=== PATIENT | female | born 1945 | race Caucasian/White ===

== ENCOUNTER 2016-09-04 13:39 | Inpatient (IN) | payer BC, OTHER ==
[~2016-09-04] VITALS: Ht 172.7 cm; Wt 139.0 kg
[~2016-09-04 13:39] MED LIST: ABL/5 PO; ANF50 PO; ASPI1TAB48 PO; ATOR-22 PO; CRG125 PO; FURO80TA63 PO; IBUP-103 PO; LAMO200T38 PO; LXP/20 PO; MULT-506 PO; MYS50 PO; NITR-5 PO; POTA20TA16 PO; PROP80TA2 PO; TOPI200T20 PO
[2016-09-04] MEDS ORDERED: SODIUM CHLORIDE 0.9% 250ML 250 ML IV STA (14:45)
[2016-09-04 15:49] LABS: HEMATOCRIT 33.7 % (37-47); MEAN CELL VOLUME 95.7 fL (80-100); MEAN CORPUSCULAR HEMOGLOBIN 32.1 pg (25-34); MEAN CORPUSCULAR HGB CONC 33.5 g/dl (32-36); MEAN PLATELET VOLUME 9.4 fL (7.4-10.4); PLATELET COUNT 159 K/uL (130-400); RED BLOOD COUNT 3.52 M/uL (4.2-5.4); WHITE BLOOD COUNT 5.57 K/uL (4.8-10.8)
--- NOTE | 2016-09-04 15:53 | DIAGNOSTIC IMAGING REPORT ---
CHEST 2 VIEWS ROUTINE HISTORY: EVALUATE RESPIRATORY DISTRESS.DYSPNEA COMPARISON: Chest 02/13/2016. FINDINGS: The heart remains enlarged. Poststernotomy changes. A few linear densities within the left lung base remain unchanged and likely represents scarring or atelectasis. No pneumothorax. No pleural effusions. Tortuous thoracic aorta, unchanged. Greater than expected lucency at the mediastinum. This raises the possibility of pneumomediastinum. Mild pulmonary vascular congestion without overt edema, unchanged. IMPRESSION: 1. Greater than expected lucency within the mediastinum concerning for pneumomediastinum. Chest CT is recommended for further evaluation. 2. Stable cardiomegaly and mild pulmonary vascular congestion. Electronically signed by: Jeromy Yu M.D. 09/04/2016 3:51 PM Dictated Date/Time: 09/04/2016 3:48 PM
[2016-09-04 16:10] LABS: BUN/CREATININE RATIO 16.9 (10-20); CALCIUM 7.8 mg/dl (8.5-10.1); CREATININE 0.84 mg/dl (0.60-1.20); POTASSIUM 4.2 mmol/L (3.5-5.1)
[2016-09-04 16:11] LABS: BASO % 0.2 %; BASO ABS # 0.01 K/uL (0-0.2); COMPLETE YES; IG% 0.5 %; LYMPH % 20.3 %; LYMPH ABS # 1.13 K/uL (1.2-3.4); MONO % 7.5 %; NEUT % 69.5 %
[2016-09-04 16:17] LABS: ALB/GLOB RATIO 0.8 (0.9-2)
[2016-09-04] MEDS ORDERED: PIPERACILLIN/TAZOBACTAM 4.5 GM/100ML D5W IV STA (16:38)
[2016-09-04 16:47] LABS: URINE APPEARANCE CLOUDY (CLEAR); URINE BILIRUBIN NEG (NEG); URINE COLOR YELLOW; URINE EPITHELIAL CELL AUTO 20-30 /lpf (0-5); URINE NITRITE NEG (NEG); URINE PH 7.5 (4.5-7.5); URINE SPECIFIC GRAVITY 1.012 (1.000-1.030); UROBILINOGEN NEG (NEG)
--- NOTE | 2016-09-04 16:47 | DIAGNOSTIC IMAGING REPORT ---
CT SCAN OF THE CHEST WITHOUT IV CONTRAST CLINICAL HISTORY: Abnormal chest x-ray. Questioned pneumomediastinum. COMPARISON STUDY: Chest x-ray dated 09/04/2016. Chest CT dated 12/25/2014. TECHNIQUE: CT scan of the thorax was performed from the thoracic inlet to the upper abdomen. Images are reviewed in the axial, sagittal, and coronal planes. IV contrast was not administered for this examination as per the referring clinician. The examination is severely degraded by large body habitus, and by streak artifact from the body wall abutting the CT gantry. Examination is also by streak artifact from the patient's arms which could not be elevated above the chest as well as motion artifact. CT DOSE: 1358.95 mGy.cm FINDINGS: Thyroid: Imaged portions of the thyroid gland are normal in size and attenuation. Esophagus: The esophagus is distended and filled with debris to the level of the thoracic inlet. Thoracic aorta: There is mild atherosclerotic calcification of the thoracic aorta, which is normal in caliber and demonstrates standard 3-vessel arch anatomy. Heart: The heart is enlarged and without pericardial effusion. There is diminished attenuation of the cardiac blood pool as compared to the myocardium suggesting anemia. The main pulmonary arteries are dilated suggesting pulmonary artery hypertension. Lungs and pleural spaces: Scarring versus atelectasis is present at both lung bases. There is no airspace consolidation to suggest pneumonia and no pleural effusion is identified. The trachea and central airways Are clear. Mediastinum: There is no mediastinal lymphadenopathy. There is no pneumomediastinum is clinically queried. Eleni: Not well assessed without IV contrast. Axillae: There is no axillary lymphadenopathy. Upper abdomen: There is a moderate hiatal hernia. The liver is enlarged and steatotic. The spleen is enlarged, measuring 13.5 cm in length. Numerous calcified gallstones are identified. Skeletal structures: The skeletal structures are osteopenic. Spondylotic change is noted throughout the thoracic spine. Arthritic change is also seen in the shoulders. No lytic or blastic bony lesions are seen. Soft tissues: There is a 2.0 cm dermal lesion located in the inferior right breast is seen image #231. IMPRESSION: 1. Significantly motion and streak artifact degraded examination as above. 2. The esophagus is distended and filled with debris to the level of the thoracic inlet. This corresponds to the abnormality seen by x-ray. Note that this may place the patient risk for aspiration. 3. No pneumomediastinum is identified. 4. Cardiomegaly with evidence of pulmonary artery hypertension. 5. There is no airspace consolidation typical for pneumonia or pleural effusion. Bibasilar scarring and atelectasis are noted. 6. A 2.0 cm dermal lesion is located in the inferior right breast. This likely represents a sebaceous cyst. Correlation with physical examination findings is recommended. Nonemergent follow-up with mammography is recommended if not recently performed. 7. Hepatic steatosis, cholelithiasis, and splenomegaly are identified in the upper abdomen. 8. Additional findings as above. Electronically signed by: Eduardo Liao M.D. 09/04/2016 4:45 PM Dictated Date/Time: 09/04/2016 4:37 PM
[2016-09-04 16:54] LABS: REVIEW REQ? YES
[2016-09-04 16:55] LABS: MANUAL MICROSCOPIC REQUIRED? NO
[2016-09-04] MEDS ORDERED: VANCOMYCIN INJ 2,000 MG in SODIUM CHLORIDE 0.9% 500ML 500 ML IV STA (17:19)
[2016-09-04] MEDS ORDERED: ONDANSETRON INJ 2 MG/ML 2 ML VIAL IV PRN (17:30)
--- NOTE | 2016-09-04 18:20 | EMERGENCY ROOM VISIT NOTE ---
History Report prepared by Lili: Megan Garcia Under the Supervision of: Dr. Juan Carlos Do D.O. First contact with patient: 14:27 Chief Complaint: CHOKING Stated Complaint: CHOKING Nursing Triage Summary: Had choking episode at home. Five mintues after lunch patient had choking with lips turning blue. called EMS. Upon EMS arrival patient was awake and alert. Patient transported BLS. History of Present Illness The patient is a 71 year old female who presents to the Emergency Room with complaints of persistent SOB starting at 1300 today. When the patient eats pasta , she sometimes experiences some SOB. Usually she can resolve this SOB by vomiting, but today she was unable to vomit. After she ate the pasta she started to get abdominal pain. She tried to vomit, but was unable to. She began wheezing and her lips began to turn blue. The pasta did not get stuck in her throat. She did not pass out. Her called EMS and she was put on oxygen. Patient denies any chest pain. Source of History: patient Onset: 1300 Position: other (global) Quality: other (SOB) Timing: other (persistent) Associated Symptoms: No vomiting Review of Systems 10 review of systems was reviewed. Past Medical & Surgical Medical Problems: (1) Depression (2) Diabetes (3) Hypertension (4) Hypoxia (5) LUMBAR DISC DISPLACEMENT (6) Obstruction of esophagus due to food impaction (7) OCD (obsessive compulsive disorder) (8) Pulmonary emboli (9) Respiratory failure (10) Tremor Surgical Problems: (1) History of embolectomy Family History No pertinent family history Social History Smoking Status: Never Smoker Alcohol Use: none Drug Use: none Marital Status: Housing Status: lives with significant other Current/Historical Medications Scheduled Aripiprazole (Abilify), 5 MG PO QAM Aspirin (Aspirin Low Dose), 81 MG PO DAILY Atorvastatin (Lipitor), 1 TAB PO HS Carvedilol (Carvedilol), 12.5 MG PO BID Clomipramine Hcl (Anafranil), 200 MG PO QPM Escitalopram Oxalate (Escitalopram Oxalate), 20 MG PO DAILY Furosemide (Lasix), 1 TAB PO BID Lamotrigine (Lamictal), 200 MG PO BID Multivitamin (Multivitamin), 1 TAB PO DAILY Potassium Ext Rel (Klor-Con), 20 MEQ PO BID Primidone (Primidone), 50 MG PO BID Propranolol (Inderal), 160 MG PO DAILY Topiramate (Topamax), 200 MG PO BID Scheduled PRN Ibuprofen Tab (Advil), 200-600 MG PO Q4H PRN for Pain Allergies Coded Allergies: No Known Allergies (Unverified , 09/04/16) Physical Exam Vital Signs Date Time Temp Pulse Resp B/P Pulse Ox O2 Delivery O2 Flow Rate FiO2 09/04/16 17:29 70 16 123/76 95 Nasal Cannula 3.0 09/04/16 15:05 66 14 127/70 97 Nasal Cannula 2.0 09/04/16 15:04 94 Nasal Cannula 2.0 09/04/16 15:04 94 Nasal Cannula 2.0 09/04/16 13:57 88 Nasal Cannula 2.0 94 09/04/16 13:57 37.6 71 26 162/85 95 Nasal Cannula 2.0 Physical Exam GENERAL: Chronically ill appearing, morbidly obese, on nasal cannula. EYE EXAM: normal conjunctiva, PERRL and EOM's grossly intact OROPHARYNX: no exudate, no erythema, lips, buccal mucosa, and tongue normal and mucous membranes are moist NECK: supple, no nuchal rigidity, no adenopathy, non-tender LUNGS: Diminished at bases. Normal chest wall mechanics HEART: no murmurs, S1 normal and S2 normal ABDOMEN: abdomen soft, non-tender, normo-active bowel sounds, no masses, no rebound or guarding. BACK: Back is symmetrical on inspection and there is no deformity, no midline tenderness, no CVA tenderness. SKIN: no rashes and no bruising UPPER EXTREMITIES: upper extremities are grossly normal. LOWER EXTREMITIES: No pitting edema. NEURO EXAM: Normal sensorium, cranial nerves II-XII grossly intact, normal speech, no gross weakness of arms, no gross weakness of legs. Medical Decision & Procedures ER Provider Diagnostic Interpretation: Xray results as stated below per radiologists and my interpretation. Radiology results as stated below per my review and the radiologist's interpretation: CHEST 2 VIEWS ROUTINE HISTORY: EVALUATE RESPIRATORY DISTRESS.DYSPNEA COMPARISON: Chest 02/13/2016. FINDINGS: The heart remains enlarged. Poststernotomy changes. A few linear densities within the left lung base remain unchanged and likely represents scarring or atelectasis. No pneumothorax. No pleural effusions. Tortuous thoracic aorta, unchanged. Greater than expected lucency at the mediastinum. This raises the possibility of pneumomediastinum. Mild pulmonary vascular congestion without overt edema, unchanged. IMPRESSION: 1. Greater than expected lucency within the mediastinum concerning for pneumomediastinum. Chest CT is recommended for further evaluation. 2. Stable cardiomegaly and mild pulmonary vascular congestion. Electronically signed by: Jeromy Yu M.D. 09/04/2016 3:51 PM Dictated Date/Time: 09/04/2016 3:[address] SCAN OF THE CHEST WITHOUT IV CONTRAST CLINICAL HISTORY: Abnormal chest x-ray. Questioned pneumomediastinum. COMPARISON STUDY: Chest x-ray dated 09/04/2016. Chest CT dated 12/25/2014. TECHNIQUE: CT scan of the thorax was performed from the thoracic inlet to the upper abdomen. Images are reviewed in the axial, sagittal, and coronal planes. IV contrast was not administered for this examination as per the referring clinician. The examination is severely degraded by large body habitus, and by streak artifact from the body wall abutting the CT gantry. Examination is also by streak artifact from the patient's arms which could not be elevated above the chest as well as motion artifact. CT DOSE: 1358.95 mGy.cm FINDINGS: Thyroid: Imaged portions of the thyroid gland are normal in size and attenuation. Esophagus: The esophagus is distended and filled with debris to the level of the thoracic inlet. Thoracic aorta: There is mild atherosclerotic calcification of the thoracic aorta, which is normal in caliber and demonstrates standard 3-vessel arch anatomy. Heart: The heart is enlarged and without pericardial effusion. There is diminished attenuation of the cardiac blood pool as compared to the myocardium suggesting anemia. The main pulmonary arteries are dilated suggesting pulmonary artery hypertension. Lungs and pleural spaces: Scarring versus atelectasis is present at both lung bases. There is no airspace consolidation to suggest pneumonia and no pleural effusion is identified. The trachea and central airways Are clear. Mediastinum: There is no mediastinal lymphadenopathy. There is no pneumomediastinum is clinically queried. Eleni: Not well assessed without IV contrast. Axillae: There is no axillary lymphadenopathy. Upper abdomen: There is a moderate hiatal hernia. The liver is enlarged and steatotic. The spleen is enlarged, measuring 13.5 cm in length. Numerous calcified gallstones are identified. Skeletal structures: The skeletal structures are osteopenic. Spondylotic change is noted throughout the thoracic spine. Arthritic change is also seen in the shoulders. No lytic or blastic bony lesions are seen. Soft tissues: There is a 2.0 cm dermal lesion located in the inferior right breast is seen image #231. IMPRESSION: 1. Significantly motion and streak artifact degraded examination as above. 2. The esophagus is distended and filled with debris to the level of the thoracic inlet. This corresponds to the abnormality seen by x-ray. Note that this may place the patient risk for aspiration. 3. No pneumomediastinum is identified. 4. Cardiomegaly with evidence of pulmonary artery hypertension. 5. There is no airspace consolidation typical for pneumonia or pleural effusion. Bibasilar scarring and atelectasis are noted. 6. A 2.0 cm dermal lesion is located in the inferior right breast. This likely represents a sebaceous cyst. Correlation with physical examination findings is recommended. Nonemergent follow-up with mammography is recommended if not recently performed. 7. Hepatic steatosis, cholelithiasis, and splenomegaly are identified in the upper abdomen. 8. Additional findings as above. Electronically signed by: Eduardo Liao M.D. 09/04/2016 4:45 PM Dictated Date/Time: 09/04/2016 4:37 PM Laboratory Results 09/04/16 15:15 Red Blood Count 3.52, Mean Corpuscular Volume 95.7, Mean Corpuscular Hemoglobin 32.1, Mean Corpuscular Hemoglobin Concent 33.5, Mean Platelet Volume 9.4, Neutrophils (%) (Auto) 69.5, Lymphocytes (%) (Auto) 20.3, Monocytes (%) (Auto) 7.5, Eosinophils (%) (Auto) 2.0, Basophils (%) (Auto) 0.2, Neutrophils # (Auto) 3.87, Lymphocytes # (Auto) 1.13, Monocytes # (Auto) 0.42, Eosinophils # (Auto) 0.11, Basophils # (Auto) 0.01 09/04/16 15:15 Test 09/04/16 15:15 09/04/16 16:20 White Blood Count 5.57 K/uL (4.8-10.8) Red Blood Count 3.52 M/uL (4.2-5.4) Hemoglobin 11.3 g/dL (12.0-16.0) Hematocrit 33.7 % (37-47) Mean Corpuscular Volume 95.7 fL (80-100) Mean Corpuscular Hemoglobin 32.1 pg (25-34) Mean Corpuscular Hemoglobin Concent 33.5 g/dl (32-36) Platelet Count 159 K/uL (130-400) Mean Platelet Volume 9.4 fL (7.4-10.4) Neutrophils (%) (Auto) 69.5 % Lymphocytes (%) (Auto) 20.3 % Monocytes (%) (Auto) 7.5 % Eosinophils (%) (Auto) 2.0 % Basophils (%) (Auto) 0.2 % Neutrophils # (Auto) 3.87 K/uL (1.4-6.5) Lymphocytes # (Auto) 1.13 K/uL (1.2-3.4) Monocytes # (Auto) 0.42 K/uL (0.11-0.59) Eosinophils # (Auto) 0.11 K/uL (0-0.5) Basophils # (Auto) 0.01 K/uL (0-0.2) RDW Standard Deviation 51.7 fL (36.4-46.3) RDW Coefficient of Variation 14.8 % (11.5-14.5) Immature Granulocyte % (Auto) 0.5 % Immature Granulocyte # (Auto) 0.03 K/uL (0.00-0.02) Activated Partial Thromboplast Time 26.8 SECONDS (21.0-31.0) Partial Thromboplastin Ratio 1.0 Anion Gap 6.0 mmol/L (3-11) Est Creatinine Clear Calc Drug Dose 93.7 ml/min Estimated GFR () 80.5 Estimated GFR (Non- 69.4 BUN/Creatinine Ratio 16.9 (10-20) Calcium Level 7.8 mg/dl (8.5-10.1) Total Bilirubin 0.2 mg/dl (0.2-1) Aspartate Amino Transf (AST/SGOT) 16 U/L (15-37) Alanine Aminotransferase (ALT/SGPT) 26 U/L (12-78) Alkaline Phosphatase 100 U/L (45-117) Troponin I 0.058 ng/ml (0-0.045) Total Protein 6.7 gm/dl (6.4-8.2) Albumin 3.0 gm/dl (3.4-5.0) Globulin 3.7 gm/dl (2.5-4.0) Albumin/Globulin Ratio 0.8 (0.9-2) Urine Color YELLOW Urine Appearance CLOUDY (CLEAR) Urine pH 7.5 (4.5-7.5) Urine Specific [place] 1.012 (1.000-1.030) Urine Protein NEG (NEG) Urine Glucose (UA) NEG (NEG) Urine Ketones NEG (NEG) Urine Occult Blood NEG (NEG) Urine Nitrite NEG (NEG) Urine Bilirubin NEG (NEG) Urine Urobilinogen NEG (NEG) Urine Leukocyte Esterase NEG (NEG) Urine WBC (Auto) 1-5 /hpf (0-5) Urine RBC (Auto) 0-4 /hpf (0-4) Urine Hyaline Casts (Auto) 0 /lpf (0-5) Urine Epithelial Cells (Auto) 20-30 /lpf (0-5) Urine Bacteria (Auto) NEG (NEG) Urine Crystals TALC (NONE PRSENT) Laboratory results per my review. Medications Administered Medications (Trade) Dose Ordered Sig/Josee Route Start Time Stop Time Status Last Admin Dose Admin Sodium Chloride (Nss 250ml) 250 ml @ 999 mls/hr Q16M STAT IV 09/04/16 14:45 09/04/16 15:00 DC 09/04/16 15:18 999 MLS/HR Piperacillin Sod/ Tazobactam Sod (Zosyn Iv) 4.5 gm NOW STAT IV 09/04/16 16:38 09/04/16 16:40 DC 09/04/16 17:32 4.5 GM ECG Indication: SOB/dyspnea Rate (beats per minute): 66 Rhythm: atrial fibrillation Findings: nonspecific-ST abn (Septal), other (normal axis) Comparison ECG Date: 13-Feb-2016 Change: A fib is new. ED Course ED COURSE: Vital signs were reviewed and showed hypertension and hypoxia. The patients medical record was reviewed The above diagnostic studies were performed and reviewed. ED treatments and interventions as stated above. 1434: The patient was evaluated in room A6. A complete history and physical examination was performed. 1445: NSS 250 ml @ 999 mls/hr IV. 1638: Zosyn Iv 4.5 gm IV. 1650: I discussed the patient's case with Dr. Fernandes [facility] [place] - hospitalist. He will evaluate the patient for further management. 1655: Upon reevaluation, the patient is resting comfortably.I discussed my findings with the patient and she understands and agrees with the treatment plan. Based on the patients age, coexisting illnesses, exam and lab findings the decision to treat as an inpatient was made. The patient remained stable while under my care. The patient will be evaluated for further management. 1718: I discussed the patient's case with Gt Gan. He says that the patient should keep her head elevated and let her pass it on her own. Medical Decision Differential diagnoses includes but is not limited to pneumonia, bronchitis, COPD/Asthma exacerbation, pneumothorax, pulmonary embolism, congestive heart failure, acute coronary syndrome Patient is a 71-year-old female who presents the ER following eating when she had nausea and felt short of breath. At this time she tried to vomit and her lips turned blue per . She notes this has happened before. CBC was unremarkable. BMP was unremarkable the troponin was elevated at 0.05. EKG was nondiagnostic. Bilirubin and LFTs were normal. UA was negative. Chest x-ray showed questionable pneumomediastinum and consequently a CT of the chest was performed which showed dilated and fluid-filled esophagus. It also suggests that she is likely aspirating. Vitals are remarkable for hypoxia. Patient was given Zosyn and vancomycin. I favor the elevated troponin is likely demand related. I discussed case with GI and they recommended allowing her to pass the food on her own with head of bed elevated. Discussed case with internal medicine patient was admitted for further workup for her esophageal dysmotility causing her aspiration and hypoxia. Consults Time Called: 164 Consulting Physician: Dr. Fernandes [facility] [place] - hospitalist Returned Call: 1650 I reviewed the patient's case with him. He will evaluate the patient for further management. Additional Consults: Time Called: 1710 Consulted Physician: Gt Gan Returned Call: [phone] Additional Comments: I reviewed the patient's case with him. He says that the patient should keep her head elevated and let her pass it on her own. Impression Primary Impression: Aspiration of food Additional Impressions: Esophageal foreign body Elevated troponin Scribe Attestation The scribe's documentation has been prepared under my direction and personally reviewed by me in its entirety. I confirm that the note above accurately reflects all work, treatment, procedures, and medical decision making performed by me. Departure Information Dispostion Being Evaluated By Hospitalist Referrals Matilde Falcon DO (PCP) Patient Instructions My [facility] Problem Qualifiers Primary Impression: Aspiration of food Encounter type: initial encounter Qualified Codes: T17.890A - Other foreign object in other parts of respiratory tract causing asphyxiation, initial encounter Additional Impressions: Esophageal foreign body Encounter type: initial encounter Qualified Codes: T18.108A - Unspecified foreign body in esophagus causing other injury, initial encounter
[2016-09-04 19:15] VITALS: BP 149/80; PULSE 85; TEMP 36.5; O2SAT 93; Ht 172.7 cm; Wt 139.0 kg
[2016-09-04] MEDS ORDERED: PIPERACILL/TAZOBAC CONSULT ACTIVE PRN (19:45)
[2016-09-04] MEDS ORDERED: VANCOMYCIN CONSULT ACTIVE PRN (19:45)
[2016-09-04 19:59] VITALS: BP 129/76; PULSE 109; TEMP 39.2; O2SAT 96
--- NOTE | 2016-09-04 20:49 | History and Physical ---
History & Physical Date & Time of Service: Sep 04, 2016 at 20:49 Chief Complaint: Hypoxia, Obstruction Of Esophagus Due To Food Primary Care Physician: Matilde Falcon DO History of Present Illness Source: patient, spouse The patient is a 71-year-old female who presents to the emergency department with shortness of breath that began at 1:00 in the afternoon to today prior to arrival. She reports that eating pasta in particular can cause these symptoms, she is usually able to improve the symptoms by vomiting, but which she was unable to vomit today. She then began to wheeze and her lips turned blue, but she did not pass out. Her called EMS, who placed her on oxygen, and brought her to the emergency department Past Medical/Surgical History Medical Problems: (1) Depression Status: Chronic (2) Diabetes Status: Chronic (3) Hypertension Status: Chronic (4) LUMBAR DISC DISPLACEMENT Status: Chronic (5) OCD (obsessive compulsive disorder) Status: Chronic (6) Pulmonary emboli Status: Resolved (7) Tremor Status: Chronic Surgical Problems: (1) History of embolectomy Status: Resolved Family History No pertinent family history Social History Smoking Status: Never Smoker Smokeless Tobacco Use: No Alcohol Use: none Drug Use: none Marital Status: Housing status: lives with family Immunizations History of Influenza Vaccine: No History of Tetanus Vaccine?: Yes History of Pneumococcal: No History of Hepatitis B Vaccine: No Multi-Drug Resistant Organisms History of MDRO: Yes Type of MDRO: MRSA Allergies Coded Allergies: No Known Allergies (Unverified , 09/04/16) Home Medications Scheduled Aripiprazole (Abilify), 5 MG PO QAM Aspirin (Aspirin Low Dose), 81 MG PO DAILY Atorvastatin (Lipitor), 1 TAB PO HS Carvedilol (Carvedilol), 12.5 MG PO BID Clomipramine Hcl (Anafranil), 200 MG PO QPM Escitalopram Oxalate (Escitalopram Oxalate), 20 MG PO DAILY Furosemide (Lasix), 1 TAB PO BID Lamotrigine (Lamictal), 200 MG PO BID Multivitamin (Multivitamin), 1 TAB PO DAILY Potassium Ext Rel (Klor-Con), 20 MEQ PO BID Primidone (Primidone), 50 MG PO BID Propranolol (Inderal), 160 MG PO DAILY Topiramate (Topamax), 200 MG PO BID Scheduled PRN Ibuprofen Tab (Advil), 200-600 MG PO Q4H PRN for Pain Review of Systems The patient denies chest pain, palpitations, lower extremity swelling, vision change, hearing change, fevers, chills, sweats, weight change, fatigue, vomiting, pelvic pain, blood in urine or stool, dysuria, urinary frequency or urgency, headache, memory loss, rash, abnormal bruising or bleeding, imbalance , focal or generalized weakness, numbness or tingling in arms or legs, arthralgias or myalgias, back or neck pain, night sweats, or allergy symptoms. The review of systems is otherwise negative other than for that already noted above, and at least 10 systems have been reviewed. Physical Exam Vital Signs Date Time Temp Pulse Resp B/P Pulse Ox O2 Delivery O2 Flow Rate FiO2 09/04/16 19:59 39.2 109 129/76 96 Room Air 09/04/16 18:29 103 27 141/68 94 Nasal Cannula 3.0 09/04/16 17:29 70 16 123/76 95 Nasal Cannula 3.0 09/04/16 15:05 66 14 127/70 97 Nasal Cannula 2.0 09/04/16 15:04 94 Nasal Cannula 2.0 09/04/16 15:04 94 Nasal Cannula 2.0 09/04/16 13:57 88 Nasal Cannula 2.0 94 09/04/16 13:57 37.6 71 26 162/85 95 Nasal Cannula 2.0 The patient is awake, alert and oriented 3, normocephalic and atraumatic, lying in bed and in no acute distress. HEENT--PERRL, EOMI, mucous membranes and oropharynx dry. Neck--supple, no JVD or bruits, thyroid normal, trachea midline, no adenopathy. Heart--normal S1 and S2, no extra beats, no murmurs, rubs or gallops. Lungs--diminished throughout. No respiratory distress, no accessory muscle use. Abdomen--normal bowel sounds and soft, nontender and nondistended, no hernias or masses, no organomegaly. Extremities--no cyanosis, clubbing or edema. There are good distal pulses b/l. Dermatologic--normal skin turgor, normal color, warm and dry, no abnormal lymph nodes, no rash. Neurologic--cranial nerves II through XII grossly intact, motor and sensory examination normal. Rheumatologic--normal range of motion, nontender, muscles and joints. Psychiatric--normal affect. Diagnostics Laboratory Results Results Past 24 Hours Test 09/04/16 15:15 09/04/16 16:20 Range/Units White Blood Count 5.57 4.8-10.8 K/uL Red Blood Count 3.52 4.2-5.4 M/uL Hemoglobin 11.3 12.0-16.0 g/dL Hematocrit 33.7 37-47 % Mean Corpuscular Volume 95.7 80-100 fL Mean Corpuscular Hemoglobin 32.1 25-34 pg Mean Corpuscular Hemoglobin Concent 33.5 32-36 g/dl Platelet Count 159 130-400 K/uL Mean Platelet Volume 9.4 7.4-10.4 fL Neutrophils (%) (Auto) 69.5 % Lymphocytes (%) (Auto) 20.3 % Monocytes (%) (Auto) 7.5 % Eosinophils (%) (Auto) 2.0 % Basophils (%) (Auto) 0.2 % Neutrophils # (Auto) 3.87 1.4-6.5 K/uL Lymphocytes # (Auto) 1.13 1.2-3.4 K/uL Monocytes # (Auto) 0.42 0.11-0.59 K/uL Eosinophils # (Auto) 0.11 0-0.5 K/uL Basophils # (Auto) 0.01 0-0.2 K/uL RDW Standard Deviation 51.7 36.4-46.3 fL RDW Coefficient of Variation 14.8 11.5-14.5 % Immature Granulocyte % (Auto) 0.5 % Immature Granulocyte # (Auto) 0.03 0.00-0.02 K/uL Activated Partial Thromboplast Time 26.8 21.0-31.0 SECONDS Partial Thromboplastin Ratio 1.0 Sodium Level 144 136-145 mmol/L Potassium Level 4.2 3.5-5.1 mmol/L Chloride Level 110 98-107 mmol/L Carbon Dioxide Level 28 21-32 mmol/L Anion Gap 6.0 3-11 mmol/L Blood Urea Nitrogen 14 7-18 mg/dl Creatinine 0.84 0.60-1.20 mg/dl Est Creatinine Clear Calc Drug Dose 93.7 ml/min Estimated GFR () 80.5 Estimated GFR (Non- 69.4 BUN/Creatinine Ratio 16.9 10-20 Random Glucose 126 70-99 mg/dl Calcium Level 7.8 8.5-10.1 mg/dl Total Bilirubin 0.2 0.2-1 mg/dl Aspartate Amino Transf (AST/SGOT) 16 15-37 U/L Alanine Aminotransferase (ALT/SGPT) 26 12-78 U/L Alkaline Phosphatase 100 45-117 U/L Troponin I 0.058 0-0.045 ng/ml Total Protein 6.7 6.4-8.2 gm/dl Albumin 3.0 3.4-5.0 gm/dl Globulin 3.7 2.5-4.0 gm/dl Albumin/Globulin Ratio 0.8 0.9-2 Urine Color YELLOW Urine Appearance CLOUDY CLEAR Urine pH 7.5 4.5-7.5 Urine Specific Blair 1.012 1.000-1.030 Urine Protein NEG NEG Urine Glucose (UA) NEG NEG Urine Ketones NEG NEG Urine Occult Blood NEG NEG Urine Nitrite NEG NEG Urine Bilirubin NEG NEG Urine Urobilinogen NEG NEG Urine Leukocyte Esterase NEG NEG Urine WBC (Auto) 1-5 0-5 /hpf Urine RBC (Auto) 0-4 0-4 /hpf Urine Hyaline Casts (Auto) 0 0-5 /lpf Urine Epithelial Cells (Auto) 20-30 0-5 /lpf Urine Bacteria (Auto) NEG NEG Urine Crystals TALC NONE PRSENT Diagnostic Radiology Patient Name: HEMA ABRAMS Unit Number: [id number] Dictated: 09/04/161547 Transcribed: 09/04/161547 [employer] Printed Date/Time: [~ rep prt dt]/[~ rep prt tm] [~ rep ct labl] - [~ rep ct ivnm] [facility] [place] [address] Dictated: 09/04/161547 Transcribed: 09/04/161547 [employer] Printed Date/Time: [~ rep prt dt]/[~ rep prt tm] [~ rep ct labl] - [~ rep ct ivnm] HISTORY: EVALUATE RESPIRATORY DISTRESS.DYSPNEA COMPARISON: Chest 02/13/2016. FINDINGS: The heart remains enlarged. Poststernotomy changes. A few linear densities within the left lung base remain unchanged and likely represents scarring or atelectasis. No pneumothorax. No pleural effusions. Tortuous thoracic aorta, unchanged. Greater than expected lucency at the mediastinum. This raises the possibility of pneumomediastinum. Mild pulmonary vascular congestion without overt edema, unchanged. IMPRESSION: 1. Greater than expected lucency within the mediastinum concerning for pneumomediastinum. Chest CT is recommended for further evaluation. 2. Stable cardiomegaly and mild pulmonary vascular congestion. Electronically signed by: Jeromy Yu M.D. 09/04/2016 3:51 PM Dictated Date/Time: 09/04/2016 3:48 PM The status of this report is Signed. Draft = Not yet reviewed or approved by Radiologist. Signed = Reviewed and approved by Radiologist. <AttendingPhy></AttendingPhy> <FamilyPhy>Matilde Falcon, DO</FamilyPhy> < PrimaryPhy>Matilde Falcon, DO</PrimaryPhy> <UnitNumber>[id number]</UnitNumber > <VisitNumber>[id number]</VisitNumber> <PatientName>JOSE ALBERTOHEMA</ PatientName> <DateOfBirth>1945</DateOfBirth> <Location>[facility]</Location> < ServiceDate>09/04/16</ServiceDate> <MNE>ESINDI</MNE> <OrderingPhy>Juan Carlos Do DO</OrderingPhy> <OrderingPhyMNE>f rep ord dr mcclain</OrderingPhyMNE> < DictatingPhyMNE>f rep dict dr mcclain</DictatingPhyMNE> <CCListMNE>f rep ct faheeme</ CCListMNE> <AdmittingPhyMNE>f pt admit dr mcclain</AdmittingPhyMNE> <AttendingPhyMNE >f pt attend dr mcclain</AttendingPhyMNE> <ConsultingPhyMNE>f pt consult dr mcclain</ConsultingPhyMNE> <FamilyPhyMNE>f pt fam dr mcclain</FamilyPhyMNE> <OtherPhyMNE>f pt other dr mcclain</OtherPhyMNE> < PrimaryPhyMNE>f pt prim care dr mcclain</PrimaryPhyMNE> <ReferringPhyMNE>f pt referring dr mcclain</ReferringPhyMNE> Patient Name: HEMA ABRAMS Unit Number: [id number] Dictated: 09/04/161636 Transcribed: 09/04/161636 EV Printed Date/Time: [~ rep prt dt]/[~ rep prt tm] [~ rep ct labl] - [~ rep ct ivnm] [facility] [place] [address] Dictated: 09/04/161636 Transcribed: 09/04/161636 EV Printed Date/Time: [~ rep prt dt]/[~ rep prt tm] [~ rep ct labl] - [~ rep ct ivnm] CT SCAN OF THE CHEST WITHOUT IV CONTRAST CLINICAL HISTORY: Abnormal chest x-ray. Questioned pneumomediastinum. COMPARISON STUDY: Chest x-ray dated 09/04/2016. Chest CT dated 12/25/2014. TECHNIQUE: CT scan of the thorax was performed from the thoracic inlet to the upper abdomen. Images are reviewed in the axial, sagittal, and coronal planes. IV contrast was not administered for this examination as per the referring clinician. The examination is severely degraded by large body habitus, and by streak artifact from the body wall abutting the CT gantry. Examination is also by streak artifact from the patient's arms which could not be elevated above the chest as well as motion artifact. CT DOSE: 1358.95 mGy.cm FINDINGS: Thyroid: Imaged portions of the thyroid gland are normal in size and attenuation. Esophagus: The esophagus is distended and filled with debris to the level of the thoracic inlet. Thoracic aorta: There is mild atherosclerotic calcification of the thoracic aorta, which is normal in caliber and demonstrates standard 3-vessel arch anatomy. Heart: The heart is enlarged and without pericardial effusion. There is diminished attenuation of the cardiac blood pool as compared to the myocardium suggesting anemia. The main pulmonary arteries are dilated suggesting pulmonary artery hypertension. Lungs and pleural spaces: Scarring versus atelectasis is present at both lung bases. There is no airspace consolidation to suggest pneumonia and no pleural effusion is identified. The trachea and central airways Are clear. Mediastinum: There is no mediastinal lymphadenopathy. There is no pneumomediastinum is clinically queried. Eleni: Not well assessed without IV contrast. Axillae: There is no axillary lymphadenopathy. Upper abdomen: There is a moderate hiatal hernia. The liver is enlarged and steatotic. The spleen is enlarged, measuring 13.5 cm in length. Numerous calcified gallstones are identified. Skeletal structures: The skeletal structures are osteopenic. Spondylotic change is noted throughout the thoracic spine. Arthritic change is also seen in the shoulders. No lytic or blastic bony lesions are seen. Soft tissues: There is a 2.0 cm dermal lesion located in the inferior right breast is seen image #231. IMPRESSION: 1. Significantly motion and streak artifact degraded examination as above. 2. The esophagus is distended and filled with debris to the level of the thoracic inlet. This corresponds to the abnormality seen by x-ray. Note that this may place the patient risk for aspiration. 3. No pneumomediastinum is identified. 4. Cardiomegaly with evidence of pulmonary artery hypertension. 5. There is no airspace consolidation typical for pneumonia or pleural effusion. Bibasilar scarring and atelectasis are noted. 6. A 2.0 cm dermal lesion is located in the inferior right breast. This likely represents a sebaceous cyst. Correlation with physical examination findings is recommended. Nonemergent follow-up with mammography is recommended if not recently performed. 7. Hepatic steatosis, cholelithiasis, and splenomegaly are identified in the upper abdomen. 8. Additional findings as above. Electronically signed by: Eduardo Liao M.D. 09/04/2016 4:45 PM Dictated Date/Time: 09/04/2016 4:37 PM The status of this report is Signed. Draft = Not yet reviewed or approved by Radiologist. Signed = Reviewed and approved by Radiologist. <AttendingPhy></AttendingPhy> <FamilyPhy>Matilde Falcon, DO</FamilyPhy> < PrimaryPhy>Matilde Falcon, DO</PrimaryPhy> <UnitNumber>[id number]</UnitNumber > <VisitNumber>[id number]</VisitNumber> <PatientName>HEMA ABRAMS</ PatientName> <DateOfBirth>1945</DateOfBirth> <Location>[facility]</Location> < ServiceDate>09/04/16</ServiceDate> <MNE>ESINDI</MNE> <OrderingPhy>Juan Carlos Do DO</OrderingPhy> <OrderingPhyMNE>f rep ord dr mcclain</OrderingPhyMNE> < DictatingPhyMNE>f rep dict dr mcclain</DictatingPhyMNE> <CCListMNE>f rep ct mne</ CCListMNE> <AdmittingPhyMNE>f pt admit dr mcclain</AdmittingPhyMNE> <AttendingPhyMNE >f pt attend dr mcclain</AttendingPhyMNE> <ConsultingPhyMNE>f pt consult dr mccalin</ConsultingPhyMNE> <FamilyPhyMNE>f pt fam dr mcclain</FamilyPhyMNE> <OtherPhyMNE>f pt other dr mcclain</OtherPhyMNE> < PrimaryPhyMNE>f pt prim care dr mcclain</PrimaryPhyMNE> <ReferringPhyMNE>f pt referring dr mcclain</ReferringPhyMNE> EKG EKG shows atrial fibrillation at 66 bpm, nonspecific ST-T changes. These findings replaced atrial flutter in the past. Impression Assessment and Plan Esophageal obstruction secondary to food impaction with risk of aspiration pneumonia--the patient will be admitted to telemetry unit for close oxygen monitoring. Dr. Peres from gastroenterology has been consulted by the emergency department, and has reported that he was see the patient in the a.m. for possible EGD. Patient will be kept nothing by mouth and placed on IV fluids. She'll be started on vancomycin IV and Zosyn IV for the high potential of aspiration pneumonia, as she does have temperature 37.[address] on Protonix 40 mg IV daily and Zofran 4 mg IV every 6 hours when necessary. Atrial fibrillation/Elevated troponin--she'll be admitted to the telemetry unit for serial cardiac enzymes, cardiac rhythm monitoring and a 2-D echocardiogram with Dopplers. Hold aspirin, carvedilol, furosemide, potassium and propranolol. The patient's blood pressure and heart rate are both low at this time, and will not be placed on any when necessary medications. We'll follow serial troponins, the elevation is likely a function of supply demand mismatch. Hypercholesterolemia--hold atorvastatin. Depression--hold Abilify, clomipramine, Lexapro, lamotrigine, primidone and Topamax. If necessary, would add lorazepam 0.5 mg IV every 6 hours when necessary. Level of Care Telemetry Advanced Directives Existing Advance Directive: No Existing Living Will: No Existing Power of Tripe Washer: No Resuscitation Status FULL RESUSCITATION VTE Prophylaxis VTE Risk Assessment Done? Y/N: Yes Risk Level: Moderate Given or contraindicated: SCD's
[2016-09-04] MEDS: NSS + 20MEQ KCL 1000ML 1,000 ML IV SCH (21:01)
--- NOTE | 2016-09-04 21:32 | Pharmacy Progress Note ---
Pharmacy Antibiotic Consult Date of Service: Sep 04, 2016. Pharmacy Dosing Scope Pharmacy is consulted to initiate vancomycin and Zosyn IV dosing therapy, order appropriate labs and adjust drug dose/frequency. Subjective The patient is a 71 year old female admitted on Sep 04, 2016 at 17:15 with hypoxia, obstruction of esophagus due to food. Objective Height (Feet): 5 Height (Inches): 8.00 Weight (Kilograms): 147.800 Lab Results (24hrs): Laboratory Tests Test 09/04/16 15:15 BUN/Creatinine Ratio 16.9 Blood Urea Nitrogen 14 mg/dl Creatinine 0.84 mg/dl White Blood Count 5.57 K/uL Red Blood Count 3.52 M/uL Hemoglobin 11.3 g/dL Hematocrit 33.7 % Mean Corpuscular Volume 95.7 fL Mean Corpuscular Hemoglobin 32.1 pg Mean Corpuscular Hemoglobin Concent 33.5 g/dl Platelet Count 159 K/uL Mean Platelet Volume 9.4 fL Neutrophils (%) (Auto) 69.5 % Lymphocytes (%) (Auto) 20.3 % Monocytes (%) (Auto) 7.5 % Eosinophils (%) (Auto) 2.0 % Basophils (%) (Auto) 0.2 % Neutrophils # (Auto) 3.87 K/uL Lymphocytes # (Auto) 1.13 K/uL Monocytes # (Auto) 0.42 K/uL Eosinophils # (Auto) 0.11 K/uL Basophils # (Auto) 0.01 K/uL Assessment & Plan Patient presents to ER with hypoxia, obstruction of esophagus due to food and is ordered vancomycin and Zosyn for possible aspiration. Vancomycin Loading dose: 2000 mg IV X 1 dose in ER (13.4mg/kg) then: 2000mg IV every 12 hours. Maintenance is started early due to lower loading dose than desired: 13mg/kg vs 25mg/kg. Will monitor pt closely as BMI =~50kg/ m2. and concern for accumulation. Goal trough level estimate: between 15 - 20 mcg/mL. Peak and trough or random level has been ordered for: 09/06 prior to 0200 dose. Zosyn is dosed for obesity: 4.5gm x 1 over 30 min, then 4.5gm extended infusion q 8 hours. Pharmacy will continue to follow and will adjust dose/frequency as necessary. Thank you
[2016-09-04] MEDS: PIPERACILL/TAZOBAC IV 4.5 GM in DEXTROSE 5% 100ML 100 ML IV SCH (22:47)
[2016-09-05] VITALS (8 sets, daily range): BP systolic 116–136; BP diastolic 64–79; PULSE 64–81; TEMP 36.5–37.3; O2SAT 93–100
[2016-09-05 01:42] LABS: CKMB/CK RATIO 2.3 (0-3.0)
[2016-09-05] MEDS ORDERED: VANCOMYCIN INJ 2,000 MG in SODIUM CHLORIDE 0.9% 500ML 500 ML IV SCH (02:00)
[2016-09-05] MEDS: NSS + 20MEQ KCL 1000ML 1,000 ML IV SCH ×2 (05:20→15:05)
[2016-09-05] MEDS: PIPERACILL/TAZOBAC IV 4.5 GM in DEXTROSE 5% 100ML 100 ML IV SCH ×3 (05:53→20:53)
[2016-09-05 06:00] LABS: BASO % 0.2 %; BASO ABS # 0.01 K/uL (0-0.2); COMPLETE YES; EOS % 1.9 %; HEMATOCRIT 35.7 % (37-47); IG% 0.2 %; LYMPH % 21.5 %; LYMPH ABS # 1.12 K/uL (1.2-3.4); MEAN CELL VOLUME 98.3 fL (80-100); MEAN CORPUSCULAR HGB CONC 32.5 g/dl (32-36); MEAN PLATELET VOLUME 9.5 fL (7.4-10.4); MONO % 6.7 %; NEUT % 69.5 %; PLATELET COUNT 163 K/uL (130-400); RED BLOOD COUNT 3.63 M/uL (4.2-5.4); WHITE BLOOD COUNT 5.22 K/uL (4.8-10.8)
[2016-09-05 06:22] LABS: CREATININE 0.8 mg/dl (0.60-1.20); MAGNESIUM 2.1 mg/dl (1.8-2.4)
[2016-09-05] MEDS: PANTOprazole INJ 40 MG in SYRINGE 0 ML IV SCH (09:48)
[2016-09-05 10:09] LABS: CKMB/CK RATIO 2.5 (0-3.0)
--- NOTE | 2016-09-05 13:55 | GASTROINTESTINAL CONSULTATION ---
DATE OF CONSULTATION: 09/05/2016 REFERRED BY: Dr. Fernandes. I was asked by Dr. Fernandes to consult on this woman for evaluation of esophageal dysmotility and abnormal findings of her esophagus. HISTORY OF PRESENT ILLNESS: The patient is a 71-year-old with known severe esophageal dysmotility. She has had a most recent upper endoscopy in 2014. She had an upper GI series as well around that time and both showing hiatal hernia and severe esophageal dysmotility. She presents now because of shortness of breath and what appears to be an episode of apnea. She has a long history of lung disease and pulmonary emboli. She has been seen by Dr. Mitchell in the past as well and because of her severe esophageal dysmotility, she is supposed to be following a very strict diet. One of the things she is not supposed to be eating is pasta and spaghetti but she continues to eat these things and has been very noncompliant with her diet. Upon initial workup in the Emergency Room, she underwent imaging which revealed fluid and debris filled esophagus that was massively dilated. Since being admitted, she has been kept n.p.o. and she actually feels that her symptoms are improving and that she feels that her esophagus is slowly clearing. She had a hospitalization for this last year when I saw her and her symptoms resolved on their own with a restricted diet. PAST MEDICAL HISTORY: I reviewed her medical records and past medical history and her past medical history is significant for what is already mentioned as well as depression, diabetes, hypertension. She has OCD, history of pulmonary emboli. SOCIAL HISTORY: Significant for no active smoking or drinking. FAMILY HISTORY: She denies any family history of gastrointestinal disease. ALLERGIES: She denies any drug allergies. OUTPATIENT MEDICATIONS: Include Abilify, aspirin, Lipitor, carvedilol, Anafranil, escitalopram, Lasix, Lamictal, primidone, propranolol, Topamax and vitamins. REVIEW OF SYSTEMS: As above, otherwise she denies any exertional chest pain or palpitations. She has had no vision or hearing changes. She denies any fevers. She denies any skin rashes or icterus. She has had no blood in her stools or urine. She denies any seizure activity, change in mood. She has had no imbalance. She denies any new muscle aches or pains. She denies any dysuria. She denies any heat or cold intolerance. No joint swelling. PHYSICAL EXAMINATION: GENERAL: She is an overweight woman, lying in bed on oxygen. VITAL SIGNS: Her most recent temperature is 36.8, blood pressure is 132/70, pulse is 65. SKIN: Anicteric. EYES: Show anicteric sclerae. MOUTH: Clear of lesions. CHEST: Diffuse scattered rhonchi. HEART: Regular rate and rhythm. ABDOMEN: Obese but nontender with good bowel sounds. There are no obvious masses or rebound tenderness. EXTREMITIES: Warm with fair distal pulses. NEUROLOGIC: She is alert and oriented and grossly intact. LABORATORY DATA: Reveal a white blood cell count of 5.2, hemoglobin of 11.6 and a platelet count of 163,000. Imaging again revealed on chest CT, distended and debris filled esophagus, cardiomegaly with pulmonary artery hypertension. IMPRESSION: A 71-year-old woman at high risk for endoscopy who has a long history of esophageal dysmotility and hiatal hernia. I think at this point the safest thing to do since this fluid and debris filled esophagus seems not to be acute but more chronic, is to try to allow it to pass on its own by keeping her n.p.o., keeping her upright and this already seems to be happening since she already feels better. I think it is reasonable tomorrow to give her a trial of small amount of clear liquids to see how she tolerates this and perhaps repeating another chest x-ray to see how the esophagus looks. It is unclear if there is any component here to achalasia, but at this point with her severely dilated and dysfunctional esophagus and her comorbid disease, I do not think knowing that would change our current therapy. Certainly, she needs to learn how to be compliant with her modified diet. I would like to thank you for this consult. ESTHER
[2016-09-05] MEDS ORDERED: ARTIFICIAL TEARS OP SOLN OP PRN ×2 (15:00)
[2016-09-05] MEDS: METHYLPREDNISOLONE IV 40 MG in SYRINGE 0 ML IV SCH (16:29)
[2016-09-05] MEDS: ALBUT/IPRATROP 3MG/0.5MG NEB 3 ML VIAL INH SCH (19:27)
--- NOTE | 2016-09-05 20:09 | Progress Note ---
Subjective Date of Service: Sep 05, 2016. Subjective Pt evaluation today including: conversation w/ patient, conversation w/ family (), physical exam, chart review, lab review, review of studies (CT chest) , conversation w/ professional housing consultant (GI), review of inpatient medication list Pain: has a mild fullness/tight sensation in upper chest PO Intake: npo Voiding: no voiding problems tele stable overnight denies nausea or emesis denies dyspnea no significant cough no abdominal pain denies any prior h/o asthma, COPD/emphysema Problem List Medical Problems: (1) Aspiration of food Status: Acute (2) Bilateral lower extremity edema Status: Acute (3) Bronchitis Status: Acute (4) CHF (congestive heart failure) Status: Acute (5) Elevated troponin Status: Acute (6) Esophageal foreign body Status: Acute (7) Generalized weakness Status: Acute (8) Hypotension Status: Acute (9) Hypoxia Status: Acute (10) Left flank pain Status: Acute (11) Left sided abdominal pain Status: Acute (12) URI (upper respiratory infection) Status: Acute Review of Systems Constitutional: No chills, No fever Respiratory: No dyspnea at rest Cardiac: + chest pain, + see HPI, No PND Abdomen: No pain Objective Vital Signs Date Time Temp Pulse Resp B/P Pulse Ox O2 Delivery O2 Flow Rate FiO2 09/05/16 19:44 36.8 81 18 122/79 95 Nasal Cannula 2.0 09/05/16 19:27 72 14 97 Nasal Cannula 3.0 09/05/16 15:54 36.5 65 18 119/71 98 Nasal Cannula 3.0 09/05/16 15:03 Nasal Cannula 3.0 09/05/16 12:41 36.8 65 20 132/70 100 Nasal Cannula 3.0 09/05/16 11:24 Nasal Cannula 3.0 09/05/16 08:00 Nasal Cannula 3.0 09/05/16 07:56 36.8 64 20 121/68 100 Nasal Cannula 2.0 09/05/16 04:02 Nasal Cannula 3.0 09/05/16 03:21 36.7 66 20 117/66 95 Nasal Cannula 4.0 09/05/16 00:04 36.6 67 20 116/64 93 Nasal Cannula 4.0 09/05/16 00:02 Nasal Cannula 3.0 Physical Exam General Appearance: no apparent distress, + obese ENT: pharynx normal Neck: + JVD Respiratory/Chest: + decreased breath sounds (bases), + wheezing, + pertinent finding (chest nontender to palpation ) Cardiovascular: regular rate, rhythm, no gallop, no murmur Abdomen: normal bowel sounds, non tender, soft, no organomegaly Extremities: + pedal edema (1+ b/l ) Neurologic/Psychiatric: alert, oriented x 3 Skin: + pertinent finding (venous stasis changes shins) Laboratory Results Last 24 Hours Test 09/05/16 01:12 09/05/16 05:45 09/05/16 08:53 Total Creatine Kinase 69 U/L 68 U/L Creatine Kinase MB 1.6 ng/ml 1.7 ng/ml Creatine Kinase MB Ratio 2.3 2.5 Troponin I 0.052 ng/ml 0.027 ng/ml White Blood Count 5.22 K/uL Red Blood Count 3.63 M/uL Hemoglobin 11.6 g/dL Hematocrit 35.7 % Mean Corpuscular Volume 98.3 fL Mean Corpuscular Hemoglobin 32.0 pg Mean Corpuscular Hemoglobin Concent 32.5 g/dl Platelet Count 163 K/uL Mean Platelet Volume 9.5 fL Neutrophils (%) (Auto) 69.5 % Lymphocytes (%) (Auto) 21.5 % Monocytes (%) (Auto) 6.7 % Eosinophils (%) (Auto) 1.9 % Basophils (%) (Auto) 0.2 % Neutrophils # (Auto) 3.63 K/uL Lymphocytes # (Auto) 1.12 K/uL Monocytes # (Auto) 0.35 K/uL Eosinophils # (Auto) 0.10 K/uL Basophils # (Auto) 0.01 K/uL RDW Standard Deviation 53.6 fL RDW Coefficient of Variation 14.8 % Immature Granulocyte % (Auto) 0.2 % Immature Granulocyte # (Auto) 0.01 K/uL Sodium Level 145 mmol/L Potassium Level 4.0 mmol/L Chloride Level 111 mmol/L Carbon Dioxide Level 29 mmol/L Anion Gap 5.0 mmol/L Blood Urea Nitrogen 11 mg/dl Creatinine 0.80 mg/dl Est Creatinine Clear Calc Drug Dose 98.8 ml/min Estimated GFR () 85.4 Estimated GFR (Non- 73.7 BUN/Creatinine Ratio 14.0 Random Glucose 105 mg/dl Calcium Level 8.0 mg/dl Magnesium Level 2.1 mg/dl Assessment and Plan 71yo female with: 1. acute hypoxic respiratory failure - likely 2nd to aspiration pneumonitis. Will narrow antibiotics to zosyn only. Can likely narrow further to unasyn if stable tomorrow. Continue NC O2. Add duonebs. Add steroids IV. 2. esophageal food impaction - appreciate GI consultation. Plan is for observation and hopefully spontaneous resolution of such. No EGD at this time. Cont IV PPI. Aspiration precautions (head of bed up, etc). Impaction thought to be from achalasia and/or esophageal dysmotility. 3. h/o T2DM - since she will be on steroids will check FSBS q6h and add novolog sliding scale q6h. 4. HTN - BP satisfactory without her home meds. If BPs rise then start IV beta daniel (takes coreg at home). 5. enlarged pulmonary arteries on CT - this suggests pulmonary HTN. Certainly with morbid obesity she is at risk of OHS/GREGG and developing of pulmonary HTN. May explain JVD on exam. 6. morbid obesity with BMI 50 - noted. 7. DVT proph - heparin 5000 TID. 8. FEN - continue NS at 100cc/hr. NPO; maybe clears tomorrow - will defer to GI. BMP in am. 9. OCD / mental health issues - resume home meds when possible. 10. edema - resume lasix when able. Likely chronic lymphedema/venous insufficiency. She does not appear to be in CHF. updated leave on telemetry overnight Continued [facility] stay due to: inadequate po fluid intake, multiple IV medications needed Discharge planning: home
[2016-09-05] MEDS ORDERED: GLUCAGON FOR INJ 1 MG VIAL SQ PRN (20:15)
[2016-09-05] MEDS ORDERED: GLUCOSE 10 TABS/TUBE PO PRN (20:15)
[2016-09-05] MEDS ORDERED: GLUCOSE 40% GEL 15 GM TUBE PO PRN (20:15)
[2016-09-05] MEDS ORDERED: DEXTROSE 50% 50 ML SYR IV PRN (20:15)
[2016-09-05] MEDS: HEPARIN SOD 5000 UNIT/0.5 ML CARP SQ SCH (20:53)
[2016-09-06] VITALS (12 sets, daily range): BP systolic 114–170; BP diastolic 65–81; PULSE 63–75; TEMP 36.7–37.1; O2SAT 93–100
[2016-09-06] MEDS: ALBUT/IPRATROP 3MG/0.5MG NEB 3 ML VIAL INH SCH ×5 (00:03→19:37)
[2016-09-06] MEDS ORDERED: VANCOMYCIN TROUGH SCH (02:00)
[2016-09-06] MEDS: NSS + 20MEQ KCL 1000ML 1,000 ML IV SCH ×2 (02:05→11:55)
[2016-09-06] MEDS: METHYLPREDNISOLONE IV 40 MG in SYRINGE 0 ML IV SCH (02:05)
[2016-09-06] MEDS: INSULIN ASPART 100 UNITS/ML 3 ML PEN SC SCH ×5 (06:00→21:00)
[2016-09-06] MEDS: PIPERACILL/TAZOBAC IV 4.5 GM in DEXTROSE 5% 100ML 100 ML IV SCH ×3 (06:03→21:38)
[2016-09-06] MEDS: HEPARIN SOD 5000 UNIT/0.5 ML CARP SQ SCH ×3 (06:04→21:42)
[2016-09-06 07:33] LABS: BUN/CREATININE RATIO 12.4 (10-20); CALCIUM 7.8 mg/dl (8.5-10.1); CREATININE 0.67 mg/dl (0.60-1.20); POTASSIUM 3.8 mmol/L (3.5-5.1)
[2016-09-06] MEDS ORDERED: KETOROLAC TROMETHAMINE 15 MG/ML VIAL IV. STA (08:16)
[2016-09-06] MEDS: PANTOprazole INJ 40 MG in SYRINGE 0 ML IV SCH (09:03)
[2016-09-06] MEDS ORDERED: FUROSEMIDE INJ 60 MG in SYRINGE 0 ML IV SCH (14:00)
[2016-09-06] MEDS: METOPROLOL TARTRATE 1 MG/ML VIAL IV. SCH ×3 (14:30→23:57)
[2016-09-06] MEDS: METHYLPREDNISOLONE IV 20 MG in SYRINGE 0 ML IV SCH (18:34)
[2016-09-06] MEDS ORDERED: NURSING VERBAL MED ORDER ONE (19:30)
--- NOTE | 2016-09-06 19:40 | Progress Note ---
Subjective Date of Service: Sep 06, 2016. Subjective Pt evaluation today including: conversation w/ patient, physical exam, chart review, lab review, review of inpatient medication list Pain: mild stomach upset - "I think I have to have a BM" PO Intake: npo Voiding: no voiding problems tele normal overnight patient reports that last evening she woke up with dyspnea; had to sit up in bed "I think I have a wheeze" she stated denies any further chest fullness (see my note from yesterday) denies cough no vomiting, no nausea, no bowel movement since admission denies prior h/o CHF Problem List Medical Problems: (1) Aspiration of food Status: Acute (2) Bilateral lower extremity edema Status: Acute (3) Bronchitis Status: Acute (4) CHF (congestive heart failure) Status: Acute (5) Elevated troponin Status: Acute (6) Esophageal foreign body Status: Acute (7) Generalized weakness Status: Acute (8) Hypotension Status: Acute (9) Hypoxia Status: Acute (10) Left flank pain Status: Acute (11) Left sided abdominal pain Status: Acute (12) URI (upper respiratory infection) Status: Acute Review of Systems Constitutional: No chills, No fever Respiratory: No cough, No sputum Cardiac: + PND, + edema, + orthopnea, No chest pain Abdomen: + constipation, + pain, + see HPI, No nausea, No vomiting Objective Vital Signs Date Time Temp Pulse Resp B/P Pulse Ox O2 Delivery O2 Flow Rate FiO2 09/06/16 18:34 66 121/79 09/06/16 18:30 66 121/79 09/06/16 15:59 36.8 67 18 122/65 95 Room Air 09/06/16 15:40 Room Air 09/06/16 15:08 67 16 96 Nasal Cannula 2.0 09/06/16 14:30 64 170/74 09/06/16 12:00 Nasal Cannula 2.0 09/06/16 11:56 64 16 98 Nasal Cannula 2.0 09/06/16 11:50 37.1 74 18 170/74 100 Nasal Cannula 3.0 09/06/16 08:00 Nasal Cannula 2.0 09/06/16 07:38 36.9 71 18 155/81 96 Nasal Cannula 2.0 09/06/16 07:00 75 16 96 Nasal Cannula 2.0 09/06/16 04:00 Nasal Cannula 3.0 09/06/16 03:49 37.0 74 22 156/80 96 Nasal Cannula 3.0 09/06/16 00:03 74 14 97 Nasal Cannula 3.0 09/05/16 23:59 Nasal Cannula 3.0 09/05/16 23:45 37.3 66 20 136/68 95 Nasal Cannula 3.0 09/05/16 20:00 Nasal Cannula 3.0 09/05/16 19:44 36.8 81 18 122/79 95 Nasal Cannula 2.0 09/05/16 19:27 72 14 97 Nasal Cannula 3.0 Physical Exam General Appearance: no apparent distress, + obese ENT: pharynx normal Neck: + JVD (to the jaw) Respiratory/Chest: no respiratory distress, no accessory muscle use, + crackles (1/[address] up back; no wheezing today) Cardiovascular: regular rate, rhythm, no gallop, no murmur Abdomen: normal bowel sounds, non tender, soft, no organomegaly Extremities: + pedal edema, + swelling (2-3+ b/l) Neurologic/Psychiatric: alert, oriented x 3 Skin: + pertinent finding (stasis changes b/l legs) Laboratory Results Last 24 Hours Test 09/05/16 20:30 09/06/16 06:07 09/06/16 07:05 09/06/16 11:02 Bedside Glucose 130 mg/dl 126 mg/dl 123 mg/dl Sodium Level 144 mmol/L Potassium Level 3.8 mmol/L Chloride Level 112 mmol/L Carbon Dioxide Level 25 mmol/L Anion Gap 7.0 mmol/L Blood Urea Nitrogen 8 mg/dl Creatinine 0.67 mg/dl Est Creatinine Clear Calc Drug Dose 118.0 ml/min Estimated GFR () 101.8 Estimated GFR (Non- 87.8 BUN/Creatinine Ratio 12.4 Random Glucose 140 mg/dl Calcium Level 7.8 mg/dl Test 09/06/16 16:35 Bedside Glucose 107 mg/dl Assessment and Plan 71yo female with: 1. acute hypoxic respiratory failure - 2nd to aspiration pneumonitis. Now with clinical volume overload (acute diastolic CHF). Cont zosyn, day #3. Can likely change to PO augmentin tomorrow if taking PO reliably. Continue NC O2. Cont duonebs. Wean steroids IV. 2. esophageal food impaction - appreciate GI consultation. Plan is for observation and hopefully spontaneous resolution of such. No EGD at this time. Cont IV PPI. Aspiration precautions (head of bed up, etc). Impaction thought to be from achalasia and/or esophageal dysmotility. start clears today (tolerated ice chips easily). 3. h/o T2DM - since she will be on steroids will check FSBS q6h and add novolog sliding scale q6h. 4. HTN - BPs high today; start lopressor 5mg IV q6h. when taking PO reliably revert back to oral coreg. 5. enlarged pulmonary arteries on CT - this suggests pulmonary HTN. Certainly with morbid obesity she is at risk of OHS/GREGG and developing of pulmonary HTN. Needs outpatient sleep study. 6. morbid obesity with BMI 50 - noted. 7. DVT proph - heparin 5000 TID. 8. FEN - stop fluids; BMP in am; start clears. 9. OCD / mental health issues - resume home meds when possible. 10. suspected acute diastolic CHF - lasix 60mg IV x 1. stop fluids. Beta daniel. BMP am. 11. +troponin at presentation - myocardial demand ischemia. No signs/symptoms of ACS. PT, OT consults Continued [facility] stay due to: inadequate po fluid intake, multiple IV medications needed Discharge planning: home
[2016-09-07] VITALS (9 sets, daily range): BP systolic 141–173; BP diastolic 74–94; PULSE 63–88; TEMP 36.7–37.1; O2SAT 91–96
[2016-09-07] MEDS: PIPERACILL/TAZOBAC IV 4.5 GM in DEXTROSE 5% 100ML 100 ML IV SCH ×3 (05:37→20:50)
[2016-09-07] MEDS: METHYLPREDNISOLONE IV 20 MG in SYRINGE 0 ML IV SCH ×2 (05:38→17:40)
[2016-09-07] MEDS: METOPROLOL TARTRATE 1 MG/ML VIAL IV. SCH ×2 (05:38→11:37)
[2016-09-07] MEDS: HEPARIN SOD 5000 UNIT/0.5 ML CARP SQ SCH ×3 (05:39→20:44)
[2016-09-07] MEDS: INSULIN ASPART 100 UNITS/ML 3 ML PEN SC SCH ×4 (07:00→20:38)
[2016-09-07] MEDS: ALBUT/IPRATROP 3MG/0.5MG NEB 3 ML VIAL INH SCH ×4 (07:06→19:36)
[2016-09-07 07:50] LABS: BUN/CREATININE RATIO 12.8 (10-20); CALCIUM 8.1 mg/dl (8.5-10.1); CREATININE 0.72 mg/dl (0.60-1.20); POTASSIUM 3.2 mmol/L (3.5-5.1)
[2016-09-07] MEDS ORDERED: POTASSIUM CHLR 10 MEQ / WTR 10 MEQ in PREMIXED WATER 100 ML IV ONE (09:15)
[2016-09-07] MEDS ORDERED: DOCUSATE SODIUM 100 MG/10 ML UDC PO PRN (09:30)
--- NOTE | 2016-09-07 09:37 | Hospitalist Progress Note ---
Hospitalist Progress Note Date of Service Sep 07, 2016. (Mehnaz Lanier ., PA-C) Subjective Pt evaluation today including: conversation w/ patient, physical exam, chart review, lab review, review of studies, review of inpatient medication list Voiding: incontinence (chronic issue ) Patient states she is feeling well today. +constipation- last BM on 09/04- pt states she feels like she is going to have a BM soon- Colace PRN added Tolerating clear liquid diet OK +nausea +SOB w/ exertion; chronic ongoing issue, non-worsening Patient denies any fever, chills, sweats, lightheadedness, dizziness, vision changes, CP, palpitations, edema, wheezing, cough, abdominal pain, nausea, vomiting, diarrhea, urinary symptoms, melena, numbness/tingling, weakness, muscle/joint pain, anxiety/depression, active bleeding, or new skin discoloration/changes. (Mehnaz Lanier ., PA-C) Medications Current Inpatient Medications Medications (Trade) Dose Ordered Sig/Josee Route Start Time Stop Time Status Last Admin Dose Admin Piperacillin Sod/ Tazobactam Sod/ Dextrose (Zosyn Iv/D5 100ml) 120 ml @ 28.75 mls/ hr Q8 IV 09/04/16 22:00 09/11/16 21:59 09/07/16 05:37 28.75 MLS/HR Ondansetron HCl (Zofran Inj) 4 mg Q6H PRN IV 09/04/16 17:30 10/04/16 17:29 Piperacillin Sod/ Tazobactam Sod 1 ea 1 ea UD PRN N/A 09/04/16 19:45 10/04/16 19:44 Pantoprazole Sodium/Syringe (Protonix Inj/ Syringe) 10 ml @ 5 mls/min DAILY@11 IV 09/05/16 11:00 10/05/16 10:59 09/06/16 09:03 5 MLS/MIN Albuterol/ Ipratropium (Duoneb) 3 ml QIDR INH 09/05/16 14:30 10/05/16 14:29 09/07/16 07:06 3 ML Artificial Tears (Artificial Tears) 2 drops Q1H PRN OP 09/05/16 15:00 10/05/16 14:59 09/05/16 19:22 2 DROPS Glucose (Glucose 40% Gel) 15-30 GRAMS 15 GRAMS... UD PRN PO 09/05/16 20:15 10/05/16 20:14 Glucose (Glucose Chew Tab) 4-8 Tablets 4 Tabl... UD PRN PO 09/05/16 20:15 10/05/16 20:14 Dextrose (Dextrose 50% 50ML Syringe) 25-50ML OF 50% DW IV FOR... UD PRN IV 09/05/16 20:15 10/05/16 20:14 Glucagon (Glucagon Inj) 1 mg UD PRN SQ 09/05/16 20:15 10/05/16 20:14 Heparin Sodium (Porcine) 5000 unit 5,000 unit Q8 SQ 09/05/16 22:00 10/05/16 21:59 09/07/16 05:39 5,000 UNIT Methylprednisolone Sodium Succinate/ Syringe (Solu-Medrol IV/ Syringe) 0.32 ml @ 1.5 mls/min Q12H IV 09/06/16 18:00 10/06/16 14:29 09/07/16 05:38 1.5 MLS/MIN Metoprolol Tartrate (Lopressor Iv) 5 mg Q6 IV. 09/06/16 14:00 10/06/16 13:59 09/07/16 05:38 5 MG Insulin Aspart SLIDING SCALE G... ACHS SC 09/06/16 21:00 10/06/16 20:59 Potassium Chloride/Prmx (Kcl 10 Meq / Wtr/Premixed Water) 100 ml @ 100 mls/hr TODAY@0915 ONCE IV 09/07/16 09:15 09/07/16 10:14 (Mehnaz Lanier, MILY) Objective Vital Signs Date Time Temp Pulse Resp B/P Pulse Ox O2 Delivery O2 Flow Rate FiO2 09/07/16 07:50 37.0 70 18 173/94 94 Room Air 09/07/16 07:06 63 16 95 Room Air 09/07/16 05:38 73 09/07/16 04:09 Room Air 09/07/16 03:38 37.0 66 20 161/79 93 Room Air 09/07/16 00:06 Room Air 09/06/16 23:57 68 149/81 09/06/16 23:50 36.9 68 20 149/81 93 Room Air 09/06/16 20:16 36.7 63 18 114/66 95 Room Air 09/06/16 20:00 Room Air 09/06/16 19:37 63 16 95 Room Air 09/06/16 18:34 66 121/79 09/06/16 18:30 66 121/79 09/06/16 15:59 36.8 67 18 122/65 95 Room Air 09/06/16 15:40 Room Air 09/06/16 15:08 67 16 96 Nasal Cannula 2.0 09/06/16 14:30 64 170/74 09/06/16 12:00 Nasal Cannula 2.0 09/06/16 11:56 64 16 98 Nasal Cannula 2.0 09/06/16 11:50 37.1 74 18 170/74 100 Nasal Cannula 3.0 (Mehnaz Lanier ., PA-C) Physical Exam General Appearance: no apparent distress Eyes: normal inspection, PERRL ENT: hearing grossly normal Neck: supple Respiratory/Chest: + crackles (bilateral lung bases ) Cardiovascular: regular rate, rhythm Abdomen: normal bowel sounds, non tender, soft Extremities: no calf tenderness, + swelling (trace pitting edema of bilateral lower extremities ) Neurologic/Psychiatric: alert, normal mood/affect, oriented x 3 Skin: normal color, warm/dry, no rash (Mehnaz Lanier, PA-C) Laboratory Results Last 24 Hours Test 09/06/16 11:02 09/06/16 16:35 09/06/16 20:11 09/07/16 06:01 Bedside Glucose 123 mg/dl 107 mg/dl 112 mg/dl 105 mg/dl Test 09/07/16 06:30 Sodium Level 145 mmol/L Potassium Level 3.2 mmol/L Chloride Level 110 mmol/L Carbon Dioxide Level 28 mmol/L Anion Gap 7.0 mmol/L Blood Urea Nitrogen 9 mg/dl Creatinine 0.72 mg/dl Est Creatinine Clear Calc Drug Dose 109.7 ml/min Estimated GFR () 97.0 Estimated GFR (Non- 83.7 BUN/Creatinine Ratio 12.8 Random Glucose 102 mg/dl Calcium Level 8.1 mg/dl Magnesium Level 2.0 mg/dl (Mehnaz Lanier ., PA-C) Assessment and Plan The patient is a 71-year-old female who presents to the emergency department with shortness of breath that began at 1:00 in the afternoon to today prior to arrival. She reports that eating pasta in particular can cause these symptoms, she is usually able to improve the symptoms by vomiting, but which she was unable to vomit today. She then began to wheeze and her lips turned blue, but she did not pass out. Her called EMS, who placed her on oxygen, and brought her to the emergency department Acute hypoxic respiratory failure - 2nd to aspiration pneumonitis- RESOLVED: - Admit to tele for cardiac monitoring- reviewed- NSR w/ PVCs - IV Zosyn (day #4)- will switch to PO Augmentin once fully tolerating PO intake - Continue O2 protocol, wean as tolerated - DuoNebs - IV steroids, continue to wean Esophageal food impaction: - Consulted GI, appreciate recommendations -- Observation at this time -- Clear liquid diet started on 09/06- tolerated well--> advance diet as per GI recommendations- begin pureed/mechanical soft on 09/07 - Continue IV PPI--> transition to PO Protonix once fully tolerating PO intake - Aspiration precautions (head of bed up, etc). Mild hypokalemia of 3.2 on 09/07: - Replete w/ IV 10 mEq KCL - Follow PRP, replete PRN h/o T2DM: BSG ACHS w/ sliding insulin scale HTN: - d/c Lopressor 5mg IV q6h--> resume Coreg 12.5 mg BID Dyslipidemia: Resume Lipitor 20 mg daily Enlarged pulmonary arteries on CT - this suggests pulmonary HTN: ?OHS/GREGG- recommend outpt sleep study Morbid obesity with BMI 50 - noted OCD/mental health issues: - Resume home medications - Follows outpt w/ psych ?Acute diastolic CHF: - Lasix 60mg IV x 1 on 09/06-- resume home Lasix once fully tolerating PO intake - d/c IVF +troponin peak trop at 0.058 at presentation, likely secondary to myocardial demand ischemia. GI Prophylaxis: Protonix, IV Zofran PRN, Colace PRN DVT Prophylaxis: Heparin 5000 TID Dispo: - PT/OT evaluations recommendations- return home w/ continued HHS - Discharge to home once medically stable (Mehnza Lanier ., PALeloC) PA Physician Supervision Note: I interviewed and examined the patient. Discussed with Mehnaz Lanier PAC and agree with findings and plan as documented in the note. Any exceptions or clarifications are listed here: None Pt here with esophageal food impaction with long standing esophageal motility issues and dietary non compliance, did have aspiration pneumonia, but all is improving Transition to oral meds 09/07 vitals show some hypertension car is regular lungs are some basilar rhonchi that clear with deep breaths and cough aspiration pneumonia, on zosyn can consider change to augmenting soon adding oral antihypertensive meds to help regain control of blood pressure pt speaks of her mental health, will be good to resume oral meds lives at home with , PT/OT eval consider nutrition eval for reinforcement of diet compliance Documented By: Wilner Cabrera (Wilner Cabrera M.D.)
--- NOTE | 2016-09-07 09:48 | Gastroenterology Progress Note ---
Progress Note Date of Service: Sep 07, 2016 Subjective Pt evaluation today including: conversation w/ patient, physical exam, chart review, lab review, review of inpatient medication list Patient reports improved dysphagia and is tolerating clear liquids. Has not had any emesis, hematemesis, nausea or pyrosis. States she is having lower abdominal cramping and the need to have a bowel movement. No other GI complaints. States she is not interested in consideration of esophageal manometry or other invasive work up. Review of Systems Constitutional: No chills, No fever Respiratory: + cough, + wheezing Cardiac: No chest pain, No palpitations Abdomen: + see HPI Medications Current Inpatient Medications Medications (Trade) Dose Ordered Sig/Josee Route Start Time Stop Time Status Last Admin Dose Admin Piperacillin Sod/ Tazobactam Sod/ Dextrose (Zosyn Iv/D5 100ml) 120 ml @ 28.75 mls/ hr Q8 IV 09/04/16 22:00 09/11/16 21:59 09/07/16 05:37 28.75 MLS/HR Ondansetron HCl (Zofran Inj) 4 mg Q6H PRN IV 09/04/16 17:30 10/04/16 17:29 Piperacillin Sod/ Tazobactam Sod 1 ea 1 ea UD PRN N/A 09/04/16 19:45 10/04/16 19:44 Pantoprazole Sodium/Syringe (Protonix Inj/ Syringe) 10 ml @ 5 mls/min DAILY@11 IV 09/05/16 11:00 10/05/16 10:59 09/06/16 09:03 5 MLS/MIN Albuterol/ Ipratropium (Duoneb) 3 ml QIDR INH 09/05/16 14:30 10/05/16 14:29 09/07/16 07:06 3 ML Artificial Tears (Artificial Tears) 2 drops Q1H PRN OP 09/05/16 15:00 10/05/16 14:59 09/05/16 19:22 2 DROPS Glucose (Glucose 40% Gel) 15-30 GRAMS 15 GRAMS... UD PRN PO 09/05/16 20:15 10/05/16 20:14 Glucose (Glucose Chew Tab) 4-8 Tablets 4 Tabl... UD PRN PO 09/05/16 20:15 10/05/16 20:14 Dextrose (Dextrose 50% 50ML Syringe) 25-50ML OF 50% DW IV FOR... UD PRN IV 09/05/16 20:15 10/05/16 20:14 Glucagon (Glucagon Inj) 1 mg UD PRN SQ 09/05/16 20:15 10/05/16 20:14 Heparin Sodium (Porcine) 5000 unit 5,000 unit Q8 SQ 09/05/16 22:00 10/05/16 21:59 09/07/16 05:39 5,000 UNIT Methylprednisolone Sodium Succinate/ Syringe (Solu-Medrol IV/ Syringe) 0.32 ml @ 1.5 mls/min Q12H IV 09/06/16 18:00 10/06/16 14:29 09/07/16 05:38 1.5 MLS/MIN Metoprolol Tartrate (Lopressor Iv) 5 mg Q6 IV. 09/06/16 14:00 10/06/16 13:59 09/07/16 05:38 5 MG Insulin Aspart SLIDING SCALE G... ACHS SC 09/06/16 21:00 10/06/16 20:59 Potassium Chloride/Prmx (Kcl 10 Meq / Wtr/Premixed Water) 100 ml @ 100 mls/hr TODAY@0915 ONCE IV 09/07/16 09:15 09/07/16 10:14 Docusate Sodium (coLACE SYRUP) 100 mg BID PRN PO 09/07/16 09:30 10/07/16 09:29 UNV Objective Vital Signs Date Time Temp Pulse Resp B/P Pulse Ox O2 Delivery O2 Flow Rate FiO2 09/07/16 08:00 Room Air 09/07/16 07:50 37.0 70 18 173/94 94 Room Air 09/07/16 07:06 63 16 95 Room Air 09/07/16 05:38 73 09/07/16 04:09 Room Air 09/07/16 03:38 37.0 66 20 161/79 93 Room Air 09/07/16 00:06 Room Air 09/06/16 23:57 68 149/81 09/06/16 23:50 36.9 68 20 149/81 93 Room Air 09/06/16 20:16 36.7 63 18 114/66 95 Room Air 09/06/16 20:00 Room Air 09/06/16 19:37 63 16 95 Room Air 09/06/16 18:34 66 121/79 09/06/16 18:30 66 121/79 09/06/16 15:59 36.8 67 18 122/65 95 Room Air 09/06/16 15:40 Room Air 09/06/16 15:08 67 16 96 Nasal Cannula 2.0 09/06/16 14:30 64 170/74 09/06/16 12:00 Nasal Cannula 2.0 09/06/16 11:56 64 16 98 Nasal Cannula 2.0 09/06/16 11:50 37.1 74 18 170/74 100 Nasal Cannula 3.0 Physical Exam General Appearance: no apparent distress Eyes: EOMI Respiratory/Chest: no respiratory distress, + rhonchi, + wheezing Cardiovascular: regular rate, rhythm, no gallop, no murmur Abdomen: normal bowel sounds, non tender, soft Neurologic/Psych: alert, normal mood/affect, oriented x 3 Skin: warm/dry Laboratory Results Last 24 Hours Test 09/06/16 11:02 09/06/16 16:35 09/06/16 20:11 09/07/16 06:01 Bedside Glucose 123 mg/dl 107 mg/dl 112 mg/dl 105 mg/dl Test 09/07/16 06:30 Sodium Level 145 mmol/L Potassium Level 3.2 mmol/L Chloride Level 110 mmol/L Carbon Dioxide Level 28 mmol/L Anion Gap 7.0 mmol/L Blood Urea Nitrogen 9 mg/dl Creatinine 0.72 mg/dl Est Creatinine Clear Calc Drug Dose 109.7 ml/min Estimated GFR () 97.0 Estimated GFR (Non- 83.7 BUN/Creatinine Ratio 12.8 Random Glucose 102 mg/dl Calcium Level 8.1 mg/dl Magnesium Level 2.0 mg/dl Assessment and Plan Patient is a 71 year-old female with a history of severe esophageal dysmotility presenting with hypoxia and imaging consistent with a fluid filled and dilated esophagus. 1. Declines any GI work up. 2. Can advance diet to mechanical soft/pureed diet. Reinforced the importance of strict adherence. 3. Supportive care per primary team. Agree with CHENG Franz Abd: Soft, Obese, NT Continue supportive care No GI workup, will sign off at this time
[2016-09-07] MEDS: PANTOprazole INJ 40 MG in SYRINGE 0 ML IV SCH (11:26)
[2016-09-07] MEDS ORDERED: CONSULT PHARMACY STA (11:32)
[2016-09-07] MEDS: PRIMIDONE 50 MG TAB PO SCH ×2 (14:25→20:40)
[2016-09-07] MEDS: TOPIRAMATE 100 MG TAB PO SCH ×2 (14:25→20:39)
[2016-09-07] MEDS: ASPIRIN 81 MG ECTAB PO SCH (14:26)
[2016-09-07] MEDS: ESCITALOPRAM OXALATE 20 MG TAB PO SCH (14:26)
[2016-09-07] MEDS: ARIPIprazole TAB 5 MG TAB PO SCH (14:26)
[2016-09-07] MEDS: CARVEDILOL 12.5 MG TAB PO SCH (20:39)
[2016-09-07] MEDS: ATORVASTATIN 20 MG TAB PO SCH (20:40)
[2016-09-08] VITALS (11 sets, daily range): BP systolic 142–160; BP diastolic 68–91; PULSE 64–90; TEMP 36.5–36.9; O2SAT 93–100
[2016-09-08] MEDS: PIPERACILL/TAZOBAC IV 4.5 GM in DEXTROSE 5% 100ML 100 ML IV SCH (05:48)
[2016-09-08] MEDS: HEPARIN SOD 5000 UNIT/0.5 ML CARP SQ SCH ×3 (05:50→20:46)
[2016-09-08] MEDS: METHYLPREDNISOLONE IV 20 MG in SYRINGE 0 ML IV SCH (05:51)
[2016-09-08 06:50] LABS: HEMATOCRIT 34.4 % (37-47); MEAN CELL VOLUME 93.5 fL (80-100); MEAN CORPUSCULAR HEMOGLOBIN 31.8 pg (25-34); MEAN PLATELET VOLUME 9.4 fL (7.4-10.4); PLATELET COUNT 164 K/uL (130-400); RED BLOOD COUNT 3.68 M/uL (4.2-5.4); WHITE BLOOD COUNT 6.06 K/uL (4.8-10.8)
[2016-09-08] MEDS: INSULIN ASPART 100 UNITS/ML 3 ML PEN SC SCH ×4 (07:00→20:40)
[2016-09-08 07:17] LABS: BUN/CREATININE RATIO 9.2 (10-20); CALCIUM 8.1 mg/dl (8.5-10.1); CREATININE 0.62 mg/dl (0.60-1.20); POTASSIUM 2.8 mmol/L (3.5-5.1)
[2016-09-08] MEDS: ALBUT/IPRATROP 3MG/0.5MG NEB 3 ML VIAL INH SCH ×4 (07:48→20:24)
[2016-09-08] MEDS: CARVEDILOL 12.5 MG TAB PO SCH ×2 (07:55→20:44)
[2016-09-08] MEDS: ESCITALOPRAM OXALATE 20 MG TAB PO SCH (07:55)
[2016-09-08] MEDS: ARIPIprazole TAB 5 MG TAB PO SCH (07:55)
[2016-09-08] MEDS: ASPIRIN 81 MG ECTAB PO SCH (07:55)
[2016-09-08] MEDS: PRIMIDONE 50 MG TAB PO SCH ×2 (07:55→20:44)
[2016-09-08] MEDS: TOPIRAMATE 100 MG TAB PO SCH ×2 (07:56→20:44)
[2016-09-08] MEDS: POTASSIUM CHLR 10 MEQ / WTR 10 MEQ in PREMIXED WATER 100 ML IV SCH ×3 (08:00→12:26)
--- NOTE | 2016-09-08 10:39 | Hospitalist Progress Note ---
Hospitalist Progress Note Date of Service Sep 08, 2016. (Mehnaz Lanier ., MILY) Subjective Pt evaluation today including: conversation w/ patient, physical exam, chart review, lab review, review of studies, review of inpatient medication list Voiding: incontinence Patient states she is feeling well. Tolerating diet OK. Patient denies any fever , chills, sweats, lightheadedness, dizziness, vision changes, CP, palpitations, edema, SOB, wheezing, cough, abdominal pain, nausea, vomiting, diarrhea, urinary symptoms, melena, numbness/tingling, weakness, muscle/joint pain, anxiety/depression, active bleeding, or new skin discoloration/changes. (Mehnaz Lanier ., KATIEC) Medications Current Inpatient Medications Medications (Trade) Dose Ordered Sig/Josee Route Start Time Stop Time Status Last Admin Dose Admin Ondansetron HCl (Zofran Inj) 4 mg Q6H PRN IV 09/04/16 17:30 10/04/16 17:29 Albuterol/ Ipratropium (Duoneb) 3 ml QIDR INH 09/05/16 14:30 10/05/16 14:29 09/08/16 07:48 3 ML Artificial Tears (Artificial Tears) 2 drops Q1H PRN OP 09/05/16 15:00 10/05/16 14:59 09/05/16 19:22 2 DROPS Glucose (Glucose 40% Gel) 15-30 GRAMS 15 GRAMS... UD PRN PO 09/05/16 20:15 10/05/16 20:14 Glucose (Glucose Chew Tab) 4-8 Tablets 4 Tabl... UD PRN PO 09/05/16 20:15 10/05/16 20:14 Dextrose (Dextrose 50% 50ML Syringe) 25-50ML OF 50% DW IV FOR... UD PRN IV 09/05/16 20:15 10/05/16 20:14 Glucagon (Glucagon Inj) 1 mg UD PRN SQ 09/05/16 20:15 10/05/16 20:14 Heparin Sodium (Porcine) (Heparin Sq 5000 Unit/0.5ml) 5,000 unit Q8 SQ 09/05/16 22:00 10/05/16 21:59 09/08/16 05:50 5,000 UNIT Insulin Aspart (novoLOG ASPART) SLIDING SCALE G... ACHS SC 09/06/16 21:00 10/06/16 20:59 Docusate Sodium (coLACE SYRUP) 100 mg BID PRN PO 09/07/16 09:30 10/07/16 09:29 09/07/16 15:54 100 MG Aripiprazole (Abilify Tab) 5 mg QAM PO 09/07/16 14:00 10/07/16 13:59 09/08/16 07:55 5 MG Aspirin (Ecotrin Tab) 81 mg DAILY PO 09/07/16 14:00 10/07/16 13:59 09/08/16 07:55 81 MG Atorvastatin Calcium (Lipitor Tab) 20 mg HS PO 09/07/16 21:00 10/07/16 20:59 09/07/16 20:40 20 MG Carvedilol (Coreg Tab) 12.5 mg BID PO 09/07/16 21:00 10/07/16 20:59 09/08/16 07:55 12.5 MG Escitalopram Oxalate (Lexapro Tab) 20 mg DAILY PO 09/07/16 14:00 10/07/16 13:59 09/08/16 07:55 20 MG Lamotrigine (Lamictal Tab) 200 mg BID PO 09/07/16 14:00 10/07/16 13:59 09/08/16 07:56 200 MG Primidone (Mysoline Tab) 50 mg BID PO 09/07/16 14:00 10/07/16 13:59 09/08/16 07:55 50 MG Topiramate 200 mg 200 mg BID PO 09/07/16 14:00 10/07/16 13:59 09/08/16 07:56 200 MG Potassium Chloride/Prmx (Kcl 10 Meq / Wtr/Premixed Water) 100 ml @ 100 mls/hr Q1H IV 09/08/16 08:00 09/08/16 10:59 09/08/16 10:29 100 MLS/HR Pantoprazole Sodium (Protonix Tab) 40 mg QAM PO 09/09/16 09:00 10/09/16 08:59 UNV Amoxicillin/ Clavulanate Potassium (Augmentin Tab) 875 mg BIDM PO 09/08/16 10:30 09/15/16 10:29 UNV (Mehnaz Lanier PA-C) Objective Vital Signs Date Time Temp Pulse Resp B/P Pulse Ox O2 Delivery O2 Flow Rate FiO2 09/08/16 08:00 Room Air 09/08/16 07:48 78 16 97 Room Air 09/08/16 07:38 36.6 75 20 150/89 100 Room Air 09/08/16 04:00 Room Air 09/08/16 03:53 36.5 64 20 142/68 95 Room Air 09/08/16 00:01 Room Air 09/08/16 00:00 36.6 68 20 160/79 95 Room Air 09/07/16 20:01 36.7 73 18 141/74 94 Room Air 09/07/16 20:00 Room Air 09/07/16 19:36 78 16 96 Room Air 09/07/16 16:30 88 16 96 Room Air 09/07/16 16:00 Room Air 09/07/16 15:13 37.0 75 18 143/82 93 Room Air 09/07/16 12:00 Room Air 09/07/16 11:58 37.1 73 20 165/91 91 Room Air 09/07/16 11:37 73 173/94 09/07/16 11:32 73 16 94 Room Air (Mehnaz Lanier, DAI-C) Physical Exam General Appearance: no apparent distress, + obese Eyes: normal inspection, PERRL ENT: hearing grossly normal Neck: supple Respiratory/Chest: lungs clear, no respiratory distress, no accessory muscle use Cardiovascular: regular rate, rhythm Abdomen: normal bowel sounds, non tender, soft Extremities: no calf tenderness, + swelling (+1 pitting edema of bilateral lower extremities ) Neurologic/Psychiatric: alert, normal mood/affect, oriented x 3 Skin: normal color, warm/dry, no rash (Mehnaz Lanier ., DAI-C) Laboratory Results Last 24 Hours Test 09/07/16 11:07 09/07/16 16:51 09/07/16 20:35 09/08/16 06:25 Bedside Glucose 105 mg/dl 114 mg/dl 124 mg/dl White Blood Count 6.06 K/uL Red Blood Count 3.68 M/uL Hemoglobin 11.7 g/dL Hematocrit 34.4 % Mean Corpuscular Volume 93.5 fL Mean Corpuscular Hemoglobin 31.8 pg Mean Corpuscular Hemoglobin Concent 34.0 g/dl RDW Standard Deviation 49.2 fL RDW Coefficient of Variation 14.5 % Platelet Count 164 K/uL Mean Platelet Volume 9.4 fL Sodium Level 145 mmol/L Potassium Level 2.8 mmol/L Chloride Level 109 mmol/L Carbon Dioxide Level 27 mmol/L Anion Gap 9.0 mmol/L Blood Urea Nitrogen 6 mg/dl Creatinine 0.62 mg/dl Est Creatinine Clear Calc Drug Dose 127.4 ml/min Estimated GFR () 104.4 Estimated GFR (Non- 90.1 BUN/Creatinine Ratio 9.2 Random Glucose 103 mg/dl Calcium Level 8.1 mg/dl Test 09/08/16 06:37 Bedside Glucose 96 mg/dl (Mehnaz Lanier, MILY) Assessment and Plan The patient is a 71-year-old female who presents to the emergency department with shortness of breath that began at 1:00 in the afternoon to today prior to arrival. She reports that eating pasta in particular can cause these symptoms, she is usually able to improve the symptoms by vomiting, but which she was unable to vomit today. She then began to wheeze and her lips turned blue, but she did not pass out. Her called EMS, who placed her on oxygen, and brought her to the emergency department Acute hypoxic respiratory failure - 2nd to aspiration pneumonitis- RESOLVED: - Admit to tele for cardiac monitoring- reviewed- NSR w/ PVCs - IV Zosyn- switch to PO Augmentin on 09/08 to complete 10 day course (last day of treatment 09/13) - Continue O2 protocol, wean as tolerated - DuoNebs - IV steroids--> Prednisone 20 mg on 09/09 w/ quick david Esophageal food impaction: - Consulted GI, appreciate recommendations -- Observation at this time -- Clear liquid diet started on 09/06- tolerated well--> advance diet as per GI recommendations- begin pureed/mechanical soft on 09/07 - Continue IV PPI--> transition to PO Protonix - Speech therapy consulted, appreciate recommendations - Aspiration precautions Hypokalemia of 2.8 on 09/08: - Replete w/ IV 10 mEq KCL x3 bags - Follow PRP, replete PRN h/o T2DM: BSG ACHS w/ sliding insulin scale HTN: Coreg 12.5 mg BID Dyslipidemia: Lipitor 20 mg daily Enlarged pulmonary arteries on CT - this suggests pulmonary HTN: ?OHS/GREGG- recommend outpt sleep study Morbid obesity with BMI 50 - noted OCD/mental health issues: - Resume home medications - Follows outpt w/ psych ?Acute diastolic CHF: - Lasix 60mg IV x 1 on 09/06-- resume home Lasix at discharge; does not appear fluid overloaded at this point/slowly advancing diet/hypokalemia - d/c IVF +troponin peak trop at 0.058 at presentation, likely secondary to myocardial demand ischemia. Tremors: Resume Propranolol 160 mg daily GI Prophylaxis: Protonix, IV Zofran PRN, Colace PRN DVT Prophylaxis: Heparin 5000 TID Dispo: - PT/OT evaluations recommendations- return home w/ continued HHS - Discharge to home once medically stable, hopefully in the next 1-2 days - Possible transfer to med/surg this afternoon after replacing KCL supplement (Mehnaz Lanier ., PA-C) PA Physician Supervision Note: I interviewed and examined the patient. Discussed with Mehnaz Lanier PAC and agree with findings and plan as documented in the note. Any exceptions or clarifications are listed here: None Pt here with esophageal food impaction with long standing esophageal motility issues and dietary non compliance, did have aspiration pneumonia, but all is improving, did discuss appropriate diet with speech therapy today , is tolerating oral pills Transition to oral meds 09/07 and the remainder 09/08, all doing well vitals show some hypertension car is regular lungs are some basilar rhonchi that clear with deep breaths and cough aspiration pneumonia, improved, change to augmenting on discharge lives at home with , will agree to home nursing for med/diet reinforcement and lab drawns Documented By: Wilner Cabrera (Wilner Cabrera M.D.)
[2016-09-08] MEDS: AMOXICILLIN/CLAVULANATE TAB 875 MG TAB PO SCH ×2 (12:26→17:30)
[2016-09-08] MEDS ORDERED: PROP60CA5 PO (13:39)
[2016-09-08] MEDS ORDERED: INDSR160 PO (13:42)
[2016-09-08] MEDS: ATORVASTATIN 20 MG TAB PO SCH (20:44)
[2016-09-08] MEDS: POTASSIUM CHLORIDE 20 MEQ TABCR PO SCH (20:45)
[2016-09-08] MEDS ORDERED: CLOMIPRAMINE HCL 200 MG PO SCH (21:00)
[2016-09-09] VITALS (7 sets, daily range): BP systolic 145–168; BP diastolic 78–91; PULSE 74–84; TEMP 36.8–37; O2SAT 92–98
[2016-09-09] MEDS: HEPARIN SOD 5000 UNIT/0.5 ML CARP SQ SCH (05:43)
[2016-09-09] MEDS: INSULIN ASPART 100 UNITS/ML 3 ML PEN SC SCH ×2 (06:56→11:37)
[2016-09-09 07:00] LABS: BUN/CREATININE RATIO 8.7 (10-20); CALCIUM 8.6 mg/dl (8.5-10.1); CREATININE 0.79 mg/dl (0.60-1.20); POTASSIUM 3.6 mmol/L (3.5-5.1)
[2016-09-09] MEDS: ALBUT/IPRATROP 3MG/0.5MG NEB 3 ML VIAL INH SCH ×2 (07:41→11:34)
[2016-09-09] MEDS: POTASSIUM CHLORIDE 20 MEQ TABCR PO SCH (08:06)
[2016-09-09] MEDS: ARIPIprazole TAB 5 MG TAB PO SCH (08:06)
[2016-09-09] MEDS: ASPIRIN 81 MG ECTAB PO SCH (08:06)
[2016-09-09] MEDS: TOPIRAMATE 100 MG TAB PO SCH (08:06)
[2016-09-09] MEDS: ESCITALOPRAM OXALATE 20 MG TAB PO SCH (08:06)
[2016-09-09] MEDS: AMOXICILLIN/CLAVULANATE TAB 875 MG TAB PO SCH (08:07)
[2016-09-09] MEDS: PRIMIDONE 50 MG TAB PO SCH (08:07)
[2016-09-09] MEDS: CARVEDILOL 12.5 MG TAB PO SCH (08:07)
[2016-09-09] MEDS ORDERED: AMOX1TAB43 PO (08:53)
[2016-09-09] MEDS ORDERED: MCRK20 PO (08:53)
[2016-09-09] MEDS ORDERED: PRED10TA PO (08:56)
[2016-09-09] MEDS ORDERED: PANTOprazole SOD 40 MG TAB PO SCH (09:00)
[2016-09-09] MEDS ORDERED: PROPRANOLOL HCL 80 MG LA CAP PO SCH (09:00)
--- NOTE | 2016-09-09 09:03 | Discharge Instructions ---
Discharge Instructions Date of Service Sep 09, 2016. Admission Reason for Admission: Hypoxia, Obstruction Of Esophagus Due To Food Discharge Discharge Diagnosis / Problem: Hypoxia secondary to esophageal obstruction due to food Discharge Goals Goal(s): Decrease discomfort, Improve nutritional status, Learn about illness, Diagnostic testing, Therapeutic intervention, Prevent Disease Progression Activity Recommendations Activity Limitations: resume your previous activity . Instructions / Follow-Up Instructions / Follow-Up New/changed medications: 1. Amoxicillin 1 tablet my mouth twice per day until prescription is complete - start this medication tonight (09/09) This medication is an antibiotic used to treat lung infection secondary to aspiration 2. Prednisone daivd- 10 mg by mouth x2 days, then 5 mg by mouth x2 days- begin this medication tomorrow (09/10) This medication is to help treat inflammation of the lung caused by aspiration 3. Potassium supplement INCREASED to 40 mEq by mouth twice per day Resume all other regular home medications as prescribed You have been given a script for blood work on 09/11- your home health services will help coordinate this- results will be followed-up by your PCP It is very important you continue to follow speech therapy's recommendations to prevent any further aspiration events: 1. Mechanical soft diet, slippery (avoid dry, thick, pasty, doughy foods) 2. Aspiration and GERD precautions. Fully upright for meals, and for 30 minutes after meals. HOB at 30 degrees at all times, to include sleeping. 3. Small frequent meals. Small bites, slow rate, rest breaks. Alternate solids and liquids. Avoid pasta. 4. Consider speech therapy follow-up as an outpatient to help further education in home environment- please discuss this with your PCP Please follow-up with your PCP within 5-7 days- a referral has been sent; if you do not hear of an appointment in the next 1-2 days, please call the office at # [phone] Please follow-up/keep all of your subspecialty appointments Current Hospital Diet Patient's current hospital diet: Regular Diet Discharge Diet Recommended Diet: Regular Diet Diet Texture: Mechanical Soft (ground) Pending Studies Studies pending at discharge: no Laboratory Results Last 24 Hours Test 09/08/16 11:19 09/08/16 16:17 09/08/16 20:21 09/09/16 05:44 Bedside Glucose 113 mg/dl 95 mg/dl 100 mg/dl Sodium Level 144 mmol/L Potassium Level 3.6 mmol/L Chloride Level 109 mmol/L Carbon Dioxide Level 29 mmol/L Anion Gap 6.0 mmol/L Blood Urea Nitrogen 7 mg/dl Creatinine 0.79 mg/dl Est Creatinine Clear Calc Drug Dose 95.5 ml/min Estimated GFR () 86.7 Estimated GFR (Non- 74.8 BUN/Creatinine Ratio 8.7 Random Glucose 99 mg/dl Calcium Level 8.6 mg/dl Test 09/09/16 06:38 Bedside Glucose 101 mg/dl Medical Emergencies . Who to Call and When: Medical Emergencies: If at any time you feel your situation is an emergency, please call 911 immediately. . Non-Emergent Contact Non-Emergency issues call your: Primary Care Provider . . "Provider Documentation" section prepared by Mehnaz Lanier. . VTE Core Measure Inpt VTE Proph given/why not?: Unfractionated heparin SQ, SCD's
--- NOTE | 2016-09-09 09:17 | Discharge Summary ---
Discharge Summary Date of Service Sep 09, 2016. (Mehnaz Lanier, MILY) Discharge Summary Admission Date: Sep 04, 2016 at 17:15 Discharge Date: Sep 09, 2016 Discharge Disposition: Home with services Principal Diagnosis: Hypoxia secondary to esophageal obstruction from food Problems/Secondary Diagnoses: Acute hypoxic respiratory failure - 2nd to aspiration pneumonitis Esophageal food impaction from 20 mEq BID to 40 mEq BID- follow-up K level on w/ results forwarded to PCP h/o T2DM HTN Dyslipidemia Enlarged pulmonary arteries on CT - this suggests pulmonary HTN OCD/mental health issues ?Acute diastolic CHF +troponin Tremors Immunizations: Have You Had Influenza Vaccine: No History of Tetanus Vaccine?: Yes History of Pneumococcal: No History of Hepatitis B Vaccine: No Procedures: CHEST 2 VIEWS ROUTINE HISTORY: EVALUATE RESPIRATORY DISTRESS.DYSPNEA COMPARISON: Chest 02/13/2016. FINDINGS: The heart remains enlarged. Poststernotomy changes. A few linear densities within the left lung base remain unchanged and likely represents scarring or atelectasis. No pneumothorax. No pleural effusions. Tortuous thoracic aorta, unchanged. Greater than expected lucency at the mediastinum. This raises the possibility of pneumomediastinum. Mild pulmonary vascular congestion without overt edema, unchanged. IMPRESSION: 1. Greater than expected lucency within the mediastinum concerning for pneumomediastinum. Chest CT is recommended for further evaluation. 2. Stable cardiomegaly and mild pulmonary vascular congestion. Electronically signed by: Jeromy Yu M.D. 09/04/2016 3:51 PM Dictated Date/Time: 09/04/2016 3:48 PM The status of this report is Signed. Draft = Not yet reviewed or approved by Radiologist. Signed = Reviewed and approved by Radiologist. CT SCAN OF THE CHEST WITHOUT IV CONTRAST CLINICAL HISTORY: Abnormal chest x-ray. Questioned pneumomediastinum. COMPARISON STUDY: Chest x-ray dated 09/04/2016. Chest CT dated 12/25/2014. TECHNIQUE: CT scan of the thorax was performed from the thoracic inlet to the upper abdomen. Images are reviewed in the axial, sagittal, and coronal planes. IV contrast was not administered for this examination as per the referring clinician. The examination is severely degraded by large body habitus, and by streak artifact from the body wall abutting the CT gantry. Examination is also by streak artifact from the patient's arms which could not be elevated above the chest as well as motion artifact. CT DOSE: 1358.95 mGy.cm FINDINGS: Thyroid: Imaged portions of the thyroid gland are normal in size and attenuation. Esophagus: The esophagus is distended and filled with debris to the level of the thoracic inlet. Thoracic aorta: There is mild atherosclerotic calcification of the thoracic aorta, which is normal in caliber and demonstrates standard 3-vessel arch anatomy. Heart: The heart is enlarged and without pericardial effusion. There is diminished attenuation of the cardiac blood pool as compared to the myocardium suggesting anemia. The main pulmonary arteries are dilated suggesting pulmonary artery hypertension. Lungs and pleural spaces: Scarring versus atelectasis is present at both lung bases. There is no airspace consolidation to suggest pneumonia and no pleural effusion is identified. The trachea and central airways Are clear. Mediastinum: There is no mediastinal lymphadenopathy. There is no pneumomediastinum is clinically queried. Eleni: Not well assessed without IV contrast. Axillae: There is no axillary lymphadenopathy. Upper abdomen: There is a moderate hiatal hernia. The liver is enlarged and steatotic. The spleen is enlarged, measuring 13.5 cm in length. Numerous calcified gallstones are identified. Skeletal structures: The skeletal structures are osteopenic. Spondylotic change is noted throughout the thoracic spine. Arthritic change is also seen in the shoulders. No lytic or blastic bony lesions are seen. Soft tissues: There is a 2.0 cm dermal lesion located in the inferior right breast is seen image #[id number]. IMPRESSION: 1. Significantly motion and streak artifact degraded examination as above. 2. The esophagus is distended and filled with debris to the level of the thoracic inlet. This corresponds to the abnormality seen by x-ray. Note that this may place the patient risk for aspiration. 3. No pneumomediastinum is identified. 4. Cardiomegaly with evidence of pulmonary artery hypertension. 5. There is no airspace consolidation typical for pneumonia or pleural effusion. Bibasilar scarring and atelectasis are noted. 6. A 2.0 cm dermal lesion is located in the inferior right breast. This likely represents a sebaceous cyst. Correlation with physical examination findings is recommended. Nonemergent follow-up with mammography is recommended if not recently performed. 7. Hepatic steatosis, cholelithiasis, and splenomegaly are identified in the upper abdomen. 8. Additional findings as above. Electronically signed by: Eduardo Liao M.D. 09/04/2016 4:45 PM Dictated Date/Time: 09/04/2016 4:37 PM The status of this report is Signed. Draft = Not yet reviewed or approved by Radiologist. Signed = Reviewed and approved by Radiologist. Consultations: GI (Mehnaz Lanier, MILY) Medication Reconciliation New Medications: Prednisone Tab (Prednisone) 10 Mg Tab 10 MG PO UD for 4 Days, #3 TAB 10 mg by mouth x2 days, 5 mg by mouth x2 days Amoxicillin & Pot Clavulanate (Amoxicillin/Clavulanate P) 1 Tab Tab 875 MG PO BIDM for 5 Days, #9 TAB Potassium Chloride (Klor-Con M20) 20 Meq Tabcr 40 MEQ PO BID for 30 Days, #120 TABS Continued Medications: Aripiprazole (Abilify) 5 Mg Tab 5 MG PO QAM for 30 Days, TAB 1 Refill Aspirin (Aspirin Low Dose) 81 Mg Tab 81 MG PO DAILY Atorvastatin (Lipitor) 20 Mg Tab 1 TAB PO HS for 30 Days, TAB 5 Refills Carvedilol (Carvedilol) 12.5 Mg Tab 12.5 MG PO BID Clomipramine Hcl (Anafranil) 50 Mg Cap 200 MG PO QPM Escitalopram Oxalate (Escitalopram Oxalate) 20 Mg Tab 20 MG PO DAILY Furosemide (Lasix) 80 Mg Tab 1 TAB PO BID for 90 Days, #180 TAB 3 Refills Ibuprofen Tab (Advil) 200 Mg Tab 200-600 MG PO Q4H PRN for Pain, TAB Lamotrigine (Lamictal) 200 Mg Tab 200 MG PO BID Multivitamin (Multivitamin) Tab 1 TAB PO DAILY, TAB Primidone (Primidone) 50 Mg Tab 50 MG PO BID Propranolol Hcl (Inderal LA Cap) 160 Mg Capcr 160 MG PO DAILY Topiramate (Topamax) 200 Mg Tab 200 MG PO BID Discontinued Medications: Potassium Ext Rel (Klor-Con) 20 Meq Tabcr 20 MEQ PO BID, TAB Referrals At Discharge Follow up Referrals: Family Practice Referral - Within 1 Week with Matilde Falcon, DO Discharge Exam Review of Systems: Constitutional: No chills, No fatigue, No fever, No sweats, No weakness Respiratory: No cough, No hemoptysis, No shortness of breath Cardiovascular: No chest pain, No edema, No palpitations Abdomen: No constipation, No diarrhea, No nausea, No pain, No vomiting Musculoskeletal: No calf pain, No joint pain, No muscle pain, No swelling Genitourinary - Female: No dysuria, No hematuria Neurologic: No numbness/tingling, No weakness Psychiatric: No anxiety, No depression symptoms Hematologic / Lymphatic: No abnormal bleeding/bruising Integumentary: No itch, No new/changing skin lesions, No rash Physical Exam: General Appearance: no apparent distress, + obese Eyes: normal inspection, PERRL ENT: hearing grossly normal Neck: supple Respiratory/Chest: no respiratory distress, no accessory muscle use, + crackles (bilateral lung bases ) Cardiovascular: regular rate, rhythm Abdomen / GI: normal bowel sounds, non tender, soft Extremities: no calf tenderness, + swelling (+2 pitting edema of bilateral lower extremities ) Neurologic/Psychiatric: alert, normal mood/affect, oriented x 3 Skin: normal color, warm/dry, no rash (Mehnaz Lanier, PA-C) Hospital Course The patient is a 71-year-old female who presents to the emergency department with shortness of breath that began at 1:00 in the afternoon to today prior to arrival. She reports that eating pasta in particular can cause these symptoms, she is usually able to improve the symptoms by vomiting, but which she was unable to vomit today. She then began to wheeze and her lips turned blue, but she did not pass out. Her called EMS, who placed her on oxygen, and brought her to the emergency department Acute hypoxic respiratory failure - 2nd to aspiration pneumonitis- RESOLVED: - Admit to tele for cardiac monitoring- reviewed- NSR w/ PVCs - IV Zosyn- switch to PO Augmentin on 09/08 to complete 10 day course (last day of treatment 09/13) - Continue O2 protocol, wean as tolerated - DuoNebs PRN - IV steroids--> Prednisone 20 mg on 09/09 w/ quick david Esophageal food impaction: - Consulted GI, appreciate recommendations -- No intervention - Continue IV PPI--> transition to PO Protonix - Speech therapy consulted, appreciate recommendations Speech Therapy Discharge Instructions: 1. Mechanical soft diet, slippery (avoid dry, thick, pasty, doughy foods) 2. Aspiration and GERD precautions. Fully upright for meals, and for 30 minutes after meals. HOB at 30 degrees at all times, to include sleeping. 3. Small frequent meals. Small bites, slow rate, rest breaks. Alternate solids and liquids. Avoid pasta. 4. Consider a Nutrition consult for education and food preferences that improved protein intake as indicated. 5. Would benefit from speech at discharge for carryover of diet and further education in the home environment. Hypokalemia of 2.8 on 09/08: - Replete w/ IV 10 mEq KCL x3 bags - Follow PRP, replete PRN - Increased KCL supplement from 20 mEq BID to 40 mEq BID- follow-up K level on w/ results forwarded to PCP h/o T2DM: BSG ACHS w/ sliding insulin scale HTN: Coreg 12.5 mg BID Dyslipidemia: Lipitor 20 mg daily Enlarged pulmonary arteries on CT - this suggests pulmonary HTN: ?OHS/GREGG- recommend outpatient sleep study A 2.0 cm dermal lesion is located in the inferior right breast- this likely represents a sebaceous cyst on CT: Nonemergent follow-up with mammography is recommended if not recently performed Morbid obesity with BMI 50 - noted OCD/mental health issues: - Resume home medications - Follows outpt w/ psych ?Acute diastolic CHF: - Lasix 60mg IV x 1 on 09/06-- resume home Lasix at discharge - d/c IVF +troponin peak trop at 0.058 at presentation, likely secondary to myocardial demand ischemia. Tremors: Resume Propranolol 160 mg daily GI Prophylaxis: Protonix, IV Zofran PRN, Colace PRN DVT Prophylaxis: Heparin 5000 TID Dispo: Discharge to home w/ HHS Total Time Spent: Greater than 30 minutes This includes examination of the patient, discharge planning, medication reconciliation, and communication with other providers. (Mehnaz Lanier ., PA-C) PA Physician Supervision Note: I interviewed and examined the patient. Discussed with Mehnaz Lanier PAC and agree with findings and plan as documented in the note. Any exceptions or clarifications are listed here: None Pt here with esophageal food impaction with long standing esophageal motility issues and dietary non compliance, did have aspiration pneumonia, but all is improvied, did discuss appropriate diet with speech therapy promises compliance , is tolerating oral pills vitals stable car is regular lungs are some basilar rhonchi that clear with deep breaths and cough aspiration pneumonia, improved, changed to augmenting on discharge lives at home with , will agree to home nursing for med/diet reinforcement and lab checking hypokalemia on monday 09/11 Documented By: Wilner Cabrera Total Time Spent: Greater than 30 minutes (Wilner Cabrera M.D.) Discharge Instructions Please refer to the electronic Patient Visit Report (Discharge Instructions) for additional information. (Mehnaz Lanier, PA-C) Follow-Up Please follow-up with your PCP within 5-7 days Please follow-up/keep all of your subspecialty appointments (Mehnaz Lanier, PA-C) Additional Copies To Matilde Falcon,
[2017-04-13] MEDS ORDERED: TRAM-10 PO (11:09)
[2017-04-13] MEDS ORDERED: SILV1CRE73 TOP (11:09)
[2017-04-13] MEDS ORDERED: TOPI100T20 PO (11:09)
[2017-04-13] MEDS ORDERED: COMPOUND CREAM TOP (11:09)
== END 2016-09-09 12:43 | disposition home health service (06) | DRG 177 ==
LOC: ENRESERVTM → ENRESERVDT → EDBD 13:39 → C.EDC 13:41 → C.2T 17:15
PROVIDERS: ADMIT Hospitalist; ATTEND Internal Medicine
DX: J69.0 Pneumonitis due to inhalation of food and vomit (principal); J96.01 Acute respiratory failure with hypoxia; T18.128A Food in esophagus causing other injury, initial encounter; J98.11 Atelectasis; Z68.43 Body mass index [BMI] 50.0-59.9, adult; I24.8 Other forms of acute ischemic heart disease; I50.31 Acute diastolic (congestive) heart failure; F42.9 Obsessive-compulsive disorder, unspecified; E11.9 Type 2 diabetes mellitus without complications; I10 Essential (primary) hypertension; R25.1 Tremor, unspecified; K44.9 Diaphragmatic hernia without obstruction or gangrene; I27.2 Other secondary pulmonary hypertension; K76.0 Fatty (change of) liver, not elsewhere classified; E78.5 Hyperlipidemia, unspecified; F32.9 Major depressive disorder, single episode, unspecified; E66.01 Morbid (severe) obesity due to excess calories; E87.6 Hypokalemia; K22.4 Dyskinesia of esophagus; Z91.11 Patient's noncompliance with dietary regimen; Z79.82 Long term (current) use of aspirin; Y92.009 Unspecified place in unspecified non-institutional (private) residence as the place of occurrence of the external cause; Z86.711 Personal history of pulmonary embolism

== ENCOUNTER → 2016-09-11 | Outpatient (CLI) | payer BC ==
[~2016-09-11] MED LIST changes: +AMOX1TAB43 PO; +COMPOUND CREAM TOP; +INDSR160 PO; +MCRK20 PO; -NITR-5 PO; -POTA20TA16 PO; +PRED10TA PO; -PROP80TA2 PO; +SILV1CRE73 TOP; +TOPI100T20 PO; +TRAM-10 PO
== END | disposition home or self-care (01) ==
LOC: C.LABSPEC 11:20
PROVIDERS: ATTEND Family Medicine
DX: E87.6 Hypokalemia (principal)

== ENCOUNTER → 2016-11-13 | Outpatient (CLI) | payer BC ==
[~2016-11-13] MED LIST changes: -COMPOUND CREAM TOP; -PRED10TA PO; -SILV1CRE73 TOP; -TOPI100T20 PO; -TRAM-10 PO
--- NOTE | 2016-11-13 13:48 | MAMMOGRAPHY REPORT ---
UNILATERAL RIGHT DIGITAL DIAGNOSTIC MAMMOGRAM TOMOSYNTHESIS WITH CAD AND TARGETED RIGHT ULTRASOUND: CLINICAL HISTORY: Short interval follow-up of right breast mass. TECHNIQUE: Breast tomosynthesis in addition to standard 2D mammography was performed. Current study was also evaluated with a Computer Aided Detection (CAD) system. Right CC and MLO 2-D and tomosynthe sis images were obtained. Note that the images are somewhat limited due to difficulties with patient positioning she had to be held for all views. COMPARISON: Comparison is made to exams dated: 01/28/2016 ultrasound, 01/28/2016 mammogram, 07/16/2015 ul trasound, 07/16/2015 mammogram, 03/08/2015 mammogram, and 03/08/2015 ultrasound - [facility]. BREAST COMPOSITION: The tissue of the right breast is heterogeneously dense, which may obscure small masses. FINDINGS: Again noted is a circumscribed lobulated 9 x 8 mm mass within the right lower inner quadra nt. On the tomosynthesis images the mass is of mixed density including equal density as well as lowe r density similar to fat. The mass appears slightly larger compared to the June 2015 exam and ma y be slightly larger compared to the January 2016 exam although positioning differences make it dif ficult to evaluate for change in size as the patient is difficult to position given that she is wheel chair-bound. The remainder of the right breast is stable compared to prior exams, without suspicious masses, calcifications, or areas of architectural distortion noted. A circular marker ellis an oval circumscribed 2 cm mass within the right lower inner quadrant at the site of a known epidermal inclu lisa cyst. Targeted ultrasound was performed of the right lower inner quadrant of the region of the mammographic mass. No discrete solid or cystic mass is again seen within the right lower inner quadrant, with no sonographic correlate for the mammographic mass seen. More circular skin markers were placed at the site of multiple moles and keratoses, and repeat right CC images were obtained. None of the skin le sions marked correlates with the mammographic mass. Given the circumscribed margins and mixed density including fat density mammographically and given th e lack of a suspicious mass on ultrasound, the mass is probably benign and may represent a sonographi jackie occult epidermal inclusion cyst. IMPRESSION: ACR-BI-RADS CATEGORY 3: PROBABLY BENIGN, TARGETED ULTRASOUND ACR-BI-RADS CATEGORY 3: PRO BABLY BENIGN Circumscribed, fat containing 9 mm mass is again noted within the right lower inner quadrant, with no sonographic correlate evident. The mass is probably benign and could represent a sonographically oc cult epidermal inclusion cyst or other benign mass. Recommend bilateral diagnostic mammograms in 6 m [facility], to reevaluate the right breast mass and for routine mammography of the left breast. The patient has been verbally notified of the results. Approximately 10% of breast cancers are not detected with mammography. A negative mammographic report should not delay biopsy if a clinically suggestive mass is present. Cathy Brown M.D. ah/:11/13/2016 12:33:45 [employer] Machine Operator: Richard JIMENEZ(R)(M), [facility] letter sent: Follow Up Recommended 3 BI-RADS Code: ACR-BI-RADS Category 3: Probably Benign Ultrasound BI-RADS: ACR-BI-RADS Category 3: Pr obably Benign
== END | disposition home or self-care (01) ==
LOC: C.MAMM 10:58
PROVIDERS: ATTEND Family Medicine
DX: N63 Unspecified lump in breast (principal)

== ENCOUNTER → 2017-01-20 | Outpatient (CLI) | payer BC | END | disposition home or self-care (01) | LOC: C.LAB1850 11:16 | PROVIDERS: ATTEND Family Medicine | DX: E87.6 Hypokalemia (principal) ==

== ENCOUNTER → 2017-03-29 | Outpatient (CLI) | payer BC ==
[~2017-03-29] MED LIST changes: +COMPOUND CREAM TOP; +SILV1CRE73 TOP; +TOPI100T20 PO; +TRAM-10 PO
--- NOTE | 2017-03-29 16:20 | DIAGNOSTIC IMAGING REPORT ---
L-SPINE MIN 4 VIEWS ROUTINE HISTORY: Pain LUMBAR BACK PAIN COMPARISON: 08/18/2012 FINDINGS: Considerable degenerative disc changes throughout. This is slightly progressive from the prior study. No acute compression deformity. No evidence for subluxation. Paravertebral soft tissues are unremarkable. IMPRESSION: Considerable degenerative change slightly progressive from the prior study. No acute process. The above report was generated using voice recognition software. It may contain grammatical, syntax or spelling errors. Electronically signed by: Og Devine M.D. 03/29/2017 4:19 PM Dictated Date/Time: 03/29/2017 4:18 PM
[2017-03-29 17:48] LABS: URINE APPEARANCE CLEAR (CLEAR); URINE BILIRUBIN NEG (NEG); URINE COLOR YELLOW; URINE NITRITE NEG (NEG); URINE SPECIFIC GRAVITY 1.018 (1.000-1.030); UROBILINOGEN NEG (NEG)
[2017-03-29 17:50] LABS: MANUAL MICROSCOPIC REQUIRED? NO; REVIEW REQ? NO
== END | disposition home or self-care (01) ==
LOC: C.RAD1850 15:46
PROVIDERS: ATTEND Nurse Practitioner Family
DX: M54.5 Low back pain (principal)

== ENCOUNTER → 2017-04-23 | Outpatient (CLI) | payer BC ==
[~2017-04-23] MED LIST changes: -AMOX1TAB43 PO; -ANF50 PO; -FURO80TA63 PO; -TOPI200T20 PO
[2017-04-23 13:58] LABS: THYROID STIMULATING HORMONE 1.97 uIu/ml (0.300-4.500)
== END | disposition home or self-care (01) ==
LOC: C.LAB1850 12:07
PROVIDERS: ATTEND Nurse Practitioner Family
DX: R25.1 Tremor, unspecified (principal)

== ENCOUNTER → 2017-07-20 | Outpatient (CLI) | payer BC ==
[~2017-07-20] MED LIST changes: -ABL/5 PO; +LAMO200T35 PO; -LAMO200T38 PO; +MELO7.5T5 PO; -TRAM-10 PO
[2017-07-20 12:55] LABS: BLOOD UREA NITROGEN 10 mg/dl (7-18); CALCIUM 8.7 mg/dl (8.5-10.1); CARBON DIOXIDE 29 mmol/L (21-32); CREATININE 0.72 mg/dl (0.60-1.20); GLUCOSE 92 mg/dl (70-99); SODIUM 143 mmol/L (136-145)
== END | disposition home or self-care (01) ==
LOC: C.LAB1850 11:15
PROVIDERS: ATTEND Nurse Practitioner Family
DX: R60.9 Edema, unspecified (principal)

== ENCOUNTER → 2017-08-09 | Outpatient (CLI) | payer BC ==
--- NOTE | 2017-08-10 14:57 | MAMMOGRAPHY REPORT ---
BILATERAL DIGITAL DIAGNOSTIC MAMMOGRAM TOMOSYNTHESIS WITH CAD AND TARGETED RIGHT ULTRASOUND: 8 CLINICAL HISTORY: Short interval follow-up of right breast mass. The patient reports no new lumps or other complaints. TECHNIQUE: Breast tomosynthesis in addition to standard 2D mammography was performed. Current study was also evaluated with a Computer Aided Detection (CAD) system. Bilateral CC and MLO 2D and tomosyn thesis images were obtained. Note that the MLO views are somewhat suboptimal and the pectoralis musc les are not included as the patient could not cooperate for proper positioning. COMPARISON: Comparison is made to exams dated: 11/13/2016 ultrasound, 11/13/2016 mammogram, 01/28/2016 u ltrasound, 01/28/2016 mammogram, 07/16/2015 ultrasound, and 07/16/2015 mammogram - [facility]. BREAST COMPOSITION: The tissue of both breasts is heterogeneously dense, which may obscure small mas ses. FINDINGS: There is an oval circumscribed 2.3 cm mass within the right lower inner quadrant which is s lightly increased compared to prior exams although was shown to represent an epidermal inclusion cyst on prior ultrasound exams. The previously seen subdermal circumscribed mixed density 9 mm mass is a gain noted within the right lower inner quadrant, medial to the epidermal inclusion cyst. The mass i s not significantly changed compared to the October 2016 exam and likely also the January 2016 exam. The mass contains fat density. The remainder of both breasts are stable compared to prior exams, wit hout suspicious masses, calcifications, or areas of architectural distortion noted. Targeted ultrasound was performed of the right lower inner quadrant in the region of the mixed densit y mammographic mass. In the right breast at 4:00, 8 cm from the nipple, there is a partially intrade rmal and partially subdermal oval circumscribed hypoechoic mass which measures 2.2 x 1.1 cm. This co rresponds with increasing mammographic mass and is consistent with an epidermal inclusion cyst. In t he right breast at approximately 3:00, 11 cm from the nipple, there is a subtle subdermal region whic h is predominantly hyperechoic with a few internal hypoechoic foci seen, measuring 9 x 6 x 9 mm. Thi s may correspond with the stable mixed density mammographic mass. Given the sonographic appearance, this could represent an area of fat necrosis; alternatively, this could represent an epidermal inclus ion/sebaceous cyst. No suspicious solid masses are evident. IMPRESSION: ACR-BI-RADS CATEGORY 3: PROBABLY BENIGN, TARGETED ULTRASOUND ACR-BI-RADS CATEGORY 3: PRO BABLY BENIGN 1. Circumscribed fat-containing 9 mm mass within the right lower inner quadrant is not significantly changed mammographically dating back to the January 2016 exam. A subtle subdermal 9 mm hyperechoi c region is seen within the right 3:00 breast on ultrasound, which could potentially correspond with the mammographic mass. The mass is probably benign and could represent fat necrosis versus an epider mal inclusion/sebaceous cyst. Recommend follow-up diagnostic tomosynthesis mammograms and possible t argeted ultrasound of the right breast in 6 months to confirm longer stability. 2. Interval increase in size of known epidermal inclusion cyst in the right 4:00 breast, now measurin g 2.2 cm. 3. No mammographic evidence of malignancy in the left breast. The patient has been verbally notified of the results. Approximately 10% of breast cancers are not detected with mammography. A negative mammographic report should not delay biopsy if a clinically suggestive mass is present. Cathy Brown M.D. ah/:08/09/2017 15:16:14 Attending Technologist: Richard JIMENEZ(Josey)(Bobbi), [facility] Finishing Room Operator: Tammie Naidu, [facility] letter sent: Follow Up Recommended 3 BI-RADS Code: ACR-BI-RADS Category 3: Probably Benign Ultrasound BI-RADS: ACR-BI-RADS Category 3: Pr obably Benign
== END | disposition home or self-care (01) ==
LOC: C.MAMM 13:33
PROVIDERS: ATTEND Family Medicine
DX: N63.14 Unspecified lump in the right breast, lower inner quadrant (principal)

== ENCOUNTER 2018-11-24 04:24 | Inpatient (IN) ==
--- OUTSIDE RECORDS SUMMARY | 2018-11-24 04:27 | External Medical Summary | Continuity of Care Document ---
:1945 Author Name Flora Buck, Provider Address Unavailable Unavailable , Care Team Providers Name Role Phone Zoey Allison Unavailable [email or web address] Chris Wells Unavailable [email or web address] Natan De La Torre DO Unavailable [email or web address] Ezekiel DO, Matilde Unavailable [email or web address] Ritter ANAND, Kimber Unavailable [email or web address] LUIS VILLASENOR Unavailable Unavailable Problems Venous insufficiency (459.81) (I87.2) Hypertension (401.9) (I10) Hypercholesterolemia (272.0) (E78.00) Allergic rhinitis (477.9) (J30.9) Anemia (285.9) (D64.9) Prediabetes (790.29) (R73.03) Morbid obesity with body mass index of 50 or higher (278.01) (E66.01) Arthritis (716.90) (M19.90) Cardiovascular function study, abnormal (794.30) (R94.30) Urinary incontinence (788.30) (R32) Pelvic floor dysfunction (618.83) (M62.89) Solitary pulmonary nodule (793.11) (R91.1) Mass of breast, right (611.72) (N63.10) Edema (782.3) (R60.9) Gastroesophageal reflux disease without esophagitis (530.81) (K21.9) Obsessive compulsive disorder (300.3) (F42.9) Depression with anxiety (300.4) (F41.8) Tremor (781.0) (R25.1) Disc degeneration, lumbar (722.52) (M51.36) Numbness and tingling of both feet (782.0) (R20.0) Generalized anxiety disorder (300.02) (F41.1) Sacroiliitis (720.2) (M46.1) Hypokalemia (276.8) (E87.6) Pulmonary hypertension (416.8) (I27.20) Esophageal dysmotility (530.5) (K22.4) Memory loss (780.93) (R41.3) Breast mass, right (611.72) (N63.10) Screening for osteoporosis (V82.81) (Z13.820) Balance problem (781.99) (R26.89) Lumbar canal stenosis (724.02) (M48.061) Need for Tdap vaccination (V06.1) (Z23) Need for pneumococcal vaccination (V03.82) (Z23) Skin lesions (709.9) (L98.9) Facial skin lesion (709.9) (L98.9) Heat intolerance (780.99) (R68.89) Screening for colon cancer (V76.51) (Z12.11) Migraine headache (346.90) (G43.909) Daytime hypersomnolence (780.54) (G47.19) Allergies and Adverse Reactions Amoxicillin TABS (Allergy) Reaction: Diego sea Haloperidol TABS (Allergy) PARoxetine HCl TABS (Allergy) Medications Potassium Chloride Kaity ER 20 MEQ Oral T ablet Extended Release; take 2 tablets by mouth twice daily CHENG Moore Start: 15-Jun-2018 Quantity: 120 Refills: 5 Escitalopram Oxalate 20 MG Oral Tablet; TAKE 1 TABLET DAILY. Refills: 0 Carvedilol 12.5 MG Oral Tablet; TAKE 1 T ABLET (BY MOUTH) TWICE A DAY, IN THE MORNING AND AT EVENING CHENG Moore Start: 14-Sep-2018 Quantity: 60 Refills: 3 Suprep Bowel Prep Kit 17.5-3.13-1.6 GM/1 77ML Oral Solution; USE ACCORDING TO THE SPLIT DOSE INSTRUCTIONS CHENG Tellez Start: 01-Mar-2018 Quantity: 1 2 x 177 ML Bottle Refills: 0 Potassium Chloride ER 20 MEQ Oral Tablet Extended Release; TAKE 2 TABLET Twice daily CHENG Moore Start: 27-Oct-2016 Quantity: 120 Refills: 1 Abilify 15 MG Oral Tablet; TAKE 1 TABLET DAILY. Start: 11-Sep-2016 Refills: 0 Primidone 50 MG Oral Tablet; TAKE 1 TABLET 4 TIMES DAILY. Start: 19-Jul-2017 Refills: 0 Carbidopa-Levodopa 25-100 MG Oral Tablet; TAKE 1 TABLET 3 TI MES DAILY. Start: 17-Feb-2018 Refills: 0 Topamax 100 MG Oral Tablet; TAKE 1 TABLET TWICE DAILY. Refills: 0 Propranolol HCl ER 160 MG Oral Capsule E xtended Release 24 Hour; TAKE 1 CAPSULE (BY MOUTH) ONCE DAILY. CHENG Moore Start: 15-Jun-2018 Quantity: 30 Refills: 5 lamoTRIgine 200 MG Oral Tablet; TAKE 1 TABLET TWICE DAILY. Start: 06-Feb-2011 Refills: 0 Atorvastatin Calcium 20 MG Oral Tablet; Take one table t by mouth at bedtime. CHENG Moore Start: 12-Oct-2018 Quantity: 90 Refills: 1 Compound Medication; Pharmacist to mix h ydrocortisone 1% cream with clotrimazole 1% cream. Apply BID to affected area. DO Natan De La Torre Start: 5 Quantity: 40 Refills: 3 Multi Vitamin Daily Oral Tablet; TAKE 1 TABLET (BY MOUTH) DA MARISOL Refills: 0 Aspirin 81 81 MG Oral Tablet Delayed Release; TAKE 1 TABLET DAILY. Refills: 0 Procedures History of Dental Surgery Status: Comple mary ann History of Pulmonary Artery Embolectomy Status: Completed History of Eye Surgery Status: Completed History of cholecystectomy laparoscopic Status: Completed Immunizations Pneumococcal polysaccharide vaccine, 23 valent On: 16-Apr-20 15 Fluzone High-Dose Intramuscular Suspension On: 25-Feb-2016 12 :05 Lot #: [id number], [employer]STEUR Fluzone High-Dose 0.5 ML Intramuscular Suspension Pref illed Syringe On: 25-Feb-2018 12:06 Lot #: [id number], [employer] PA[employer]UR Family History Mother Family history of cardiac disorder (V17.49) (Z82.49) Status: Active Family history of hypertension (V17.49) (Z82.49) Status: Act andrea Family history of myocardial infarction (V17.3) (Z82.49) Sta tus: Active aunt Family history of malignant neoplasm of breast (V16.3) (Z80. 3) Status: Active Social History - Smoking Status Never smoker Plan of Treatment Planned Observations Planned Goals not documented Results No Known Results Results not documented Encounters Appointment; Yareli Beasley PA-C 18-Apr-2018 13:30 Encounter Diagnosis: Problem not documented Appointment; Chris Moore CRNP 21-Mar-2018 13:20 Encounter Diagnosis: Problem not documented Appointment; Chris Moore CRNP 25-Feb-2018 11:20 Encounter Diagnosis: Problem not documented Appointment; Chris Moore CRNP 29-Oct-2017 11:20 Encounter Diagnosis: Problem not documented Appointment; Chris Moore CRNP 19-Jul-2017 15:40 Encounter Diagnosis: Problem not documented Appointment; Chris Moore CRNP 29-Mar-2017 15:00 Encounter Diagnosis: Problem not documented Appointment; Francie Wheatley M.D. 22-Jan-2017 10:40 Encounter Diagnosis: Problem not documented
[2018-11-24] MEDS ORDERED: HYDROCODONE/ACETAMOPHEN 5/325MG TAB PO STA (04:41)
[2018-11-24] MEDS ORDERED: KETOROLAC TROMETHAMINE 60 MG/2 ML VIAL IM STA (04:41)
[2018-11-24] MEDS ORDERED: MoRPHine SULFATE 4 MG/ML 1 ML CARP\\VIAL IM STA (06:14)
--- NOTE | 2018-11-24 06:29 | XRay Report ---
XR hip RT 2-3V w pelvis HISTORY: 73 years-old Female right hip/leg pain acute right hip pain without reported trauma COMPARISON: CT abdomen and pelvis 05/23/2018 TECHNIQUE: AP view of the pelvis with 2 views of the right hip FINDINGS: Demineralized appearance of the bones. Moderate bilateral hip osteoarthritis. There is no acute fract ure, dislocation or opaque foreign body. Multilevel degenerative changes of the spine. IMPRESSION: No acute fracture or dislocation. The above report was generated using voice recognition software. It may contain grammatical, syntax o r spelling errors. Electronically signed by: Sven Saravia M.D. 11/24/2018 6:27 AM
--- NOTE | 2018-11-24 07:03 | Emergency Department Note ---
ED Visit Note I saw this patient in conjunction with Minesh Balderas PA-C. I agree with his decision making and treatment plan. .
--- NOTE | 2018-11-24 07:53 | Emergency Department Note ---
History of Present Illness General Chief complaint: Leg Injury/Pain Stated complaint: LEG NUMBNESS Time Seen by Provider: 11/24/18 04:31 History of Present Illness Maximum Pain Intensity: 5 This is a 73-year-old female presenting to the emergency department for right leg numbness that she noticed when awaking around 2:30 AM, roughly 1 hour prior to arrival. The patient does not report any injury or trauma yesterday. She went to bed as normal. She is not having significant pain, but states that walking is difficult because of the numbness. Patient does not report head, neck, chest, or abdominal discomfort. No back pain. She has been using the bathroom as normal the past few days. The patient does not have any similar symptoms in her or her left leg. She states that numbness is roughly starting in her mid thigh and extending down towards the foot. She rates her overall discomfort a 5/10 and has not taken anything [id number] for her symptoms. She does report a history of neuropathy, and this seems similar, but overall worsened since yesterday. Home Medications Home Medications Medication Instructions Recorded Confirmed Type aspirin [Aspirin Low Dose] 81 mg PO DAILY 02/12/18 11/24/18 History atorvastatin 20 mg PO HS 02/12/18 11/24/18 History carbidopa-levodopa 1 tab PO TID 02/12/18 11/24/18 History carvedilol 12.5 mg PO BID 02/12/18 11/24/18 History escitalopram oxalate 20 mg PO HS 02/12/18 11/24/18 History lamotrigine 200 mg PO BID 02/12/18 11/24/18 History multivitamin [Once Daily] 1 tab PO DAILY 02/12/18 11/24/18 History primidone 50 mg PO QAM 02/12/18 11/24/18 History primidone 100 mg PO HS 02/12/18 11/24/18 History propranolol 160 mg PO QAM 02/12/18 11/24/18 History topiramate 100 mg PO BID 02/12/18 11/24/18 History aripiprazole 10 mg PO QAM 09/27/18 11/24/18 History primidone 50 mg PO 1200 09/27/18 11/24/18 History potassium chloride ER 20 mEq 40 meq PO BID #120 tab 06/21/19 07/04/19 Rx tablet,extended release(part/cryst) Allergies Allergy/AdvReac Type Severity Reaction Status Date / Time No Known Allergies Allergy Verified 11/24/18 05:13 Past Med/Surg History Medical History Encounter for pre-operative examination Acute cholecystitis (Acute) Diabetes (Chronic) PT DENIES Hypertension (Chronic) Tremor (Chronic 10/13/11) Vertigo (Acute) Neck pain (Acute) Right middle lobe pneumonia (Acute) Right middle lobe pneumonia (Acute) Depression (Chronic) Chest pain (Acute) OCD (obsessive compulsive disorder) (Chronic) Noncompliance with medication regimen (Acute) Pulmonary emboli (Resolved) Fluid retention (Acute) Choking (Acute) Dyspnea (Acute) Esophageal dilatation (Acute) Hypoxia Low back pain (Acute) Obstruction of esophagus due to food impaction Respiratory failure Tracheomalacia (Acute) Ulcer of left thigh (Acute) Anxiety History of esophageal dilatation History of tooth extraction Hyperlipidemia Osteoarthritis Post traumatic stress disorder Social History Preferred Language: Swedish Communication Ability: Effective Visual Impairment: No Limitations Beliefs That Will Affect Care: None marital status: Current Living Situation: Spouse Feels Safe at Home: Yes Smoking Status: Never smoker Second Hand Exposure: No Hx Alcohol Use: No Hx Substance Use: No Review of Systems A total of 10 systems reviewed and were otherwise negative Physical Exam Vital Signs Vital Signs - 24 hr 11/24/18 04:25 11/24/18 06:10 11/24/18 07:29 Temperature 36.4 C L Temperature Source Oral Sepsis Recent Fever Within 48 Hours No Sepsis New/Unexplained Change in Mental Status No Sepsis Action Taken by Nursing No Action Required Pulse Rate 73 Pulse Rate [Left Finger] 71 60 Respiratory Rate 24 16 20 Blood Pressure 158/95 H Blood Pressure [Right Arm] 153/66 H 145/75 H Blood Pressure Mean 116 Blood Pressure Mean [Right Arm] 95 98 Pulse Oximetry 94 93 93 Oxygen Delivery Method Room Air Room Air Room Air VITALS: Vitals are noted on the nurse's note and reviewed by myself. Vital signs stable. GENERAL: Chronically ill-appearing female who is overall cooperative with the exam. She does have it appears to be an essential tremor of her mouth and occasionally her hands. HEAD: Normocephalic atraumatic. EYES: Pupils equal round and reactive to light and accommodation. Conjunctivae without injection, sclerae without icterus. Extraocular movements intact. NOSE: Patent, turbinates without inflammation or discharge. MOUTH: Mucous membranes moist. Tonsils are not enlarged. Pharynx without erythema, blood, or exudate. Uvula midline. Airway patent. NECK: Supple without nuchal rigidity. No lymphadenopathy. No thyromegaly. Cervical spine is nontender. HEART: Regular rate and rhythm without murmurs gallops or rubs. LUNGS: Clear to auscultation bilaterally without wheezes, rales or rhonchi. No retractions or accessory muscle use. ABDOMEN: Positive normal bowel sounds x 4. Soft, nontender, without masses or organomegaly. No guarding or rebound tenderness. MUSCULOSKELETAL: No significant tenderness throughout the arms or flank. Mild tenderness appreciated in the right lateral thigh, however no significant tenderness of the right knee or right ankle. No tenderness of the spine or SI joints. Neurovascular status appears intact distally. No calf tenderness. Generalized lower extremity edema is noted but equal bilaterally. NEURO: Patient was alert and oriented to person place and time. CN II through XII grossly intact. Course Administered Medications Discontinued Medications Hydrocodone Bitart/Acetaminophen ([place] 5/325) 2 tab PO NOW STA Stop: 11/24/18 04:42 Last Admin: 11/24/18 04:47 Dose: 2 tab Documented by: [id number] Ketorolac Tromethamine (Toradol) 60 mg IM NOW STA Stop: 11/24/18 04:42 Last Admin: 11/24/18 04:48 Dose: 60 mg Documented by: [id number] Morphine Sulfate (Morphine Sulfate) 4 mg IM NOW STA Stop: 11/24/18 06:15 Last Admin: 11/24/18 06:34 Dose: 4 mg Documented by: [id number] Medical Decision Making Differential Diagnosis Differential diagnosis includes, but is not limited to: Sprain, strain, fract ure, dislocation, subluxation, contusion, and others Imaging Data Radiologist's Impression: XR hip RT 2-3V w pelvis HISTORY: 73 years-old Female right hip/leg pain acute right hip pain without reported trauma COMPARISON: CT abdomen and pelvis 05/23/2018 TECHNIQUE: AP view of the pelvis with 2 views of the right hip FINDINGS: Demineralized appearance of the bones. Moderate bilateral hip osteoarthritis. There is no acute fracture, dislocation or opaque foreign body. Multilevel degenerative changes of the spine. IMPRESSION: No acute fracture or dislocation. MDM Narrative Physical exam and history were performed. Nursing notes, EMR, and Medication List were personally reviewed. Patient appears to have right leg numbness bringing her to the emergency department. Her symptoms do appear subjective, as she does have sensation distally. She does not have saddle paresthesias and vascularly she appears intact distally. The patient is able to move all 4 extremities on command without noted difficulty. The patient was given oral Vicodin here in the depart ment as well as IM Toradol. I was able to elicit some tenderness in the right hip, and x-ray was performed. X-ray was reviewed by myself and radiology as showing no acute fracture or dislocation. The patient does have some arthritic findings, which may be somewhat exacerbated by my pressing in the area. On reevaluation the patient continues to state that her leg feels numb she is unable to walk because of this. I did provide her IM morphine, and allow her time for the medicine to work. The case was discussed with my attending physician, Dr. Townsend, who also independently evaluated the patient. After multiple rounds of medication the patient may be minimally improved as far as pain control goes, however she does refused to stand out of her wheelchair. The patient continues to state that she will fall if she tries to stand. After discussing the patient's case with Dr. Townsend utilizing shared decision- making with the patient, we did elect to establish an IV and draw basic labs. CT scan of the head was performed to make sure she has not had some sort of TIA or tonight. Again, neurologically she is fully intact on exam and GCS is 15, however the patient continues to report subjective numbness and inability to ambulate because of this. Overall the patient remained in stable condition until the time of shift change. The case was discussed with my colleague, Rao Jarrett PA-C, who will assume care at this time. At shift change we are awaiting results of blood work and a CT scan. Please see Mr. Jarrett's dictation for further patient course, plan, and disposition. The chart was completed utilizing [employer] Speech Voice Recognition Software. Grammatical errors, random word insertions, pronoun errors, and incomplete sentences are an occasional consequence of this system due to software limitations, ambient noise, and hardware issues. Any formal questions or concerns about the content, text, or information contained within the body of this dictation should be directly addressed to the provider for clarification. . Impression & Plan Numbness in right leg, Ambulatory dysfunction Discharge Plan Visit Data Chief Complaint: Leg Injury/Pain Stated Complaint: LEG NUMBNESS ED Provider: Tameka Townsend ED Midlevel Provider: Mandeep Jarrett Discharge Problem: Numbness in right leg, Ambulatory dysfunction Forms Stand Alone Forms: [facility] Prescriptions Prescriptions: No Action potassium chloride 20 mEq tablet,ER particles/crystals 40 meq PO BID Qty: 120 RF: 5 primidone 50 mg Tablet 50 mg PO 1200 RF: 0 aripiprazole 10 mg Tablet 10 mg PO QAM RF: 0 primidone 50 mg tablet 100 mg PO HS RF: 0 primidone 50 mg tablet 50 mg PO QAM RF: 0 propranolol 160 mg capsule,extended release 24 hr 160 mg PO QAM RF: 0 carvedilol 12.5 mg tablet 12.5 mg PO BID RF: 0 lamotrigine 200 mg tablet 200 mg PO BID RF: 0 carbidopa-levodopa 25-100 mg tablet 1 tab PO TID RF: 0 escitalopram oxalate 20 mg tablet 20 mg PO HS RF: 0 topiramate 100 mg tablet 100 mg PO BID RF: 0 multivitamin [Once Daily] Tablet 1 tab PO DAILY RF: 0 atorvastatin 20 mg tablet 20 mg PO HS RF: 0 aspirin [Aspirin Low Dose] 81 mg Tablet,Delayed Release (Dr/Ec) 81 mg PO DAILY RF: 0 Referrals Referrals: Chris Moore III, CRNP [Primary Care Provider] -
[2018-11-24 08:02] LABS: Basophils # (auto) 0.02 K/uL (0-0.2); Basophils % (auto) 0.4 %; Eosinophils % (auto) 1.8 %; Hematocrit (blood only) 34.1 % (37-47); Immature Granulocytes # (auto) 0.02 K/uL (0.00-0.02); Immature Granulocytes % (auto) 0.4 %; Lymphocytes # (auto) 1.41 K/uL (1.2-3.4); Lymphocytes % (auto) 25.5 %; Mean Corpuscular Hgb Conc 32.3 g/dL (32-36); Mean Corpuscular Volume 94.7 fL (80-100); Mean Platelet Volume 8.9 fL (7.4-10.4); Monocytes # (auto) 0.36 K/uL (0.11-0.59); Monocytes % (auto) 6.5 %; Neutrophils # (auto) 3.61 K/uL (1.4-6.5); Neutrophils % (auto) 65.4 %; Platelet Count 150 K/uL (130-400); RDW Coefficient of Variation 14.4 % (11.5-14.5); RDW Standard Deviation 49.7 fL (36.4-46.3); White Blood Count 5.52 K/uL (4.8-10.8)
[2018-11-24 08:14] LABS: Partial Thromboplastin Ratio 0.9; Partial Thromboplastin Time 25.6 Seconds (21.0-31.0); Prothrombin Time 10.5 Seconds (9.0-12.0)
--- NOTE | 2018-11-24 08:20 | CT Scan Report ---
CT head/brain wo con CLINICAL HISTORY: 73 years-old Female with Vague right leg numbness. No other sx.. Acute right leg n umbness and tingling TECHNIQUE: Multiple axial CT images of the head were obtained without contrast. A dose lowering tech nique was utilized adhering to the principles of ALARA. CT DOSE: 537.48 mGy.cm COMPARISON: Head CT 09/30/2010 FINDINGS: No acute intracranial hemorrhage, midline shift, intracranial mass, hydrocephalus, territorial ischem ia or abnormal extra-axial collection. Dense calcifications of the falx cerebri redemonstrated measur ing up to 3.1 x 1.2 cm anteriorly, possibly reflective of a calcified meningioma. Age-related involut ional changes. Mild degree of patchy ill-defined white matter hypodensities suggest chronic microvasc ular ischemic disease. Cerebral vascular calcifications also noted. The calvarium is intact. Hyperostosis frontalis interna. The paranasal sinuses, mastoid air cells, an d middle ear cavities are clear. IMPRESSION: No acute intracranial abnormality. The above report was generated using voice recognition software. It may contain grammatical, syntax o r spelling errors. Electronically signed by: Sven Saravia M.D. 11/24/2018 8:19 AM
[2018-11-24 08:26] LABS: Alanine Aminotransferase 8 U/L (12-78); Aspartate Aminotransferase 10 U/L (15-37); BUN Creatinine Ratio 12.3 (10-20); Blood Urea Nitrogen 10 mg/dl (7-18); Calcium 8.2 mg/dl (8.5-10.1); Carbon Dioxide 27 mmol/L (21-32); Chloride 114 mmol/L (98-107); Creatinine Clr Calc Pharmacy 96.8 ml/min; Est GFR (African American) 88.2; Est GFR (Non-African American) 76.1; Glucose 116 mg/dl (70-99); Magnesium 2.2 mg/dl (1.8-2.4); Potassium 4.3 mmol/L (3.5-5.1); Sodium 147 mmol/L (136-145)
--- NOTE | 2018-11-24 08:27 | Emergency Department Note ---
ED Visit Note 73-year-old female whose care was transferred to ri from Minesh Balderas PA-C at change of shift. Patient presented to the emergency department with complaint of ambulatory dysfunction with right upper extremity pain and weakness. At the time of transfer of care, CT scan of the head was pending. Labs were also pending at the time of transfer of care, with review of labs showing no acute abnormalities. Noncontrast CT of the head was ordered, and did not show any acute findings. Radiologist report is as follows: CT head/brain wo con CLINICAL HISTORY: 73 years-old Female with Vague right leg numbness. No other sx.. Acute right leg numbness and tingling TECHNIQUE: Multiple axial CT images of the head were obtained without contrast. A dose lowering technique was utilized adhering to the principles of ALARA. CT DOSE: 537.48 mGy.cm COMPARISON: Head CT 09/30/2010 FINDINGS: No acute intracranial hemorrhage, midline shift, intracranial mass, hydrocephalus, territorial ischemia or abnormal extra-axial collection. Dense calcifications of the falx cerebri redemonstrated measuring up to 3.1 x 1.2 cm anteriorly, possibly reflective of a calcified meningioma. Age-related involutional changes. Mild degree of patchy ill-defined white matter hypodensities suggest chronic microvascular ischemic disease. Cerebral vascular calcifications also noted. The calvarium is intact. Hyperostosis frontalis interna. The paranasal sinuses, mastoid air cells, and middle ear cavities are clear. IMPRESSION: No acute intracranial abnormality. I also elected to perform a noncontrast CT of the lumbar spine, which showed significant degenerative changes. Radiologist report is as follows: CT lumbar spine wo con HISTORY: 73 years-old Female RLE pain/numbness acute right lower extremity pain and numbness COMPARISON: CT lumbar spine 02/16/2016, CT abdomen and pelvis 02/12/2018 TECHNIQUE: Multiple axial CT images of the lumbar spine were obtained without the use of IV contrast. A dose lowering technique was used consistent with the principals of ALARA. FINDINGS: Demineralized appearance of the bones. 6 mm anterolisthesis L4 on L5, likely secondary to long-standing facet arthrosis. There is severe facet arthropathy at L3-L4, L4-L5 and L5-S1. Moderate multilevel spondylitic spurring without significant intervertebral disc space narrowing. Vacuum disc phenomenon noted at T12-L1. Image sacrum and iliac bones appear intact. Evaluation of the central canal and neuroforamina is better assessed by MRI. Multilevel posterior annular disc bulging is noted with associated ligamentum flavum thickening. There is a least mild central canal stenosis with mild left foraminal narrowing at L2-L3. At L3-L4, posterior annular disc bulge with ligamentum flavum thickening and advanced facet arthrosis causes severe central canal stenosis, AP dimension of the thecal sac measuring 5 mm. Additionally, there is moderate right and mild left foraminal stenosis at this level. At L4-L5, posterior annular disc bulge/disc space uncovering with ligamentum flavum thickening and severe facet arthrosis causes severe central canal stenosis, AP dimension of the thecal sac measuring 5 mm. Moderate left with mild right foraminal narrowing. At L5-S1 there is a posterior annular disc bulge with advanced facet arthrosis and ligamentum flavum thickening. Flattening of the ventral thecal sac without significant central canal stenosis. Moderate bilateral foraminal narrowing at this interspace. No aortic aneurysm or adenopathy identified. IMPRESSION: 1. No acute fracture or subluxation. 2. Multilevel degenerative changes as above with severe central canal stenosis at L3-L4 and L4-L5. 3. Multilevel neuroforaminal narrowing. Upon reevaluation, the patient appears to have good peroneal motor function. The patient also reports that she has had problems with her back in the past, and has [facility]. She believes that she did have some trigger point injections in the back, but does not think that she underwent epidural steroid injections. The patient reports that she did not feel safe going home, reporting that she does have a walker at home as needed. She knows that [facility]. The case was further discussed with Dr. Doyle, hospitalist with [facility], who came to the emergency department for further evaluation. Please see her dictation for further treatment and final disposition. MEDICAL DECISION MAKING: Patient presents emergency department with abrupt onset of right lower extremity weakness. Patient does have a prior history of diabetic neuropathy. Differentials considered included lumbar radiculitis. The patient does not have physical exam findings or history to suggest cauda equina syndrome. She does not have any significant electrolyte abnormality. CT scan is not consistent with CVA, nor does the patient have any physical exam findings to suggest the same. I do not suspect sepsis. DIAGNOSIS: Ambulatory dysfunction .
--- NOTE | 2018-11-24 08:28 | CT Scan Report ---
CT lumbar spine wo con HISTORY: 73 years-old Female RLE pain/numbness acute right lower extremity pain and numbness COMPARISON: CT lumbar spine 02/16/2016, CT abdomen and pelvis 02/12/2018 TECHNIQUE: Multiple axial CT images of the lumbar spine were obtained without the use of IV contrast. A dose lowering technique was used consistent with the principals of ALARA. FINDINGS: Demineralized appearance of the bones. 6 mm anterolisthesis L4 on L5, likely secondary to long-standi ng facet arthrosis. There is severe facet arthropathy at L3-L4, L4-L5 and L5-S1. Moderate multilevel spondylitic spurring without significant intervertebral disc space narrowing. Vacuum disc phenomenon noted at T12-L1. Image sacrum and iliac bones appear intact. Evaluation of the central canal and neur oforamina is better assessed by MRI. Multilevel posterior annular disc bulging is noted with associat ed ligamentum flavum thickening. There is a least mild central canal stenosis with mild left foramina l narrowing at L2-L3. At L3-L4, posterior annular disc bulge with ligamentum flavum thickening and ad vanced facet arthrosis causes severe central canal stenosis, AP dimension of the thecal sac measuring 5 mm. Additionally, there is moderate right and mild left foraminal stenosis at this level. At L4-L5 , posterior annular disc bulge/disc space uncovering with ligamentum flavum thickening and severe fac et arthrosis causes severe central canal stenosis, AP dimension of the thecal sac measuring 5 mm. Mod erate left with mild right foraminal narrowing. At L5-S1 there is a posterior annular disc bulge with advanced facet arthrosis and ligamentum flavum thickening. Flattening of the ventral thecal sac with out significant central canal stenosis. Moderate bilateral foraminal narrowing at this interspace. No aortic aneurysm or adenopathy identified. IMPRESSION: 1. No acute fracture or subluxation. 2. Multilevel degenerative changes as above with severe central canal stenosis at L3-L4 and L4-L5. 3. Multilevel neuroforaminal narrowing. The above report was generated using voice recognition software. It may contain grammatical, syntax o r spelling errors. Electronically signed by: Sven Saravia M.D. 11/24/2018 8:26 AM
[2018-11-24 08:37] LABS: Albumin Globulin Ratio 0.8 (0.9-2); Alkaline Phosphatase 97 U/L (45-117); Bilirubin,Total 0.2 mg/dl (0.2-1); Globulin 3.8 gm/dl (2.5-4.0); Total Protein 6.8 gm/dl (6.4-8.2); Troponin I < 0.015 ng/ml (0-0.045)
[2018-11-24 08:49] LABS: Lyme Ab IgM w/WB Rflx Negative (Negative)
[2018-11-24 08:56] LABS: Lyme Ab IgG w/WB Rflx Positive (Negative)
--- NOTE | 2018-11-24 11:03 | History & Physical Report ---
Date of Service November 24, 2018 Assessment & Plan (1) Right leg weakness: With acute onset of right lower extremity pain and numbness from the anterior thigh all the way down subjectively, however not on examination; also with weakness in the proximal muscles of the right lower extremity but has full strength with plantar and dorsiflexion of the right foot. Suspect secondary to severe lumbar radiculopathy. Not likely to be an isolated mononeuropathy of the peroneal nerve given that she has fairly good strength in the foot. -Admit for observation overnight -Neurology consultation and orthopedic spine consultation placed -Check MRI lumbar spine and brain as per recommendations from neurology -Check metabolic labs as per neurology's recommendations -PT/OT consults -Tylenol as needed for pain (2) Anxiety: Continue home meds (3) Post traumatic stress disorder: Continue home meds (4) Hyperlipidemia: Continue atorvastatin (5) Hypertension: Blood pressure well controlled -Continue Coreg and propranolol which she is on for tremor-likely does not need to be on both [id number] will discuss with her in the morning (6) Tremor: Continue propranolol, Sinemet -Follows with Dr. Allen of neurology (7) Depression: Has a long history of severe mental health issues -Continue home meds (8) OCD (obsessive compulsive disorder): As above, continue home meds (9) Idiopathic neuropathy: Noted, reports stocking glove like sensory deficit to just above the ankles bilaterally (10) Obesity: BMI 43.1 -Needs weight loss (11) Numbness in right leg: As above (12) Ambulatory dysfunction: Unable to walk due to right lower extremity weakness and numbness as above -PT OT consults (13) DVT prophylaxis: Has a history of PE in her mid 30s which required sternotomy with me chanical embolectomy, no clots since then -Give Lovenox 40 mg SQ daily Disposition-admit on observation, patient has a severe phobia of cats and therefore reports she cannot go to a long term or rehab facility that allows pet visitation. She was adamant about returning home if at all possible. Case management consult placed History of Present Illness Chief Complaint: Right lower extremity pain and numbness Primary Care Provider: Chris Moore, III, CHENG This patient is a 73-year-old female with a history of idiopathic polyneuropathy, morbid obesity, HTN, remote history of PE at age 34, essential tremor, OCD, PTSD, and depression, who presents to the ER with right lower extremity pain and weakness as well as numbness that started at 2:00 this morning when she woke up. All of her symptoms start in the anterior thigh and then go through the entire leg through to the toes. She has no lower back pain, denies buttocks or posterior hamstring pain. She denies any bowel or bladder issues. She reports that her entire leg is numb and demonstrates this by banging the back of her leg off her wheelchair and saying "I cannot feel that." She has not been able to walk at all with the leg due to weakness. She was given multiple rounds of various pain medication in the ER. She describes the pain as [id number] like her leg is asleep but trying to wake up. She denies any urinary symptoms, denies fever, denies abdominal pain or constipation or diarrhea. She reports a mild headache but this has been ongoing for her and she is been having to take Excedrin every day for the last month. CT of the head was negative for acute changes in the ER, but did show a 3.1 x 1.[address] of the lumbar spine showed severe stenosis and degenerative changes at multiple levels but most severe central canal stenosis at L3-4 and L4-5. She is admitted for observation and further work-up for her acute onset of right lower extremity symptoms, however she reports that she absolutely cannot go to a long term or rehab facility if pet visitation is allowed because she has a severe phobia of cats. Allergies Allergy/AdvReac Type Severity Reaction Status Date / Time No Known Allergies Allergy Verified 11/24/18 05:13 Home Medications Home Medications Medication Instructions Recorded Confirmed Type aspirin [Aspirin Low Dose] 81 mg PO DAILY 02/12/18 11/24/18 History atorvastatin 20 mg PO HS 02/12/18 11/24/18 History carbidopa-levodopa 1 tab PO TID 02/12/18 11/24/18 History carvedilol 12.5 mg PO BID 02/12/18 11/24/18 History escitalopram oxalate 20 mg PO HS 02/12/18 11/24/18 History lamotrigine 200 mg PO BID 02/12/18 11/24/18 History multivitamin [Once Daily] 1 tab PO DAILY 02/12/18 11/24/18 History primidone 50 mg PO QAM 02/12/18 11/24/18 History primidone 100 mg PO HS 02/12/18 11/24/18 History propranolol 160 mg PO QAM 02/12/18 11/24/18 History topiramate 100 mg PO BID 02/12/18 11/24/18 History aripiprazole 10 mg PO QAM 09/27/18 11/24/18 History primidone 50 mg PO 1200 09/27/18 11/24/18 History potassium chloride ER 20 mEq 40 meq PO BID #120 tab 11/11/18 11/24/18 Rx tablet,extended release(part/cryst) Past Med/Surg History Medical History Acute cholecystitis (Resolved) Hypertension (Chronic) Tremor (Chronic 10/13/11) Vertigo (Resolved) Neck pain (Resolved) Right middle lobe pneumonia (Resolved) Depression (Chronic) OCD (obsessive compulsive disorder) (Chronic) Noncompliance with medication regimen (Resolved) Pulmonary emboli (Resolved) Choking (Resolved) Esophageal dilatation (Chronic) Low back pain (Resolved) Obstruction of esophagus due to food impaction (Resolved) Tracheomalacia (Chronic) Ulcer of left thigh (Resolved) Idiopathic neuropathy Obesity Anxiety (Chronic) Hyperlipidemia (Chronic) Osteoarthritis (Chronic) Post traumatic stress disorder (Chronic) Fluid retention (Resolved) History of esophageal dilatation History of tooth extraction Surgical History History of embolectomy (Resolved) History of breast biopsy History of cataract surgery BILATERAL History of cholecystectomy History of colonoscopy History of lung surgery for pulmonary emboli History of tonsillectomy Family History Other Family history non-contributory Social History Preferred Language: Tajik Communication Ability: Effective Visual Impairment: No Limitations Beliefs That Will Affect Care: None marital status: Current Living Situation: Spouse Other Information That Helps Us Care for You: No Feels Safe at Home: Yes Safety Concerns: Feels Safe At This Time Smoking Status: Never smoker Second Hand Exposure: No Hx Alcohol Use: No Hx Substance Use: No Review of Systems Review of Systems: All systems reviewed & are unremarkable except as noted in HPI & below Physical Exam Constitutional: WD/WN, vitals as above + morbidly obese Eyes: PERRL, conjunctivae normal, anicteric sclerae ENMT: external ear and nose normal, oropharynx normal (Edentulous) Neck: trachea midline, no thyromegaly Respiratory: normal respiratory effort, lungs clear to auscultation Cardiovascular: RRR, no murmur, no edema Gastrointestinal (Abdomen): normal bowel sounds, soft, nontender, no hepatosplenomegaly Musculoskeletal: Extremities: extremities normal to inspection; no cyanosis and no clubbing Skin: no rashes, warm and dry Neurologic: + focal motor deficit (4/5 strength in right hip flexion, knee extension and flexion, but 5 out of 5 strength in right foot dorsi and plantarflexion as well as great toe dorsi and plantarflexion, 5 out of 5 strength in entire left lower extremity and upper extremities bilaterally) and awake; + abnormal deep tendon reflexes (Could not elicit DTRs in the patellar or Achilles bilaterally) and not confused Speech / Cognition: normal speech Motor/Sensory: + tremor (Resting tremor in the arms and head) and + sensory deficit (Decreased sensation to light touch only in the right medial leg on exam) Gait not tested, she was sitting in a wheelchair Psychiatric: A+Ox3, euthymic affect Results & Data Vital Signs (Past 12 Hours) Vital Signs Temp Pulse Pulse Resp BP BP Pulse Ox 11/24/18 10:03 53 L 20 142/75 H 92 11/24/18 07:29 60 20 145/75 H 93 11/24/18 06:10 71 16 153/66 H 93 11/24/18 04:25 36.4 C L 73 24 158/95 H 94 Laboratory Results 11/24/18 11/24/18 11/24/18 Range/Units 11:30 07:55 07:55 WBC (4.8-10.8) K/uL RBC (4.2-5.4) M/uL Hgb (12.0-16.0) g/dL Hct (37-47) % MCV (80-100) fL MCH (25-34) pg MCHC (32-36) g/dL RDW Std Deviation (36.4-46.3) fL RDW Coeff of Gary (11.5-14.5) % Plt Count (130-400) K/uL MPV (7.4-10.4) fL Immature Gran % (Auto) % Neut % (Auto) % Lymph % (Auto) % [facility] % (Auto) % Eos % (Auto) % Baso % (Auto) % Immature Gran # (Auto) (0.00-0.02) K/uL Neut # (Auto) (1.4-6.5) K/uL Lymph # (Auto) (1.2-3.4) K/uL [facility] # (Auto) (0.11-0.59) K/uL Eos # (Auto) (0-0.5) K/uL Baso # (Auto) (0-0.2) K/uL PT (9.0-12.0) Seconds INR (0.9-1.1) APTT (21.0-31.0) Seconds PTT Ratio Sodium (136-145) mmol/L Potassium (3.5-5.1) mmol/L Chloride (98-107) mmol/L Carbon Dioxide (21-32) mmol/L Anion Gap (3-11) BUN (7-18) mg/dl Creatinine (0.6-1.2) mg/dl Est Cr Clr Drug Dosing ml/min Est GFR ( Amer) Est GFR (Non-Af Amer) BUN/Creatinine Ratio (10-20) Glucose (70-99) mg/dl Calcium (8.5-10.1) mg/dl Magnesium (1.8-2.4) mg/dl Total Bilirubin (0.2-1) mg/dl AST (15-37) U/L ALT (12-78) U/L Alkaline Phosphatase (45-117) U/L Troponin I (0-0.045) ng/ml Total Protein (6.4-8.2) gm/dl Albumin (3.4-5.0) gm/dl Globulin (2.5-4.0) gm/dl Albumin/Globulin Ratio (0.9-2) TSH (0.300-4.500) uIu/ml Urine Color Yellow Urine Appearance Clear (Clear) Urine pH 7.5 (4.5-7.5) Ur Specific Burns 1.019 (1.000-1.030) Urine Protein Negative (Negative) Urine Glucose (UA) Negative (Negative) Urine Ketones Negative (Negative) Urine Blood Negative (Negative) Urine Nitrite Positive A (Negative) Urine Bilirubin Negative (Negative) Urine Urobilinogen Negative (Negative) Ur Leukocyte Esterase 1+ H (Negative) Urine WBC (Auto) >30 H (0-5) /hpf Urine RBC (Auto) 0-4 (0-4) /hpf U Hyaline Cast (Auto) 1-5 (0-5) /lpf U Epithel Cells (Auto) 5-10 H (0-5) /lpf Urine Bacteria (Auto) 4+ H (Negative) Lyme Disease IgG Ab Positive A (Negative) Lyme IgG (Western Blot) Pending Lyme IgG 18 kDa Band Pending Lyme IgG 23 kDa Band Pending Lyme IgG 28 kDa Band Pending Lyme IgG 30 kDa Band Pending Lyme IgG 39 kDa Band Pending Lyme IgG 41 kDa Band Pending Lyme IgG 45 kDa Band Pending Lyme IgG 58 kDa Band Pending Lyme IgG 66 kDa Band Pending Lyme IgG 93 kDa Band Pending Lyme Disease IgM Ab Negative (Negative) Lyme IgM (Western Blot) Pending Lyme IgM 23 kDa Band Pending Lyme IgM 39 kDa Band Pending Lyme IgM 41 kDa Band Pending 11/24/18 11/24/18 11/24/18 Range/Units 07:55 07:55 07:55 WBC 5.52 (4.8-10.8) K/uL RBC 3.60 L (4.2-5.4) M/uL Hgb 11.0 L (12.0-16.0) g/dL Hct 34.1 L (37-47) % MCV 94.7 (80-100) fL MCH 30.6 (25-34) pg MCHC 32.3 (32-36) g/dL RDW Std Deviation 49.7 H (36.4-46.3) fL RDW Coeff of Gary 14.4 (11.5-14.5) % Plt Count 150 (130-400) K/uL MPV 8.9 (7.4-10.4) fL Immature Gran % (Auto) 0.4 % Neut % (Auto) 65.4 % Lymph % (Auto) 25.5 % [facility] % (Auto) 6.5 % Eos % (Auto) 1.8 % Baso % (Auto) 0.4 % Immature Gran # (Auto) 0.02 (0.00-0.02) K/uL Neut # (Auto) 3.61 (1.4-6.5) K/uL Lymph # (Auto) 1.41 (1.2-3.4) K/uL [facility] # (Auto) 0.36 (0.11-0.59) K/uL Eos # (Auto) 0.10 (0-0.5) K/uL Baso # (Auto) 0.02 (0-0.2) K/uL PT 10.5 (9.0-12.0) Seconds INR 1.0 (0.9-1.1) APTT 25.6 (21.0-31.0) Seconds PTT Ratio 0.9 Sodium 147 H (136-145) mmol/L Potassium 4.3 (3.5-5.1) mmol/L Chloride 114 H (98-107) mmol/L Carbon Dioxide 27 (21-32) mmol/L Anion Gap 6.0 (3-11) BUN 10 (7-18) mg/dl Creatinine 0.77 (0.6-1.2) mg/dl Est Cr Clr Drug Dosing 96.8 ml/min Est GFR ( Amer) 88.2 Est GFR (Non-Af Amer) 76.1 BUN/Creatinine Ratio 12.3 (10-20) Glucose 116 H (70-99) mg/dl Calcium 8.2 L (8.5-10.1) mg/dl Magnesium 2.2 (1.8-2.4) mg/dl Total Bilirubin 0.2 (0.2-1) mg/dl AST 10 L (15-37) U/L ALT 8 L (12-78) U/L Alkaline Phosphatase 97 (45-117) U/L Troponin I < 0.015 (0-0.045) ng/ml Total Protein 6.8 (6.4-8.2) gm/dl Albumin 3.0 L (3.4-5.0) gm/dl Globulin 3.8 (2.5-4.0) gm/dl Albumin/Globulin Ratio 0.8 L (0.9-2) TSH 3.430 (0.300-4.500) uIu/ml Urine Color Urine Appearance (Clear) Urine pH (4.5-7.5) Ur Specific Burns (1.000-1.030) Urine Protein (Negative) Urine Glucose (UA) (Negative) Urine Ketones (Negative) Urine Blood (Negative) Urine Nitrite (Negative) Urine Bilirubin (Negative) Urine Urobilinogen (Negative) Ur Leukocyte Esterase (Negative) Urine WBC (Auto) (0-5) /hpf Urine RBC (Auto) (0-4) /hpf U Hyaline Cast (Auto) (0-5) /lpf U Epithel Cells (Auto) (0-5) /lpf Urine Bacteria (Auto) (Negative) Lyme Disease IgG Ab (Negative) Lyme IgG (Western Blot) Lyme IgG 18 kDa Band Lyme IgG 23 kDa Band Lyme IgG 28 kDa Band Lyme IgG 30 kDa Band Lyme IgG 39 kDa Band Lyme IgG 41 kDa Band Lyme IgG 45 kDa Band Lyme IgG 58 kDa Band Lyme IgG 66 kDa Band Lyme IgG 93 kDa Band Lyme Disease IgM Ab (Negative) Lyme IgM (Western Blot) Lyme IgM 23 kDa Band Lyme IgM 39 kDa Band Lyme IgM 41 kDa Band Diagnostic Findings CT lumbar spine wo con HISTORY: 73 years-old Female RLE pain/numbness acute right lower extremity pain and numbness COMPARISON: CT lumbar spine 02/16/2016, CT abdomen and pelvis 02/12/2018 TECHNIQUE: Multiple axial CT images of the lumbar spine were obtained without the use of IV contrast. A dose lowering technique was used consistent with the principals of ALARA. FINDINGS: Demineralized appearance of the bones. 6 mm anterolisthesis L4 on L5, likely secondary to long-standing facet arthrosis. There is severe facet arthropathy at L3-L4, L4-L5 and L5-S1. Moderate multilevel spondylitic spurring without significant intervertebral disc space narrowing. Vacuum disc phenomenon noted at T12-L1. Image sacrum and iliac bones appear intact. Evaluation of the central canal and neuroforamina is better assessed by MRI. Multilevel posterior annular disc bulging is noted with associated ligamentum flavum thickening. There is a least mild central canal stenosis with mild left foraminal narrowing at L2-L3. At L3-L4, posterior annular disc bulge with ligamentum flavum thickening and advanced facet arthrosis causes severe central canal stenosis, AP dimension of the thecal sac measuring 5 mm. Additionally, there is moderate right and mild left foraminal stenosis at this level. At L4-L5, posterior annular disc bulge/disc space uncovering with ligamentum flavum thickening and severe facet arthrosis causes severe central canal stenosis, AP dimension of the thecal sac measuring 5 mm. Moderate left with mild right foraminal narrowing. At L5-S1 there is a posterior annular disc bulge with advanced facet arthrosis and ligamentum flavum thickening. Flattening of the ventral thecal sac without significant central canal stenosis. Moderate bilateral foraminal narrowing at this interspace. No aortic aneurysm or adenopathy identified. IMPRESSION: 1. No acute fracture or subluxation. 2. Multilevel degenerative changes as above with severe central canal stenosis at L3-L4 and L4-L5. 3. Multilevel neuroforaminal narrowing. CT head/brain wo con CLINICAL HISTORY: 73 years-old Female with Vague right leg numbness. No other sx.. Acute right leg numbness and tingling TECHNIQUE: Multiple axial CT images of the head were obtained without contrast. A dose lowering technique was utilized adhering to the principles of ALARA. CT DOSE: 537.48 mGy.cm COMPARISON: Head CT 09/30/2010 FINDINGS: No acute intracranial hemorrhage, midline shift, intracranial mass, hydrocephalus, territorial ischemia or abnormal extra-axial collection. Dense calcifications of the falx cerebri redemonstrated measuring up to 3.1 x 1.2 cm anteriorly, possibly reflective of a calcified meningioma. Age-related involutional changes. Mild degree of patchy ill-defined white matter hypodensiti es suggest chronic microvascular ischemic disease. Cerebral vascular calcifications also noted. The calvarium is intact. Hyperostosis frontalis interna. The paranasal sinuses, mastoid air cells, and middle ear cavities are clear. IMPRESSION: No acute intracranial abnormality. XR hip RT 2-3V w pelvis HISTORY: 73 years-old Female right hip/leg pain acute right hip pain without reported trauma COMPARISON: CT abdomen and pelvis 05/23/2018 TECHNIQUE: AP view of the pelvis with 2 views of the right hip FINDINGS: Demineralized appearance of the bones. Moderate bilateral hip osteoarthritis. There is no acute fracture, dislocation or opaque foreign body. Multilevel degenerative changes of the spine. IMPRESSION: No acute fracture or dislocation. Code Status & VTE Plan Code Status Full code VTE Prophylaxis Plan VTE Prophylaxis will be ordered: Yes PG Care Time/CCT Total # of Minutes Spent Total Time Spent with Patient: Total time spent is greater than 50% in coordination of care (as documented) at patient's floor/unit and/or counseling patient:
[2018-11-24 11:58] LABS: Appearance Urine Clear (Clear); Bacteria Urine Automated 4+ (Negative); Bilirubin Urine Negative (Negative); Blood Urine Negative (Negative); Color Urine Yellow; Glucose Urine UA Negative (Negative); Ketones Urine Negative (Negative); Leukocyte Esterase Urine 1+ (Negative); Nitrite Urine Positive (Negative); Protein Urine Negative (Negative); RBC Urine Automated 0-4 /hpf (0-4); Specific Gravity Urine 1.019 (1.000-1.030); Urobilinogen Urine Negative (Negative); WBC Urine Automated >30 /hpf (0-5); pH Urine 7.5 (4.5-7.5)
[2018-11-24] MEDS ORDERED: POLYETHYLENE (MIRALAX) 17 GM PACK PO PRN (13:11)
[2018-11-24] MEDS ORDERED: ALUMINUM/MAGNESIUM SUSP 30 ML UDC PO PRN (13:11)
[2018-11-24] MEDS ORDERED: MAGNESIUM HYDROXIDE SUSP 30 ML UDC PO PRN (13:11)
[2018-11-24] MEDS ORDERED: ONDANSETRON INJ 2 MG/ML 2 ML VIAL IV PRN (13:11)
[2018-11-24] MEDS: PRIMIDONE 50 MG TAB PO SCH ×2 (13:49→21:02)
[2018-11-24] MEDS: CARBIDOPA/LEVODOPA 25/100MG TAB PO SCH ×2 (13:49→21:02)
[2018-11-24] MEDS: ENOXAPARIN INJ 40 MG/0.4 ML SYR SQ SCH (13:50)
--- NOTE | 2018-11-24 14:01 | Neurology Consultation ---
Date of Consultation November 24, 2018 Assessment & Plan (1) Numbness in right leg: A 73 year old woman admitted to today for acute onset right leg weakness. LKN unknown. Patient work with symptoms this morning. On examine she has choreiform movements which she is following with Dr. Allen as an outpatient and is on multiple medications. Sensation is intact but reports subjectively different then left leg. She also has idiopathic neuropathy which confounds the clinical picture as she reports chronic numbness in length dependent pattern. She does appear to have a flail foot on the right and has no movement with extensor of great toe or ankle dorsiflexion although it is hard to tell if she is giving any effort (states she can't). Per chart review she is reported to have history of DM although she states this is incorrect. Absence of pain would make a radiculopathy or diabetic amyotrophy less likely. She is obese an lateral femoral cutaneous nerve injury is possible but would not explain right foot weakness. although patient did not appear aware of this weakness. I would recommend checking an MRI of the lumbar spine and and MRI of the brain. If possible an MRI lumbosacral plexus would be helpful if this protocol is available. Recommend check B12, folate, TSH, HA1c, Lyme, Sed rate, CK, Mag. (2) Right leg weakness: History of Present Illness Attending Physician: Maria A Doyle MD History of Present Illness A 73 year old woman admitted for right leg pain and weakness. Patient follows milan Allen as an outpatient and last seen in September 2018. Per his clinic notes she has a peculiar head and hand tremor, which is resting. Sometimes gets worse with intention. Looks a little like parkinsonism within that there is a pill- rolling quality, and at other times looks like an essential tremor. She takes propranolol, primidone, Sinemet and Topamax. The Sinemet is 25-100 one tablet 3 times a day. She takes Inderal 160 a day, primidone which we built up to 50 mg twice a day and 2 at bedtime, and she is also on Topamax. She also has some obsessive-compulsive disease, hypertension, over nourishment, a history of pulmonary emboli, migraine headaches, spinal stenosis, numbness and tingling in the lower extremities requiring the use of a wheelchair and a walker, a gait disturbance due to this, and I believe that most of this has been evaluated by other physicians in the past. No family currently at bedside. Patient awake and pleasant. Reports having an idiopathic neuropathy which has affected her sensation up to her knees. She denies history of diabetes. She walkes with a walker due to poor balance. States she woke this morning at 2AM and right leg felt like it was asleep. Sensation is intact but feels differnet then left leg. Denies symptoms in her arms or face. Hands are fine. She reports right leg is more swollen than normal. She denies pain. Allergies Allergy/AdvReac Type Severity Reaction Status Date / Time No Known Allergies Allergy Verified 11/24/18 05:13 Home Medications Home Medications Medication Instructions Recorded Confirmed Type aspirin [Aspirin Low Dose] 81 mg PO DAILY 02/12/18 11/24/18 History atorvastatin 20 mg PO HS 02/12/18 11/24/18 History carbidopa-levodopa 1 tab PO TID 02/12/18 11/24/18 History carvedilol 12.5 mg PO BID 02/12/18 11/24/18 History escitalopram oxalate 20 mg PO HS 02/12/18 11/24/18 History lamotrigine 200 mg PO BID 02/12/18 11/24/18 History multivitamin [Once Daily] 1 tab PO DAILY 02/12/18 11/24/18 History primidone 50 mg PO QAM 02/12/18 11/24/18 History primidone 100 mg PO HS 02/12/18 11/24/18 History propranolol 160 mg PO QAM 02/12/18 11/24/18 History topiramate 100 mg PO BID 02/12/18 11/24/18 History aripiprazole 10 mg PO QAM 09/27/18 11/24/18 History primidone 50 mg PO 1200 09/27/18 11/24/18 History potassium chloride ER 20 mEq 40 meq PO BID #120 tab 11/11/18 11/24/18 Rx tablet,extended release(part/cryst) Patient History Medical History Encounter for pre-operative examination Acute cholecystitis (Acute) Diabetes (Chronic) PT DENIES Hypertension (Chronic) Tremor (Chronic 10/13/11) Vertigo (Acute) Neck pain (Acute) Right middle lobe pneumonia (Acute) Right middle lobe pneumonia (Acute) Depression (Chronic) Chest pain (Acute) OCD (obsessive compulsive disorder) (Chronic) Noncompliance with medication regimen (Acute) Pulmonary emboli (Resolved) Fluid retention (Acute) Choking (Acute) Dyspnea (Acute) Esophageal dilatation (Acute) Hypoxia Low back pain (Acute) Obstruction of esophagus due to food impaction Respiratory failure Tracheomalacia (Acute) Ulcer of left thigh (Acute) Anxiety History of esophageal dilatation History of tooth extraction Hyperlipidemia Osteoarthritis Post traumatic stress disorder Social History Preferred Language: Austrian Communication Ability: Effective Visual Impairment: No Limitations Beliefs That Will Affect Care: None marital status: Current Living Situation: Spouse Other Information That Helps Us Care for You: No Feels Safe at Home: Yes Safety Concerns: Feels Safe At This Time Smoking Status: Never smoker Second Hand Exposure: No Hx Alcohol Use: No Hx Substance Use: No Physical Exam Physical Exam: EXAM: Constitutional: appears chronically ill, obese woman Head and Face: normocephalic and atraumatic Eyes: normal lids, normal conjunctiva Neck: supple Respiratory: normal effort Cardiovascular: normal pulses Abdomen: non tender Skin: no rashes, lesions, or ulcers noted Extremities: lymphedema in lower extremities Psychiatric: normal judgement and insight, normal mood and normal affect NEUROLOGIC EXAMINATION: Appearance: no acute distress Orientation: awake, alert and oriented x 3 Mental Status: alert Memory: registration 3/3 and recall 3/3 Attention: normal Knowledge: appropriate Language: no aphasia Speech: no dysarthria Cranial Nerves: CN 2 - no visual defect on confrontation and pupils round, equal CN 3, 4, 6 - extra-ocular movements intact CN 5 - facial sensation intact CN 7 - no facial asymmetry CN 8 - intact hearing CN 9, 10 - palate symmetric CN 11 - good shoulder shrug CN 12 - tongue midline Gait: deferred Coordination: right arm choreiform movements Sensory: sensation is intact although reports feels dull in right leg Muscle Tone: reduced tone in right doot Muscle exam: Flail right foot with no eversion or inversion, although appears to give poor effort, able to lift left and right leg against gravity, hand director of cardiology is 5/5 Reflexes: reduced, no clonus, negative lindo Results & Data Vital Signs (Past 12 Hours) Vital Signs Temp Pulse Pulse Resp BP BP Pulse Ox 11/24/18 13:12 36.9 C 63 18 99/71 L 92 11/24/18 12:32 72 18 148/75 H 94 11/24/18 10:03 53 L 20 142/75 H 92 11/24/18 07:29 60 20 145/75 H 93 11/24/18 06:10 71 16 153/66 H 93 11/24/18 04:25 36.4 C L 73 24 158/95 H 94
[2018-11-24 20:13] LABS: C Reactive Protein 1.28 mg/dl (0-0.29)
[2018-11-24 20:37] LABS: Folate (Folic Acid) > 24.00 ng/ml (>5.38); Vitamin B12 338 pg/ml (211-911)
[2018-11-24] MEDS: CARVEDILOL 12.5 MG TAB PO SCH (21:01)
[2018-11-24] MEDS: POTASSIUM CHLORIDE 20 MEQ TABCR PO SCH (21:01)
[2018-11-24] MEDS: ACETAMINOPHEN 325 MG TAB PO PRN (21:02)
[2018-11-24] MEDS: ATORVASTATIN 20 MG TAB PO SCH (21:02)
[2018-11-24] MEDS: TOPIRAMATE 100 MG TAB PO SCH (21:02)
[2018-11-24] MEDS: ESCITALOPRAM OXALATE 20 MG TAB PO SCH (21:02)
[2018-11-24] MEDS: lamoTRIgine 100 MG TAB PO SCH (21:02)
[2018-11-25] MEDS: ACETAMINOPHEN 325 MG TAB PO PRN (00:52)
[2018-11-25] MEDS: HYDROmorphone INJ 0.5 MG/0.5 ML SYR IV PRN ×3 (02:44→12:41)
--- NOTE | 2018-11-25 03:32 | Progress Note ---
Date of Service November 25, 2018 Received a text page from the patient's nurse that the patient was complaining of severe right lower extremity pain, 9/10 on pain scale. Nurse noted that the leg looked red and warm, different than previous exams. In brief review of the record, patient presented yesterday with acute right lower extremity weakness and numbness. There is no mention of erythema in the H&P. There was mention that the patient is obese, often moves about in a wheelchair, and that she has a remote history of PE. The neurology note mentioned that the patient reported her right leg seemed more swollen than normal and that she denied any pain. At that point, due to concern for potential acute DVT, a right lower extremity Doppler ultrasound was ordered. The overnight radiology read was "negative". Provided dilaudid IV prn for acute pain. Got the chance to evaluate the patient around 3:15 in the morning. Found patient resting comfortably and not really sleeping. She is very pleasantly conversational and denied any pain at this time. She describes that she still has right leg weakness. On exam, patient is morbidly obese. There is some slight erythema in the very medial aspect of the inner thigh that is not particularly warm or tender to palpation. The remaining leg is grossly non- tender. Discussed the above result with the patient who expressed understanding and was thankful. Higinio Whitehead, PGY3 Overnight call Results & Data Vital Signs (Past 12 Hours) Vital Signs Temp Pulse Pulse Resp BP Pulse Ox 11/24/18 23:16 37.2 C 77 16 125/59 L 93 11/24/18 20:59 37.2 C 68 18 147/82 H 94 11/24/18 15:43 36.9 C 64 19 125/77 91
--- NOTE | 2018-11-25 06:13 | Ultrasound Report ---
US venous doppler LE RT CLINICAL HISTORY: eval for DVT PAIN. EDEMA. COMPARISON STUDY: No previous studies for comparison. FINDINGS: Real-time and color flow Doppler imaging were performed. Flow was seen within the femoral, popliteal and calf veins with no intraluminal thrombus demonstrated. The saphenous vein is patent. IMPRESSION: No evidence of deep venous thrombosis. The above report was generated using voice recognition software. It may contain grammatical, syntax or spelling errors. Electronically signed by: Og Devine M.D. 11/25/2018 6:12 AM
[2018-11-25 07:43] LABS: Estimated Average Glucose 114 mg/dl; Hemoglobin A1C 5.6 % (4.5-5.6)
[2018-11-25] MEDS: PROPRANOLOL HCL LA 80 MG CAPCR PO SCH (08:30)
[2018-11-25] MEDS: CARVEDILOL 12.5 MG TAB PO SCH ×2 (08:30→21:59)
[2018-11-25] MEDS: lamoTRIgine 100 MG TAB PO SCH ×2 (08:31→21:57)
[2018-11-25] MEDS: CARBIDOPA/LEVODOPA 25/100MG TAB PO SCH ×3 (08:31→21:58)
[2018-11-25] MEDS: PRIMIDONE 50 MG TAB PO SCH ×3 (08:31→22:01)
[2018-11-25] MEDS: POTASSIUM CHLORIDE 20 MEQ TABCR PO SCH ×2 (08:32→21:57)
[2018-11-25] MEDS: MULTIVITAMIN TAB PO SCH (08:32)
[2018-11-25] MEDS: ASPIRIN 81 MG ECTAB PO SCH (08:32)
[2018-11-25] MEDS: TOPIRAMATE 100 MG TAB PO SCH ×2 (08:33→21:58)
[2018-11-25] MEDS: ARIPiprazole 10 MG TAB PO SCH (08:33)
--- NOTE | 2018-11-25 09:31 | Consultation Report ---
DATE OF CONSULTATION: 11/25/2018 CHIEF COMPLAINT: Lower extremity weakness and pain, numbness in anterior thigh area. HISTORY OF PRESENT ILLNESS: She was admitted overnight for observation with neurological and orthopedic consultation. She is delightful. She is pleasant. She does seem depressed. She is morbidly obese. She seems to have extremity difficulty consistent with spinal stenosis which indeed she does have on imaging. PAST MEDICAL HISTORY: Positive for anxiety, posttraumatic stress disorder, morbid obesity, hypertension, and depression, ambulatory dysfunction. MEDICATIONS: Numerous list. They are listed in the computer. I have held off on dictating these. ALLERGIES: Negative. PAST SURGICAL HISTORY: Breast biopsy, cataract, cholecystectomy, lung surgery, and surgery for a pulmonary emboli. REVIEW OF SYSTEMS: She denies any blurred vision, double vision, tinnitus or vertigo. No chest pain. She admits to back pain, buttock, lower extremity difficulty, weakness primarily. OBJECTIVE: GENERAL: She is alert, oriented. She is pleasant. She communicates well, does appear depressed. Does have a resting tremor, does have some anxiety. CARDIAC: Normal rate and rhythm. Because of her size, it could not really examine her pulses to any great degree. EXTREMITIES: She could move her extremities, but did not have 100% power, but she could move her quadriceps, dorsiflexion as best as she could in at bed rest. I did not have her stand for walking purposes. Her images were reviewed for my consultation purposes. She has severe spinal stenosis, lumbar spine at L2-L3, L3-L4, L4-L5, a low-grade spondylolisthesis. The report did say severe spinal canal stenosis and I completely concur, she has almost a pinpoint canal. PLAN: At this point in time, she is not a great surgical candidate with all her comorbidities. In my experience, surgery for her would be fraught with difficulty and complications, although not out of the question. In the short run, we will not schedule her for any urgent surgery. I would recommend a nonsurgical approach in a rehab type situation. A pain management consultation for some injections as an outpatient is also a possibility. This can be very difficult patient to manage. I can see her back in the office as an outpatient. If she is still in the hospital on Wednesday, 26 of November, I will be rounding on her then as well. I do recommend her being sent to a nursing rehab-type facility.
[2018-11-25] MEDS: ENOXAPARIN INJ 40 MG/0.4 ML SYR SQ SCH (14:19)
[2018-11-25] MEDS: BUTALBITAL/ACETAMIN/CAFFEINE TAB PO PRN (15:33)
--- NOTE | 2018-11-25 15:54 | Neurology Progress Note ---
Date of Service November 25, 2018 Assessment & Plan (1) Right leg weakness: 1. MRI brain and L spine pending 2. ortho - not good surgical candidate 3. continue Sinemet, primadone, propranolol - mixed tremor symptoms 4. PT/OT for discharge needs will likely need PT prior to return home 5. pain mgt for outpatient evaluation if pain persists 6. UTI- treat to culture 7. further recommendations once MRIs are resulted 8. CT head - calcified meningioma -not sigificant to current symptoms -once calcified no reason to monitor for increase. (2) Ambulatory dysfunction: Supervising Physician Co-Signing Physician Notes I have seen and discussed above patient with Dr Latrice Rebollar, neurology.Pt seen and examined. Some mild R inguinal pain today. Chronic mild incontinence with standing.Weakness appears to be in R TA and peroneus longus, best 3/5. Neg Tinel's at fibular head. No pain on palpation of R medial thigh. R foot is cooler than left with palpable but decreased pulse. Dec sensation below L knee to LT. Areflexic in the LE Imp. Sudden R foot weakness, initially painless. Appears weak mostly in r peroneal nerve distribution,but exam is difficult. Planned work-up reviewed. I communicated with Dr Doyle with my recommendation to do an arterial doppler of the LE. Ischemic neuropathy is rare, and I would expect more pain. If ordered MRIs unrevealing pt will need outpt ncv-emg in about 2 weeks. Will continue to follow with you. PAVEL Rebollar MD Niles Freeman is a very pleasant 73 year old woman brought in for evaluation of right leg pain and weakness. She sees Dr. Allen as an outpatient and last seen in September 2018. She has a peculiar head and hand tremor, which is resting. Sometimes gets worse with intention. Looks a little like parkinsonism within that there is a pill-rolling quality, and at other times looks like an essential tremor. She takes propranolol, primidone, Sinemet and Topamax. The Sinemet is 25-100 one tablet 3 times a day. She takes Inderal 160 a day, primidone which we built up to 50 mg twice a day and 2 at bedtime, and she is also on Topamax. She also has some obsessive-compulsive disease, hypertension, over nourishment, a history of pulmonary emboli, migraine headaches, spinal stenosis, numbness and tingling in the lower extremities requiring the use of a wheelchair and a walker. she states she woke in the middle of the night with her leg feeling like a "log". she was unable to ambulate. denies CP, SOB, abdominal pain, slurred speech swallowing issues, vision changes, UE weakness, fall or near falls, back pain. 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 5/5 bilaterally LE right foot unable to flex ext bilaterally difficulty with lifting legs from bed reflexes intact UE, 2/5, LE unable to illicit vibration decreased bilaterally LE, touch diminished on right intact on left no pronator drift, facial droop, slurred speech, resting tremor worse with reach Results & Data Vital Signs (Past 12 Hours) Vital Signs Temp Pulse Resp BP BP Pulse Ox 11/25/18 15:42 37.1 C 11/25/18 15:27 37.7 C H 80 19 148/68 H 91 11/25/18 07:15 36.9 C 62 18 158/82 H 91 Laboratory Results Abnormal lab results 11/24/18 Range/Units 19:36 Total Creatine Kinase 292 H (26-192) U/L C-Reactive Protein 1.28 H (0-0.29) mg/dl Diagnostic Findings venous doppler- no evidence of DVT CT head- No acute intracranial abnormality. lumber CT- No acute fracture or subluxation. Multilevel degenerative changes as above with severe central canal stenosis at L3-L4 and L4-L5. Multilevel neuroforaminal narrowing.
[2018-11-25] MEDS ORDERED: GADOBUTROL 65ML VIAL IV PRN (20:11)
--- NOTE | 2018-11-25 20:14 | Magnetic Resonance Report ---
Brain MRI WITH AND WITHOUT CONTRAST HISTORY: Right leg weakness. TECHNIQUE: Multiplanar multisequence MRI of the brain was performed both before and after the intrave nous administration of contrast. COMPARISON STUDY: Head CT 11/24/2018. FINDINGS: There is no mass, hematoma, midline shift, or acute infarct. The paranasal sinuses are lazaro r. The mastoid air cells are clear. The ventricles and sulci demonstrate mild age-related involutiona l changes. Scattered foci of T2 hyperintensity seen within the periventricular and subcortical white matter are nonspecific but suggestive of mild microvascular ischemic changes. The major vascular flow voids at the skull base are well-maintained. No abnormal enhancement. IMPRESSION: No acute intracranial abnormality. A few scattered foci of T2 hyperintensity seen within the perivent ricular and subcortical white matter are nonspecific but favor microvascular ischemic change. Electronically signed by: Jeromy Yu M.D. 11/25/2018 8:19 PM
--- NOTE | 2018-11-25 20:15 | Magnetic Resonance Report ---
LUMBAR SPINE MRI HISTORY: Right leg weakness. TECHNIQUE: Multiplanar multisequence MRI of the lumbar spine was performed without the use of contras t. COMPARISON: None. FINDINGS: For the purpose of the report the L5-S1 disc space will be located on axial image 27 of 30. There is diffuse disc desiccation. Disc spaces are relatively preserved for age. The conus terminates at the L1-L2 disc space level. Normal marrow signal intensity seen throughout the visit size osseous structures. No fracture or subluxation. Lumbar subcutaneous edema is noted. Moderate to severe facet degenerative changes at L3-L4, L4-L5, and L5-S1. Fatty atrophy of the right psoas muscle. This is li boo chronic. A 1 cm T2 hyperintense, T1 hypointense exophytic lesion within the right kidney. This l ikely represents a cyst. L1-L2: Small broad-based posterior disc bulge without significant central canal are right-sided neura l foraminal narrowing. There is mild left-sided neural foraminal narrowing. L2-L3: Small broad-based posterior disc bulge with mild central canal and mild left-sided neural fora osito narrowing. L3-L4: Broad-based posterior disc bulge with ligamentum flavum and facet hypertrophy resulting in mil c-st-hbmwizsh central canal and mild bilateral neural foraminal narrowing. L4-L5: Broad-based posterior disc bulge with ligamentum and facet hypertrophy resulting in moderate t o severe central canal and mild bilateral neural foraminal narrowing. Small T2 hyperintense focus ext ending inferiorly from the left L4-5 facet which measures 3 mm in thickness. This is best seen on axi al image 25. This results in mild mass effect on the left posterior thecal sac. This favors a synovia l cyst. L5-S1: No significant central canal narrowing. There is mild to moderate right neural foraminal narro wing. There is a right lateral osteophyte at L5-S1 which appears to abut and displace the exiting rig ht L5 nerve root. IMPRESSION: 1. Multilevel lumbar spondylosis as described above most pronounced at the L4-L5 level where there is moderate to severe central canal narrowing. 2. Moderate to severe facet degenerative changes within the lower lumbar spine. 3. Small T2 hyperintense focus extending inferiorly from the left L4-5 facet which measures 3 mm in t hickness. This results in mild mass effect on the left posterior thecal sac. This favors a synovial c yst. 4. Fatty atrophy of the right psoas muscle. This is likely chronic. Electronically signed by: Jeromy Yu M.D. 11/25/2018 8:13 PM
--- NOTE | 2018-11-25 21:35 | Ultrasound Report ---
US arterial duplex LE RT CLINICAL HISTORY: peroneal neruopathy,assess for arterial disease. Lower extremity pain. COMPARISON STUDY: None. FINDINGS: The right ankle-brachial index measured within the posterior tibial artery of 0.5. The left ankle-brachial index measure between 1.1 and 1.2. Near complete occlusion within the right common femoral and proximal right superficial femoral arteri es with only a trickle of flow identified. This results in low velocity monophasic waveforms seen thr oughout the remaining right lower extremity arterial system. IMPRESSION: Near complete occlusion within the right common femoral and proximal right superficial f emoral arteries with only a trickle of flow identified. Electronically signed by: Jeromy Yu M.D. 11/25/2018 9:33 PM
[2018-11-25] MEDS: ATORVASTATIN 20 MG TAB PO SCH (22:02)
[2018-11-25] MEDS: ESCITALOPRAM OXALATE 20 MG TAB PO SCH (22:02)
--- NOTE | 2018-11-25 22:22 | Hospitalist Progress Note ---
Date of Service November 25, 2018 Assessment & Plan (1) Right leg weakness: With acute onset of right lower extremity pain and numbness from the anterior thigh all the way down to her toes; also with weakness in the proximal muscles of the right lower extremity and on admission had full strength with plantar and dorsiflexion of the right foot.HOWEVER, now with 0/5 strength with right ankle plantarflexion and dorsiflexion and worsening sensory examination, poorly palpable pedal pulses Could be secondary to severe lumbar radiculopathy or also could be isolated mononeuropathy of the peroneal nerve now that she has lost strength in the ankle/foot MRI lumbar spine and brain ordered and pending at the time I saw her Arterial Doppler ordered of the right lower extremity -Appreciate neurology consultation -Orthopedic spine consultation appreciated-no surgical indication at this time -No abnormalities on metabolic labs as suggested by neurology -PT/OT consults -Tylenol as needed for pain -Add Fioricet which would also help with headache (2) Anxiety: Continue home meds (3) Post traumatic stress disorder: Continue home meds (4) Hyperlipidemia: Continue atorvastatin (5) Hypertension: Blood pressure well controlled -Continue Coreg and propranolol which she is on for tremor-likely does not need to be on both [id number] discuss with her prior to discharge (6) Tremor: Continue propranolol, Sinemet -Follows with Dr. Allen of neurology (7) Depression: Has a long history of severe mental health issues -Continue home meds (8) OCD (obsessive compulsive disorder): As above, continue home meds (9) Idiopathic neuropathy: Noted, reports chronic stocking glove like sensory deficit to just above the ankles bilaterally (10) Obesity: BMI 43.1 -Needs weight loss (11) Numbness in right leg: As above (12) Ambulatory dysfunction: Unable to walk due to right lower extremity weakness and numbness as above -PT OT consults (13) DVT prophylaxis: Has a history of PE in her mid 30s which required sternotomy with mechanical embolectomy, no clots since then -Continue Lovenox 40 mg SQ daily Disposition-continued stay; patient has a severe phobia of cats and therefore reports she cannot go to a [facility] or rehab facility that allows pet visitation. She was adamant about returning home if at all possible. Case management consult placed and referrals out to [facility] Subjective Patient reports having a lot of pain in her right mid anterior thigh on down the leg to the toes. She feels she is having the same numbness as yesterday and perhaps her right foot is weaker than previous. She is also having a headache as she has not taken her usual daily Excedrin Migraine she takes at home. Denies chest pain or shortness of breath. I discussed the case with the neurology PA later in the day who suggested getting an arterial Doppler of the right lower extremity given the new onset of weakness in the peroneal distribution in case of an ischemic neuropathy. Review of Systems Review of Systems: All systems reviewed & are unremarkable except as noted in HPI & below Physical Exam Constitutional: WD/WN, vitals as above + morbidly obese Eyes: PERRL, conjunctivae normal, anicteric sclerae ENMT: external ear and nose normal, oropharynx normal (Edentulous) Neck: trachea midline, no thyromegaly Respiratory: normal respiratory effort, lungs clear to auscultation Cardiovascular: RRR, no murmur, no edema Gastrointestinal (Abdomen): normal bowel sounds, soft, nontender, no hepatosplenomegaly Musculoskeletal: Extremities: extremities normal to inspection; no cyanosis and no clubbing Skin: no rashes, warm and dry Neurologic: + focal motor deficit (4/5 strength in right hip flexion, knee extension and flexion, and now with worsening strength in right foot dorsiflexion plantarflexion-unable to perform these measures at all, can invert the foot with 3 out of 5 strength only) and awake; + abnormal deep tendon reflexes (Could not elicit DTRs in the patellar or Achilles bilaterally) and not confused Speech / Cognition: normal speech Motor/Sensory: + tremor (Resting tremor in the arms and head) and + sensory deficit (Decreased sensation to light touch in the lateral right leg but otherwise intact throughout) Psychiatric: A+Ox3, euthymic affect Results & Data Vital Signs (Past 12 Hours) Vital Signs Temp Pulse Resp BP Pulse Ox 11/25/18 22:02 66 130/72 88 L 11/25/18 15:42 37.1 C 11/25/18 15:27 37.7 C H 80 19 148/68 H 91 Laboratory Results 11/24/18 Range/Units 19:36 Estimat Average Glucose 114 mg/dl Hemoglobin A1c 5.6 (4.5-5.6) % PG Care Time/CCT Total # of Minutes Spent Total Time Spent with Patient: Total time spent is greater than 50% in coordination of care (as documented) at patient's floor/unit and/or counseling patient:
--- NOTE | 2018-11-25 23:13 | Progress Note ---
Date of Service November 25, 2018 Assessment & Plan (1) Peripheral vascular disease: I was notified that the patient's right lower extremity arterial duplex showed "near complete occlusion within the right common femoral and proximal right superficial femoral arteries with only a trickle of flow identified." I went to reassess the patient. She was resting comfortably in bed. She was complaining of pain over the medial aspect of her right thigh with palpation, but not otherwise. She reports numbness and weakness in the rest of her right leg. On examination, her right lower leg is cool to touch, compared with her left leg. She reports decreased sensation below her knee. I had difficulty palpating her posterior tibial or dorsalis pedis pulses. She has decreased strength with right-sided plantarflexion and dorsiflexion, compared with her left foot. I explained her ultrasound findings to her. All questions were answered. Her ultrasound findings were also discussed with her primary hospitalist, Dr. Doyle, who consulted vascular surgery. We will move the patient to telemetry, to monitor for atrial fibrillation, in case this was precipitated by an embolic event. Doppler pulses will be checked routinely. We will also begin a heparin drip. Jeaneth Gonzalez PGY-3 Overnight on-call resident Results & Data Vital Signs (Past 12 Hours) Vital Signs Temp Pulse Resp BP Pulse Ox 11/25/18 22:10 91 11/25/18 22:02 66 130/72 88 L 11/25/18 15:42 37.1 C 11/25/18 15:27 37.7 C H 80 19 148/68 H 91 PG Care Time/CCT Total # of Minutes Spent Total Time Spent with Patient: Total time spent is greater than 50% in coordination of care (as documented) at patient's floor/unit and/or counseling patient:
[2018-11-26] MEDS ORDERED: Heparin IV Standard *NO* Bolus IV SCH (00:30)
[2018-11-26 01:22] LABS: Hematocrit (blood only) 32.5 % (37-47); Hemoglobin 10.6 g/dL (12.0-16.0); Mean Corpuscular Volume 94.2 fL (80-100); Platelet Count 135 K/uL (130-400); RDW Coefficient of Variation 14.5 % (11.5-14.5); RDW Standard Deviation 49.8 fL (36.4-46.3); Red Blood Count 3.45 M/uL (4.2-5.4); White Blood Count 5.96 K/uL (4.8-10.8)
[2018-11-26 01:27] LABS: Mean Corpuscular Hgb Conc 32.6 g/dL (32-36)
[2018-11-26 01:35] LABS: INR 1.1 (0.9-1.1); Partial Thromboplastin Time 26.8 Seconds (21.0-31.0); Prothrombin Time 11.1 Seconds (9.0-12.0)
[2018-11-26] MEDS: Heparin Adult STANDARD Wt-Based Dextrose 5% 25,000 units/500 mL IV SCH ×2 (01:54→13:47)
[2018-11-26 02:05] LABS: Basophils # (auto) 0.01 K/uL (0-0.2); Basophils % (auto) 0.2 %; Eosinophils # (auto) 0.06 K/uL (0-0.5); Immature Granulocytes # (auto) 0.02 K/uL (0.00-0.02); Immature Granulocytes % (auto) 0.3 %; Lymphocytes # (auto) 1.19 K/uL (1.2-3.4); Monocytes # (auto) 0.52 K/uL (0.11-0.59); Monocytes % (auto) 8.7 %; Neutrophils # (auto) 4.16 K/uL (1.4-6.5); Neutrophils % (auto) 69.8 %
[2018-11-26] MEDS: BUTALBITAL/ACETAMIN/CAFFEINE TAB PO PRN (07:21)
[2018-11-26 08:03] LABS: Hematocrit (blood only) 32.1 % (37-47); Hemoglobin 10.6 g/dL (12.0-16.0); Mean Corpuscular Volume 93.3 fL (80-100); Mean Platelet Volume 9.1 fL (7.4-10.4); Platelet Count 136 K/uL (130-400); RDW Coefficient of Variation 14.5 % (11.5-14.5); RDW Standard Deviation 49.6 fL (36.4-46.3); Red Blood Count 3.44 M/uL (4.2-5.4); White Blood Count 5.67 K/uL (4.8-10.8)
[2018-11-26 08:24] LABS: Partial Thromboplastin Ratio 1.4; Partial Thromboplastin Time 38.8 Seconds (21.0-31.0)
[2018-11-26 08:28] LABS: Basophils # (auto) 0.01 K/uL (0-0.2); Basophils % (auto) 0.2 %; Eosinophils # (auto) 0.06 K/uL (0-0.5); Eosinophils % (auto) 1.1 %; Immature Granulocytes # (auto) 0.01 K/uL (0.00-0.02); Immature Granulocytes % (auto) 0.2 %; Lymphocytes # (auto) 1.17 K/uL (1.2-3.4); Lymphocytes % (auto) 20.6 %; Monocytes # (auto) 0.51 K/uL (0.11-0.59); Neutrophils # (auto) 3.91 K/uL (1.4-6.5); Neutrophils % (auto) 68.9 %
[2018-11-26 08:32] LABS: BUN Creatinine Ratio 11.2 (10-20); Calcium 8.1 mg/dl (8.5-10.1); Creatinine Clr Calc Pharmacy 113.3 ml/min; Est GFR (African American) 101.4; Est GFR (Non-African American) 87.5; Potassium 3.8 mmol/L (3.5-5.1)
[2018-11-26] MEDS: CARVEDILOL 12.5 MG TAB PO SCH ×2 (08:37→19:57)
[2018-11-26] MEDS: ASPIRIN 81 MG ECTAB PO SCH (08:37)
[2018-11-26] MEDS: PROPRANOLOL HCL LA 80 MG CAPCR PO SCH (08:37)
[2018-11-26] MEDS: MULTIVITAMIN TAB PO SCH (08:37)
[2018-11-26] MEDS: CARBIDOPA/LEVODOPA 25/100MG TAB PO SCH ×3 (08:38→19:58)
[2018-11-26] MEDS: ARIPiprazole 10 MG TAB PO SCH (08:39)
[2018-11-26] MEDS: PRIMIDONE 50 MG TAB PO SCH ×3 (08:39→19:57)
[2018-11-26] MEDS: POTASSIUM CHLORIDE 20 MEQ TABCR PO SCH ×2 (08:40→19:57)
[2018-11-26] MEDS: TOPIRAMATE 100 MG TAB PO SCH ×2 (08:40→19:57)
[2018-11-26] MEDS: lamoTRIgine 100 MG TAB PO SCH ×2 (08:41→19:56)
[2018-11-26] MEDS ORDERED: ERTAPENEM SODIUM 1,000 MG in SODIUM CHLORIDE 0.9% 50 ML IV SCH (09:00)
[2018-11-26] MEDS ORDERED: HEPARIN IV BOLUS 8,000 UNITS in SYRINGE 0 ML IV ONE (09:15)
--- NOTE | 2018-11-26 11:11 | Progress Note ---
DATE: 11/26/2018 SUBJECTIVE: I am seeing Mrs. Winn in followup of acute distal right lower extremity weakness. Her MRI of the lumbar spine shows disc osteophyte complex at L5-S1, which abuts and displaces the exiting nerve root. Multiple-level lumbar spondylolysis, most pronounced at L4-L5 where there is moderate to severe central canal narrowing, degenerative changes, synovial cyst, fatty atrophy of the right iliopsoas muscle, likely chronic. MRI brain, mild chronic ischemic changes. Ultrasound of the lower extremities shows near complete occlusion within the right common femoral and proximal right superficial peroneal left femoral arteries with only a trickle of flow identified. The patient has no new complaints. She has mild thigh pain. Leading up to this event, she ambulated little in her home with a walker, but did not have ambulation, pain in the limb. She has no ongoing back pain. No new symptoms. OBJECTIVE: On exam, the right foot is cool compared to the left with decreased pulsation. Proximally, I believe strength is full in the left lower extremity, distally is full as well. The right TA and peroneus longus are trace. I believe the tibialis posterior L5 innervated is more full. There may be some mild weakness of toe flexors, gastroc is normal. Toes are downgoing. Knee and ankle jerks are absent. She has decreased sensation below the right knee to light touch and temperature. Proprioception is intact in both feet. IMPRESSION: Clinically, the patient's presentation appears most like a right peroneal palsy. Her numbness exceeds that distribution. 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 My plan is to obtain an MRI of the right fibular head and attention sciatic to rule out a compressive lesion. If not already checked, a sed rate and an SONIDO would be reasonable. In about 2 weeks' time, the patient will need a nerve conduction EMG to separate out a peroneal neuropathy from an L5 radiculopathy. The treatment of the weakness is symptomatic. Physical therapy is reasonable. The main management issue at this point is the arterial occlusion and preventing other ischemic mononeuropathies. Dr. Doyle has consulted vascular surgery and placed the patient on a heparin drip. I did explain to the patient that restoring improved blood flow to the right lower extremity will not abruptly change the strength in her right lower extremity. The patient understands. We will follow with you. ESTHER
--- NOTE | 2018-11-26 12:12 | Discharge Summary ---
Date of Service November 26, 2018 Admission HPI Per Admitting Provider This patient is a 73-year-old female with a history of idiopathic polyneuropathy, morbid obesity, HTN, remote history of PE at age 34, essential tremor, OCD, PTSD, and depression, who presents to the ER with right lower e xtremity pain and weakness as well as numbness that started at 2:00 this morning when she woke up. All of her symptoms start in the anterior thigh and then go through the entire leg through to the toes. She has no lower back pain, denies buttocks or posterior hamstring pain. She denies any bowel or bladder issues. She reports that her entire leg is numb and demonstrates this by banging the parish k of her leg off her wheelchair and saying "I cannot feel that." She has not been able to walk at all with the leg due to weakness. She was given multiple rounds of various pain medication in the ER. She describes the pain as [id number] like her leg is asleep but trying to wake up. She denies any urinary symptoms, denies fever, denies abdominal pain or constipation or diarrhea. She reports a mild headache but this has been ongoing for her and she is been having to take Excedrin every day for the last month. CT of the head was negative for acute changes in the ER, but did show a 3.1 x 1.[address] of the lumbar spine showed severe stenosis and degenerative changes at multiple levels but most severe central canal stenosis at L3-4 and L4-5. She is admitted for observation and further work-up for her acute onset of right lower extremity symptoms, however she reports that she absolutely cannot go to a fci or rehab facility if pet visitation is allowed because she has a severe phobia of cats. Principal Diagnosis Right lower extremity ischemic neuropathy Discharge Exam Constitutional WD/WN, vitals as above + morbidly obese Eyes PERRL, conjunctivae normal, anicteric sclerae ENMT external ear and nose normal, oropharynx normal (Edentulous) Neck trachea midline, no thyromegaly Respiratory normal respiratory effort, lungs clear to auscultation Cardiovascular RRR, no murmur, no edema Gastrointestinal (Abdomen) normal bowel sounds, soft, nontender, no hepatosplenomegaly Musculoskeletal Extremities: extremities normal to inspection; no cyanosis and no clubbing Skin no rashes, warm and dry Neurologic + focal motor deficit (4/5 strength in right hip flexion, knee extension and flexion, and now with worsening strength in right foot dorsiflexion meenakshi ntarflexion-unable to perform these measures at all, can invert the foot with 3 out of 5 strength only) and awake; + abnormal deep tendon reflexes (Could not elicit DTRs in the patellar or Achilles bilaterally) and not confused Speech / Cognition: normal speech Motor/Sensory: + tremor (Resting tremor in the arms and head) and + sensory deficit (Decreased sensation to light touch in the lateral right leg and foot) there is +/- decreased sensation in right medial thigh but pt also complains of pain there, difficult to distinguish pain vs numbness there Psychiatric A+Ox3, euthymic affect Discharge Data Allergies Allergy/AdvReac Type Severity Reaction Status Date / Time No Known Allergies Allergy Verified 11/24/18 05:13 Consultations 11/24/18 13:11 Consult Case Management - Discharge Planning Routine Consult Neurology Routine Consult Orthopedic Surgery Routine 11/25/18 22:22 Consult Vascular Surgery Routine Ordered Studies 11/24/18 07:35 CT head/brain wo con Stat 11/24/18 07:43 CT lumbar spine wo con Stat 11/25/18 01:26 US venous doppler LE RT Urgent 11/25/18 14:34 MR brain wo/w con Routine 11/25/18 14:35 MR lumbar spine wo con Routine 11/25/18 16:22 US arterial duplex LE RT Urgent 11/26/18 10:25 MR knee RT wo con Urgent Hospital Course (1) Right leg weakness: With acute onset of right lower extremity pain and numbness from the anterior thigh all the way down to her toes; also with weakness in the proximal muscles of the right lower extremity and on admission had full strength with plantar and dorsiflexion of the right foot. HOWEVER, then developed worsening weakness of right foot on the day after admission particularly with right ankle plantarflexion and dorsiflexion and worsening sensory examination, poorly palpable pedal pulses, cool foot, slow cap refill Could be secondary to severe lumbar radiculopathy or also could be isolated mononeuropathy of the peroneal nerve from ischemic neuropathy MRI lumbar spine and brain ordered and again showing severe stenosis and right L5 neuroformainal narrowing Arterial Doppler ordered of the right lower extremity showing near complete occlusion within the right common femoral and proximal right superficial femoral arteries with only a trickle of flow identified, CARLOS on right PT 0.5 Therefore, her symptoms are most likely as a result of ischemia, especially to the peroneal nerve. She does have some blood flow through that area. Neurology did also suggest MRI of the knee to look for compressive lesion at the fibular head , but this did not get performed prior to transfer in the interest of urgent transfer for Vascular evaluaiton Our Vascular SUrgeon was contacted again today and advised me to transfer the patient out for surgical intervention -Appreciate neurology consultation -Orthopedic spine consultation appreciated-no surgical indication at this time on the spine -No abnormalities on metabolic labs as suggested by neurology -Tylenol, hydromorphone as needed for pain -started on heparin gtt and is already on ASA has no previous h/o PAD or claudication, no Afib on tele monitoring here -Needs Vascular evaluation and further Neurological evaluation--> transfer to [facility] with accepting hospitalist Dr. Joshi and Vascular Surgeon Dr. Pearce--> consultation with them i greatly appreciated (2) Anxiety: STable -Continue home meds (3) Post traumatic stress disorder: STable Continue home meds (4) Hyperlipidemia: Continue atorvastatin (5) Hypertension: Blood pressure well controlled -Continue Coreg and propranolol which she is on for tremor-likely does not need to be on both mrnz-gytkkahl-xyomy discuss with her prior to discharge (6) Tremor: Continue propranolol, Sinemet -Follows with Dr. Allen of neurology (7) Depression: Has a long history of severe mental health issues, stable at this time and sees Psychiatry routinely -Continue home meds (8) OCD (obsessive compulsive disorder): As above, continue home meds (9) Idiopathic neuropathy: Noted, reports chronic stocking glove like sensory deficit to just above the ankles bilaterally (10) Obesity: BMI 43.1 -Needs weight loss (11) Numbness in right leg: As above (12) Ambulatory dysfunction: Unable to walk due to right lower extremity weakness and numbness as above (13) Superficial femoral artery occlusion: as above (14) Femoral artery occlusion, right: as above (15) DVT prophylaxis: Has a history of PE in her mid 30s which required sternotomy with mechanical embolectomy, no clots since then Now on heparin gtt Disposition-transfer urgently for Vascular Surgery evaluation Total Time Total Time Spent Total Time Spent (In Minutes): >30 min Total Time Includes: Examination of the Patient, Discharge Planning, Medication Reconciliation and Communication With Other Providers (Dr. Grant, Dr. Larsen of Neuro, [facility] Vascular and Hospitalist) Discharge Plan Discharge Items Reason For Visit: R LEG WEAKNESS Discharge Diagnosis: Right lower extremity ischemia Condition: Serious Discharge Goals: Decrease discomfort, Diagnostic testing, Improve disease control, Learn about illness and Therapeutic intervention Activity: As commented below Lifting: None Exercise/Sports: Rest today Non-emergency contact: Primary Care Provider and Surgeon Call non-emergency contact if: you have any medication questions, your symptoms worsen and your pain is not controlled Follow-up/Referrals: Chris Moore III, HEATER OPERATOR [Primary Care Provider] - Diet: Nothing by mouth Addtl Provider Instructions: Transferred urgently to [facility] Prescriptions: Continued potassium chloride 20 mEq tablet,ER particles/crystals 40 meq PO BID Qty: 120 RF: 5 primidone 50 mg Tablet 50 mg PO 1200 RF: 0 aripiprazole 10 mg Tablet 10 mg PO QAM RF: 0 primidone 50 mg tablet 100 mg PO HS RF: 0 primidone 50 mg tablet 50 mg PO QAM RF: 0 propranolol 160 mg capsule,extended release 24 hr 160 mg PO QAM RF: 0 carvedilol 12.5 mg tablet 12.5 mg PO BID RF: 0 lamotrigine 200 mg tablet 200 mg PO BID RF: 0 carbidopa-levodopa 25-100 mg tablet 1 tab PO TID RF: 0 escitalopram oxalate 20 mg tablet 20 mg PO HS RF: 0 topiramate 100 mg tablet 100 mg PO BID RF: 0 multivitamin [Once Daily] Tablet 1 tab PO DAILY RF: 0 atorvastatin 20 mg tablet 20 mg PO HS RF: 0 aspirin [Aspirin Low Dose] 81 mg Tablet,Delayed Release (Dr/Ec) 81 mg PO DAILY RF: 0 Stand-Alone Forms: [facility] Admission Data Admit Date/Time: 11/26/18 12:10 Attending Provider: Maria A Doyle Admit Provider: Maria A Doyle Primary Care Provider: Chris Moore III Other Providers: Maria A Doyle ; Bry Franklin ; Kemal Ballesteros ; Terence Grant Service: Telemetry Other Interventions: Discharge Summary Assessment (RN) Last Done: 11/26/18 11:38 Pending Studies at Discharge: No
[2018-11-26 15:10] LABS: Partial Thromboplastin Ratio 3.3
[2018-11-26 15:29] LABS: Partial Thromboplastin Time 89.1 Seconds (21.0-31.0)
[2018-11-26 19:41] VITALS: TEMP 99.1; O2SAT 95
[2018-11-26] MEDS: ESCITALOPRAM OXALATE 20 MG TAB PO SCH (19:56)
[2018-11-26] MEDS: ATORVASTATIN 20 MG TAB PO SCH (19:56)
[2018-11-26 22:34] VITALS: BP 158/82; PULSE 66
--- NOTE | 2018-11-28 09:19 | Consultation ---
Date of Consultation November 28, 2018 History of Present Illness Attending Physician: Maria A Doyle MD History of Present Illness Patient tranferred to tertiary center before being seen. Allergies Allergy/AdvReac Type Severity Reaction Status Date / Time No Known Allergies Allergy Verified 11/24/18 05:13 Home Medications Home Medications Medication Instructions Recorded Confirmed Type aspirin [Aspirin Low Dose] 81 mg PO DAILY 02/12/18 11/24/18 History atorvastatin 20 mg PO HS 02/12/18 11/24/18 History carbidopa-levodopa 1 tab PO TID 02/12/18 11/24/18 History carvedilol 12.5 mg PO BID 02/12/18 11/24/18 History escitalopram oxalate 20 mg PO HS 02/12/18 11/24/18 History lamotrigine 200 mg PO BID 02/12/18 11/24/18 History multivitamin [Once Daily] 1 tab PO DAILY 02/12/18 11/24/18 History primidone 50 mg PO QAM 02/12/18 11/24/18 History primidone 100 mg PO HS 02/12/18 11/24/18 History propranolol 160 mg PO QAM 02/12/18 11/24/18 History topiramate 100 mg PO BID 02/12/18 11/24/18 History aripiprazole 10 mg PO QAM 09/27/18 11/24/18 History primidone 50 mg PO 1200 09/27/18 11/24/18 History potassium chloride ER 20 mEq 40 meq PO BID #120 tab 11/11/18 11/24/18 Rx tablet,extended release(part/cryst) Patient History Medical History Acute cholecystitis (Resolved) Hypertension (Chronic) Tremor (Chronic 10/13/11) Vertigo (Resolved) Neck pain (Resolved) Right middle lobe pneumonia (Resolved) Depression (Chronic) OCD (obsessive compulsive disorder) (Chronic) Noncompliance with medication regimen (Resolved) Pulmonary emboli (Resolved) Choking (Resolved) Esophageal dilatation (Chronic) Low back pain (Resolved) Obstruction of esophagus due to food impaction (Resolved) Tracheomalacia (Chronic) Ulcer of left thigh (Resolved) Idiopathic neuropathy Obesity Anxiety (Chronic) Hyperlipidemia (Chronic) Osteoarthritis (Chronic) Post traumatic stress disorder (Chronic) Fluid retention (Resolved) History of esophageal dilatation History of tooth extraction Surgical History History of embolectomy (Resolved) History of breast biopsy History of cataract surgery BILATERAL History of cholecystectomy History of colonoscopy History of lung surgery for pulmonary emboli History of tonsillectomy Family History Other Family history non-contributory Social History Preferred Language: Italian Communication Ability: Effective Visual Impairment: No Limitations Beliefs That Will Affect Care: None marital status: Current Living Situation: Spouse Feels Safe at Home: Yes Smoking Status: Never smoker Second Hand Exposure: No Hx Alcohol Use: No Hx Substance Use: No
--- NOTE | 2018-11-30 07:59 | Coding Query ---
CODING QUERY To promote full compliance with coding requirements relating to patient care, provider participation is requested in all cases of hall manager uncertainty. Please assist us with the question(s) below: In the record, it states that the patient has an UTI, but the diagnosis was not mentioned on the discharge summary. Please clarify below if the patient had a UTI that was treated during this admission. Thank you. ( x ) UTI treated during this admission. ( x ) POA ( ) Not POA Causitive organism: ESBL E. coli ( ) UTI ruled out. ( ) Unable to determine ( ) Other, please explain Physician's comments: Thank you for your time, LEN Roberts, [facility]
[2018-11-30 11:07] LABS: Anti Nuclear Antibody Screen NEGATIVE (NEGATIVE)
[2018-12-02 00:44] LABS: 18KDIGG Band DNR (NONREACTIVE); 23KDIGG Band DNR (NONREACTIVE); 23KDIGM Band NONREACTIVE (NONREACTIVE); 28KDIGG Band DNR (NONREACTIVE); 30KDIGG Band DNR (NONREACTIVE); 39KDIGG Band DNR (NONREACTIVE); 39KDIGM Band NONREACTIVE (NONREACTIVE); 41KDIGG Band DNR (NONREACTIVE); 41KDIGM Band NONREACTIVE (NONREACTIVE); 45KDIGG Band DNR (NONREACTIVE); 58KDIGG Band DNR (NONREACTIVE); 66KDIGG Band DNR (NONREACTIVE); 93KDIGG Band DNR (NONREACTIVE); Lyme Antibodies, WB IgM NEGATIVE (NEGATIVE)
== END 2018-11-26 22:35 | disposition short-term general hospital (02) | DRG 300 ==
LOC: 3W 04:24 → ED 04:24 → 3W 12:32 → 2S 11-26 00:07
DX: Z86.711 Personal history of pulmonary embolism; E66.01 Morbid (severe) obesity due to excess calories; M43.16 Spondylolisthesis, lumbar region; F41.9 Anxiety disorder, unspecified; I70.201 Unspecified atherosclerosis of native arteries of extremities, right leg; N39.0 Urinary tract infection, site not specified; I10 Essential (primary) hypertension; F40.218 Other animal type phobia; F42.9 Obsessive-compulsive disorder, unspecified; R25.1 Tremor, unspecified; F43.10 Post-traumatic stress disorder, unspecified; R32 Unspecified urinary incontinence; Z79.82 Long term (current) use of aspirin; G60.9 Hereditary and idiopathic neuropathy, unspecified; Z68.41 Body mass index [BMI] 40.0-44.9, adult; M48.061 Spinal stenosis, lumbar region without neurogenic claudication; E78.5 Hyperlipidemia, unspecified; G57.31 Lesion of lateral popliteal nerve, right lower limb; Z16.12 Extended spectrum beta lactamase (ESBL) resistance; Z79.899 Other long term (current) drug therapy; F32.9 Major depressive disorder, single episode, unspecified; R26.2 Difficulty in walking, not elsewhere classified

== ENCOUNTER 2019-02-28 09:48 | Inpatient (IN) ==
[2019-02-28 11:01] LABS: Basophils # (auto) 0.02 K/uL (0-0.2); Basophils % (auto) 0.3 %; Eosinophils % (auto) 3.3 %; Hematocrit (blood only) 34.7 % (37-47); Hemoglobin 10.9 g/dL (12.0-16.0); Immature Granulocytes # (auto) 0.03 K/uL (0.00-0.02); Immature Granulocytes % (auto) 0.5 %; Lymphocytes # (auto) 1.33 K/uL (1.2-3.4); Lymphocytes % (auto) 21.7 %; Mean Corpuscular Hemoglobin 29.7 pg (25-34); Mean Corpuscular Hgb Conc 31.4 g/dL (32-36); Mean Corpuscular Volume 94.6 fL (80-100); Monocytes # (auto) 0.43 K/uL (0.11-0.59); Neutrophils # (auto) 4.12 K/uL (1.4-6.5); Neutrophils % (auto) 67.2 %; Platelet Count 235 K/uL (130-400); RDW Standard Deviation 51.5 fL (36.4-46.3); Red Blood Count 3.67 M/uL (4.2-5.4); White Blood Count 6.13 K/uL (4.8-10.8)
--- NOTE | 2019-02-28 11:04 | CT Scan Report ---
CT head/brain wo con CLINICAL HISTORY: Right leg weakness. Possible stroke. COMPARISON STUDY: 11/24/2018 TECHNIQUE: Axial CT of the brain is performed from the vertex to the skull base. IV contrast was not administered for this examination. A dose lowering technique was utilized adhering to the principles of ALARA. CT DOSE: 788.63 mGycm FINDINGS: No intrahepatic or extra-axial mass lesions are visualized. There is dense anterior falcine ossificat ion. There is a very subtle left frontal lobe hypodensity, possibly representing an early acute infar ct. MRI is recommended in follow-up. There is no evidence of acute hemorrhage. There is no evidence of midline shift. There is no evidence of pathologic ventricular dilatation. There is no evidence of acute sinusitis IMPRESSION: 1. Very subtle left frontal lobe hypodensity. This could represent an acute infarct. MRI the brain co uld be obtained in follow-up as deemed clinically indicated. 2. No evidence of acute hemorrhage Electronically signed by: Josef Patel M.D. 02/28/2019 11:02 AM
[2019-02-28 11:08] LABS: INR 2.6 (0.9-1.1); Partial Thromboplastin Ratio 1.5; Partial Thromboplastin Time 41.5 Seconds (21.0-31.0); Prothrombin Time 24.6 Seconds (9.0-12.0)
[2019-02-28 11:22] LABS: Albumin Level 3.2 gm/dl (3.4-5.0); BUN Creatinine Ratio 13.4 (10-20); C Reactive Protein 2.32 mg/dl (0-0.29); Creatinine Clr Calc Pharmacy 103.3 ml/min; Est GFR (African American) 95.6; Est GFR (Non-African American) 82.5; Potassium 4.2 mmol/L (3.5-5.1)
[2019-02-28 11:24] LABS: Albumin Globulin Ratio 0.8 (0.9-2); Bilirubin,Total 0.2 mg/dl (0.2-1); Total Protein 7.2 gm/dl (6.4-8.2)
[2019-02-28] MEDS ORDERED: OPTIRAY 320 125ml IV PRN (13:08)
--- NOTE | 2019-02-28 13:30 | History & Physical Report ---
Date of Service February 28, 2019 Assessment & Plan (1) Acute cerebrovascular accident (CVA): Patient presenting with heaviness, numbness and weakness of her right foot since this AM. CT head with left frontal lobe hypodensity that may represent acute infarct. Patient with complicated medical history. She has some degree of chronic numbness and foot drop of her RLE since her embolectomy in November. Present symptoms may be an exacerbation of this, especially given recent injury. Low possibility that her frontal lobe lesion is responsible for her foot symptoms. CT lesion may be more of an incidental finding. ?New CVA - atherosclerotic in patient with history of HTN, HLP, Pre-DM and obesity vs embolic in patient with known mitral valve echodensity. CTA Head and Neck negative. [id number]=6.6 on 11/24/18 -Admit to medical floor with telemetry monitoring, neuro checks per protocol -MRI Brain -Will consult Cardiology - would patient benefit from in-hospital JENNIFER to better assess mitral valve density? -Continue ASA. Consider changing to Plavix -Continue Statin -Will hold Coreg and Propranolol for now to allow for permissive hypertension. Patient most likely does not need to be on both Beta blockers. Consider discontinuing one prior to DC. -PT/OT assessment -Neurology consultation appreciated Present on Admission?: Yes (2) Mitral valve mass: JENNIFER with mitral valve echodensity. ?thrombus vs tumor. Less likely infectious/endocarditis as patient with negative blood cultures, afebrile, no evidence of infection. She is adequately anticoagulated on Coumadin with INR of 2.6. -Cardiology consultation - ?JENNIFER with CT Surgery consultation if warranted -If thought to be a thrombus then patient should be changed from Coumadin, consider Heme consult -Neuro checks Present on Admission?: Yes (3) History of embolectomy: Patient with occlusion of right DIRECTOR OF CULTURE and SFA s/p embolectomy at [facility] on 11/27/18. Bilateral LE warm, well perfused with palpable pulses. -Continue ASA -Continue Statin Present on Admission?: Yes (4) Tremor: Chronic. Stable -Continue Primidone at home dose -Continue Sinimet -Hold Propranolol Present on Admission?: Yes (5) Hypertension: Blood pressure stable at present -Hold Coreg to allow for permissive HTN -Continue to monitor Present on Admission?: Yes (6) Ambulatory dysfunction: Noted. Patient with difficulty weight bearing on right leg due to foot drop and pain, difficulty weight bearing on left leg due to cellulitis. She is presently in a wheelchair as she awaits her brace fitting -PT/OT evaluation -Fall precautions Present on Admission?: Yes (7) Morbid obesity with body mass index of 50 or higher: Noted -Encourage diet and exercise Present on Admission?: Yes (8) Generalized anxiety disorder: Chronic. Stable. Patient with longstanding history of mental health issues. She follows with Psychiatry. -Continue escitalopram -Continue Lamotrigine -Continue abilify -Continue Topamax Present on Admission?: Yes (9) Cellulitis of left leg: Patient afebrile, hemodynamically stable, nontoxic in appearance -Og area daily -Continue Keflex (10) Anticoagulated on Coumadin: As above -INR daily F/E/N - Heplock. Monitor electrolytes and replete as needed. AHA diet as tolerated Ppx - Coumadin Code - Full Dispo - Admit to Med-tele Present on Admission?: Yes History of Present Illness Chief Complaint: Right foot heaviness, numbness Primary Care Provider: Chris Moore III, CRNP Lydia Winn is a 73-year-old female with multiple medical problems, most notably hypertension, hyperlipidemia, essential tremor, peripheral arterial disease, echodensity on mitral valve. She was found to have acute ischemia of the right lower extremity on 11/27/2018 for which she was transferred to [facility]. An arterial duplex revealed near occlusion of the right DIRECTOR OF CULTURE and SFA. She underwent a right femoral artery embolectomy on 11/27/2018 by . Patient had a JENNIFER performed on 11/29/2018 which revealed a large 1.2 cm linear mobile echodensity attached to the ventricular surface of the anterior mitral valve leaflet. Differential to include vegetation, primary cardiac tumor or ruptured chordae. The patient had negative blood cultures and was started on Coumadin anticoagulation. Patient with chronic numbness and right foot drop since the above episode. She states that she has chronic pain in her ankle and foot, specifically on the lateral dorsal aspect. She was seen by her primary care physician on 01/10/2019 after she accidentally rolled her ankle while standing. She was diagnosed with a torsion type injury. X-rays of the right ankle were obtained which revealed soft tissue edema, osteopenia with no evidence of fracture. She was instructed to elevate the foot and to use ice or heat to comfort. She is currently being fitted for a brace to assist with foot drop. Patient presented to the ER on 01/13/2019 with complaint of worsening right ankle and foot pain as well as edema. She had an arterial Doppler ultrasound performed at that time which revealed normal right ankle-brachial index and patent right lower extremity vessels. Venous Doppler negative for DVT in the right lower extremity. She was evaluated by cardiology on 02/13/2019 for her mitral valve echodensity. A repeat JENNIFER was discussed with possible CT surgery consultation pending results. Patient states that this procedure has yet to be completed as it was denied by her insurance company. Mrs. Winn presents today with loss of sensation and mobility of her right foot. She reports that over the past couple of days she has had increased pain in her foot. This morning she tried to get up from bed to use her bedside commode and she was unable to ambulate due to her right foot feeling numb and heavy. She denies headache, visual disturbances or difficulty with speech. She denies numbness/tingling/weakness of her upper extremities or left lower extremity. Patient presented to the ER as a Code Stroke. Noncontrast CT of the head with very subtle left frontal lobe hypodensity which may represent an acute infarct. Case discussed between ER attending and Neurology on-call at [facility]. As patient is on Coumadin anticoagulation no TPA administered. Mrs. Winn presently complaining only of pain in the right foot. No additional complaints at this time. ER course: CT head, CTA head/neck Allergies Allergy/AdvReac Type Severity Reaction Status Date / Time amoxicillin [From Augmentin] AdvReac Severe Diarrhea Verified 02/28/19 11:28 clavulanic acid AdvReac Severe Diarrhea Verified 02/28/19 11:28 [From Augmentin] Home Medications Home Medications Medication Instructions Recorded Confirmed Type aspirin [Aspirin Low Dose] 81 mg PO DAILY 02/12/18 02/28/19 History carbidopa-levodopa 1 tab PO TID 02/12/18 02/28/19 History escitalopram oxalate 20 mg PO HS 02/12/18 02/28/19 History lamotrigine 200 mg PO BID 02/12/18 02/28/19 History multivitamin [Once Daily] 1 tab PO DAILY 02/12/18 02/28/19 History topiramate 100 mg PO BID 02/12/18 02/28/19 History potassium chloride ER 20 mEq 40 meq PO BID #120 tab 11/11/18 02/28/19 Rx tablet,extended release(part/cryst) acetaminophen 325 mg capsule 650 mg PO Q6 PRN cap 12/16/18 02/28/19 History primidone 50 mg tablet 50 mg PO BID tab 01/09/19 02/28/19 History propranolol ER 160 mg capsule,24 160 mg PO QAM #30 cap 01/30/19 02/28/19 Rx hr,extended release diclofenac 1 % topical gel 4 gm TOP QID #100 gm 02/03/19 02/28/19 Rx atorvastatin 40 mg tablet 40 mg PO DAILY 02/13/19 02/28/19 History silver sulfadiazine 1 % topical 1 applic TOPICAL UD 02/13/19 02/28/19 History cream primidone 100 mg PO HS 02/15/19 02/28/19 History aripiprazole 10 mg PO DAILY 02/21/19 02/28/19 History carvedilol 12.5 mg tablet 12.5 mg PO BID #60 tab 02/23/19 02/28/19 Rx cephalexin 500 mg capsule 500 mg PO QID 7 Days #28 cap 02/24/19 02/28/19 Rx warfarin 2.5 mg tablet 2.5 mg PO PM tab 02/27/19 02/28/19 History Past Med/Surg History Medical History PTSD (post-traumatic stress disorder) Tricuspid regurgitation Mitral valve mass Anemia Arthritis Depression with anxiety Disc degeneration, lumbar Gastroesophageal reflux disease without esophagitis Generalized anxiety disorder Venous insufficiency Femoral artery occlusion, right Numbness in right leg Ambulatory dysfunction Hypertension Tremor (10/13/11) OCD (obsessive compulsive disorder) Hyperlipidemia (Chronic) Osteoarthritis (Chronic) Fluid retention (Resolved) Esophageal dilatation History of esophageal dilatation History of tooth extraction Idiopathic neuropathy Obesity Obstruction of esophagus due to food impaction Pulmonary emboli Tracheomalacia Ulcer of left thigh Vertigo Surgical History History of embolectomy History of breast biopsy History of cataract surgery BILATERAL History of cholecystectomy History of colonoscopy History of lung surgery for pulmonary emboli History of tonsillectomy Family History Mother Cardiac disorder Hypertension Myocardial infarction Aunt Breast cancer Other Family history non-contributory Social History Preferred Language: Guinean Communication Ability: Effective Visual Impairment: No Limitations [employer]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 Required: No Beliefs That Will Affect Care: None marital status: Current Living Situation: Spouse Feels Safe at Home: Yes Smoking Status: Never smoker Second Hand Exposure: No ; Hx Alcohol Use: No Hx Substance Use: No Review of Systems Review of Systems: All systems reviewed & are unremarkable except as noted in HPI & below Physical Exam Physical Exam: General: patient resting comfortably, NAD, non-toxic in appearance, AA&O x 4 Skin: warm, dry, intact, skin of left lower extremity warm, erythematous, tender HEENT: NC/AT, PERRL, EOMI, anicteric sclera, conjunctiva without injection, external ear normal to inspection and nontender, nares patent, moist mucus membranes, edentulous, no oropharyngeal lesions, neck supple, trachea midline, no LAD, no thyromegaly, no JVD Heart: +S1/S2, regular, 3/6 systolic ejection murmur heard across the precordium, no radiation to carotids Lungs: equal air entry bilaterally, no rales/rhonchi/wheezes Abd: +BS, soft, nondistended, mildly tender with deep palpation with no rebound/guarding/peritoneal signs, no masses/organomegaly/ascites Ext: warm, 2+ pulses in UE/LE bilaterally, no clubbing/cyanosis, skin of left lower extremity warm/red, right foot inverted, tender to palpation, + nonpitting edema of bilateral lower extremities Neuro: patient AA&O x 4, speech intact, no facial droop, diminished sensation of right foot, limited mobility of right foot 2/5 strength Results & Data Vital Signs (Past 12 Hours) Vital Signs Temp Pulse Pulse Resp BP BP Pulse Ox 02/28/19 11:42 66 21 135/80 96 02/28/19 09:59 37.6 C H 93 H 21 124/99 90 Laboratory Results Lab Results 02/28/19 02/28/19 02/28/19 Range/Units 10:37 10:37 10:37 WBC 6.13 (4.8-10.8) K/uL RBC 3.67 L (4.2-5.4) M/uL Hgb 10.9 L (12.0-16.0) g/dL Hct 34.7 L (37-47) % MCV 94.6 (80-100) fL MCH 29.7 (25-34) pg MCHC 31.4 L (32-36) g/dL RDW Std Deviation 51.5 H (36.4-46.3) fL RDW Coeff of Gary 15.0 H (11.5-14.5) % Plt Count 235 (130-400) K/uL MPV 9.0 (7.4-10.4) fL Immature Gran % (Auto) 0.5 % Neut % (Auto) 67.2 % Lymph % (Auto) 21.7 % [place] % (Auto) 7.0 % Eos % (Auto) 3.3 % Baso % (Auto) 0.3 % Immature Gran # (Auto) 0.03 H (0.00-0.02) K/uL Neut # (Auto) 4.12 (1.4-6.5) K/uL Lymph # (Auto) 1.33 (1.2-3.4) K/uL [place] # (Auto) 0.43 (0.11-0.59) K/uL Eos # (Auto) 0.20 (0-0.5) K/uL Baso # (Auto) 0.02 (0-0.2) K/uL PT 24.6 H (9.0-12.0) Seconds INR 2.6 H (0.9-1.1) APTT 41.5 H (21.0-31.0) Seconds PTT Ratio 1.5 Sodium 142 (136-145) mmol/L Potassium 4.2 (3.5-5.1) mmol/L Chloride 110 H (98-107) mmol/L Carbon Dioxide 26 (21-32) mmol/L Anion Gap 6.0 (3-11) BUN 10 (7-18) mg/dl Creatinine 0.72 (0.6-1.2) mg/dl Est Cr Clr Drug Dosing 103.3 ml/min Est GFR ( Amer) 95.6 Est GFR (Non-Af Amer) 82.5 BUN/Creatinine Ratio 13.4 (10-20) Glucose 125 H (70-99) mg/dl Calcium 9.0 (8.5-10.1) mg/dl Total Bilirubin 0.2 (0.2-1) mg/dl AST 9 L (15-37) U/L ALT 7 L (12-78) U/L Alkaline Phosphatase 90 (45-117) U/L C-Reactive Protein 2.32 H (0-0.29) mg/dl Total Protein 7.2 (6.4-8.2) gm/dl Albumin 3.2 L (3.4-5.0) gm/dl Globulin 4.0 (2.5-4.0) gm/dl Albumin/Globulin Ratio 0.8 L (0.9-2) Diagnostic Findings CT head/brain wo con CLINICAL HISTORY: Right leg weakness. Possible stroke. COMPARISON STUDY: 11/24/2018 TECHNIQUE: Axial CT of the brain is performed from the vertex to the skull base. IV contrast was not administered for this examination. A dose lowering technique was utilized adhering to the principles of ALARA. CT DOSE: 788.63 mGycm FINDINGS: No intrahepatic or extra-axial mass lesions are visualized. There is dense anterior falcine ossification. There is a very subtle left frontal lobe hypodensity, possibly representing an early acute infarct. MRI is recommended in follow-up. There is no evidence of acute hemorrhage. There is no evidence of midline shift. There is no evidence of pathologic ventricular dilatation. There is no evidence of acute sinusitis IMPRESSION: 1. Very subtle left frontal lobe hypodensity. This could represent an acute infarct. MRI the brain could be obtained in follow-up as deemed clinically indicated. 2. No evidence of acute hemorrhage Electronically signed by: Josef Patel M.D. 02/28/2019 11:02 AM Dictated: 02/28/19 1059 Transcribed: 02/28/19 1102 NECK CTA HISTORY: left leg weak eval for embolus TECHNIQUE: Multiaxial CT images of the neck were performed following the intravenous administration of contrast to evaluate the major cervical vessels. Maximum intensity projection images were also obtained. All measurements were calculated based on NASCET criteria. A dose lowering technique was utilized adhering to the principles of ALARA. COMPARISON STUDY: None. FINDINGS: The aortic arch and proximal great vessels are widely patent. There is no significant stenosis, occlusion, or dissection identified within the bilateral common carotid, internal carotid, or vertebral arteries. Mild calcified plaque within the bilateral carotid bulbs. IMPRESSION: No significant stenosis, occlusion, or dissection identified within the carotid or vertebral arteries. Electronically signed by: Jeromy Yu M.D. 02/28/2019 1:36 PM Dictated: 02/28/19 1333 Transcribed: 02/28/[address] angio head w con CLINICAL HISTORY: 73 years-old Female with left leg weak eval for embolus. Acute strokelike symptoms COMPARISON STUDY: Head CT and CTA neck of same day TECHNIQUE: Following the IV administration of 118 cc of Optiray 320, CT angiogram of the brain was performed from the skull base to the vertex. Images are reviewed in the axial, sagittal, and coronal planes. 3-D MIPS images are created and assessed. IV contrast was administered without complication. All measurements were obtained according to NASCET criteria. A dose lowering technique was utilized adhering to the principles of ALARA. CT DOSE: 656.89 mGy.cm FINDINGS: CT ANGIOGRAM OF THE BRAIN: Mild calcified plaque about the bilateral cavernous and supraclinoid segments of the internal carotid arteries without high-grade stenosis. Mild luminal narrowing is noted about the bilateral M1 segments of the middle cerebral arteries. No aneurysm, dissection, high-grade stenosis or proximal branch occlusion. The bilateral anterior cerebral arteries are patent. The imaged bilateral vertebral arteries and basilar artery appear patent. Bilateral posterior cerebral arteries also appear patent. Cerebral venous sinuses are unremarkable. Dense calcifications are noted about the falx cerebri. White matter hypodensities suggest chronic microvascular ischemic disease. No abnormal enhancement. Prior bilateral cataract repair. No calvarial fracture identified. IMPRESSION: Unremarkable CTA without aneurysm, dissection, high-grade stenosis or proximal branch occlusion. The above report was generated using voice recognition software. It may contain grammatical, syntax or spelling errors. Electronically signed by: Sven Saravia M.D. 02/28/2019 1:30 PM Dictated: 02/28/19 1325 Code Status & VTE Plan VTE Prophylaxis Plan VTE Prophylaxis will be ordered: Yes PG Care Time/CCT Total # of Minutes Spent Total Time Spent with Patient: Total time spent is greater than 50% in coordination of care (as documented) at patient's floor/unit and/or counseling patient: (1) Hypertension Hypertension type: essential hypertension Qualified Code(s): I10 - Essential (primary) hypertension
--- NOTE | 2019-02-28 13:31 | CT Scan Report ---
CT angio head w con CLINICAL HISTORY: 73 years-old Female with left leg weak eval for embolus. Acute strokelike sympto ms COMPARISON STUDY: Head CT and CTA neck of same day TECHNIQUE: Following the IV administration of 118 cc of Optiray 320, CT angiogram of the brain was pe rformed from the skull base to the vertex. Images are reviewed in the axial, sagittal, and coronal pl anes. 3-D MIPS images are created and assessed. IV contrast was administered without complication. Al l measurements were obtained according to NASCET criteria. A dose lowering technique was utilized adh ering to the principles of ALARA. CT DOSE: 656.89 mGy.cm FINDINGS: CT ANGIOGRAM OF THE BRAIN: Mild calcified plaque about the bilateral cavernous and supraclinoid segments of the internal carotid arteries without high-grade stenosis. Mild luminal narrowing is noted about the bilateral M1 segment s of the middle cerebral arteries. No aneurysm, dissection, high-grade stenosis or proximal branch oc clusion. The bilateral anterior cerebral arteries are patent. The imaged bilateral vertebral arteries and basilar artery appear patent. Bilateral posterior cerebral arteries also appear patent. Cerebral venous sinuses are unremarkable. Dense calcifications are noted about the falx cerebri. White matter hypodensities suggest chronic microvascular ischemic disease. No abnormal enhancement. P rior bilateral cataract repair. No calvarial fracture identified. IMPRESSION: Unremarkable CTA without aneurysm, dissection, high-grade stenosis or proximal branch occ lusion. The above report was generated using voice recognition software. It may contain grammatical, syntax o r spelling errors. Electronically signed by: Sven Saravia M.D. 02/28/2019 1:30 PM
--- NOTE | 2019-02-28 13:37 | CT Scan Report ---
NECK CTA HISTORY: left leg weak eval for embolus TECHNIQUE: Multiaxial CT images of the neck were performed following the intravenous administration o f contrast to evaluate the major cervical vessels. Maximum intensity projection images were also obta ined. All measurements were calculated based on NASCET criteria. A dose lowering technique was utili zed adhering to the principles of ALARA. COMPARISON STUDY: None. FINDINGS: The aortic arch and proximal great vessels are widely patent. There is no significant sten osis, occlusion, or dissection identified within the bilateral common carotid, internal carotid, or v ertebral arteries. Mild calcified plaque within the bilateral carotid bulbs. IMPRESSION: No significant stenosis, occlusion, or dissection identified within the carotid or vertebral arteries . Electronically signed by: Jeromy Yu M.D. 02/28/2019 1:36 PM
[2019-02-28] MEDS ORDERED: ACETAMINOPHEN 325 MG TAB PO PRN (15:08)
[2019-02-28] MEDS ORDERED: INFLUENZA ADMINISTRATION CHARGE ONE (15:45)
[2019-02-28] MEDS ORDERED: INFLUENZA VACCINE HIGH DOSE 65+ 0.5 ML SYR IM ONE (15:45)
--- NOTE | 2019-02-28 15:47 | Emergency Department Note ---
Entered by Amy Rivers acting as a scribe for History of Present Illness General Chief complaint: Foot Injury/Pain Stated complaint: R foot pain Source: patient History of Present Illness Provider complaint: right foot pain and heaviness Onset (ago): hour(s) 3 Location: lower extremity and right Radiation: other (to ankle) Pain Consistency: + intermittent Maximum Pain Intensity: 6 Quality: + other (numbness, weakness, heavy ) Exacerbated By: + rest Associated symptoms: + denies other symptoms and + other (back pian, numbness anywhere else ); no fever/chills, no headaches and no nausea/vomiting The patient is a 73 y/o female with a past medical history of anemia, arthritis, and 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 She woke up at 5 AM but states that she did not try to walk on it at that time. The last time she walked on it was yesterday evening. The patient states that her foot was painful at rest with mild radiation to the ankle and when she went to use the restroom this morning she was unable to get there because her foot felt extremely heavy and more numb than normal. She reports that the leg has been numb and painful since November when she was diagnosed with a blood clot in the femoral artery of the right leg which was removed but left her with the numbness and weakness of the leg. The patient notes that she is on Coumadin, and has been taking her antibiotic as prescribed which she reports has been causing diarrhea. She denies fever, vomiting, back pain, headache, numbness anywhere else on the body, and any other symptoms. Home Medications Home Medications Medication Instructions Recorded Confirmed Type aspirin [Aspirin Low Dose] 81 mg PO DAILY 02/12/18 02/28/19 History carbidopa-levodopa 1 tab PO TID 02/12/18 02/28/19 History escitalopram oxalate 20 mg PO HS 02/12/18 02/28/19 History lamotrigine 200 mg PO BID 02/12/18 02/28/19 History multivitamin [Once Daily] 1 tab PO DAILY 02/12/18 02/28/19 History topiramate 100 mg PO BID 02/12/18 02/28/19 History potassium chloride ER 20 mEq 40 meq PO BID #120 tab 11/11/18 02/28/19 Rx tablet,extended release(part/cryst) acetaminophen 325 mg capsule 650 mg PO Q6 PRN cap 12/16/18 02/28/19 History primidone 50 mg tablet 50 mg PO BID tab 01/09/19 02/28/19 History propranolol ER 160 mg capsule,24 160 mg PO QAM #30 cap 01/30/19 02/28/19 Rx hr,extended release diclofenac 1 % topical gel 4 gm TOP QID #100 gm 02/03/19 02/28/19 Rx atorvastatin 40 mg tablet 40 mg PO DAILY 02/13/19 02/28/19 History silver sulfadiazine 1 % topical 1 applic TOPICAL UD 02/13/19 02/28/19 History cream primidone 100 mg PO HS 02/15/19 02/28/19 History aripiprazole 10 mg PO DAILY 02/21/19 02/28/19 History carvedilol 12.5 mg tablet 12.5 mg PO BID #60 tab 02/23/19 02/28/19 Rx cephalexin 500 mg capsule 500 mg PO QID 7 Days #28 cap 02/24/19 02/28/19 Rx warfarin 2.5 mg tablet 2.5 mg PO PM tab 02/27/19 02/28/19 History Allergies Allergy/AdvReac Type Severity Reaction Status Date / Time amoxicillin [From Augmentin] AdvReac Severe Diarrhea Verified 02/28/19 11:28 clavulanic acid AdvReac Severe Diarrhea Verified 02/28/19 11:28 [From Augmentin] Past Med/Surg History Medical History PTSD (post-traumatic stress disorder) Tricuspid regurgitation Mitral valve mass Anemia Arthritis Depression with anxiety Disc degeneration, lumbar Gastroesophageal reflux disease without esophagitis Generalized anxiety disorder Venous insufficiency Femoral artery occlusion, right Numbness in right leg Ambulatory dysfunction Hypertension Tremor (10/13/11) OCD (obsessive compulsive disorder) Hyperlipidemia (Chronic) Osteoarthritis (Chronic) Fluid retention (Resolved) Esophageal dilatation History of esophageal dilatation History of tooth extraction Idiopathic neuropathy Obesity Obstruction of esophagus due to food impaction Pulmonary emboli Tracheomalacia Ulcer of left thigh Vertigo Surgical History History of embolectomy History of breast biopsy History of cataract surgery BILATERAL History of cholecystectomy History of colonoscopy History of lung surgery for pulmonary emboli History of tonsillectomy Family History Mother Cardiac disorder Hypertension Myocardial infarction Aunt Breast cancer Other Family history non-contributory Social History Preferred Language: Georgian Communication Ability: Effective Visual Impairment: No Limitations Founder & Ceo Required: No Beliefs That Will Affect Care: None marital status: Current Living Situation: Spouse Feels Safe at Home: Yes Smoking Status: Never smoker Second Hand Exposure: No ; Hx Alcohol Use: No Hx Substance Use: No Review of Systems See HPI for pertinent positives & negatives. and A total of 10 systems reviewed and were otherwise negative Physical Exam Vital Signs Vital Signs - 24 hr 02/28/19 09:59 02/28/19 11:42 02/28/19 13:00 Temperature 37.6 C H Temperature Source Oral Sepsis Recent Fever Within 48 Hours No Sepsis New/Unexplained Change in Mental Status No Sepsis Action Taken by Nursing No Action Required Pulse Rate 93 H Pulse Rate [Apical] 66 62 Pulse Rhythm Regular Pulse Rhythm [Apical] Regular Respiratory Rate 21 21 20 Respiratory Effort / Characteristics Non-Labored Spontaneous Non-Labored Spontaneous Respiratory Depth Normal Normal Respiratory Pattern Regular Regular Blood Pressure 124/99 Blood Pressure [Left Radial Artery] 135/80 120/74 Blood Pressure Mean 107 Blood Pressure Mean [Left Radial Artery] 98 89 Pulse Oximetry 90 96 95 Oxygen Delivery Method Room Air Room Air Constitutional: Vital signs reviewed. Eyes: Pupils are equal round reactive to light. Conjunctiva are noninjected. ENT: Pharynx is clear without erythema or exudate. Mucous membranes are moist. Neck supple without meningeal signs. Respiratory: Clear to auscultation bilaterally. Breath sounds are equal bilaterally. Cardiovascular: Regular rate and rhythm. No rubs or gallops. GI: Soft, nondistended and nontender. Bowel sounds are present. Musculoskeletal: Bilateral lower extremity edema. Increased warmth and erythema to left foot up to above the ankle. Full ROM of the ankle without pain. Tenderness to foot. 2+ DP pulse in both feet. Integumentary: No cyanosis. Neurologic: The patient is awake and alert. Cranial nerves II-XII are intact. Motor is 5 out of 5 all extremities except the right leg where she has a foot drop which is chronic. Normal speech. No pronator drift. No dysdiadochokinesis. No limb ataxia. Psychiatric: Normal affect. Course 1008: Past medical records reviewed. The patient was evaluated in room B06. A complete history and physical exam was performed. 1025: I spoke with the patient regarding the prior surgery. 1158: I spoke with Dr. Wale Nolasco stroke neurology. She does not believe the patient is a TPA candidate, and does not recommend neuro intervention. She recommends an MRA. 1205: I spoke with Adele Blake hospitalist. She will evaluate for further management. 1207: I updated the patient and her family on the treatment plan. Administered Medications Ioversol (Optiray 320 125ml) 118 ml IV ONCE PRN PRN Reason: Interaction Checking Stop: 03/04/19 13:07 Last Admin: 02/28/19 13:10 Dose: 118 ml Documented by: [id number] Medical Decision Making Differential Diagnosis Differential Diagnosis: right leg cellulitis, outpatient treatment failure, CVA, ICH, ischemic limb, subtherapeutic INR Medical Records Attestation: I reviewed the patient's medical records. Seen on February 21 for left leg swelling and redness. Diagnosed with cellulitis and discharged with Augmentin. INR was 2.7. She was also seen at [place] in November for acute ischemia to the right leg, underwent embolectomy. They did a JENNIFER which showed an echodensity in the mitral valve leaflet, which may have been the source of the embolism. Home Medications Current Medication List: was personally reviewed by me Laboratory Data Attestation: I reviewed the patient's lab results. Result diagrams: 02/28/19 10:37 02/28/19 10:37 Lab Results 02/28/19 02/28/19 02/28/19 Range/Units 10:37 10:37 10:37 WBC 6.13 (4.8-10.8) K/uL RBC 3.67 L (4.2-5.4) M/uL Hgb 10.9 L (12.0-16.0) g/dL Hct 34.7 L (37-47) % MCV 94.6 (80-100) fL MCH 29.7 (25-34) pg MCHC 31.4 L (32-36) g/dL RDW Std Deviation 51.5 H (36.4-46.3) fL RDW Coeff of Gary 15.0 H (11.5-14.5) % Plt Count 235 (130-400) K/uL MPV 9.0 (7.4-10.4) fL Immature Gran % (Auto) 0.5 % Neut % (Auto) 67.2 % Lymph % (Auto) 21.7 % [place] % (Auto) 7.0 % Eos % (Auto) 3.3 % Baso % (Auto) 0.3 % Immature Gran # (Auto) 0.03 H (0.00-0.02) K/uL Neut # (Auto) 4.12 (1.4-6.5) K/uL Lymph # (Auto) 1.33 (1.2-3.4) K/uL [place] # (Auto) 0.43 (0.11-0.59) K/uL Eos # (Auto) 0.20 (0-0.5) K/uL Baso # (Auto) 0.02 (0-0.2) K/uL PT 24.6 H (9.0-12.0) Seconds INR 2.6 H (0.9-1.1) APTT 41.5 H (21.0-31.0) Seconds PTT Ratio 1.5 Sodium 142 (136-145) mmol/L Potassium 4.2 (3.5-5.1) mmol/L Chloride 110 H (98-107) mmol/L Carbon Dioxide 26 (21-32) mmol/L Anion Gap 6.0 (3-11) BUN 10 (7-18) mg/dl Creatinine 0.72 (0.6-1.2) mg/dl Est Cr Clr Drug Dosing 103.3 ml/min Est GFR ( Amer) 95.6 Est GFR (Non-Af Amer) 82.5 BUN/Creatinine Ratio 13.4 (10-20) Glucose 125 H (70-99) mg/dl Calcium 9.0 (8.5-10.1) mg/dl Total Bilirubin 0.2 (0.2-1) mg/dl AST 9 L (15-37) U/L ALT 7 L (12-78) U/L Alkaline Phosphatase 90 (45-117) U/L C-Reactive Protein 2.32 H (0-0.29) mg/dl Total Protein 7.2 (6.4-8.2) gm/dl Albumin 3.2 L (3.4-5.0) gm/dl Globulin 4.0 (2.5-4.0) gm/dl Albumin/Globulin Ratio 0.8 L (0.9-2) Imaging Data Radiologist's Impression: Radiology results as stated below per my review and the radiologist's interpretation: CT head/brain wo con CLINICAL HISTORY: Right leg weakness. Possible stroke. COMPARISON STUDY: 11/24/2018 TECHNIQUE: Axial CT of the brain is performed from the vertex to the skull base. IV contrast was not administered for this examination. A dose lowering technique was utilized adhering to the principles of ALARA. CT DOSE: 788.63 mGycm FINDINGS: No intrahepatic or extra-axial mass lesions are visualized. There is dense anterior falcine ossification. There is a very subtle left frontal lobe hypodensity, possibly representing an early acute infarct. MRI is recommended in follow-up. There is no evidence of acute hemorrhage. There is no evidence of midline shift. There is no evidence of pathologic ventricular dilatation. There is no evidence of acute sinusitis IMPRESSION: 1. Very subtle left frontal lobe hypodensity. This could represent an acute infarct. MRI the brain could be obtained in follow-up as deemed clinically indicated. 2. No evidence of acute hemorrhage Electronically signed by: Josef Patel M.D. 02/28/2019 11:02 AM NECK CTA HISTORY: left leg weak eval for embolus TECHNIQUE: Multiaxial CT images of the neck were performed following the intravenous administration of contrast to evaluate the major cervical vessels. Maximum intensity projection images were also obtained. All measurements were calculated based on NASCET criteria. A dose lowering technique was utilized adhering to the principles of ALARA. COMPARISON STUDY: None. FINDINGS: The aortic arch and proximal great vessels are widely patent. There is no significant stenosis, occlusion, or dissection identified within the bilateral common carotid, internal carotid, or vertebral arteries. Mild calcified plaque within the bilateral carotid bulbs. IMPRESSION: No significant stenosis, occlusion, or dissection identified within the carotid or vertebral arteries. Electronically signed by: Jeromy Yu M.D. 02/28/2019 1:[address] angio head w con CLINICAL HISTORY: 73 years-old Female with left leg weak eval for embolus. Acute strokelike symptoms COMPARISON STUDY: Head CT and CTA neck of same day TECHNIQUE: Following the IV administration of 118 cc of Optiray 320, CT angiogram of the brain was performed from the skull base to the vertex. Images are reviewed in the axial, sagittal, and coronal planes. 3-D MIPS images are created and assessed. IV contrast was administered without complication. All measurements were obtained according to NASCET criteria. A dose lowering technique was utilized adhering to the principles of ALARA. CT DOSE: 656.89 mGy.cm FINDINGS: CT ANGIOGRAM OF THE BRAIN: Mild calcified plaque about the bilateral cavernous and supraclinoid segments of the internal carotid arteries without high-grade stenosis. Mild luminal narrowing is noted about the bilateral M1 segments of the middle cerebral arteries. No aneurysm, dissection, high-grade stenosis or proximal branch oc clusion. The bilateral anterior cerebral arteries are patent. The imaged bilateral vertebral arteries and basilar artery appear patent. Bilateral posterior cerebral arteries also appear patent. Cerebral venous sinuses are unremarkable. Dense calcifications are noted about the falx cerebri. White matter hypodensities suggest chronic microvascular ischemic disease. No abnormal enhancement. Prior bilateral cataract repair. No calvarial fracture identified. IMPRESSION: Unremarkable CTA without aneurysm, dissection, high-grade stenosis or proximal branch occlusion. The above report was generated using voice recognition software. It may contain grammatical, syntax or spelling errors. Electronically signed by: Sven Saravia M.D. 02/28/2019 1:30 PM ECG Data Attestation: I personally reviewed and interpreted this ECG as follows: Indication: other (Stroke symptoms) Rate (beats per minute): 71 Rhythm: atrial flutter Findings: + nonspecific-ST abn; no PVC and no ST elevation Blood Pressure Blood Pressure Findings: Elevated blood pressure Blood Pressure Disposition: further management by hospitalist PHONG Narrative I did evaluate the patient as noted above. The patient is presenting with heaviness to the right foot with pain and increased numbness. She does have a prior history of arterial ischemia to that leg but has a good dorsalis pedis pulse. There is no pallor or coldness to the foot. She does have a cellulitis to the left lower extremity and she is on Augmentin for this. She does have weakness to the right lower extremity with dorsiflexion of the ankle but she states this is chronic for her. Looking at her prior records she has a history of a echogenic 1.2cm possible thrombus near her mitral valve on JENNIFER. She is on Coumadin. IV access was established. The patient was placed on a continuous striker off. I did order and personally review the patient's 12-lead EKG as described above. She does appear to have atrial fibrillation, although interpretation is somewhat difficult due to motion artifact. The rhythm is i rregularly irregular. She did not have atrial fibrillation previously. I did order and review the patient's blood work as noted in the electronic medical record. She is anemic. Electrolytes are unremarkable. INR is 2.6. CRP is elevated. I did order a CT of the head and CT angiogram of the head neck. I did review the images myself as well as the radiology report as described above. She does appear to have a possible left frontal infarct. There is no acute abnormality on CT angiogram. I did discuss the case with the [place] neurologist who agreed that the patient is not an IV TPA candidate. She also did not feel any acute endovascular intervention was indicated. I did discuss the test results with the patient and recommended hospitalization. I did discuss case with the hospitalist and counter caser. She will require MRI of the brain and IV antibiotics. Impression & Plan Acute cerebrovascular accident (CVA), Right leg weakness, Cellulitis of left leg, Anticoagulated on Coumadin The nila's documentation has been prepared under my direction and personally reviewed by me in its entirety. I confirm that the note above accurately reflects all work, treatment, procedures, and medical decision making performed by me.
[2019-02-28 16:20] LABS: Magnesium 2.2 mg/dl (1.8-2.4); Phosphorus 3.2 mg/dl (2.5-4.9)
[2019-02-28] MEDS ORDERED: GADOBUTROL 65ML VIAL IV PRN (16:34)
--- NOTE | 2019-02-28 17:24 | Magnetic Resonance Report ---
MR brain wo/w con CLINICAL HISTORY: 73 years-old Female presenting with concern for infarct on CT, MRI for further eval uation, history of blood clot in November, awoke this morning with right leg numbness, right foot and ank le swelling. TECHNIQUE: Multisequence, multiplanar MR imaging of the brain was performed before and after the admi nistration of intravenous contrast. IV contrast: 14 mL of Gadavist. COMPARISON: 11/25/[address] head from earlier today. FINDINGS: Localizer images: Unremarkable. Bone marrow signal intensity within the calvarium within normal limits. Normal midline sagittal structures. Proportional ventricular and sulcal prominence, likely age-relate d parenchymal volume loss. No mass effect or midline shift. No restricted diffusion or hemorrhage. Few scattered foci of T2/FLAIR hyperintensity in the white matter likely age-related change. No abnor mal parenchymal enhancement. No extra-axial fluid collection. T2 skull base flow voids preserved. IMPRESSION: 1. No acute intracranial pathology. No abnormal enhancement. Electronically signed by: Shayne Dominguez M.D. 02/28/2019 5:23 PM
[2019-02-28] MEDS: SILVER SULFADIAZINE 1% CR 50 GM JAR TOP SCH (17:53)
[2019-02-28] MEDS: CARBIDOPA/LEVODOPA 25/100MG TAB PO SCH ×2 (17:53→20:01)
[2019-02-28] MEDS: cephALEXin 500 MG CAP PO SCH ×2 (17:54→20:03)
[2019-02-28] MEDS: PRIMIDONE 50 MG TAB PO SCH ×2 (17:54→20:01)
[2019-02-28] MEDS: DICLOFENAC SOD 1% GEL 100 GM TUBE EXT SCH ×2 (17:55→20:04)
[2019-02-28] MEDS: WARFARIN SOD 2.5 MG TAB PO SCH (20:01)
[2019-02-28] MEDS: ESCITALOPRAM OXALATE 20 MG TAB PO SCH (20:02)
[2019-02-28] MEDS: TOPIRAMATE 100 MG TAB PO SCH (20:02)
[2019-02-28] MEDS: lamoTRIgine 100 MG TAB PO SCH (20:03)
[2019-03-01 06:48] LABS: Basophils # (auto) 0.01 K/uL (0-0.2); Basophils % (auto) 0.2 %; Eosinophils # (auto) 0.12 K/uL (0-0.5); Eosinophils % (auto) 2.2 %; Hematocrit (blood only) 31.5 % (37-47); Hemoglobin 10.2 g/dL (12.0-16.0); Immature Granulocytes # (auto) 0.01 K/uL (0.00-0.02); Immature Granulocytes % (auto) 0.2 %; Lymphocytes # (auto) 1.76 K/uL (1.2-3.4); Mean Corpuscular Hemoglobin 30.2 pg (25-34); Mean Corpuscular Hgb Conc 32.4 g/dL (32-36); Mean Corpuscular Volume 93.2 fL (80-100); Mean Platelet Volume 8.8 fL (7.4-10.4); Monocytes # (auto) 0.33 K/uL (0.11-0.59); Monocytes % (auto) 6.2 %; Neutrophils # (auto) 3.11 K/uL (1.4-6.5); Neutrophils % (auto) 58.2 %; Platelet Count 195 K/uL (130-400); RDW Coefficient of Variation 14.9 % (11.5-14.5); RDW Standard Deviation 50.9 fL (36.4-46.3); Red Blood Count 3.38 M/uL (4.2-5.4); White Blood Count 5.34 K/uL (4.8-10.8)
[2019-03-01 06:55] LABS: INR 2.7 (0.9-1.1); Prothrombin Time 25.6 Seconds (9.0-12.0)
[2019-03-01 07:30] LABS: BUN Creatinine Ratio 13.7 (10-20); Calcium 8.3 mg/dl (8.5-10.1); Creatinine Clr Calc Pharmacy 101.4 ml/min; Est GFR (African American) 97.3; Est GFR (Non-African American) 83.9; Potassium 3.5 mmol/L (3.5-5.1)
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
[2019-03-01] MEDS: ATORVASTATIN 40 MG TAB PO SCH (09:50)
[2019-03-01] MEDS: ARIPiprazole 10 MG TAB PO SCH (09:50)
[2019-03-01] MEDS: carvediloL 12.5 MG TAB PO SCH ×2 (09:50→20:47)
[2019-03-01] MEDS: CARBIDOPA/LEVODOPA 25/100MG TAB PO SCH ×3 (09:51→20:47)
[2019-03-01] MEDS: TOPIRAMATE 100 MG TAB PO SCH ×2 (09:51→20:48)
[2019-03-01] MEDS: lamoTRIgine 100 MG TAB PO SCH ×2 (09:52→20:48)
[2019-03-01] MEDS: ASPIRIN 81 MG ECTAB PO SCH (09:52)
[2019-03-01] MEDS: cephALEXin 500 MG CAP PO SCH ×4 (09:52→20:47)
[2019-03-01] MEDS: PRIMIDONE 50 MG TAB PO SCH ×3 (09:58→20:48)
[2019-03-01] MEDS: SILVER SULFADIAZINE 1% CR 50 GM JAR TOP SCH ×2 (09:59→10:00)
[2019-03-01] MEDS: DICLOFENAC SOD 1% GEL 100 GM TUBE EXT SCH ×4 (10:00→20:48)
[2019-03-01] MEDS: POTASSIUM CHLORIDE 10 MEQ TABCR PO SCH ×2 (11:36→20:48)
--- NOTE | 2019-03-01 12:01 | Hospitalist Progress Note ---
Date of Service March 01, 2019 Assessment & Plan (1) Acute cerebrovascular accident (CVA): Ruled out with normal MRI scan. She presents with worsening right foot weakness and a sensation of heaviness. Reviewing the records, it appears that she has a chronic right foot drop, possibly from the embolectomy procedure done earlier this year. She states she is not ambulatory and essentially wheelchair- bound. Neurology evaluation pending. Will check arterial Doppler of the right lower extremity. PT and OT requested. (2) Mitral valve mass: Continue Coumadin therapy. Consult cardiology. Cardiac echo. (3) History of embolectomy: Patient with occlusion of right [employer]LECT[employer] SCI[employer] and SFA s/p embolectomy at [facility] on 11/27/18. Will check arterial Doppler of the right lower extremity. Continue aspirin therapy. (4) Tremor: Chronic. Stable. Continue primidone and Sinemet. Coreg has been restarted. Possible restart of propranolol if okay with cardiology. (5) Hypertension: Coreg restarted. Consider restarting propranolol. Will follow (6) Ambulatory dysfunction: OT and PT evaluations requested. Fall precautions. Fall precautions (7) Morbid obesity with body mass index of 50 or higher: Encouraged significant weight loss. (8) Generalized anxiety disorder: Chronic. Stable. Patient with longstanding history of mental health issues. She follows with Psychiatry. Continue current medical management. (9) Cellulitis of left leg: Unsure if this is actually cellulitis or just mild chronic venous stasis changes. She is on oral Keflex at this time which was started as an outpatient. (10) Anticoagulated on Coumadin: INR daily Ppx - Coumadin therapy Code - Full Dispo -to be determined Subjective Alert and pleasant. She states she awoke with right foot heaviness but admits to having chronic right lower extremity difficulties since her embolectomy procedure was completed over the summer in November. Brain MRI is negative for CVA. Coreg has been restarted. Will await cardiology consultation to determine if she also needs propranolol. She apparently has a mitral valve density that is not of infectious etiology. She is on chronic Coumadin therapy. INR 2.7. OT and PT ordered. Neurology consultation with Dr. Allen is also been requested. Will check arterial Doppler of the right lower extremity to make sure the arterial flow is intact. Review of Systems Review of Systems: Constitutional-no fever or chills. Morbidly obese ENT-no blurred vision, no double vision, no epistaxis, no sore throat Respiratory-no cough, no wheezing, no shortness of breath Cardiac-no palpitations, no chest pain, no syncope GI-no nausea, vomiting, diarrhea, melena, hematochezia -no urinary retention, no urinary incontinence, no dysuria, no hematuria Musculoskeletal-right foot weakness and right lower extremity heaviness Skin-no bruising, no rashes, no pruritus Neuro-right foot weakness and heaviness. Psych-no depression, no anxiety Physical Exam Physical Exam: General-alert and oriented x3, no fevers, no chills. Morbidly obese HEENT-head atraumatic and normocephalic, TMs intact bilaterally, pupils equal and reactive to light, extraocular muscles intact Neck-no lymphadenopathy or thyromegaly, trachea midline Chest-clear to auscultation percussion. No rales wheezing or rhonchi Cardiac-regular rate and rhythm, normal S1 and S2, no murmurs Abdomen-normal bowel sounds, nontender, no hepatosplenomegaly Extremities-chronic nonpitting edema bilateral lower extremities. She has mild chronic venous stasis changes left pretibial area. She appears to have a right foot drop that is chronic by history. Neuro-cranial nerves II through XII intact, she appears to have a chronic right foot drop. Psych-normal affect, normal mood Skinwarm and dry Results & Data Vital Signs (Past 12 Hours) Vital Signs Temp Pulse Pulse Resp BP Pulse Ox 03/01/19 11:34 36.7 C 80 20 153/64 H 96 03/01/19 07:28 78 03/01/19 07:25 36.7 C 78 19 168/58 H 93 03/01/19 04:12 36.6 C 93 H 20 122/72 95 03/01/19 01:20 67 03/01/19 00:17 37.2 C 72 20 130/66 94 03/01/19 00:12 37.2 C 72 20 130/66 94 Laboratory Results 03/01/19 06:25 03/01/19 06:25 PG Care Time/CCT Total # of Minutes Spent Total Time Spent with Patient: Total time spent is greater than 50% in coordination of care (as documented) at patient's floor/unit and/or counseling patient: (1) Hypertension Hypertension type: essential hypertension Qualified Code(s): I10 - Essential (primary) hypertension
--- NOTE | 2019-03-01 14:08 | Ultrasound Report ---
US arterial duplex LE RT CLINICAL HISTORY: 73 years-old Female presenting with right foot weakness and pain. Hx right leg embo lectomy. TECHNIQUE: Real-time grayscale and color and spectral Doppler ultrasound imaging of the right arterie s was performed. Measurements calculated based on NASCET criteria. COMPARISON: 01/13/2019. FINDINGS: RIGHT: Common femoral artery: Patent. Triphasic waveforms. Peak systolic velocity (PSV) 131 cm/s. Deep femoral artery: Patent. Triphasic waveforms. PSV 115 cm/s. Superficial femoral artery: Patent. Triphasic waveforms. PSV 93-137 cm/s. Popliteal artery: Patent. Biphasic waveforms. PSV 128 cm/s. Anterior tibial artery: Patent. Biphasic waveforms. PSV 83 cm/s. Posterior tibial artery: Patent. Triphasic waveforms. PSV 133 cm/s. Peroneal artery: Patent. Monophasic waveforms. PSV 90 cm/s. Dorsalis pedis: Patent. Monophasic waveforms. PSV 11 cm/s. ANKLE/BRACHIAL INDEX (CARLOS): Brachial: Right: mmHg. Left: 133 mmHg. Ankle (posterior tibial): Right: 141 mmHg. Left: 157 mmHg. Ankle (dorsalis pedis): Right: 154 mmHg. Left: 158 mmHg. Ankle/brachial index: Right: 1.16, Left: 1.19. Reference ranges: Normal Ankle/Brachial Index (CARLOS) 1.0-1.4; 0.91-0.99 borderline; < or = 0.9 abnormal (0.7-0.89 mild, 0.51-0.69 moderate, < or = 0.5 severe peripheral arterial disease). Normal Toe/Brachial Index (TBI) > or = 0.6; < 0.6 abnormal (0.34-0.59 mild, 0.12-0.34 moderate, < or = 0.11 severe peripheral arterial disease). IMPRESSION: 1. No hemodynamically significant stenosis. 2. Normal ankle-brachial indices. Electronically signed by: Shayne Dominguez M.D. 03/01/2019 2:06 PM
--- NOTE | 2019-03-01 15:04 | Neurology Consultation ---
Date of Consultation March 01, 2019 Assessment & Plan (1) Right leg weakness: 1. MRI brain- no acute findings 2. EF 55-60% no notation of ASD, mitral valve vegetation 3. CTA head and neck no acute findings 4. afib- continue coumadin INR therapeutic dosing 5. PT/OT for discharge needs 6. lower ext doppler no DVT 7. xray ankle will likely not helpful may need MRI ankle- appears to be ligament issue do to mechanical injury. would refer to [facility] ortho for further evaluation and treatment 8. pain mgt per primary service 9. Parkinson's medication can be reevaluate as outpatient 10. follow up scheduled with neurology Supervising Physician Co-Signing Physician Notes I have seen and discussed above patient with Dr Kemal Allen, neurology I have seen this woman on multiple occasions in an outpatient basis for her complex mixed tremor with parkinsonian and essential tremor features and she is on multiple medications both for dopamine receptor stimulation and for treatment of essential tremor with reasonable control of her movements but by no means perfect control and I do not think this will be achieved Work consult today not because of the tremor which is a long-standing issue but because of what seems to be worsening of a right foot drop and the latter occurred apparently following an embolectomy for cardiogenic femoral artery distribution clot this past November for which she was seen in [place] and after the which she did have what appears to be a right common peroneal mononeuropathy or perhaps a distal sciatic mononeuropathy and the distinction is at this point academic. She was apparently told to rest the leg and wait until a brace could be delivered but this is been a long drawn out process and unfortunately bracing is going to be delayed until she can have an electrodiagnostic study done of the leg to define the actual neuroanatomy of the weakness. Apparently this is going to be done at [facility] sports medicine. In this setting she apparently attempted to get out of bed today which she is been able to do and then probably had an inversion injury of the right leg and then was unable to walk or at least perform duties it required function of the distal right leg above and beyond her baseline and has been admitted to the hospital, MRI scans of brain have shown no stroke, she is being assessed by physical therapy and has pain in the lateral side of her right ankle which apparently is new and may actually have some swelling there which is hard to define because of her long-standing peripheral and symmetrical edema Exam is consistent with a peroneal fascicle mononeuropathy with perhaps some weakness involving the tibial fascicle as well as plantar flexion appears to be a little weak and inversion of the foot is a little weak but beyond this hamstring function appears to be reasonably good allowing for her suboptimal effort and it does not appear to be any quadriceps weakness. She does have a tremor which is a mixture of resting and intentional and type There is pain when I try to passively ashley the right ankle which may be chronic but could be acute At this point neurology really does not have a lot more to offer as it appears that she does have appointment set up to have more electrodiagnostic studies. I agree with Latrice Thurman PA-C that there may have been some superimposed ligamental injury to the right ankle suffered during her attempt to bear weight and an MRI of the ankle itself might be of value to exclude a significant superimposed ligament trauma We may be able to do an EMG sooner than April and quite confident that we could as long as we would be able to establish where the report of such a study would need to be sent and hopefully then accelerate the process for her to get an AFO device ordered and fitted and hopefully help her ambulation become more stable Unfortunately the EMGs cannot be done as an inpatient study as our machines have long been removed from the hospital and the study would have to be done on an outpatient basis. I will check back with her tomorrow and see how she is doing after being assessed by physical therapy but frankly beyond this can only offer an outpatient EMG to accelerate the process of getting her AFO and would not make any suggestions about changing her tremor medications which have been stable for years and changes in which are not likely to suddenly control this tremor b jeffy than the ones that she is has on board now (also agents have been tried without much success in the current combination seems to be the best after years of trial and error ) Kemal Allen MD History of Present Illness Reason for Consultation: right foot weakness, negative brain MRI Requesting Physician: Aleja Yarbrough DO Attending Physician: Aleja Yarbrough DO History of Present Illness Lydia is a 73 year old female with PMH HTN, HLD,, essential tremor, PAD, echodensity on mitral valve. She was found to have acute ischemia of the right lower extremity on 11/27/2018 for which she was transferred to [facility] [place]. An arterial duplex revealed near occlusion of the right SHIP WIRER and SFA. She underwent a right femoral artery embolectomy on 11/27/2018 by . She had an JENNIFER performed on 11/29/2018 which revealed a large 1.2 cm linear mobile echodensity attached to the ventricular surface of the anterior mitral valve leaflet and was started on coumadin. She has had a right foot drop since the episode and also has chronic pain in her ankle and foot lateral dorsal aspect. On 01/10/2019 she rolled her ankle while standing. She was fitted for a foot drop support. She states she is having trouble ambulating on the foot due to pain, numbness and heavy. They called a stroke alert on admission but there was no tPa administered. denies CP, SOB, abdominal pain, one sided weakness, numbness tingling, vision changes, swallowing issues, N, V, bowel or bladder issues. Allergies Allergy/AdvReac Type Severity Reaction Status Date / Time amoxicillin [From Augmentin] AdvReac Severe Diarrhea Verified 02/28/19 11:28 clavulanic acid AdvReac Severe Diarrhea Verified 02/28/19 11:28 [From Augmentin] Home Medications Home Medications Medication Instructions Recorded Confirmed Type aspirin [Aspirin Low Dose] 81 mg PO DAILY 02/12/18 02/28/19 History carbidopa-levodopa 1 tab PO TID 02/12/18 02/28/19 History escitalopram oxalate 20 mg PO HS 02/12/18 02/28/19 History lamotrigine 200 mg PO BID 02/12/18 02/28/19 History multivitamin [Once Daily] 1 tab PO DAILY 02/12/18 02/28/19 History topiramate 100 mg PO BID 02/12/18 02/28/19 History potassium chloride ER 20 mEq 40 meq PO BID #120 tab 11/11/18 02/28/19 Rx tablet,extended release(part/cryst) acetaminophen 325 mg capsule 650 mg PO Q6 PRN cap 12/16/18 02/28/19 History primidone 50 mg tablet 50 mg PO BID tab 01/09/19 02/28/19 History propranolol ER 160 mg capsule,24 160 mg PO QAM #30 cap 01/30/19 02/28/19 Rx hr,extended release diclofenac 1 % topical gel 4 gm TOP QID #100 gm 02/03/19 02/28/19 Rx atorvastatin 40 mg tablet 40 mg PO DAILY 02/13/19 02/28/19 History silver sulfadiazine 1 % topical 1 applic TOPICAL UD 02/13/19 02/28/19 History cream primidone 100 mg PO HS 02/15/19 02/28/19 History aripiprazole 10 mg PO DAILY 02/21/19 02/28/19 History carvedilol 12.5 mg tablet 12.5 mg PO BID #60 tab 02/23/19 02/28/19 Rx cephalexin 500 mg capsule 500 mg PO QID 7 Days #28 cap 02/24/19 02/28/19 Rx warfarin 2.5 mg tablet 2.5 mg PO PM tab 02/27/19 02/28/19 History Patient History Medical History PTSD (post-traumatic stress disorder) Tricuspid regurgitation Mitral valve mass Anemia Arthritis Depression with anxiety Disc degeneration, lumbar Gastroesophageal reflux disease without esophagitis Generalized anxiety disorder Venous insufficiency Femoral artery occlusion, right Numbness in right leg Ambulatory dysfunction Hypertension Tremor (10/13/11) OCD (obsessive compulsive disorder) Hyperlipidemia (Chronic) Osteoarthritis (Chronic) Fluid retention (Resolved) Esophageal dilatation History of esophageal dilatation History of tooth extraction Idiopathic neuropathy Obesity Obstruction of esophagus due to food impaction Pulmonary emboli Tracheomalacia Ulcer of left thigh Vertigo Surgical History History of embolectomy History of breast biopsy History of cataract surgery BILATERAL History of cholecystectomy History of colonoscopy History of lung surgery for pulmonary emboli History of tonsillectomy Family History Mother Cardiac disorder Hypertension Myocardial infarction Aunt Breast cancer Other Family history non-contributory Social History Preferred Language: Kyrgyz Communication Ability: Effective Visual Impairment: No Limitations Flight Attendant Inflight Services Required: No Beliefs That Will Affect Care: None marital status: Current Living Situation: Spouse Feels Safe at Home: Yes Smoking Status: Never smoker Second Hand Exposure: No ; Hx Alcohol Use: No Hx Substance Use: No Physical Exam Physical Exam: Physical Exam: Constitutional: appearance nourished, morbidly obese Ears, Nose, Mouth and Throat: mucous membranes moist, no injection and skin normal, eyes normal Cardiovascular: normal S-1 and S-2 and regular rate and rhythm Respiratory: coarse breath sounds Musculoskeletal: bilateral edema L>R with erythema, right lateral malleolous significantly swollen. good peripheral pulses Skin: no stigmata of neurocutaneous disease noted and normal and intact Eyes: extraocular muscles intact (EOMI) and pupils equal, round and reactive to light (PERRL). slight eye inversion on the left NEUROLOGIC EXAMINATION: Mental status: Alert and interactive Oriented to full date and location Oriented to person Speech fluent with no evidence of aphasia Cranial Nerves smile eye brow raise symmetric, tongue midline Reflexes: Deep tendon reflexes were symmetrical and graded decreased throughout likely due to excessive body mass Sensory: sensation decreased from gibbs down to foot, acutely tender with movement Coordination: finger to nose no bi pass, essential tremor with reach and resting tremor both hands > legs. Gait/Stance: Posture sitting up in bed Motor: Negative for pronator drift of out stretched arms with eyes closed. Strength: hand director of speech pathology biceps triceps bilaterally 5/5 hip flex lift against gravity, right ankle movement limited right Results & Data Vital Signs (Past 12 Hours) Vital Signs Temp Pulse Pulse Resp BP Pulse Ox 03/01/19 11:34 36.7 C 80 20 153/64 H 96 03/01/19 07:28 78 03/01/19 07:25 36.7 C 78 19 168/58 H 93 03/01/19 04:12 36.6 C 93 H 20 122/72 95 Laboratory Results Abnormal lab results 03/01/19 03/01/19 03/01/19 Range/Units 06:25 06:25 06:25 RBC 3.38 L (4.2-5.4) M/uL Hgb 10.2 L (12.0-16.0) g/dL Hct 31.5 L (37-47) % RDW Std Deviation 50.9 H (36.4-46.3) fL RDW Coeff of Gary 14.9 H (11.5-14.5) % PT 25.6 H (9.0-12.0) Seconds INR 2.7 H (0.9-1.1) Chloride 110 H (98-107) mmol/L Calcium 8.3 L (8.5-10.1) mg/dl Diagnostic Findings CT head-Very subtle left frontal lobe hypodensity. This could represent an acute infarct. MRI the brain could be obtained in follow-up as deemed clinically indicated. No evidence of acute hemorrhage CTA head- Unremarkable CTA without aneurysm, dissection, high-grade stenosis or proximal branch occlusion. CTA neck- No significant stenosis, occlusion, or dissection identified within the carotid or vertebral arteries. MRI brain- No acute intracranial pathology. No abnormal enhancement. duplex scan lower extremity artery - No hemodynamically significant stenosis. Normal ankle-brachial indices. TTE- EF 55-60% vegetation on mitral valve
[2019-03-01] MEDS: ESCITALOPRAM OXALATE 20 MG TAB PO SCH (20:47)
[2019-03-01] MEDS: WARFARIN SOD 2.5 MG TAB PO SCH (20:47)
[2019-03-02] MEDS: PRIMIDONE 50 MG TAB PO SCH ×3 (06:01→20:28)
[2019-03-02 06:40] LABS: INR 2.5 (0.9-1.1); Prothrombin Time 23.9 Seconds (9.0-12.0)
[2019-03-02 06:49] LABS: Calcium 8.3 mg/dl (8.5-10.1); Creatinine Clr Calc Pharmacy 90.8 ml/min; Est GFR (African American) 85.5; Est GFR (Non-African American) 73.7; Potassium 3.9 mmol/L (3.5-5.1)
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
[2019-03-02] MEDS: ATORVASTATIN 40 MG TAB PO SCH (08:28)
[2019-03-02] MEDS: cephALEXin 500 MG CAP PO SCH (08:28)
[2019-03-02] MEDS: TOPIRAMATE 100 MG TAB PO SCH ×2 (08:28→20:27)
[2019-03-02] MEDS: ARIPiprazole 10 MG TAB PO SCH (08:29)
[2019-03-02] MEDS: ASPIRIN 81 MG ECTAB PO SCH (08:29)
[2019-03-02] MEDS: CARBIDOPA/LEVODOPA 25/100MG TAB PO SCH ×3 (08:29→20:28)
[2019-03-02] MEDS: lamoTRIgine 100 MG TAB PO SCH ×2 (08:29→20:27)
[2019-03-02] MEDS: POTASSIUM CHLORIDE 10 MEQ TABCR PO SCH ×2 (08:29→20:29)
[2019-03-02] MEDS: carvediloL 12.5 MG TAB PO SCH ×2 (08:30→20:30)
[2019-03-02] MEDS: DICLOFENAC SOD 1% GEL 100 GM TUBE EXT SCH ×4 (08:30→20:22)
[2019-03-02] MEDS: SILVER SULFADIAZINE 1% CR 50 GM JAR TOP SCH (08:31)
--- NOTE | 2019-03-02 11:09 | XRay Report ---
XR ankle RT min 3V routine CLINICAL HISTORY: Right ankle pain status post trauma COMPARISON: 01/10/2019 DISCUSSION: The study is slightly limited from positioning standpoint. The bones are osteopenic. Ther e is calcaneal spurring. There is moderate soft tissue swelling. There is mild ankle mortise asymmetr y. There is an equivocal fracture involving the lateral aspect of the talus or calcaneus.. IMPRESSION: 1. Osteopenia 2. Minor ankle mortise asymmetry 3. Equivocal fracture involving the lateral aspect of the talus or calcaneus. CT scanning might be co nsidered in follow-up. 4. No fractures of the distal tibia or fibula are visualized Electronically signed by: Josef Patel M.D. 03/02/2019 11:07 AM
[2019-03-02] MEDS ORDERED: MICONAZOLE NITRATE POWDER 43 GM EXT PRN (15:00)
--- NOTE | 2019-03-02 15:01 | Neurology Progress Note ---
Date of Service March 02, 2019 Assessment & Plan (1) Right leg weakness: 1. MRI brain- no acute findings 2. EF 55-60% no notation of ASD, mitral valve vegetation 3. CTA head and neck no acute findings 4. afib- continue coumadin INR therapeutic dosing 5. PT/OT for discharge needs- possible [facility] stay 6. lower ext doppler no DVT 7. xray ankle will likely not helpful may need MRI ankle- appears to be ligament issue do to mechanical injury. would refer to [facility] ortho for further evaluation and treatment appears there is a fracture on xray done today 8. pain mgt per primary service 9. Parkinson's medication can be reevaluate as outpatient 10. follow up scheduled with neurology Supervising Physician Co-Signing Physician Notes I have seen and discussed above patient with Dr Kemal Allen, neurology I saw Lydia today reviewed her radiographic studies and suspect that what happened was an acute evulsion fracture with increased weakness of the right foot due to pain at this point certainly agree there is nothing to suggest a CVA in the pattern seen on exam is consistent with either a peroneal fascicular neuropathy, the distal sciatic mononeuropathy with relative sparing of the tibial component of the nerve or the common peroneal mononeuropathy and frankly the issue here is academic for a diagnostic point of view From her recitation of her past visits it appears that her insurance will not pay for certain types of AFO devices, she is not a candidate to be admitted to [facility] And that an AFO cannot be prescribed until electrodiagnostic study is done and confirms that this is some form of lower motor neuron foot drop. This may be totally erroneous or could be a misinterpretation which is been told but all that neurology can offer here would be the opportunity to do an earlier EMG than the one she has scheduled in April through the [facility] system at [facility] or [place] was have that report relayed to her [facility] sports medicine rehabilitation physician so that bracing devices can be fitted and he can begin to ambulate more freely At this point neurology is going to sign off and our offer to perform perhaps an earlier EMG she could get through [facility] sports medicine stands but the order would have to be requested by the current hospitalist group. Kemal Allen MD Subjective Lydia is a 73 year old female with PMH HTN, HLD,, essential tremor, PAD, echodensity on mitral valve. She was found to have acute ischemia of the right lower extremity on 11/27/2018 for which she was [place] [facility] An arterial duplex revealed near occlusion of the right OIL SPOT WASHER and SFA. She underwent a right femoral artery embolectomy on 11/27/2018 by . She had an JENNIFER performed on 11/29/2018 which revealed a large 1.2 cm linear mobile echodensity attached to the ventricular surface of the anterior mitral valve leaflet and was started on coumadin. She has had a right foot drop since the episode and also has chronic pain in her ankle and foot lateral dorsal aspect. On 01/10/2019 she rolled her ankle while standing. She was fitted for a foot drop support. She states she is having trouble ambulating on the foot due to pain, numbness and heavy. They called a stroke alert on admission but there was no tPa administered. She states her foot is feeling better and they don't want to fit the orthodic un til the swelling is better. she has requested stay at [facility] but waiting for insurance approval. denies CP, SOB, abdominal pain, one sided weakness, numbness tingling, vision changes, swallowing issues, N, V, bowel or bladder issues. Physical Exam Physical Exam: Gen: alert NAD sitting in bed side chair lungs course breath sounds resting tremor in hands and some reaching tremor R>L foot tremor with extension of leg right ankle tender with palpation and manipulation left plantar flex ext 5/5 skin: erythema on left leg decreased from demarkation right swelling slightly decreased. Results & Data Vital Signs (Past 12 Hours) Vital Signs Temp Pulse Pulse Resp BP Pulse Ox 03/02/19 14:57 36.7 C 78 18 136/78 98 03/02/19 11:00 36.8 C 96 H 20 116/78 97 03/02/19 07:35 57 L 03/02/19 07:00 37.0 C 63 20 116/79 94 Laboratory Results Abnormal lab results 03/02/19 03/02/19 Range/Units 05:46 05:46 PT 23.9 H (9.0-12.0) Seconds INR 2.5 H (0.9-1.1) Chloride 110 H (98-107) mmol/L Calcium 8.3 L (8.5-10.1) mg/dl Diagnostic Findings ankle xray- Osteopenia Minor ankle mortise asymmetry Equivocal fracture involving the lateral aspect of the talus or calcaneus. CT scanning might be considered in follow-up. No fractures of the distal tibia or fibula are visualized
--- NOTE | 2019-03-02 15:28 | Orthopedic Consultation ---
Date of Consultation March 02, 2019 Assessment & Plan (1) Pain in right foot: Discussed case with both Dr. Mora and Dr. Alberto. Both recommend AFO brace for Right LE. Patient is schedule for EMG in our clinic with Dr. Rg in early April and has a f/u scheduled with Dr. Alberto. Continue pressure precautions Will place consult for orthotics with [facility] because the have already done molds for her shoes and should be fitted for the AFO. I, , saw and examined the patient and agree with the above findings and plan of care discussed with my PA. Patient will follow up with Dr. Alberto as scheduled. Continue care per primary service. Please recall if any ortho issues. History of Present Illness Reason for Consultation: Right ankle pain Requesting Physician: Dr. Hola Mora Attending Physician: Maria A Doyle MD History of Present Illness This 73 yo F is seen in consultation for increasing Right anterolateral ankle pain that has been present since November. Patient had a Right femoral artery occlusion that was embolized at [facility] in [place] and since that time has had chronic foot drop. She has seen Dr. Alberto in our clinic for her issues with the foot drop and peroneal / sural nerve dysfunction in the Right foot. Patient states that she is scheduled for an EMG with Dr. Rg in early April. She also states that she has been fitted for an AFO brace but has not yet received it. Currently she is inpatient for CVA (ruled out with MRI) and left lower extremity cellulitis. Allergies Allergy/AdvReac Type Severity Reaction Status Date / Time amoxicillin [From Augmentin] AdvReac Severe Diarrhea Verified 02/28/19 11:28 clavulanic acid AdvReac Severe Diarrhea Verified 02/28/19 11:28 [From Augmentin] Home Medications Home Medications Medication Instructions Recorded Confirmed Type aspirin [Aspirin Low Dose] 81 mg PO DAILY 02/12/18 02/28/19 History carbidopa-levodopa 1 tab PO TID 02/12/18 02/28/19 History escitalopram oxalate 20 mg PO HS 02/12/18 02/28/19 History lamotrigine 200 mg PO BID 02/12/18 02/28/19 History multivitamin [Once Daily] 1 tab PO DAILY 02/12/18 02/28/19 History topiramate 100 mg PO BID 02/12/18 02/28/19 History potassium chloride ER 20 mEq 40 meq PO BID #120 tab 11/11/18 02/28/19 Rx tablet,extended release(part/cryst) acetaminophen 325 mg capsule 650 mg PO Q6 PRN cap 12/16/18 02/28/19 History primidone 50 mg tablet 50 mg PO BID tab 01/09/19 02/28/19 History propranolol ER 160 mg capsule,24 160 mg PO QAM #30 cap 01/30/19 02/28/19 Rx hr,extended release diclofenac 1 % topical gel 4 gm TOP QID #100 gm 02/03/19 02/28/19 Rx atorvastatin 40 mg tablet 40 mg PO DAILY 02/13/19 02/28/19 History silver sulfadiazine 1 % topical 1 applic TOPICAL UD 02/13/19 02/28/19 History cream primidone 100 mg PO HS 02/15/19 02/28/19 History aripiprazole 10 mg PO DAILY 02/21/19 02/28/19 History carvedilol 12.5 mg tablet 12.5 mg PO BID #60 tab 02/23/19 02/28/19 Rx cephalexin 500 mg capsule 500 mg PO QID 7 Days #28 cap 02/24/19 02/28/19 Rx warfarin 2.5 mg tablet 2.5 mg PO PM tab 02/27/19 02/28/19 History Patient History Medical History PTSD (post-traumatic stress disorder) Tricuspid regurgitation Mitral valve mass Anemia Arthritis Depression with anxiety Disc degeneration, lumbar Gastroesophageal reflux disease without esophagitis Generalized anxiety disorder Venous insufficiency Femoral artery occlusion, right Numbness in right leg Ambulatory dysfunction Hypertension Tremor (10/13/11) OCD (obsessive compulsive disorder) Hyperlipidemia (Chronic) Osteoarthritis (Chronic) Fluid retention (Resolved) Esophageal dilatation History of esophageal dilatation History of tooth extraction Idiopathic neuropathy Obesity Obstruction of esophagus due to food impaction Pulmonary emboli Tracheomalacia Ulcer of left thigh Vertigo Surgical History History of embolectomy History of breast biopsy History of cataract surgery BILATERAL History of cholecystectomy History of colonoscopy History of lung surgery for pulmonary emboli History of tonsillectomy Family History Mother Cardiac disorder Hypertension Myocardial infarction Aunt Breast cancer Other Family history non-contributory Social History Preferred Language: [place] Communication Ability: Effective Visual Impairment: No Limitations Rat Exterminator Required: No Beliefs That Will Affect Care: None marital status: Current Living Situation: Spouse Feels Safe at Home: Yes Smoking Status: Never smoker Second Hand Exposure: No ; Hx Alcohol Use: No Hx Substance Use: No Review of Systems Review of Systems: All systems reviewed & are unremarkable except as noted in HPI & below Physical Exam Physical Exam: Right lower extremity: Motor and sensory dysfunction of Peroneal and Sural distribution. Chronic inverted plantar flexion of foot. Passive eversion and dorsiflexion caused referred pain to anterior talus and ATFL but areas are non tender to palpation. 2+ pitting edema to entire dorsum of foot. No erythema, ecchymosis, warmth or palpable deformity. Small blister noted to posterior calcaneus covered with pressure pad. Periph pulses 2+. Cap refill slightly >2 seconds. NV intact from ankle proximally. Calf soft and supple. Unable perform SLRT. Quad strength 2/5. Results & Data Vital Signs (Past 12 Hours) Vital Signs Temp Pulse Pulse Resp BP Pulse Ox 03/02/19 14:57 36.7 C 78 18 136/78 98 03/02/19 11:00 36.8 C 96 H 20 116/78 97 03/02/19 07:35 57 L 03/02/19 07:00 37.0 C 63 20 116/79 94 Laboratory Results 03/02/19 03/02/19 Range/Units 05:46 05:46 PT 23.9 H (9.0-12.0) Seconds INR 2.5 H (0.9-1.1) Sodium 143 (136-145) mmol/L Potassium 3.9 (3.5-5.1) mmol/L Chloride 110 H (98-107) mmol/L Carbon Dioxide 29 (21-32) mmol/L Anion Gap 4.0 (3-11) BUN 10 (7-18) mg/dl Creatinine 0.79 (0.6-1.2) mg/dl Est Cr Clr Drug Dosing 90.8 ml/min Est GFR ( Amer) 85.5 Est GFR (Non-Af Amer) 73.7 BUN/Creatinine Ratio 13.0 (10-20) Glucose 94 (70-99) mg/dl Calcium 8.3 L (8.5-10.1) mg/dl Diagnostic Findings Multiple views R ankle show no evidence of acute fracture or dislocation. Noted osteopenia.
--- NOTE | 2019-03-02 18:11 | Hospitalist Progress Note ---
Date of Service March 02, 2019 Assessment & Plan (1) Acute cerebrovascular accident (CVA): Ruled out with normal MRI scan brain. 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 Also with pain from ankle sprain versus fracture as below She states she is not ambulatory and essentially wheelchair-bound. Neurology evaluation appreciated -Arterial Doppler of the right lower extremity within normal limits (2) Ankle pain, right: Status post ankle sprain in 12/2018 with pain with weightbearing only since that time Complicated by right peroneal nerve ischemic neuropathy X-ray reviewed with possible calcaneus fracture and asymmetry of mortise -Appreciate orthopedic consultation -Awaiting AFO brace (3) Mitral valve mass: 1.8 cm vegetation versus mass seen again on transthoracic echocardiogram here similar to previous as per report -Continue Coumadin therapy. 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 Arterial Doppler of the right lower extremity normal at this time Continue aspirin therapy. (5) Tremor: Chronic. Stable. Continue primidone and Sinemet. Coreg has been restarted. -Is also on propranolol at home-unclear if needs to be on both beta-blockers? (6) Hypertension: Stable -Continue Coreg (7) Ambulatory dysfunction: OT and PT evaluations requested. Fall precautions. (8) Morbid obesity with body mass index of 50 or higher: Encouraged significant weight loss. (9) Generalized anxiety disorder: Chronic. Stable. Patient with longstanding history of mental health issues. She follows with Psychiatry. Continue current medical management. (10) Cellulitis of left leg: Previously demarcated area is now without significant erythema She is on oral Keflex at this time which was started as an outpatient proximal he 1 week ago. -Discontinue Keflex at this time (11) Anticoagulated on Coumadin: For possible mitral valve thrombus as above -Continue INR daily, Coumadin Ppx - Coumadin therapy Code - Full Dispo -awaiting insurance authorization for acute rehab, if denied, she would go home Subjective Patient only has pain in the right ankle when she bears any weight on it. Her numbness and weakness of the right foot and ankle are the same that they have been since November of this year when she first presented with an ischemic limb. Telemetry with sinus bradycardia, PACs, PVCs, rates in the 60s to 80s Review of Systems Review of Systems: All systems reviewed & are unremarkable except as noted in HPI & below Physical Exam Constitutional: WD/WN, vitals as above + obese Eyes: + anicteric sclerae ENMT: external ear and nose normal, oropharynx normal Neck: trachea midline, no thyromegaly Respiratory: normal respiratory effort, lungs clear to auscultation Cardiovascular: Rate/Rhythm: regular rate and regular rhythm Heart Sounds: no murmur Extremities: + edema (1-2+ pitting edema of the bilateral lower extremities, greater in the right lateral ankle and dorsal foot) Gastrointestinal (Abdomen): normal bowel sounds, soft, nontender, no hepatosplenomegaly Musculoskeletal: Extremities: no cyanosis and no clubbing Ankle: + ankle abnormal to inspection (Lateral malleolus edema, positive tenderness to palpation over anterior ankle) and + effusion; no skin erythema, anterior draw test negative and talar tilt test negative Pain with range of motion in in version Skin: no rashes, warm and dry (Left leg with mild purplish discoloration, no warmth or erythema at site of previously demarcated area) Neurologic: + focal motor deficit (1/5 strength with right toe dorsiflexion, 0/5 strength with right ankle dorsiflexion, plantarflexion, inversion and eversion) and awake Motor/Sensory: + tremor (Resting tremor in the hands) and + sensory deficit (Decreased sensation to light touch throughout right lateral foot and distal leg) Psychiatric: A+Ox3, euthymic affect Results & Data Vital Signs (Past 12 Hours) Vital Signs Temp Pulse Pulse Resp BP Pulse Ox 03/02/19 16:00 58 L 03/02/19 14:57 36.7 C 78 18 136/78 98 03/02/19 11:00 36.8 C 96 H 20 116/78 97 03/02/19 07:35 57 L 03/02/19 07:00 37.0 C 63 20 116/79 94 Laboratory Results 03/02/19 03/02/19 Range/Units 05:46 05:46 PT 23.9 H (9.0-12.0) Seconds INR 2.5 H (0.9-1.1) Sodium 143 (136-145) mmol/L Potassium 3.9 (3.5-5.1) mmol/L Chloride 110 H (98-107) mmol/L Carbon Dioxide 29 (21-32) mmol/L Anion Gap 4.0 (3-11) BUN 10 (7-18) mg/dl Creatinine 0.79 (0.6-1.2) mg/dl Est Cr Clr Drug Dosing 90.8 ml/min Est GFR ( Amer) 85.5 Est GFR (Non-Af Amer) 73.7 BUN/Creatinine Ratio 13.0 (10-20) Glucose 94 (70-99) mg/dl Calcium 8.3 L (8.5-10.1) mg/dl Diagnostic Findings X-ray ankle images personally reviewed by me and agree with the following report: XR ankle RT min 3V routine CLINICAL HISTORY: Right ankle pain status post trauma COMPARISON: 01/10/2019 DISCUSSION: The study is slightly limited from positioning standpoint. The bones are osteopenic. There is calcaneal spurring. There is moderate soft tissue swelling. There is mild ankle mortise asymmetry. There is an equivocal fracture involving the lateral aspect of the talus or calcaneus.. IMPRESSION: 1. Osteopenia 2. Minor ankle mortise asymmetry 3. Equivocal fracture involving the lateral aspect of the talus or calcaneus. CT scanning might be considered in follow-up. 4. No fractures of the distal tibia or fibula are visualized PG Care Time/CCT Total # of Minutes Spent Total Time Spent with Patient: Total time spent is greater than 50% in coordination of care (as documented) at patient's floor/unit and/or counseling patient: (1) Hypertension Hypertension type: essential hypertension Qualified Code(s): I10 - Essential (primary) hypertension
[2019-03-02] MEDS: WARFARIN SOD 2.5 MG TAB PO SCH (20:28)
[2019-03-02] MEDS: ESCITALOPRAM OXALATE 20 MG TAB PO SCH (20:30)
[2019-03-03] MEDS: PRIMIDONE 50 MG TAB PO SCH ×2 (06:09→13:23)
[2019-03-03 08:02] LABS: INR 2.3 (0.9-1.1); Prothrombin Time 22.5 Seconds (9.0-12.0)
[2019-03-03 08:21] LABS: BUN Creatinine Ratio 16.6 (10-20); Calcium 8.7 mg/dl (8.5-10.1); Creatinine Clr Calc Pharmacy 94.2 ml/min; Est GFR (African American) 89.6; Est GFR (Non-African American) 77.3; Potassium 3.5 mmol/L (3.5-5.1)
[2019-03-03] MEDS: lamoTRIgine 100 MG TAB PO SCH (08:48)
[2019-03-03] MEDS: TOPIRAMATE 100 MG TAB PO SCH (08:48)
[2019-03-03] MEDS: ARIPiprazole 10 MG TAB PO SCH (08:48)
[2019-03-03] MEDS: CARBIDOPA/LEVODOPA 25/100MG TAB PO SCH ×2 (08:48→13:23)
[2019-03-03] MEDS: POTASSIUM CHLORIDE 10 MEQ TABCR PO SCH (08:49)
[2019-03-03] MEDS: ASPIRIN 81 MG ECTAB PO SCH (08:49)
[2019-03-03] MEDS: ATORVASTATIN 40 MG TAB PO SCH (08:50)
[2019-03-03] MEDS: carvediloL 12.5 MG TAB PO SCH (08:50)
[2019-03-03] MEDS: SILVER SULFADIAZINE 1% CR 50 GM JAR TOP SCH (08:51)
[2019-03-03] MEDS: DICLOFENAC SOD 1% GEL 100 GM TUBE EXT SCH ×3 (08:51→17:14)
--- NOTE | 2019-03-03 16:52 | Discharge Summary ---
Date of Service March 03, 2019 Admission HPI Per Admitting Provider Lydia Winn is a 73-year-old female with multiple medical problems, most notably hypertension, hyperlipidemia, essential tremor, peripheral arterial disease, echodensity on mitral valve. She was found to have acute ischemia of the right lower extremity on 11/27/2018 for which she was transferred to [facility]. 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 She underwent a right femoral artery embolectomy on 11/27/2018 by . Patient had a JENNIFER performed on 11/29/2018 which revealed a large 1.2 cm linear mobile echodensity attached to the ventricular surface of the anterior mitral valve leaflet. Differential to include vegetation, primary cardiac tumor or ruptured chordae. The patient had negative blood cultures and was started on Coumadin anticoagulation. Patient with chronic numbness and right foot drop since the above episode. She states that she has chronic pain in her ankle and foot, specifically on the lateral dorsal aspect. She was seen by her primary care physician on 01/10/2019 after she accidentally rolled her ankle while standing. She was diagnosed with a torsion type injury. X-rays of the right ankle were obtained which revealed soft tissue edema, osteopenia with no evidence of fracture. She was instructed to elevate the foot and to use ice or heat to comfort. She is currently being fitted for a brace to assist with foot drop. Patient presented to the ER on 01/13/2019 with complaint of worsening right ankle and foot pain as well as edema. She had an arterial Doppler ultrasound performed at that time which revealed normal right ankle-brachial index and patent right lower extremity vessels. Venous Doppler negative for DVT in the right lower extremity. She was evaluated by cardiology on 02/13/2019 for her mitral valve echodensity. A repeat JENNIFER was discussed with possible CT surgery consultation pending results. Patient states that this procedure has yet to be completed as it was denied by her insurance company. Mrs. Winn presents today with loss of sensation and mobility of her right foot. She reports that over the past couple of days she has had increased pain in her foot. This morning she tried to get up from bed to use her bedside commode and she was unable to ambulate due to her right foot feeling numb and heavy. She denies headache, visual disturbances or difficulty with speech. She denies numbness/tingling/weakness of her upper extremities or left lower extremity. Patient presented to the ER as a Code Stroke. Noncontrast CT of the head with very subtle left frontal lobe hypodensity which may represent an acute infarct. Case discussed between ER attending and [place]rology [place] [facility] As patient is on Coumadin anticoagulation no TPA administered. Mrs. Winn presently complaining only of pain in the right foot. No additional complaints at this time. ER course: CT head, CTA head/neck Principal Diagnosis Right ankle sprain, gait dysfunction Discharge Exam Constitutional WD/WN, vitals as above + obese Eyes + anicteric sclerae ENMT external ear and nose normal, oropharynx normal Neck trachea midline, no thyromegaly Respiratory normal respiratory effort, lungs clear to auscultation Cardiovascular Rate/Rhythm: regular rate and regular rhythm Heart Sounds: no murmur Extremities: + edema (1-2+ pitting edema of the bilateral lower extremities, greater in the right lateral ankle and dorsal foot) Gastrointestinal (Abdomen) normal bowel sounds, soft, nontender, no hepatosplenomegaly Musculoskeletal Extremities: no cyanosis and no clubbing Ankle: + ankle abnormal to inspection (Lateral malleolus edema, positive tenderness to palpation over anterior ankle) and + effusion; no skin erythema, anterior draw test negative and talar tilt test negative Skin no rashes, warm and dry (Left leg with mild purplish discoloration, no warmth or erythema at site of previously demarcated area) Neurologic + focal motor deficit (1/5 strength with right toe dorsiflexion, 0/5 strength with right ankle dorsiflexion, plantarflexion, inversion and eversion) and awake Motor/Sensory: + tremor (Resting tremor in the hands) and + sensory deficit (De creased sensation to light touch throughout right lateral foot and distal leg) Psychiatric A+Ox3, euthymic affect Discharge Data Allergies Allergy/AdvReac Type Severity Reaction Status Date / Time amoxicillin [From Augmentin] AdvReac Severe Diarrhea Verified 02/28/19 11:28 clavulanic acid AdvReac Severe Diarrhea Verified 02/28/19 11:28 [From Augmentin] Consultations 02/28/19 12:07 ED Decision to Admit Stat 02/28/19 15:08 Consult Cardiology Routine Consult Neurology Routine 03/02/19 12:21 Consult Orthopedic Surgery Routine Ordered Studies 02/28/19 10:19 CT head/brain wo con Stat 02/28/19 12:07 CT angio head w con Stat CT angio neck with con Stat 02/28/19 15:08 MR brain wo/w con Routine 03/01/19 09:54 US arterial duplex LE RT Urgent Right ankle xray Hospital Course (1) Acute cerebrovascular accident (CVA): Ruled out with normal MRI scan brain. 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 Also with pain from ankle sprain versus fracture as below She states she is not ambulatory and essentially wheelchair-bound. Neurology evaluation appreciated -Arterial Doppler of the right lower extremity within normal limits (2) Ankle pain, right: Status post ankle sprain in 12/2018 with pain with weightbearing only since that time Complicated by right peroneal nerve ischemic neuropathy X-ray reviewed with possible calcaneus fracture and asymmetry of mortise -Appreciate orthopedic consultation -Awaiting AFO brace to be fitted and made as outpt -follow up with Podiatry (3) Mitral valve mass: 1.8 cm vegetation versus mass seen again on transthoracic echocardiogram here similar to previous as per report -Continue Coumadin therapy. 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 on 11/27/18. Arterial Doppler of the right lower extremity normal at this time Continue aspirin therapy. (5) Tremor: Chronic. Stable. Continue primidone and Sinemet. Coreg has been restarted. -Is also on propranolol at home-unclear if needs to be on both beta-blockers? (6) Hypertension: Stable -Continue Coreg (7) Ambulatory dysfunction: OT and PT evaluations requested. Fall precautions. (8) Morbid obesity with body mass index of 50 or higher: Encouraged significant weight loss. (9) Generalized anxiety disorder: Chronic. Stable. Patient with longstanding history of mental health issues. She follows with Psychiatry. Continue current medical management. (10) Cellulitis of left leg: Previously demarcated area is now without significant erythema She completed a course of oral Keflex (11) Anticoagulated on Coumadin: For possible mitral valve thrombus as above -Continue INR monitoring, Coumadin Ppx - Coumadin therapy Code - Full Dispo -stable for dc to rehab today Total Time Total Time Spent Total Time Spent (In Minutes): >30 min Total Time Includes: Examination of the Patient, Discharge Planning and Medication Reconciliation Discharge Plan Discharge Items Patient Disposition: Transfer Inpatient Rehab Fac Reason For Visit: Right foot heaviness,rule out CVA Discharge Diagnosis: Right ankle sprain Condition on Discharge: Good Activity: As commented below Lifting: Gradually increase as tolerated Bathing: No limitations Exercise/Sports: Gradually increase as tolerated Weightbearing: Right partial Weightbearing Comment: RLE WBAT Non-emergency contact: Primary Care Provider, Surgeon and Neurologist Call non-emergency contact if: you have any medication questions, your symptoms worsen, your pain is not controlled, your pain is worsening, your pain is unusual for you and your pain is concerning for you Follow-up/Referrals: Chris Moore III, CRNP [Primary Care Provider] - (Please follow up within 1-2 weeks after discharge from rehab. ) Kemal Allen MD [Physician] - (Dr. Allen's office should be contacting you with the date and time of your EMG of the right lower extremity ) Makayla Huerta DPM [Physician] - (Please follow up with Dr. Alberto in 1- 2 weeks. ) Diet: Heart Healthy Addtl Attending Provider Instructions: You were admitted with worsening heaviness and pain of the right ankle which is secondary to sprain and continued ischemic neuropathy of the right peroneal nerve. You will need an outpatient EMG with Neurology and need to be fitted for an AFO brace as recommended by Ortho and Podiatry. Please continue to check PT/INR routinely. You also have a persistent mass on your mitral valve that needs evaluation by Cardiothoracic Surgery at [facility]. A referral was made by [facility] for this and you should be hearing back from [facility] with your appointment date and time. Pending Studies at Discharge: No Stand-Alone Forms: My [facility] Skilled Items Patient informed of condition?: Yes DNR: No Discharge Level of Care: Acute rehab Communicable Disease: No Discharge Prognosis: Stable Lines: None Urinary Catheter: No Medications and DC Order Prescriptions: Continued potassium chloride 20 mEq tablet,ER particles/crystals 40 meq PO BID Qty: 120 RF: 5 propranolol 160 mg capsule,extended release 24 hr 160 mg PO QAM Qty: 30 RF: 3 diclofenac sodium [Voltaren] 1 % gel 4 gm TOP QID Qty: 100 RF: 2 carvedilol 12.5 mg tablet 12.5 mg PO BID Qty: 60 RF: 3 acetaminophen 325 mg capsule 650 mg PO Q6 PRN (Reason: Pain) RF: 0 warfarin 2.5 mg tablet 2.5 mg PO PM RF: 0 atorvastatin 40 mg tablet 40 mg PO DAILY RF: 0 silver sulfadiazine 1 % cream 1 applic topical UD RF: 0 lamotrigine 200 mg tablet 200 mg PO BID RF: 0 carbidopa-levodopa 25-100 mg tablet 1 tab PO TID RF: 0 escitalopram oxalate 20 mg tablet 20 mg PO HS RF: 0 topiramate 100 mg tablet 100 mg PO BID RF: 0 multivitamin [Once Daily] Tablet 1 tab PO DAILY RF: 0 aspirin [Aspirin Low Dose] 81 mg Tablet,Delayed Release (Dr/Ec) 81 mg PO DAILY RF: 0 primidone 50 mg tablet 50 mg PO BID Qty: 0 RF: 0 primidone 50 mg Tablet 100 mg PO HS RF: 0 aripiprazole 10 mg tablet 10 mg PO DAILY RF: 0 Discharge Orders: Discharge Order (Routine); Ordered 03/03/19 Ordered By: Maria A Doyle Admission Data Admit Date/Time: 02/28/19 13:13 Attending Provider: Maria A Doyle Admit Provider: Aleja Yarbrough Primary Care Provider: Chris Moore III Other Providers: Kemal Allen Alexander W. ; Hola Mora Other Interventions: Discharge Summary Assessment (RN) Last Done: 03/03/19 16:52 DC Date/Time DO NOT enter until pt leaves facility: 03/03/19 18:25
== END 2019-03-03 18:25 | DRG 565 ==
LOC: ED 09:48 → 2N 13:13 → SUATTDRO 13:13 → 2N 14:29

== ENCOUNTER 2019-10-20 23:15 | Inpatient (IN) ==
--- NOTE | 2019-10-20 23:33 | Emergency Department Note ---
Impression & Plan Colitis, Abscess of breast, right, Constipation, Fecal impaction of colon ED Provider Note Name: HEMA ABRAMS Age: 74 Sex: F Arrives Via: Ambulance Informant: Patient, EMS ED Provider: Aristides Shah MD Chief Complaint: Abdominal Pain Impression: Colitis Abscess of breath, right Constipation Fecal Impaction of Colon Medical Decision Makin yr old female with complex PMH including aflutter on coumadin, mobid obesity, ambulatory issues, amongst others arrives for acute diffuse abdominal pain. Admits no BM in several days after taking medication for diarrhea last week. She does not have peritonitis nor significant TTP on abdominal exam but given history felt imaging reasonable. On exam also noted to have large right breast cellulitis with presumed abscess inferior at 5 o'clock position. Blood cultures and lactate sent. CT completed revealing diffuse constipation with stercoral colitis as well as gas forming abscess right breast. There is no clear crepitus on exam and abscess looks very close to opening on re-evaluation. Regardless agree abx started and hospitalist consulted. She does not have evidence of COVID. I did make gen surg aware as patient was already being admitted. She is a poor surgical candidate. No evidence pneumonia, covid and with her INR therapeutic I do not feel this represents PE. Offered to start laxatives here in ED though hospitalist notes they will manage that. I do not feel patient has any evidence of ischemic gut at this time. I will note she was not septic during ED evaluation. Prior Medical Record and Triage/Nursing Notes reviewed by Me Additional history obtained from Chart, Differentials:SBO, Constipation, Perforation, sepsis, abscess, cellulitis, PNA, diverticulitis, UTI, mesenteric ischemia, aortic pathology, inflammatory bowel disease, renal colic, PUD, pancreatitis, biliary pathology, hernia, volvulus, as well as other pathologies. Vital Signs: reviewed and remarkable for Tachy Interventions: Saline lock, Zosyn 4.5mg IV, Vanco 2.75gm IV, Fentanyl IV Labs:Reviewed and remarkable for no significant abnormalities Imaging:[facility] Radiologist interpretation reviewed by me: CT abdo pelv 2.8cm breast abscess with gas, significant constipation X ray results are stated below per my interpretation: Chest: 1 view: No infiltrate, no effusion, normal cardiac border. EKG:Per My Interpretation: Indication Shortness of breath: Aflutter 103 bpm, qtc 513. No Ectopy. No Ischemia. Compared to EKG 03/01/19, no significant changes though previous poor baseline. Cardiac/Tele Monitoring: Cardiac Monitoring: An Order was placed for continuous cardiac monitoring. The monitor shows a rate of [] with a [normal sinus] rhythm. Consults:Dr Dom MONTANO Hospitalist Herbie Iraheta PA-C Gen Surg aware morning consult Plan: Disposition:Hospitalization. Condition: Good Blood pressure:Elevated - Referred to Hospitalist Prescriptions:none PDMP: n/a History of Present Illness:74 / F arrives for evaluation of abdominal pain. Patient notes several days of diarrhea last week. She was started on "a powder" by her PCP and then developed constipation. Last BM was several days ago. She notes worsening abdominal pain throughout the day. She was seen by PCP today and started on Magnesium Citrate which she notes she took today. Pain has rapidly worsened throughout the day. No nausea, vomiting, fevers, radiation of pain. She notes right breast infection for the last 4 days. No improvement on Keflex. She denies previous infection, trauma, nor other abx use recently. She states she always gets short of breath with exertion and the last few days this has been unchanged. EMS notes she was very dyspneic with trying to ambulate and in ambulance noted O2 sats in low 80s. Placed on NRB with improvement. Patient states she is not currently short of breath. She denies cp, headache, neck pain, back pain, leg pain, leg swelling, calf pain, rashes, urinary symptoms nor other symptoms ROS: See above HPI for pertinent positives & negatives. A total of 10 systems reviewed and were otherwise negative. Past Medical History:See Below Past Surgical History:See Below Family History:See Below Social History:See Below Home Medications:See Below Allergies:See Below Vitals:Blood Pressure: 164/59, Pulse 99, RR 22, T 36.7C, O2 93% on RA Physical Exam: GENERAL: Patient is anxious appearing and in minimal distress. EYES: No scleral icterus, unremarkable pupils. ENT: Mucous membranes moist, no nasal congestion. NECK: No masses appreciated, nomeningismus, trachea is midline. CHEST: Large cellulitis much of medial area right breast with firm area with mild fluctuance under breast at 5 oclock position, very TTP RESPIRATORY: No dyspnea. Clear to auscultation and equal bilaterally. No wheeze, no rhonchi. CARDIOVASCULAR: Periodically appears irregular then regular.No murmurs, rubs, gallops appreciated. GASTROINTESTINAL: Abdomen soft, diffuse mild tenderness, no peritonitis.Bowel sounds positive.No masses appreciated. BACK: No midline tenderness, no CVA tenderness EXTREMITIES: Morbidly obese legs/arms. Old bruise right forearm. Boot right leg. Normal motion all extremities, no cyanosis, no edema. NEUROLOGIC: Alert and oriented, no acute motor or sensory deficits, no focal weakness, cranial nerves grossly intact. SKIN: No rash, no jaundice, no diaphoresis. 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 Beliefs That Will Affect Care: None marital status: Current Living Situation: Spouse Current Living Situation Comment: lives in apartment with current occupational status: retired Feels Safe at Home: Yes Safety Concerns: Feels Safe At This Time Smoking Status: Never smoker Second Hand Exposure: No ; Hx Alcohol Use: No Hx Substance Use: No Childhood Exposure to Second-Hand Smoke: No Dental Care, Regularly: No Physical Activity Frequency: Does not Exercise Seatbelt Use: always Sunscreen Use: No Do you think of yourself as: straight/heterosexual Allergies Allergies Allergy/AdvReac Type Severity Reaction Status Date / Time haloperidol Allergy Unknown Verified 10/21/19 00:44 paroxetine Allergy Unknown Verified 10/21/19 00:44 amoxicillin [From Augmentin] AdvReac Severe Diarrhea Verified 10/21/19 00:44 clavulanic acid AdvReac Severe Diarrhea Verified 10/21/19 00:44 [From Augmentin] Home Meds Home Medications Medication Instructions Recorded Confirmed aspirin [Aspirin Low Dose] 81 mg PO DAILY 02/12/18 10/21/19 escitalopram oxalate 20 mg PO HS 02/12/18 10/21/19 lamotrigine 200 mg PO BID 02/12/18 10/21/19 multivitamin [Once Daily] 1 tab PO DAILY 02/12/18 10/21/19 topiramate 100 mg PO BID 02/12/18 10/21/19 primidone 100 mg PO HS 02/15/19 10/21/19 aripiprazole 10 mg PO DAILY 02/21/19 10/21/19 acetaminophen 500 mg capsule 1,000 mg PO Q6H PRN cap 03/28/19 10/21/19 carbidopa 25 mg-levodopa 100 mg 2 tab PO TID tab 07/10/19 10/21/19 tablet flaxseed oil 1,000 mg capsule 1,000 mg PO TID 07/10/19 10/21/19 buspirone 2.5 - 5 mg PO BID PRN 10/21/19 10/21/19 Previous Rx's Medication Instructions Recorded primidone 50 mg PO BID #0 tab 03/03/19 warfarin 2.5 mg tablet 2.5 mg PO DAILY #60 tab 06/30/19 carvedilol 25 mg tablet 25 mg PO BID #90 tab 07/17/19 propranolol 60 mg capsule,24 60 mg PO DAILY #30 cap 07/18/19 hr,extended release atorvastatin 20 mg tablet 20 mg PO HS #90 tab 08/15/19 diltiazem HCl 120 mg 120 mg PO DAILY #90 cap 08/21/19 capsule,extended release 24 hr diclofenac sodium 1 % topical gel 4 gm TOP QID #100 gm 09/13/19 oxycodone-acetaminophen 5 mg-325 1 tab PO Q6H PRN #30 tab 10/09/19 mg tablet potassium chloride 20 mEq 40 meq PO BID #120 tab 10/13/19 tablet,extended release(part/cryst) cholestyramine-aspartame 4 gram 4 gm PO DAILY #210 gm 10/17/19 oral powder cephalexin 500 mg capsule 500 mg PO TID 10 Days #30 cap 10/20/19 Results & Data (ED) Vital Signs Vital Signs - 24 hr 10/20/19 23:22 10/20/19 23:24 10/20/19 23:36 Temperature 36.7 C Temperature Source Oral Pulse Rate 99 H 102 H Pulse Rate from SpO2 Sensor 182 H Respiratory Rate 22 28 H Respiratory Effort / Characteristics Non-Labored Respiratory Depth Normal Respiratory Pattern Regular Blood Pressure 164/59 H 164/59 H Blood Pressure Mean 94 78 Blood Pressure Position Lying Pulse Oximetry 93 91 90 Oxygen Delivery Method Room Air Room Air Sepsis Recent Fever Within 48 Hours No Sepsis New/Unexplained Change in Mental Status No Sepsis Action Taken by Nursing No Action Required 10/21/19 00:04 10/21/19 00:05 10/21/19 00:30 Temperature Temperature Source Pulse Rate 103 H 104 H 102 H Pulse Rate from SpO2 Sensor 103 H 103 H 104 H Respiratory Rate 23 17 20 Respiratory Effort / Characteristics Respiratory Depth Respiratory Pattern Blood Pressure 131/99 Blood Pressure Mean 109 Blood Pressure Position Pulse Oximetry 93 94 92 Oxygen Delivery Method Sepsis Recent Fever Within 48 Hours Sepsis New/Unexplained Change in Mental Status Sepsis Action Taken by Nursing 10/21/19 01:01 10/21/19 01:30 10/21/19 02:00 Temperature Temperature Source Pulse Rate 102 H 102 H 102 H Pulse Rate from SpO2 Sensor 176 H 102 H 102 H Respiratory Rate 20 19 19 Respiratory Effort / Characteristics Respiratory Depth Respiratory Pattern Blood Pressure 138/66 134/73 Blood Pressure Mean 94 91 Blood Pressure Position Pulse Oximetry 91 91 91 Oxygen Delivery Method Sepsis Recent Fever Within 48 Hours Sepsis New/Unexplained Change in Mental Status Sepsis Action Taken by Nursing 10/21/19 02:01 Temperature Temperature Source Pulse Rate 102 H Pulse Rate from SpO2 Sensor 99 H Respiratory Rate 21 Respiratory Effort / Characteristics Respiratory Depth Respiratory Pattern Blood Pressure Blood Pressure Mean Blood Pressure Position Pulse Oximetry 91 Oxygen Delivery Method Sepsis Recent Fever Within 48 Hours Sepsis New/Unexplained Change in Mental Status Sepsis Action Taken by Nursing Laboratory Data Result diagrams: 10/21/19 08:18 10/21/19 08:18 Lab Results 10/20/19 10/20/19 10/20/19 Range/Units 23:32 23:32 23:32 WBC 8.87 (4.8-10.8) K/uL RBC 4.07 L (4.2-5.4) M/uL Hgb 12.0 (12.0-16.0) g/dL Hct 38.4 (37-47) % MCV 94.3 (80-100) fL MCH 29.5 (25-34) pg MCHC 31.3 L (32-36) g/dL RDW Std Deviation 53.2 H (36.4-46.3) fL RDW Coeff of Gary 15.4 H (11.5-14.5) % Plt Count 194 (130-400) K/uL MPV 9.1 (7.4-10.4) fL Immature Gran % (Auto) 0.2 % Neut % (Auto) 76.5 % Lymph % (Auto) 15.4 % Brooke % (Auto) 7.3 % Eos % (Auto) 0.5 % Baso % (Auto) 0.1 % Immature Gran # (Auto) 0.02 (0.00-0.02) K/uL Neut # (Auto) 6.78 H (1.4-6.5) K/uL Lymph # (Auto) 1.37 (1.2-3.4) K/uL Brooke # (Auto) 0.65 H (0.11-0.59) K/uL Eos # (Auto) 0.04 (0-0.5) K/uL Baso # (Auto) 0.01 (0-0.2) K/uL PT (9.0-12.0) Seconds INR (0.9-1.1) Sodium 141 (136-145) mmol/L Potassium 3.8 (3.5-5.1) mmol/L Chloride 111 H (98-107) mmol/L Carbon Dioxide 26 (21-32) mmol/L Anion Gap 4.0 (3-11) BUN 9 (7-18) mg/dl Creatinine 0.69 (0.6-1.2) mg/dl Est Cr Clr Drug Dosing 106.8 ml/min Est GFR ( Amer) 98.7 Est GFR (Non-Af Amer) 85.2 BUN/Creatinine Ratio 12.8 (10-20) Glucose 133 H (70-99) mg/dl Lactate 1.2 (0.4-2.0) mmol/L Calcium 8.4 L (8.5-10.1) mg/dl Magnesium 2.1 (1.8-2.4) mg/dl Total Bilirubin 0.4 (0.2-1) mg/dl Direct Bilirubin 0.1 (0-0.2) mg/dl AST 11 L (15-37) U/L ALT 18 (12-78) U/L Alkaline Phosphatase 87 (45-117) U/L Troponin I < 0.015 (0-0.045) ng/ml Total Protein 7.2 (6.4-8.2) gm/dl Albumin 3.0 L (3.4-5.0) gm/dl Lipase 103 (73-393) U/L 10/20/19 Range/Units 23:32 WBC (4.8-10.8) K/uL RBC (4.2-5.4) M/uL Hgb (12.0-16.0) g/dL Hct (37-47) % MCV (80-100) fL MCH (25-34) pg MCHC (32-36) g/dL RDW Std Deviation (36.4-46.3) fL RDW Coeff of Gary (11.5-14.5) % Plt Count (130-400) K/uL MPV (7.4-10.4) fL Immature Gran % (Auto) % Neut % (Auto) % Lymph % (Auto) % Brooke % (Auto) % Eos % (Auto) % Baso % (Auto) % Immature Gran # (Auto) (0.00-0.02) K/uL Neut # (Auto) (1.4-6.5) K/uL Lymph # (Auto) (1.2-3.4) K/uL Brooke # (Auto) (0.11-0.59) K/uL Eos # (Auto) (0-0.5) K/uL Baso # (Auto) (0-0.2) K/uL PT 24.5 H (9.0-12.0) Seconds INR 2.4 H (0.9-1.1) Sodium (136-145) mmol/L Potassium (3.5-5.1) mmol/L Chloride (98-107) mmol/L Carbon Dioxide (21-32) mmol/L Anion Gap (3-11) BUN (7-18) mg/dl Creatinine (0.6-1.2) mg/dl Est Cr Clr Drug Dosing ml/min Est GFR ( Amer) Est GFR (Non-Af Amer) BUN/Creatinine Ratio (10-20) Glucose (70-99) mg/dl Lactate (0.4-2.0) mmol/L Calcium (8.5-10.1) mg/dl Magnesium (1.8-2.4) mg/dl Total Bilirubin (0.2-1) mg/dl Direct Bilirubin (0-0.2) mg/dl AST (15-37) U/L ALT (12-78) U/L Alkaline Phosphatase (45-117) U/L Troponin I (0-0.045) ng/ml Total Protein (6.4-8.2) gm/dl Albumin (3.4-5.0) gm/dl Lipase (73-393) U/L Administered Medications Aripiprazole (Abilify) 10 mg PO DAILY [facility] Stop: 11/20/19 08:59 Last Admin: 10/21/19 09:08 Dose: 10 mg Documented by: [id number] Atorvastatin Calcium (Lipitor) 20 mg PO [facility] Stop: 11/20/19 20:59 Last Admin: 10/21/19 21:35 Dose: 20 mg Documented by: [id number] Buspirone HCl (Buspar) 5 mg PO BID PRN PRN Reason: Anxiety Stop: 11/20/19 04:01 Last Admin: 10/21/19 21:47 Dose: 5 mg Documented by: [id number] Carbidopa/Levodopa (Sinemet 25/100 Mg) 2 tab PO TID [facility] Stop: 11/20/19 08:59 Last Admin: 10/21/19 21:48 Dose: 2 tab Documented by: [id number] Admin: 10/21/19 13:44 Dose: 2 tab Documented by: [id number] Admin: 10/21/19 09:07 Dose: 2 tab Documented by: [id number] Carvedilol (Coreg) 25 mg PO BID [facility] Stop: 11/20/19 08:59 Last Admin: 10/21/19 21:32 Dose: 25 mg Documented by: [id number] Admin: 10/21/19 09:08 Dose: 25 mg Documented by: [id number] Diclofenac Sodium (Voltaren 1% Top) 4 gm EXT QID [facility] Stop: 11/20/19 08:59 Last Admin: 10/21/19 21:37 Dose: 4 gm Documented by: [id number] Admin: 10/21/19 17:04 Dose: 4 gm Documented by: [id number] Admin: 10/21/19 12:04 Dose: 4 gm Documented by: [id number] Admin: 10/21/19 09:09 Dose: 4 gm Documented by: [id number] Diltiazem HCl (Cardizem Cd) 120 mg PO DAILY [facility] Stop: 11/20/19 08:59 Last Admin: 10/21/19 09:09 Dose: 120 mg Documented by: [id number] Escitalopram Oxalate (Lexapro Tab) 20 mg PO [facility] Stop: 11/20/19 20:59 Last Admin: 10/21/19 21:34 Dose: 20 mg Documented by: [id number] Piperacillin Sod/Tazobactam (Sod 4.5 gm/ Dextrose) 120 mls @ 30 mls/hr IV Q8H [facility]; Protocol Stop: 10/28/19 05:59 Last Admin: 10/21/19 21:47 Dose: 30 mls/hr Documented by: [id number] Infusion: 10/21/19 17:49 Dose: 0 mls/hr Documented by: [id number] Admin: 10/21/19 13:44 Dose: 30 mls/hr Documented by: [id number] Infusion: 10/21/19 09:43 Dose: 0 mls/hr Documented by: [id number] Admin: 10/21/19 05:39 Dose: 30 mls/hr Documented by: [id number] Vancomycin HCl 1,500 mg/ (Sodium Chloride) 530 mls @ 200 mls/hr IV Q12H [facility] Stop: 10/28/19 09:59 Last Admin: 10/21/19 21:47 Dose: 200 mls/hr Documented by: [id number] Infusion: 10/21/19 12:52 Dose: 0 mls/hr Documented by: [id number] Admin: 10/21/19 09:43 Dose: 200 mls/hr Documented by: [id number] Lamotrigine (Lamictal) 200 mg PO BID [facility] Stop: 11/20/19 08:59 Last Admin: 10/21/19 21:33 Dose: 200 mg Documented by: [id number] Admin: 10/21/19 09:09 Dose: 200 mg Documented by: [id number] Magnesium Hydroxide (Milk Of Magnesia) 30 ml PO Q6H PRN PRN Reason: Constipation Stop: 11/20/19 04:01 Last Admin: 10/21/19 21:47 Dose: 30 ml Documented by: [id number] Miconazole Nitrate (Desenex) 1 appln EXT PRN PRN PRN Reason: Affected Skin Folds Stop: 11/20/19 09:50 Last Admin: 10/21/19 17:05 Dose: 1 appln Documented by: [id number] Multivitamins (Multivitamin Tab) 1 tab PO DAILY [facility] Stop: 11/20/19 08:59 Last Admin: 10/21/19 09:08 Dose: 1 tab Documented by: [id number] Oxycodone/Acetaminophen (Percocet 5mg/325mg) 1 tab PO Q6H PRN PRN Reason: pain Stop: 11/04/19 04:01 Last Admin: 10/21/19 04:52 Dose: 1 tab Documented by: [id number] Polyethylene Glycol (Miralax Powder Packet) 17 gm PO BID [facility] Stop: 11/20/19 04:01 Last Admin: 10/21/19 21:28 Dose: 17 gm Documented by: [id number] Admin: 10/21/19 09:10 Dose: 17 gm Documented by: [id number] Admin: 10/21/19 04:55 Dose: 17 gm Documented by: [id number] Primidone (Primidone) 100 mg PO HS [facility] Stop: 11/20/19 20:59 Last Admin: 10/21/19 21:35 Dose: 100 mg Documented by: [id number] Primidone (Primidone) 50 mg PO BID@0700,1200 [facility] Stop: 11/20/19 06:59 Last Admin: 10/21/19 12:03 Dose: 50 mg Documented by: [id number] Admin: 10/21/19 05:51 Dose: 50 mg Documented by: [id number] Propranolol HCl (Inderal La) 60 mg PO DAILY [facility] Stop: 11/20/19 08:59 Last Admin: 10/21/19 09:08 Dose: 60 mg Documented by: [id number] Topiramate (Topamax) 100 mg PO BID [facility] Stop: 11/20/19 08:59 Last Admin: 10/21/19 21:31 Dose: 100 mg Documented by: [id number] Admin: 10/21/19 09:08 Dose: 100 mg Documented by: [id number] Discontinued Medications Fentanyl Citrate (Fentanyl Citrate) 50 mcg IV NOW STA Stop: 10/21/19 00:49 Last Admin: 10/21/19 00:54 Dose: 50 mcg Documented by: [id number] Piperacillin Sod/Tazobactam Sod (Zosyn) 4.5 gm in 120 mls @ 240 mls/hr IV NOW ONE Stop: 10/21/19 01:18 Last Infusion: 10/21/19 01:31 Dose: 0 mls/hr Documented by: [id number] Admin: 10/21/19 00:58 Dose: 240 mls/hr Documented by: [id number] Vancomycin HCl 2,750 mg/ (Sodium Chloride) 555 mls @ 200 mls/hr IV NOW ONE Stop: 10/21/19 03:35 Last Infusion: 10/21/19 05:40 Dose: 0 mls/hr Documented by: [id number] Admin: 10/21/19 01:28 Dose: 200 mls/hr Documented by: [id number] Potassium Chloride 10 meq/ (Sodium Chloride) 1,005 mls @ 125 mls/hr IV .Q8H3M [facility] Stop: 10/21/19 12:04 Last Infusion: 10/21/19 13:45 Dose: 0 mls/hr Documented by: [id number] Admin: 10/21/19 05:40 Dose: 125 mls/hr Documented by: [id number] Discharge Plan Visit Data *Final* Discharge Date/Time: 10/21/19 03:08 Chief Complaint: Abdominal Pain Stated Complaint: ABDOMINAL PAIN/SHORT OF BREATH Other Complaint: Shortness of Breath/Dyspnea ED Provider: Aristides Shah Discharge Problem: Colitis, Abscess of breast, right, Constipation, Fecal impaction of colon Patient Disposition: Admitted As Inpatient Discharge Instructions Interventions: ED Discharge Assessment Last Done: 10/21/19 03:08 Discharge Problem: Constipation Qualifiers: Constipation type: unspecified constipation type Qualified Code(s): K59.00 - C onstipation, unspecified
[2019-10-20 23:41] LABS: Basophils # (auto) 0.01 K/uL (0-0.2); Basophils % (auto) 0.1 %; Eosinophils # (auto) 0.04 K/uL (0-0.5); Eosinophils % (auto) 0.5 %; Hematocrit (blood only) 38.4 % (37-47); Immature Granulocytes # (auto) 0.02 K/uL (0.00-0.02); Immature Granulocytes % (auto) 0.2 %; Lymphocytes # (auto) 1.37 K/uL (1.2-3.4); Lymphocytes % (auto) 15.4 %; Mean Corpuscular Hemoglobin 29.5 pg (25-34); Mean Corpuscular Hgb Conc 31.3 g/dL (32-36); Mean Corpuscular Volume 94.3 fL (80-100); Mean Platelet Volume 9.1 fL (7.4-10.4); Monocytes # (auto) 0.65 K/uL (0.11-0.59); Monocytes % (auto) 7.3 %; Neutrophils # (auto) 6.78 K/uL (1.4-6.5); Neutrophils % (auto) 76.5 %; Platelet Count 194 K/uL (130-400); RDW Coefficient of Variation 15.4 % (11.5-14.5); RDW Standard Deviation 53.2 fL (36.4-46.3); Red Blood Count 4.07 M/uL (4.2-5.4); White Blood Count 8.87 K/uL (4.8-10.8)
[2019-10-20 23:49] LABS: INR 2.4 (0.9-1.1); Prothrombin Time 24.5 Seconds (9.0-12.0)
[2019-10-20 23:57] LABS: Alanine Aminotransferase 18 U/L (12-78); Aspartate Aminotransferase 11 U/L (15-37); BUN Creatinine Ratio 12.8 (10-20); Bilirubin Direct 0.1 mg/dl (0-0.2); Blood Urea Nitrogen 9 mg/dl (7-18); Calcium 8.4 mg/dl (8.5-10.1); Carbon Dioxide 26 mmol/L (21-32); Chloride 111 mmol/L (98-107); Creatinine Clr Calc Pharmacy 106.8 ml/min; Est GFR (African American) 98.7; Est GFR (Non-African American) 85.2; Glucose 133 mg/dl (70-99); Lipase 103 U/L (73-393); Magnesium 2.1 mg/dl (1.8-2.4); Potassium 3.8 mmol/L (3.5-5.1); Sodium 141 mmol/L (136-145)
[2019-10-21 00:02] LABS: Alkaline Phosphatase 87 U/L (45-117); Bilirubin,Total 0.4 mg/dl (0.2-1); Total Protein 7.2 gm/dl (6.4-8.2); Troponin I < 0.015 ng/ml (0-0.045)
[2019-10-21] MEDS ORDERED: fentaNYL citrate 100 MCG/2 ML VIAL IV STA (00:48)
[2019-10-21] MEDS ORDERED: VANCOMYCIN HCL 2,750 MG in SODIUM CHLORIDE 0.9% 500 ML IV ONE (00:49)
[2019-10-21] MEDS ORDERED: PIPERACILLIN/TAZOBACTAM 4.5 GM/120 ML BAG IV ONE (00:49)
[2019-10-21] MEDS ORDERED: PIPERACILL/TAZOBAC CONSULT ACTIVE PRN (00:49)
[2019-10-21] MEDS ORDERED: VANCOMYCIN CONSULT ACTIVE PRN (00:49)
--- NOTE | 2019-10-21 02:31 | History & Physical Report ---
Date of Service October 21, 2019 Assessment & Plan (1) Abscess of breast, right: Ms. Winn is a very pleasant 74-year-old female with a past medical history of peripheral arterial disease, hypertension, hyperlipidemia, essential tremor/Parkinson's disease, mitral valve vegetation, and paroxysmal A. fib who presented to [facility] due to severe constipation and right breast pain. ED course: IV zosyn, IV vancomycin, 50mcg IV fentanyl Right breast abscess -admit to med/surg with telemetry -CT of abdomen/pelvis showed soft tissue and gas collection in right breast subjacent to the skin surface measuring 2.8 cm -continue IV zosyn and vancomycin started in ED -bcx drawn x2 and pending -Patient currently afebrile with a normal white cell count -consult general surgery for possible drainage -hold home coumadin and aspirin -Of note, patient was seeing Dr. Jun patrick/general surgery for concerns regarding right breast lumps -> Diagnosed with angiolipoma and a sebaceous cyst -> Suspect that her infection is the result of her already diagnosed sebaceous cyst Stercoral Colitis secondary to constipation -CT of abdomen/pelvis showed impacted stool within the rectum with stercoral colitis -start bowel regimen: miralax BID -Maintenance IV fluids ordered as well - 1/2 NS with 10 mEq of KCl at 125 mls/hr x 1 bag -caution w/being overaggressive in treatment - may provoke GI bleeding Atrial flutter -continue carvedilol, diltiazem, and propranolol -Follows with cardiology -hold home coumadin as above -INR currently therapeutic at 2.4, recheck tomorrow morning Mitral valve mass -Initially concerning for vegetation, however patient had negative blood cultures. ? Fibroelastoma -Seen by Dr. Huertas of CT surgery at [facility] who recommended conservative therapy -She will have a repeat echo in December 2019 for monitoring Tricuspid regurgitation -Questionable severity, given discrepancy in results from transesophageal echo versus transthoracic echo -Patient to have follow-up echo for monitoring in December 2019 Essential tremor/?Parkinson's Disease -patient currently seeing neurology -> question of whether her tremors are related to PD -continue home primidone, propranolol, and sinemet Peripheral vascular disease -Patient has a history of femoral artery occlusion, status post embolectomy in 11/2018 -Continue home statin -Hold anticoagulation, resume when able PTSD/Anxiety/Depression -continue home psychiatric regimen of aripiprazole, buspirone, escitalopram, Topamax and lamotrigine Right ankle pain -Chronic, patient following with orthopedics, saw Dr. Do in 02/2019 -Nonweightbearing on right foot, currently wearing orthopedic boot -Continue home as needed Percocet Code status: FULL DVT Prophylaxis: therapeutic on coumadin Disposition: admit to med/surg with telemetry monitoring (2) Pain in right foot: (3) Paroxysmal atrial fibrillation: (4) Anticoagulated on Coumadin: (5) PTSD (post-traumatic stress disorder): (6) Mitral valve mass: (7) Anemia: (8) Depression with anxiety: (9) Gastroesophageal reflux disease without esophagitis: (10) Morbid obesity with body mass index of 50 or higher: (11) Prediabetes: (12) Peripheral vascular disease: (13) Hypertension: (14) Tremor: (15) Colitis: History of Present Illness Chief Complaint: Breast abscess, constipation Primary Care Provider: Chris Moore III, CRNP Ms. Winn is a very pleasant 74-year-old female with a past medical history of peripheral arterial disease, hypertension, hyperlipidemia, essential tremor/Parkinson's disease, mitral valve vegetation, and paroxysmal A. fib who presented to [facility] due to severe constipation and right breast pain. She notes that her abdominal pain is 10/10 in severity, and started 2 days ago. Her pain comes in waves, every 2-3 minutes, and she feels like she needs to have a bowel movement. She states that she has had trouble with constipation in the past, but it has never been this severe. She denies nausea or vomiting, or fever. She denies chest pain, but reports feeling slightly short of breath due to the pain. She states that she was not taking a stool softener up until today, when her primary care provider started her on milk of magnesia. She states that in the past, she was treated for diarrhea and fecal incontinence with cholestyramine. She also notes right breast pain, tenderness, and swelling. She states that she was started on Keflex for this today, and has taken 1 dose. Of note, she takes Coumadin on a daily basis for a history of paroxysmal atrial fibrillation, and a vegetation on her mitral valve. She took her last dose on the evening of 10/20/2019. Allergies Allergy/AdvReac Type Severity Reaction Status Date / Time haloperidol Allergy Unknown Verified 10/21/19 00:44 paroxetine Allergy Unknown Verified 10/21/19 00:44 amoxicillin [From Augmentin] AdvReac Severe Diarrhea Verified 10/21/19 00:44 clavulanic acid AdvReac Severe Diarrhea Verified 10/21/19 00:44 [From Augmentin] Home Medications Home Medications Medication Instructions Recorded Confirmed Type aspirin [Aspirin Low Dose] 81 mg PO DAILY 02/12/18 10/21/19 History escitalopram oxalate 20 mg PO HS 02/12/18 10/21/19 History lamotrigine 200 mg PO BID 02/12/18 10/21/19 History multivitamin [Once Daily] 1 tab PO DAILY 02/12/18 10/21/19 History topiramate 100 mg PO BID 02/12/18 10/21/19 History primidone 100 mg PO HS 02/15/19 10/21/19 History aripiprazole 10 mg PO DAILY 02/21/19 10/21/19 History primidone 50 mg PO BID #0 tab 03/03/19 10/21/19 Rx acetaminophen 500 mg capsule 1,000 mg PO Q6H PRN cap 03/28/19 10/21/19 History warfarin 2.5 mg tablet 2.5 mg PO DAILY #60 tab 06/30/19 10/21/19 Rx carbidopa 25 mg-levodopa 100 mg 2 tab PO TID tab 07/10/19 10/21/19 History tablet flaxseed oil 1,000 mg capsule 1,000 mg PO TID 07/10/19 10/21/19 History carvedilol 25 mg tablet 25 mg PO BID #90 tab 07/17/19 10/21/19 Rx propranolol 60 mg capsule,24 60 mg PO DAILY #30 cap 07/18/19 10/21/19 Rx hr,extended release atorvastatin 20 mg tablet 20 mg PO HS #90 tab 08/15/19 10/21/19 Rx diltiazem HCl 120 mg 120 mg PO DAILY #90 cap 08/21/19 10/21/19 Rx capsule,extended release 24 hr diclofenac sodium 1 % topical gel 4 gm TOP QID #100 gm 09/13/19 10/21/19 Rx oxycodone-acetaminophen 5 mg-325 1 tab PO Q6H PRN #30 tab 10/09/19 10/21/19 Rx mg tablet potassium chloride 20 mEq 40 meq PO BID #120 tab 10/13/19 10/21/19 Rx tablet,extended release(part/cryst) cholestyramine-aspartame 4 gram 4 gm PO DAILY #210 gm 10/17/19 10/21/19 Rx oral powder cephalexin 500 mg capsule 500 mg PO TID 10 Days #30 cap 10/20/19 10/21/19 Rx buspirone 2.5 - 5 mg PO BID PRN 10/21/19 10/21/19 History Past Med/Surg History Social History Preferred Language: Turkmen Communication Ability: Effective Visual Impairment: No Limitations Hearing Ability: Normal Police Lieutenant Required: No Beliefs That Will Affect Care: None marital status: Current Living Situation: Spouse Current Living Situation Comment: lives in apartment with current occupational status: retired Feels Safe at Home: Yes Safety Concerns: Feels Safe At This Time Smoking Status: Never smoker Second Hand Exposure: No ; Hx Alcohol Use: No Hx Substance Use: No Childhood Exposure to Second-Hand Smoke: No Dental Care, Regularly: No Physical Activity Frequency: Does not Exercise Seatbelt Use: always Sunscreen Use: No Do you think of yourself as: straight/heterosexual Review of Systems Constitutional: no fever and no chills Respiratory: + dyspnea; no cough and no wheezing Cardiovascular: no chest pain and no palpitations Gastrointestinal: + abdominal pain and + constipation; no nausea and no vomiting Integumentary: + breast pain Physical Exam Constitutional: WD/WN, vitals as above + morbidly obese Eyes: PERRL, conjunctivae normal, anicteric sclerae Respiratory: normal respiratory effort, lungs clear to auscultation Cardiovascular: Rate/Rhythm: regular rate and regular rhythm Gastrointestinal (Abdomen): normal bowel sounds, soft, nontender, no hepatosplenomegaly Skin: R breast w/large area of erythema, warmth, swelling and induration w/noted break in skin underneath breast. No drainage noted. R foot in walking boot Neurologic: moves all extremities; no focal motor deficits b/l resting tremor noted of hands, R>L Psychiatric: A+Ox3, euthymic affect Results & Data Results & Data ([facility]) Vital Signs (Past 12 Hours) Vital Signs Temp Pulse Resp BP Pulse Ox 10/21/19 02:01 102 H 21 91 10/21/19 02:00 102 H 19 134/73 91 10/21/19 01:30 102 H 19 91 10/21/19 01:01 102 H 20 138/66 91 10/21/19 00:30 102 H 20 92 10/21/19 00:05 104 H 17 94 10/21/19 00:04 103 H 23 131/99 93 10/20/19 23:36 90 10/20/19 23:24 102 H 28 H 164/59 H 91 10/20/19 23:22 36.7 C 99 H 22 164/59 H 93 Code Status & VTE Plan VTE Prophylaxis Plan VTE Prophylaxis will be ordered: Yes Supervising Physician Co-Signing Physician Notes Attending addendum: I have physically seen this patient, have supervised the medical residents activities, and agree with the H&P unless as otherwise noted. Assessment and Plan: Right breast abscess- Was placed on Keflex in the outpatient setting. Admit on IV vancomycin and IV Zosyn. Follow blood cultures. Consult general surgery. Hold warfarin and aspirin Patient has history of angiolipomas and sebaceous cyst. Stercoral colitis/constipation- No BM for 5 days. Bowel regimen is noted. Placed on IV fluids. Atrial flutter/hypertension- Continue carvedilol, diltiazem and propranolol. Temporarily holding warfarin. Remainder of orders and notations as noted. Resident Activity Tracking Resident Involvement: Resident Care Provided Care Provided: Adult Hospital Medicine (1) Hypertension Hypertension type: essential hypertension Qualified Code(s): I10 - Essential (primary) hypertension
[2019-10-21] MEDS ORDERED: MAGNESIUM HYDROXIDE SUSP 30 ML UDC PO PRN (04:02)
[2019-10-21] MEDS ORDERED: POTASSIUM CHLORIDE 10 MEQ in SODIUM CHLORIDE 0.45 % 1,000 ML IV SCH (04:02)
[2019-10-21] MEDS ORDERED: ACETAMINOPHEN 500 MG TAB PO PRN (04:02)
[2019-10-21] MEDS: OXYCODONE/ACETAMINOPHEN 5mg/325mg TAB PO PRN (04:52)
[2019-10-21] MEDS: POLYETHYLENE (MIRALAX) 17 GM PACK PO SCH ×3 (04:55→21:28)
[2019-10-21] MEDS: PIPERACILLIN/TAZOBACTAM 4.5 GM in DEXTROSE 5% 100 ML IV SCH ×3 (05:39→21:47)
[2019-10-21] MEDS: PRIMIDONE 50 MG TAB PO SCH ×3 (05:51→21:35)
--- NOTE | 2019-10-21 06:08 | Surgery Consultation ---
Date of Consultation October 21, 2019 Assessment & Plan (1) Abscess of breast, right: -pt. is afebrile with normal WBC and no signs of sepsis at the present time -IV abx. in the form of vancomycin and zosyn have been initiated -she takes coumadin for a-fib and her INR is >2.0 -will allow INR to normalize and consider I & D of breast abscess once <2.0 as above. abcess is now self draining purulent fluid. pain improved. discussed with nursing regarding dressing changes. continue antibiotics. will shar breast erythema to monitor. will likely not need incision/drainage now but will follow. would continue to hold coumadin and monitor INR until we are sure abcess improves. this area has been biopsied before according to the pt and negative for malignancy. History of Present Illness Attending Physician: Dennis Fernandes MD History of Present Illness 74 year old female presented to ED secondary to constipation. She notes she has nt had a BM in 5 days. No N/V or abdominal pain are reported. We are asked to see due to a right breast abscess. The pt. note she had a breast infection and states her PCP began treatment with oral keflex several d ays ago. She denies fevers, shakes, or chills. At the time of my exam she was resting in bed, no distress noted. Allergies Allergy/AdvReac Type Severity Reaction Status Date / Time haloperidol Allergy Unknown Verified 10/21/19 00:44 paroxetine Allergy Unknown Verified 10/21/19 00:44 amoxicillin [From Augmentin] AdvReac Severe Diarrhea Verified 10/21/19 00:44 clavulanic acid AdvReac Severe Diarrhea Verified 10/21/19 00:44 [From Augmentin] Home Medications Home Medications Medication Instructions Recorded Confirmed Type aspirin [Aspirin Low Dose] 81 mg PO DAILY 02/12/18 10/21/19 History escitalopram oxalate 20 mg PO HS 02/12/18 10/21/19 History lamotrigine 200 mg PO BID 02/12/18 10/21/19 History multivitamin [Once Daily] 1 tab PO DAILY 02/12/18 10/21/19 History topiramate 100 mg PO BID 02/12/18 10/21/19 History primidone 100 mg PO HS 02/15/19 10/21/19 History aripiprazole 10 mg PO DAILY 02/21/19 10/21/19 History primidone 50 mg PO BID #0 tab 03/03/19 10/21/19 Rx acetaminophen 500 mg capsule 1,000 mg PO Q6H PRN cap 03/28/19 10/21/19 History warfarin 2.5 mg tablet 2.5 mg PO DAILY #60 tab 06/30/19 10/21/19 Rx carbidopa 25 mg-levodopa 100 mg 2 tab PO TID tab 07/10/19 10/21/19 History tablet flaxseed oil 1,000 mg capsule 1,000 mg PO TID 07/10/19 10/21/19 History carvedilol 25 mg tablet 25 mg PO BID #90 tab 07/17/19 10/21/19 Rx propranolol 60 mg capsule,24 60 mg PO DAILY #30 cap 07/18/19 10/21/19 Rx hr,extended release atorvastatin 20 mg tablet 20 mg PO HS #90 tab 08/15/19 10/21/19 Rx diltiazem HCl 120 mg 120 mg PO DAILY #90 cap 08/21/19 10/21/19 Rx capsule,extended release 24 hr diclofenac sodium 1 % topical gel 4 gm TOP QID #100 gm 09/13/19 10/21/19 Rx oxycodone-acetaminophen 5 mg-325 1 tab PO Q6H PRN #30 tab 10/09/19 10/21/19 Rx mg tablet potassium chloride 20 mEq 40 meq PO BID #120 tab 10/13/19 10/21/19 Rx tablet,extended release(part/cryst) cholestyramine-aspartame 4 gram 4 gm PO DAILY #210 gm 10/17/19 10/21/19 Rx oral powder cephalexin 500 mg capsule 500 mg PO TID 10 Days #30 cap 10/20/19 10/21/19 Rx buspirone 2.5 - 5 mg PO BID PRN 10/21/19 10/21/19 History Patient History Social History Preferred Language: Afghan Communication Ability: Effective Visual Impairment: No Limitations Hearing Ability: Normal Cancer Program Consultant Required: No Beliefs That Will Affect Care: None marital status: Current Living Situation: Spouse Current Living Situation Comment: lives in apartment with current occupational status: retired Feels Safe at Home: Yes Safety Concerns: Feels Safe At This Time Smoking Status: Never smoker Second Hand Exposure: No ; Hx Alcohol Use: No Hx Substance Use: No Childhood Exposure to Second-Hand Smoke: No Dental Care, Regularly: No Physical Activity Frequency: Does not Exercise Seatbelt Use: always Sunscreen Use: No Do you think of yourself as: straight/heterosexual Review of Systems Constitutional: no fever and no chills Eyes: no diplopia Ear, Nose, Mouth, Throat: no ear pain Respiratory: no cough and no dyspnea Cardiovascular: no chest pain Gastrointestinal: + constipation; no abdominal pain, no nausea and no vomiting Genitourinary: no dysuria Musculoskeletal: no back pain Integumentary: + breast pain (righ breast) Neurologic: no localized weakness Physical Exam Constitutional: well developed and well nourished; no acute distress Eyes: wears glasses ENMT: Ears: no hearing impairment Neck: trachea midline Respiratory: normal respiratory effort and + respiratory distress; no labored breathing Cardiovascular: Rate/Rhythm: regular rate and regular rhythm Chest (Breasts): Additional Comments: inferior right breast is erythematous with area of induration. There is a small open area under the breast fold. Area is fluctuant, warm, and somewhat painful to touch. Gastrointestinal (Abdomen): Percussion/Palpation: abdomen soft; abdomen nontender Musculoskeletal: no calf pain Skin: normal turgor Neurologic: moves all extremities Psychiatric: A+Ox3, euthymic affect Results & Data Vital Signs (Past 12 Hours) Vital Signs Temp Pulse Pulse Resp BP BP BP 10/21/19 04:03 37.8 C H 102 H 102 H 16 116/51 L 10/21/19 03:00 130/70 10/21/19 02:30 102 H 28 H 10/21/19 02:01 102 H 21 10/21/19 02:00 102 H 19 134/73 10/21/19 01:30 102 H 19 10/21/19 01:01 102 H 20 138/66 10/21/19 00:30 102 H 20 10/21/19 00:05 104 H 17 10/21/19 00:04 103 H 23 131/99 10/20/19 23:36 10/20/19 23:24 102 H 28 H 164/59 H 10/20/19 23:22 36.7 C 99 H 22 164/59 H Pulse Ox 10/21/19 04:03 93 10/21/19 03:00 10/21/19 02:30 92 10/21/19 02:01 91 10/21/19 02:00 91 10/21/19 01:30 91 10/21/19 01:01 91 10/21/19 00:30 92 10/21/19 00:05 94 10/21/19 00:04 93 10/20/19 23:36 90 10/20/19 23:24 91 10/20/19 23:22 93 PG Care Time/CCT Total # of Minutes Spent Total Time Spent with Patient: Total time spent is greater than 50% in coordination of care (as documented) at patient's floor/unit and/or counseling patient: Coding Level of Care Code 41214 Inpt Consult Level 5 Diagnoses Abscess of breast, right N61.1
--- NOTE | 2019-10-21 07:25 | XRay Report ---
XR chest 1V portable CLINICAL HISTORY: Hypoxia without shortness of breath COMPARISON STUDY: 02/21/2019 FINDINGS: The study is rotated. There are postsurgical changes of a midline sternotomy. The heart is enlarged. There is aortic tortuosity/ectasia. Mild pulmonary venous hypertension is suspected. There is no evidence for overt edema. There is no focal pulmonary consolidation. There are no significant p leural effusions.[ IMPRESSION: Cardiomegaly with suspected mild pulmonary venous hypertension. Stable aortic tortuosity/ ectasia. No evidence of lobar consolidation ACT 112: Negative or not required by law. Electronically signed by: Josef Patel M.D. 10/21/2019 7:24 AM
--- NOTE | 2019-10-21 07:33 | CT Scan Report ---
CT abd pelvis wo con CT DOSE: 2199.00 mGy.cm HISTORY: Pain. Nausea. Worsening diffuse abdominal pain, no BM several da TECHNIQUE: Multiaxial CT images of the abdomen and pelvis were performed without contrast. A dose lo wering technique was utilized adhering to the principles of ALARA. COMPARISON STUDY: 05/23/2018 FINDINGS: Moderate right breast increasing density combined with a potential skin lesion versus posto perative change. Clinical correlation is suggested. Liver spleen and pancreas are grossly unremarkable. Probable left hepatic lobe cyst. Kidneys show no evidence for hydronephrosis. Prior cholecystectomy. Increased colonic fecal load primarily within the sigmoid and rectosigmoid regions consistent with fe ross stasis and rectosigmoid impaction. No free fluid within the pelvic cul-de-sac. Bladder is midline . IMPRESSION: 1. Rectosigmoid fecal impaction. 2. Fecal stasis. 3. Right breast soft tissue skin skin lesion with clinical follow-up recommended. 4. Prior cholecystectomy. ACT 112: Negative or not required by law. The above report was generated using voice recognition software. It may contain grammatical, syntax or spelling errors. Electronically signed by: Og Devine M.D. 10/21/2019 7:31 AM
[2019-10-21 08:59] LABS: Hematocrit (blood only) 33.6 % (37-47); Hemoglobin 10.8 g/dL (12.0-16.0); Mean Corpuscular Hemoglobin 30.2 pg (25-34); Mean Corpuscular Hgb Conc 32.1 g/dL (32-36); Mean Corpuscular Volume 93.9 fL (80-100); Mean Platelet Volume 9.2 fL (7.4-10.4); Platelet Count 177 K/uL (130-400); RDW Coefficient of Variation 15.4 % (11.5-14.5); RDW Standard Deviation 52.4 fL (36.4-46.3); Red Blood Count 3.58 M/uL (4.2-5.4); White Blood Count 8.19 K/uL (4.8-10.8)
[2019-10-21 09:07] LABS: INR 2.7 (0.9-1.1); Prothrombin Time 26.6 Seconds (9.0-12.0)
[2019-10-21] MEDS: CARBIDOPA/LEVODOPA 25/100MG TAB PO SCH ×3 (09:07→21:48)
[2019-10-21] MEDS: ARIPiprazole 10 MG TAB PO SCH (09:08)
[2019-10-21] MEDS: MULTIVITAMIN TAB PO SCH (09:08)
[2019-10-21] MEDS: PROPRANOLOL HCL 60 MG LA CAP PO SCH (09:08)
[2019-10-21] MEDS: carvediloL 25 MG TAB PO SCH ×2 (09:08→21:32)
[2019-10-21] MEDS: TOPIRAMATE 100 MG TAB PO SCH ×2 (09:08→21:31)
[2019-10-21] MEDS: dilTIAZem HCL 120 MG CAPCR PO SCH (09:09)
[2019-10-21] MEDS: DICLOFENAC SOD 1% GEL 100 GM TUBE EXT SCH ×4 (09:09→21:37)
[2019-10-21] MEDS: lamoTRIgine 100 MG TAB PO SCH ×2 (09:09→21:33)
--- NOTE | 2019-10-21 09:16 | Pharmacy Report ---
Pharmacy Abx Initial Consult - Date of Service October 21, 2019 - Pharmacy Dosing Scope Date of Consult: 10/21/19 Consultation requested by: Dr. Larson Pharmacy is consulted to initiate Vancomycin IV dosing therapy, order appropriate labs and adjust drug dose/frequency. - Subjective The patient is a 74 year old F admitted on 10/21/19 02:25. - Objective Height: 5 ft 8 in Weight: 140.5 kg Vital Signs (Past 12hrs): Vital Signs Temp Pulse Pulse Resp BP BP BP 10/21/19 09:07 103 H 10/21/19 08:00 36.7 C 53 L 18 179/77 H 10/21/19 07:59 37.3 C 103 H 22 101/63 10/21/19 04:03 37.8 C H 102 H 102 H 16 116/51 L 10/21/19 03:00 130/70 10/21/19 02:30 102 H 28 H 10/21/19 02:01 102 H 21 10/21/19 02:00 102 H 19 134/73 10/21/19 01:30 102 H 19 10/21/19 01:01 102 H 20 138/66 10/21/19 00:30 102 H 20 10/21/19 00:05 104 H 17 10/21/19 00:04 103 H 23 131/99 10/20/19 23:36 10/20/19 23:24 102 H 28 H 164/59 H 10/20/19 23:22 36.7 C 99 H 22 164/59 H Pulse Ox 10/21/19 09:07 10/21/19 08:00 99 10/21/19 07:59 94 10/21/19 04:03 93 10/21/19 03:00 10/21/19 02:30 92 10/21/19 02:01 91 10/21/19 02:00 91 10/21/19 01:30 91 10/21/19 01:01 91 10/21/19 00:30 92 10/21/19 00:05 94 10/21/19 00:04 93 10/20/19 23:36 90 10/20/19 23:24 91 10/20/19 23:22 93 Lab Results (24hrs): Laboratory Tests (24 Hours) 10/21/19 10/20/19 10/20/19 08:18 23:32 23:32 WBC 8.19 8.87 Neut # (Auto) 6.78 H Creatinine 0.69 Est Cr Clr Drug Dosing 106.8 Micro Results: 10/20/19 23:44 Aerobic Blood Culture - Pending Blood Anaerobic Blood Culture - Pending 10/20/19 23:32 Aerobic Blood Culture - Pending Blood Anaerobic Blood Culture - Pending - Assessment & Plan Assessment 74 year old F started on Vancomycin for R breast Cellulitis with abscess. Patient has a history of mitral valve vegetation. Plan Vancomycin IV * Estimated PK Parameters: Vd 0.7 L/kg, Kirt 0.087 hr-1, t1/2 ~ 8 hr * Loading dose: 2750 mg (19.6 mg/kg) IV x 1 was given today morning. * Maintenance dose: 1500 mg IV (10.7 mg/kg) every 12 hours * Goal trough level for SSTI: 15 to 20 mcg/mL * Trough Vanc level ordered for 10/22/19 before dose at 2200. * A less than traditional dose and/or extended dosing interval has been selected due to likelihood of drug accumulation in obese patient. Pharmacy will continue to follow and will adjust dose/frequency as necessary. Thank you.
[2019-10-21 09:34] LABS: BUN Creatinine Ratio 13.1 (10-20); Calcium 7.9 mg/dl (8.5-10.1); Creatinine Clr Calc Pharmacy 111.6 ml/min; Est GFR (African American) 100.7; Est GFR (Non-African American) 86.8; Potassium 3.6 mmol/L (3.5-5.1)
[2019-10-21] MEDS: VANCOMYCIN HCL 1,500 MG in SODIUM CHLORIDE 0.9% 500 ML IV SCH ×2 (09:43→21:47)
[2019-10-21] MEDS ORDERED: MICONAZOLE NITRATE POWDER 43 GM EXT PRN (09:51)
[2019-10-21 09:52] LABS: Basophils # (auto) 0.01 K/uL (0-0.2); Basophils % (auto) 0.1 %; Eosinophils # (auto) 0.02 K/uL (0-0.5); Eosinophils % (auto) 0.2 %; Immature Granulocytes # (auto) 0.02 K/uL (0.00-0.02); Immature Granulocytes % (auto) 0.2 %; Lymphocytes # (auto) 1.44 K/uL (1.2-3.4); Lymphocytes % (auto) 17.6 %; Monocytes # (auto) 0.61 K/uL (0.11-0.59); Monocytes % (auto) 7.4 %; Neutrophils # (auto) 6.09 K/uL (1.4-6.5); Neutrophils % (auto) 74.5 %
--- NOTE | 2019-10-21 14:31 | Hospitalist Progress Note ---
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 Admission and Anticipated Discharge Date Admission Date: October 21, 2019 Subjective patient doing better, said she had a small solid BM still with discomfort in her rectal area, feels like she has more stool to pass will continue with the Miralax BID appreciate note from surgery, will monitor INR, once < 2 will plan for I/D of breast abscess vitals stable reviewed labs, reviewed chart from admission Review of Systems Review of Systems: All systems reviewed & are unremarkable except as noted in HPI & below Gastrointestinal: + constipation and + constant urge to pass stools (rectal di scomfort); no abdominal pain, no nausea, no vomiting and no diarrhea/loose stools Physical Exam Constitutional: well developed and + overweight; no acute distress Eyes: PERRL, conjunctivae normal, anicteric sclerae ENMT: external ear and nose normal, oropharynx normal Neck: trachea midline, no thyromegaly Respiratory: normal respiratory effort, lungs clear to auscultation Cardiovascular: RRR, no murmur, no edema Chest (Breasts): Breast: + abnormal inspection of breast (small abscess on breast surface) Gastrointestinal (Abdomen): normal bowel sounds, soft, nontender, no hepatosplenomegaly Musculoskeletal: no cyanosis or clubbing, extremities motor strength 5/5 Skin: no rashes, warm and dry Neurologic: patellar DTR's 2+ bilat, sensation intact and PERRL, EOMI, accommodation nl, no face palsy, no dysarthria Psychiatric: A+Ox3, euthymic affect Lymphatic: no cervical or axillary lymphadenopathy Results & Data Results & Data ([facility]) Vital Signs (Past 12 Hours) Vital Signs Temp Pulse Pulse Resp BP BP Pulse Ox 10/21/19 11:55 37 C 108 H 20 102/59 L 92 10/21/19 09:07 103 H 10/21/19 08:00 36.7 C 53 L 18 179/77 H 99 10/21/19 07:59 37.3 C 103 H 22 101/63 94 10/21/19 04:03 37.8 C H 102 H 102 H 16 116/51 L 93 10/21/19 03:00 130/70 10/21/19 02:30 102 H 28 H 92 Laboratory Results Laboratory Results - last 24 hr 10/20/19 10/20/19 10/20/19 23:32 23:32 23:32 WBC 8.87 RBC 4.07 L Hgb 12.0 Hct 38.4 MCV 94.3 MCH 29.5 MCHC 31.3 L RDW Std Deviation 53.2 H RDW Coeff of Gary 15.4 H Plt Count 194 MPV 9.1 Immature Gran % (Auto) 0.2 Neut % (Auto) 76.5 Lymph % (Auto) 15.4 [place] % (Auto) 7.3 Eos % (Auto) 0.5 Baso % (Auto) 0.1 Immature Gran # (Auto) 0.02 Neut # (Auto) 6.78 H Lymph # (Auto) 1.37 [place] # (Auto) 0.65 H Eos # (Auto) 0.04 Baso # (Auto) 0.01 PT INR Sodium 141 Potassium 3.8 Chloride 111 H Carbon Dioxide 26 Anion Gap 4.0 BUN 9 Creatinine 0.69 Est Cr Clr Drug Dosing 106.8 Est GFR ( Amer) 98.7 Est GFR (Non-Af Amer) 85.2 BUN/Creatinine Ratio 12.8 Glucose 133 H Lactate 1.2 Calcium 8.4 L Magnesium 2.1 Total Bilirubin 0.4 Direct Bilirubin 0.1 AST 11 L ALT 18 Alkaline Phosphatase 87 Troponin I < 0.015 Total Protein 7.2 Albumin 3.0 L Lipase 103 10/20/19 10/21/19 10/21/19 23:32 08:18 08:18 WBC 8.19 RBC 3.58 L Hgb 10.8 L Hct 33.6 L MCV 93.9 MCH 30.2 MCHC 32.1 RDW Std Deviation 52.4 H RDW Coeff of Gary 15.4 H Plt Count 177 MPV 9.2 Immature Gran % (Auto) 0.2 Neut % (Auto) 74.5 Lymph % (Auto) 17.6 [place] % (Auto) 7.4 Eos % (Auto) 0.2 Baso % (Auto) 0.1 Immature Gran # (Auto) 0.02 Neut # (Auto) 6.09 Lymph # (Auto) 1.44 [place] # (Auto) 0.61 H Eos # (Auto) 0.02 Baso # (Auto) 0.01 PT 24.5 H 26.6 H INR 2.4 H 2.7 H Sodium Potassium Chloride Carbon Dioxide Anion Gap BUN Creatinine Est Cr Clr Drug Dosing Est GFR ( Amer) Est GFR (Non-Af Amer) BUN/Creatinine Ratio Glucose Lactate Calcium Magnesium Total Bilirubin Direct Bilirubin AST ALT Alkaline Phosphatase Troponin I Total Protein Albumin Lipase 10/21/19 08:18 WBC RBC Hgb Hct MCV MCH MCHC RDW Std Deviation RDW Coeff of [place] Plt Count MPV Immature Gran % (Auto) Neut % (Auto) Lymph % (Auto) [place] % (Auto) Eos % (Auto) Baso % (Auto) Immature Gran # (Auto) Neut # (Auto) Lymph # (Auto) [place] # (Auto) Eos # (Auto) Baso # (Auto) PT INR Sodium 141 Potassium 3.6 Chloride 112 H Carbon Dioxide 26 Anion Gap 3.0 BUN 9 Creatinine 0.65 Est Cr Clr Drug Dosing 111.6 Est GFR ( Amer) 100.7 Est GFR (Non-Af Amer) 86.8 BUN/Creatinine Ratio 13.1 Glucose 124 H Lactate Calcium 7.9 L Magnesium Total Bilirubin Direct Bilirubin AST ALT Alkaline Phosphatase Troponin I Total Protein Albumin Lipase Medications Administered Current Inpatient Medications Acetaminophen (Tylenol) 1,000 mg PO Q8H PRN PRN Reason: pain/fever Stop: 11/20/19 04:01 Aripiprazole (Abilify) 10 mg PO DAILY [facility] Stop: 11/20/19 08:59 Last Admin: 10/21/19 09:08 Dose: 10 mg Documented by: Atorvastatin Calcium (Lipitor) 20 mg PO HS [facility] Stop: 11/20/19 20:59 Buspirone HCl (Buspar) 5 mg PO BID PRN PRN Reason: Anxiety Stop: 11/20/19 04:01 Carbidopa/Levodopa (Sinemet 25/100 Mg) 2 tab PO TID [facility] Stop: 11/20/19 08:59 Last Admin: 10/21/19 13:44 Dose: 2 tab Documented by: Carvedilol (Coreg) 25 mg PO BID [facility] Stop: 11/20/19 08:59 Last Admin: 10/21/19 09:08 Dose: 25 mg Documented by: Diclofenac Sodium (Voltaren 1% Top) 4 gm EXT QID [facility] Stop: 11/20/19 08:59 Last Admin: 10/21/19 12:04 Dose: 4 gm Documented by: Diltiazem HCl (Cardizem Cd) 120 mg PO DAILY [facility] Stop: 11/20/19 08:59 Last Admin: 10/21/19 09:09 Dose: 120 mg Documented by: Escitalopram Oxalate (Lexapro Tab) 20 mg PO HS [facility] Stop: 11/20/19 20:59 Piperacillin Sod/Tazobactam (Sod 4.5 gm/ Dextrose) 120 mls @ 30 mls/hr IV Q8H [facility]; Protocol Stop: 10/28/19 05:59 Last Admin: 10/21/19 13:44 Dose: 30 mls/hr Documented by: Vancomycin HCl 1,500 mg/ (Sodium Chloride) 530 mls @ 200 mls/hr IV Q12H [facility] Stop: 10/28/19 09:59 Last Infusion: 10/21/19 12:52 Dose: Infused Documented by: Lamotrigine (Lamictal) 200 mg PO BID [facility] Stop: 11/20/19 08:59 Last Admin: 10/21/19 09:09 Dose: 200 mg Documented by: Magnesium Hydroxide (Milk Of Magnesia) 30 ml PO Q6H PRN PRN Reason: Constipation Stop: 11/20/19 04:01 Miconazole Nitrate (Desenex) 1 appln EXT PRN PRN PRN Reason: Affected Skin Folds Stop: 11/20/19 09:50 Miscellaneous Information (Consult) 1 ea N/A UD PRN PRN Reason: Consult Stop: 11/20/19 00:48 Miscellaneous Information (Consult) 1 ea N/A UD PRN PRN Reason: Consult Stop: 11/20/19 00:48 Multivitamins (Multivitamin Tab) 1 tab PO DAILY [facility] Stop: 11/20/19 08:59 Last Admin: 10/21/19 09:08 Dose: 1 tab Documented by: Oxycodone/Acetaminophen (Percocet 5mg/325mg) 1 tab PO Q6H PRN PRN Reason: pain Stop: 11/04/19 04:01 Last Admin: 10/21/19 04:52 Dose: 1 tab Documented by: Polyethylene Glycol (Miralax Powder Packet) 17 gm PO BID [facility] Stop: 11/20/19 04:01 Last Admin: 10/21/19 09:10 Dose: 17 gm Documented by: Potassium Chloride (Klor-Con M20) 40 meq PO BID [facility] Stop: 11/20/19 08:59 Primidone (Primidone) 100 mg PO HS [facility] Stop: 11/20/19 20:59 Primidone (Primidone) 50 mg PO BID@0700,1200 [facility] Stop: 11/20/19 06:59 Last Admin: 10/21/19 12:03 Dose: 50 mg Documented by: Propranolol HCl (Inderal La) 60 mg PO DAILY [facility] Stop: 11/20/19 08:59 Last Admin: 10/21/19 09:08 Dose: 60 mg Documented by: Topiramate (Topamax) 100 mg PO BID [facility] Stop: 11/20/19 08:59 Last Admin: 10/21/19 09:08 Dose: 100 mg Documented by: PG Care Time/CCT Total # of Minutes Spent Total Time Spent with Patient: Total time spent is greater than 50% in coordination of care (as documented) at patient's floor/unit and/or counseling patient: Coding Level of Care Code 25488 Subseq Hosp Care Lvl 2 Diagnoses Abscess of breast, right N61.1 Colitis K52.9 Fecal impaction of colon K56.41 Constipation K59.00 Constipation type: unspecified constipation type Paroxysmal atrial fibrillation I48.0 Anticoagulated on Coumadin Z79.01 Arthritis M19.90 Tremor R25.1 (1) Constipation Constipation type: unspecified constipation type Qualified Code(s): K59.00 - Constipation, unspecified
--- NOTE | 2019-10-21 20:35 | Billing Data ---
Date of Service October 21, 2019 Coding Level of Care Code 17748 Initial Inpt Care Lvl 3
[2019-10-21] MEDS: ESCITALOPRAM OXALATE 20 MG TAB PO SCH (21:34)
[2019-10-21] MEDS: ATORVASTATIN 20 MG TAB PO SCH (21:35)
[2019-10-22] MEDS: PIPERACILLIN/TAZOBACTAM 4.5 GM in DEXTROSE 5% 100 ML IV SCH ×3 (06:43→20:58)
[2019-10-22] MEDS: PRIMIDONE 50 MG TAB PO SCH ×3 (06:44→20:56)
--- NOTE | 2019-10-22 07:26 | Electrocardiogram Report ---
Test Reason : Blood Pressure : / mmHG Vent. Rate : 103 BPM Atrial Rate : 227 BPM P-R Int : 000 ms QRS Dur : 102 ms QT Int : 392 ms P-R-T Axes : 091 043 -34 degrees QTc Int : 513 ms Poor data quality, interpretation may be adversely affected Undertermined regular rhythm Abnormal ECG When compared with ECG of 01-MAR-2019 08:14, HR has increased Confirmed by Red Grande ([id number]) on 10/22/2019 7:26:24 AM Referred By: REFERRED SELF Confirmed By:Red Grande
[2019-10-22] MEDS: MULTIVITAMIN TAB PO SCH (08:30)
[2019-10-22] MEDS: PROPRANOLOL HCL 60 MG LA CAP PO SCH (08:30)
[2019-10-22] MEDS: dilTIAZem HCL 120 MG CAPCR PO SCH (08:30)
[2019-10-22] MEDS: CARBIDOPA/LEVODOPA 25/100MG TAB PO SCH ×3 (08:31→20:56)
[2019-10-22] MEDS: POLYETHYLENE (MIRALAX) 17 GM PACK PO SCH (08:49)
[2019-10-22] MEDS: lamoTRIgine 100 MG TAB PO SCH ×2 (08:50→20:54)
[2019-10-22] MEDS: TOPIRAMATE 100 MG TAB PO SCH ×2 (08:50→20:56)
[2019-10-22] MEDS: carvediloL 25 MG TAB PO SCH ×2 (08:50→20:54)
[2019-10-22] MEDS: DICLOFENAC SOD 1% GEL 100 GM TUBE EXT SCH ×4 (08:51→20:57)
[2019-10-22] MEDS: ARIPiprazole 10 MG TAB PO SCH (09:49)
[2019-10-22 09:52] LABS: Hematocrit (blood only) 35.2 % (37-47); Hemoglobin 11.5 g/dL (12.0-16.0); Mean Corpuscular Hemoglobin 30.3 pg (25-34); Mean Corpuscular Hgb Conc 32.7 g/dL (32-36); Mean Corpuscular Volume 92.9 fL (80-100); Mean Platelet Volume 8.8 fL (7.4-10.4); Platelet Count 169 K/uL (130-400); RDW Coefficient of Variation 15.4 % (11.5-14.5); RDW Standard Deviation 52.1 fL (36.4-46.3); Red Blood Count 3.79 M/uL (4.2-5.4); White Blood Count 7.11 K/uL (4.8-10.8)
[2019-10-22 10:15] LABS: Prothrombin Time 29.5 Seconds (9.0-12.0)
[2019-10-22 10:23] LABS: BUN Creatinine Ratio 10.6 (10-20); Calcium 8.3 mg/dl (8.5-10.1); Creatinine Clr Calc Pharmacy 99.4 ml/min; Est GFR (African American) 93.4; Est GFR (Non-African American) 80.6; Potassium 3.4 mmol/L (3.5-5.1)
--- NOTE | 2019-10-22 10:29 | Surgery Progress Note ---
Date of Service October 22, 2019 Assessment & Plan (1) Abscess of breast, right: clinically improving. continue antibiotics ok to restart coumadin ? d/c tomorrow. pt should f/u with either Dr. Bonita Barahona who she has seen before or myself regarding the breast cyst. (2) Fecal impaction of colon: Subjective pt seen. +large bm's overnight. feeling much better. breast pain only with palpation Physical Exam Physical Exam: alert. nad breast: decreased erythema and drainage. still operator brandy. abd: soft. nt. Results & Data Vital Signs (Past 12 Hours) Vital Signs Temp Pulse Pulse Resp BP Pulse Ox 10/22/19 07:54 37.1 C 103 H 18 112/84 95 10/22/19 07:18 103 H 10/22/19 02:59 37.2 C 108 H 16 141/61 H 92 10/21/19 23:12 37.3 C 104 H 18 149/65 H 91 PG Care Time/CCT Total # of Minutes Spent Total Time Spent with Patient: Total time spent is greater than 50% in coordination of care (as documented) at patient's floor/unit and/or counseling patient: Coding Level of Care Code 31575 Subseq Hosp Care Lvl 2 Diagnoses Abscess of breast, right N61.1 Fecal impaction of colon K56.41
[2019-10-22] MEDS: VANCOMYCIN HCL 1,500 MG in SODIUM CHLORIDE 0.9% 500 ML IV SCH (12:25)
--- NOTE | 2019-10-22 15:06 | Hospitalist Progress Note ---
Date of Service October 22, 2019 Assessment & Plan (1) Abscess of breast, right: Improving from outlined area. Draining. - Switch to PO abx in 1-2 days; plan to follow up with Dr. Barahona or Dr. Naidu in the clinic. - Surgery following (2) Fecal impaction of colon: Improved overnight with multiple soft BMs. - Now watery. Will reduce Miralax to reduce diarrhea. (3) Paroxysmal atrial fibrillation: HR in the 90s. 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 She is relieved that she doesn't need surgery (per her report). Reports no fevers/chills, chest pain, shortness of breath, abdominal pain, nausea, or vomiting. Physical Exam Constitutional: WD/WN, vitals as above Eyes: EOM intact bilaterally; no conjunctival abnormality ENMT: external ear and nose normal, oropharynx normal Neck: trachea midline, no thyromegaly normal visual inspection Respiratory: normal respiratory effort, lungs clear to auscultation no respiratory distress Cardiovascular: RRR, no murmur, no edema Chest (Breasts): Breast: + breast mass (Mildly fluctuant breast mass with redness improving.) and + breast tenderness Gastrointestinal (Abdomen): Inspection/Auscultation: abdomen normal to inspection; abdomen not distended Musculoskeletal: no cyanosis or clubbing, extremities motor strength 5/5 Skin: no rashes, warm and dry Neurologic: moves all extremities and awake Psychiatric: Orientation: alert, oriented to person and cooperative Results & Data Results & Data ([facility]) Vital Signs (Past 12 Hours) Vital Signs Temp Pulse Pulse Resp BP Pulse Ox 10/22/19 12:32 36.5 C 96 H 18 130/87 94 10/22/19 07:54 37.1 C 103 H 18 112/84 95 10/22/19 07:18 103 H PG Care Time/CCT Total # of Minutes Spent Total Time Spent with Patient: Total time spent is greater than 50% in coordination of care (as documented) at patient's floor/unit and/or counseling patient: Coding Level of Care Code 98664 Subseq Hosp Care Lvl 2 Diagnoses Abscess of breast, right N61.1 Fecal impaction of colon K56.41 Paroxysmal atrial fibrillation I48.0 Mitral valve mass I05.8 Anemia D64.9 Depression with anxiety F41.8 Gastroesophageal reflux disease without esophagitis K21.9 Morbid obesity with body mass index of 50 or higher E66.01 Prediabetes R73.03 Peripheral vascular disease I73.9 Hypertension I10 Hypertension type: essential hypertension Tremor R25.1 Colitis K52.9 (1) Hypertension Hypertension type: essential hypertension Qualified Code(s): I10 - Essential (primary) hypertension
[2019-10-22] MEDS: ESCITALOPRAM OXALATE 20 MG TAB PO SCH (20:55)
[2019-10-22] MEDS: ATORVASTATIN 20 MG TAB PO SCH (20:55)
[2019-10-23] MEDS: VANCOMYCIN HCL 1,500 MG in SODIUM CHLORIDE 0.9% 500 ML IV SCH ×2 (00:54→13:10)
[2019-10-23] MEDS: PIPERACILLIN/TAZOBACTAM 4.5 GM in DEXTROSE 5% 100 ML IV SCH ×3 (06:10→21:36)
[2019-10-23] MEDS: PRIMIDONE 50 MG TAB PO SCH ×3 (06:12→21:09)
[2019-10-23 06:17] LABS: Hematocrit (blood only) 34.8 % (37-47); Hemoglobin 11.4 g/dL (12.0-16.0); Mean Corpuscular Hemoglobin 30.6 pg (25-34); Mean Corpuscular Hgb Conc 32.8 g/dL (32-36); Mean Corpuscular Volume 93.5 fL (80-100); Mean Platelet Volume 8.9 fL (7.4-10.4); Platelet Count 177 K/uL (130-400); RDW Coefficient of Variation 15.3 % (11.5-14.5); RDW Standard Deviation 52.1 fL (36.4-46.3); Red Blood Count 3.72 M/uL (4.2-5.4); White Blood Count 5.89 K/uL (4.8-10.8)
[2019-10-23 06:25] LABS: INR 2.8 (0.9-1.1); Prothrombin Time 28.3 Seconds (9.0-12.0)
[2019-10-23 06:44] LABS: BUN Creatinine Ratio 9.2 (10-20); Calcium 8.4 mg/dl (8.5-10.1); Creatinine Clr Calc Pharmacy 108.3 ml/min; Est GFR (African American) 99.7; Magnesium 2.1 mg/dl (1.8-2.4); Potassium 3.3 mmol/L (3.5-5.1)
[2019-10-23] MEDS: dilTIAZem HCL 120 MG CAPCR PO SCH (08:24)
[2019-10-23] MEDS: MULTIVITAMIN TAB PO SCH (08:24)
[2019-10-23] MEDS: ARIPiprazole 10 MG TAB PO SCH (08:24)
[2019-10-23] MEDS: lamoTRIgine 100 MG TAB PO SCH ×2 (08:24→21:08)
[2019-10-23] MEDS: CARBIDOPA/LEVODOPA 25/100MG TAB PO SCH ×3 (08:25→21:09)
[2019-10-23] MEDS: PROPRANOLOL HCL 60 MG LA CAP PO SCH (08:25)
[2019-10-23] MEDS: TOPIRAMATE 100 MG TAB PO SCH ×2 (08:25→21:09)
[2019-10-23] MEDS: carvediloL 25 MG TAB PO SCH ×2 (08:26→21:08)
[2019-10-23] MEDS: DICLOFENAC SOD 1% GEL 100 GM TUBE EXT SCH ×4 (08:26→21:09)
[2019-10-23] MEDS: POTASSIUM CHLORIDE 20 MEQ TABCR PO SCH ×2 (08:28→21:09)
--- NOTE | 2019-10-23 10:09 | Surgery Progress Note ---
Date of Service October 23, 2019 Assessment & Plan (1) Abscess of breast, right: doing well from my standpoint ok for d/c on antibiotics f/u with either myself or Dr. Bonita Barahona regarding the breast cyst. Subjective pt seen. feeling better each day. wants to go home Physical Exam Physical Exam: alert. nad breast continues to improve. less erythema. small amount of purulent fluid manually expressed . Results & Data Vital Signs (Past 12 Hours) Vital Signs Temp Pulse Pulse Pulse Resp BP BP 10/23/19 08:00 37.2 C 105 H 22 149/74 H 10/23/19 07:38 104 H 10/23/19 03:54 37 C 102 H 18 145/77 H 10/23/19 00:18 104 H 10/22/19 23:28 37.2 C 105 H 20 164/80 H Pulse Ox 10/23/19 08:00 94 10/23/19 07:38 10/23/19 03:54 94 10/23/19 00:18 10/22/19 23:28 97 PG Care Time/CCT Total # of Minutes Spent Total Time Spent with Patient: Total time spent is greater than 50% [facility] care (as documented) at patient's floor/unit and/or counseling patient: Coding Level of Care Code 53099 Subseq Hosp Care Lvl 2 Diagnoses Abscess of breast, right N61.1
[2019-10-23] MEDS ORDERED: VANCOMYCIN TROUGH ONE (12:30)
--- NOTE | 2019-10-23 18:08 | Hospitalist Progress Note ---
Date of Service October 23, 2019 Assessment & Plan (1) Abscess of breast, right: IMPROVED s/p vanco & zosyn. Appreciate gen surg consultation and recs. No I/D at this time. Cont IV abx; can likely transition to PO abx tomorrow (would go with keflex/doxy). Needs to see surgery in 3-4 days post-d/c to ensure abscess is resolving and not needing I/D. (2) Fecal impaction of colon: resolved cont bowel maintenance (3) Paroxysmal atrial fibrillation: HR >100 often-times. Increase diltiazem to 180mg daily. Cont coreg. Cont inderal. Resume coumadin; INR 2.8 today; repeat INR am. 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 (5) Anemia: HCT 33-35 and stable (6) Depression with anxiety: cont home meds (7) Gastroesophageal reflux disease without esophagitis: no issues (8) Morbid obesity with body mass index of 50 or higher: (9) Prediabetes: a1c <6% in 04/2019 repeat a1c in am (10) Hypertension: cont home meds (11) Tremor: follows with Dr Allen cont sinemet, primidone and inderal (12) Colitis: probably had mild stercolitis due to impaction -- resolved DVT proph - coumadin can likely d/c home tomorrow PT eval done - at baseline thus cleared for home Admission and Anticipated Discharge Date Admission Date: October 21, 2019 Subjective patient feeling good today. less right breast swelling/tenderness. mild drainage from abscess site. patient states she only stands and transfers from bed to wheelchair at home; does not walk at baseline. good appetite. denies dyspnea. tele - a.fib, rates >100 at times. per staff had large bowel movement yesterday evening and several small since then. Review of Systems Constitutional: no fever and no chills Respiratory: no cough and no dyspnea Cardiovascular: no chest pain Gastrointestinal: no abdominal pain, no nausea, no vomiting and no constipation Physical Exam Constitutional: + morbidly obese; no acute distress and no altered mental status ENMT: external ear and nose normal, oropharynx normal Respiratory: normal respiratory effort, lungs clear to auscultation Auscultation: + diminished lung sounds (bases) Cardiovascular: Rate/Rhythm: + tachycardic and + irregularly irregular Heart Sounds: normal S1 and normal S2; no murmur Vessels: no JVD, + posterior tibial pulses abnormal and + dorsalis pedis pulses abnormal Extremities: no edema Chest (Breasts): Additional Comments: breast exam chaperoned by nursing staff: right breast - moderate area of erythema near the nipple; erythema has receded from previously placed demarkation lines; at 3 o'clock is a firm erythematous lump with central pinhole with scant drainage; no fluctuance; mild tenderness. Gastrointestinal (Abdomen): normal bowel sounds, soft, nontender, no hepatosplenomegaly Psychiatric: A+Ox3, euthymic affect Results & Data Results & Data ([facility]) Vital Signs (Past 12 Hours) Vital Signs Temp Pulse Pulse Resp BP Pulse Ox 10/23/19 16:41 102 H 10/23/19 15:50 37.2 C 110 H 20 131/90 10/23/19 11:35 37 C 113 H 18 154/79 H 94 10/23/19 08:00 37.2 C 105 H 22 149/74 H 94 10/23/19 07:38 104 H Laboratory Results Laboratory Results - last 24 hr 10/23/19 10/23/19 10/23/19 06:06 06:06 06:06 WBC 5.89 RBC 3.72 L Hgb 11.4 L Hct 34.8 L MCV 93.5 MCH 30.6 MCHC 32.8 RDW Std Deviation 52.1 H RDW Coeff of [place] 15.3 H Plt Count 177 MPV 8.9 PT 28.3 H INR 2.8 H Sodium 142 Potassium 3.3 L Chloride 112 H Carbon Dioxide 24 Anion Gap 6.0 BUN 6 L Creatinine 0.67 Est Cr Clr Drug Dosing 108.3 Est GFR ( Amer) 99.7 Est GFR (Non-Af Amer) 86.0 BUN/Creatinine Ratio 9.2 L Glucose 96 Calcium 8.4 L Magnesium 2.1 Vancomycin Trough 10/23/19 12:21 WBC RBC Hgb Hct MCV MCH MCHC RDW Std Deviation RDW Coeff of [place] Plt Count MPV PT INR Sodium Potassium Chloride Carbon Dioxide Anion Gap BUN Creatinine Est Cr Clr Drug Dosing Est GFR ( Amer) Est GFR (Non-Af Amer) BUN/Creatinine Ratio Glucose Calcium Magnesium Vancomycin Trough 15.9 PG Care Time/CCT Total # of Minutes Spent Total Time Spent with Patient: Total time spent is greater than 50% in coordination of care (as documented) at patient's floor/unit and/or counseling patient: Coding Level of Care Code 80729 Subseq Hosp Care Lvl 3 Diagnoses Abscess of breast, right N61.1 Fecal impaction of colon K56.41 Paroxysmal atrial fibrillation I48.0 Mitral valve mass I05.8 Anemia D64.9 Depression with anxiety F41.8 Gastroesophageal reflux disease without esophagitis K21.9 Morbid obesity with body mass index of 50 or higher E66.01 Prediabetes R73.03 Hypertension I10 Hypertension type: essential hypertension Tremor R25.1 Colitis K52.9 (1) Hypertension Hypertension type: essential hypertension Qualified Code(s): I10 - Essential (primary) hypertension
[2019-10-23] MEDS: WARFARIN SOD 2.5 MG TAB PO SCH (20:13)
[2019-10-23] MEDS: ATORVASTATIN 20 MG TAB PO SCH (21:09)
[2019-10-23] MEDS: ESCITALOPRAM OXALATE 20 MG TAB PO SCH (21:09)
[2019-10-23] MEDS: LACTOBACILLUS ACIDOPHILUS (FLORANEX) TAB PO SCH (21:36)
[2019-10-24] MEDS: VANCOMYCIN HCL 1,500 MG in SODIUM CHLORIDE 0.9% 500 ML IV SCH ×2 (01:41→13:46)
[2019-10-24] MEDS: PIPERACILLIN/TAZOBACTAM 4.5 GM in DEXTROSE 5% 100 ML IV SCH (06:19)
[2019-10-24] MEDS: PRIMIDONE 50 MG TAB PO SCH ×3 (06:19→20:25)
[2019-10-24 07:59] LABS: Estimated Average Glucose 111 mg/dl; Hemoglobin A1C 5.5 % (4.5-5.6)
[2019-10-24 08:01] LABS: INR 2.7 (0.9-1.1); Prothrombin Time 27.2 Seconds (9.0-12.0)
[2019-10-24 08:16] LABS: BUN Creatinine Ratio 8.6 (10-20); Calcium 8.5 mg/dl (8.5-10.1); Creatinine Clr Calc Pharmacy 100.7 ml/min; Est GFR (African American) 96.6; Est GFR (Non-African American) 83.3; Potassium 3.2 mmol/L (3.5-5.1)
[2019-10-24] MEDS: LACTOBACILLUS ACIDOPHILUS (FLORANEX) TAB PO SCH ×4 (08:23→20:26)
[2019-10-24] MEDS: PROPRANOLOL HCL 60 MG LA CAP PO SCH (08:23)
[2019-10-24] MEDS: POTASSIUM CHLORIDE 20 MEQ TABCR PO SCH ×2 (08:23→20:25)
[2019-10-24] MEDS: CARBIDOPA/LEVODOPA 25/100MG TAB PO SCH ×3 (08:23→20:25)
[2019-10-24] MEDS: DICLOFENAC SOD 1% GEL 100 GM TUBE EXT SCH ×4 (08:23→20:25)
[2019-10-24] MEDS: TOPIRAMATE 100 MG TAB PO SCH ×2 (08:23→20:26)
[2019-10-24] MEDS: ARIPiprazole 10 MG TAB PO SCH (08:23)
[2019-10-24] MEDS: MULTIVITAMIN TAB PO SCH (08:23)
[2019-10-24] MEDS: carvediloL 25 MG TAB PO SCH ×2 (08:23→20:26)
[2019-10-24] MEDS: lamoTRIgine 100 MG TAB PO SCH ×2 (08:24→20:26)
[2019-10-24] MEDS: dilTIAZem HCL 180 MG CAPCR PO SCH (08:24)
[2019-10-24] MEDS ORDERED: POTASSIUM CHLORIDE 20 MEQ TABCR PO STA (08:35)
--- NOTE | 2019-10-24 09:15 | Pharmacy Report ---
Pharmacy Abx Dose Short Note - Date of Service October 24, 2019 - Assessment & Plan Assessment * Ms Winn is a 74 year old F started on Vancomycin for R breast Cellulitis with abscess. * Patient has a history of mitral valve vegetation. * Day #4 of antimicrobial therapy. * Trough level was obtained yesterday. Plan Vancomycin * Patient meets criteria for vancomycin AUC dosing nomogram * AUC/ARUN is the preferred PK/PD target for vancomycin * Target AUC/ARUN = 400-600 * Trough level of 15.9 mcg/mL is predicted to achieve target AUC/ARUN * AUC guided dosing is effective and associated with decreased risk of nephrotoxicity * Will check another trough level tomorrow to evaluate for vancomycin accumulation, which is likely to occur in the obese pt population (pt's BMI 46 kg/m2). Zosyn 4.5gm IV q8h Pharmacy will continue to follow and will adjust dose/frequency as necessary. Thank you.
[2019-10-24] MEDS ORDERED: LIDOCAINE HCL 1% 20 ML VIAL ONE (10:14)
--- NOTE | 2019-10-24 10:36 | Surgery Progress Note ---
Date of Service October 24, 2019 Assessment & Plan (1) Abscess of breast, right: will plan for I&D at bedside later today Subjective feels the same Physical Exam Chest (Breasts): Additional Comments: 1 cm area fluctuance above previous draining area Results & Data Vital Signs (Past 12 Hours) Vital Signs Temp Pulse Pulse Resp BP Pulse Ox 10/24/19 09:00 103 H 10/24/19 07:21 36.9 C 102 H 18 160/81 H 91 10/24/19 04:37 37.2 C 104 H 18 149/83 H 95 10/24/19 00:07 36.8 C 103 H 20 106/67 92 10/23/19 23:21 101 H PG Care Time/CCT Total # of Minutes Spent Total Time Spent with Patient: Total time spent is greater than 50% in coordination of care (as documented) at patient's floor/unit and/or counseling patient: Coding Level of Care Code 76972 Subseq Hosp Care Lvl 1 Diagnoses Abscess of breast, right N61.1
[2019-10-24] MEDS ORDERED: Nursing to Pharmacy Communication ONE (14:45)
[2019-10-24] MEDS ORDERED: LIDOCAINE HCL 1% 20 ML VIAL INFIL ONE (15:00)
--- NOTE | 2019-10-24 15:07 | Hospitalist Progress Note ---
Date of Service October 24, 2019 Assessment & Plan (1) Abscess of breast, right: with cellulitis. cellulitis portion continues to improve with IV vanco & zosyn but abscess seems larger today. I am concerned, despite some modest spontaneous drainage, that it needs formal I/D. I spoke with Dr Naidu from surgery who will re-eval. I believe we can stop the zosyn and continue forward with IV vanco by itself for now. If I/D occurs today can likely transition to PO abx tomorrow (would go with keflex/doxy or similar depending on culture results from I/D). (2) Fecal impaction of colon: resolved cont bowel maintenance (3) Paroxysmal atrial fibrillation: HR continues to be about 100 most times of the day. Increase diltiazem to 180mg today. Cont coreg. Cont inderal. Cont coumadin; INR therapeutic today. INR in am. If HRs continue >100 then adjust cardizem again. 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 (5) Anemia: HCT 33-35 and stable (6) Depression with anxiety: cont home meds (7) Gastroesophageal reflux disease without esophagitis: no issues (8) Morbid obesity with body mass index of 50 or higher: (9) Prediabetes: a1c again <6% today (10) Hypertension: cont home meds (11) Tremor: follows with Dr Allen cont sinemet, primidone and inderal (12) Colitis: probably had mild stercolitis due to impaction -- resolved DVT proph - coumadin PT eval done - at baseline thus cleared for home since I/D is needed no discharge today update today Admission and Anticipated Discharge Date Admission Date: October 21, 2019 Subjective patient w/o complaints. feels good. no pain in breast. moving bowels; no abd pain. eating well. tele overnight - a.fib, rates about 100 most times. Review of Systems Constitutional: no fever and no chills Respiratory: no cough and no dyspnea Cardiovascular: no chest pain Gastrointestinal: no abdominal pain Physical Exam Constitutional: + morbidly obese; no acute distress and no altered mental status ENMT: external ear and nose normal, oropharynx normal Respiratory: normal respiratory effort, lungs clear to auscultation Auscultation: + diminished lung sounds (bases) Cardiovascular: Rate/Rhythm: + tachycardic and + irregularly irregular Heart Sounds: normal S1 and normal S2; no murmur Vessels: no JVD, + posterior tibial pulses abnormal and + dorsalis pedis pulses abnormal Extremities: no edema Chest (Breasts): Additional Comments: right breast - exam chaperoned by nursing staff: cellulitis much improved; erythema again has continued to retreat from demarkation lines. At 3 o'clock there is a firm yet fluctuant subcutaneous abscess, about 2 inches in diameter. The previous pinhole that was exuding purulent material has closed. There is a new opening just superior exudating purulent material. Overlying erythema on top of the abscess. Mild tenderness to palpation. Gastrointestinal (Abdomen): normal bowel sounds, soft, nontender, no hepatosplenomegaly Psychiatric: A+Ox3, euthymic affect Results & Data Results & Data ([facility]) Vital Signs (Past 12 Hours) Vital Signs Temp Pulse Pulse Resp BP Pulse Ox 10/24/19 11:13 37.0 C 104 H 18 161/65 H 92 10/24/19 09:00 103 H 10/24/19 07:21 36.9 C 102 H 18 160/81 H 91 10/24/19 04:37 37.2 C 104 H 18 149/83 H 95 Laboratory Results Laboratory Results - last 24 hr 10/24/19 10/24/19 10/24/19 07:17 07:17 07:17 PT 27.2 H INR 2.7 H Sodium 144 Potassium 3.2 L Chloride 114 H Carbon Dioxide 25 Anion Gap 5.0 BUN 6 L Creatinine 0.71 Est Cr Clr Drug Dosing 100.7 Est GFR ( Amer) 96.6 Est GFR (Non-Af Amer) 83.3 BUN/Creatinine Ratio 8.6 L Glucose 95 Estimat Average Glucose 111 Hemoglobin A1c 5.5 Calcium 8.5 PG Care Time/CCT Total # of Minutes Spent Total Time Spent with Patient: Total time spent is greater than 50% in coordination of care (as documented) at patient's floor/unit and/or counseling patient: Coding Level of Care Code 74548 Subseq Hosp Care Lvl 2 Diagnoses Abscess of breast, right N61.1 Fecal impaction of colon K56.41 Paroxysmal atrial fibrillation I48.0 Mitral valve mass I05.8 Anemia D64.9 Depression with anxiety F41.8 Gastroesophageal reflux disease without esophagitis K21.9 Morbid obesity with body mass index of 50 or higher E66.01 Prediabetes R73.03 Hypertension I10 Hypertension type: essential hypertension Tremor R25.1 Colitis K52.9 (1) Hypertension Hypertension type: essential hypertension Qualified Code(s): I10 - Essential (primary) hypertension
[2019-10-24] MEDS: WARFARIN SOD 2.5 MG TAB PO SCH (16:37)
--- NOTE | 2019-10-24 16:39 | Operative Report ---
PG Post Operative Report Pre & Post Diagnosis pre: right breast abcess post: same I identified the patient and participated in the time-out.: Yes Procedure Incision and drainage of right breast abscess Surgeon Philip Naidu DO Home Care Aide MILY Roe Estimated Blood Loss 5 Findings Consistent with Post-Op Diagnosis Specimens None Description of Procedure In the patient's hospital room and after consent was obtained the patient was placed in supine position. The right breast was sterilely prepped and draped in usual fashion. Approximately 10 cc of Marcaine with epinephrine was injected around the area of the abscess. A 15 blade scalpel was used to make an incision over the palpable abscess. A moderate amount of purulent fluid as well as caseous material was obtained. This was all expressed manually. The wound was then thoroughly irrigated and packed with quarter inch plain packing and a sterile dressing was applied. The patient tolerated the procedure well. My physician assistant research scientist was present the entire case and assisted with the entire procedure. I attest to the content of the Intraoperative Record and any orders documented therein. Any exceptions are noted below.
[2019-10-24] MEDS: ESCITALOPRAM OXALATE 20 MG TAB PO SCH (20:26)
[2019-10-24] MEDS: ATORVASTATIN 20 MG TAB PO SCH (20:26)
[2019-10-25] MEDS: VANCOMYCIN HCL 1,500 MG in SODIUM CHLORIDE 0.9% 500 ML IV SCH (00:43)
[2019-10-25] MEDS: PRIMIDONE 50 MG TAB PO SCH (06:03)
[2019-10-25] MEDS: OXYCODONE/ACETAMINOPHEN 5mg/325mg TAB PO PRN (06:22)
[2019-10-25 06:33] LABS: INR 3.1 (0.9-1.1); Prothrombin Time 30.9 Seconds (9.0-12.0)
[2019-10-25 06:42] LABS: BUN Creatinine Ratio 7.1 (10-20); Calcium 8.4 mg/dl (8.5-10.1); Creatinine Clr Calc Pharmacy 103.6 ml/min; Est GFR (African American) 98.7; Est GFR (Non-African American) 85.2; Potassium 3.8 mmol/L (3.5-5.1)
[2019-10-25] MEDS: LACTOBACILLUS ACIDOPHILUS (FLORANEX) TAB PO SCH (08:40)
[2019-10-25] MEDS: dilTIAZem HCL 180 MG CAPCR PO SCH (08:41)
[2019-10-25] MEDS: ARIPiprazole 10 MG TAB PO SCH (08:41)
[2019-10-25] MEDS: TOPIRAMATE 100 MG TAB PO SCH (08:41)
[2019-10-25] MEDS: lamoTRIgine 100 MG TAB PO SCH (08:42)
[2019-10-25] MEDS: CARBIDOPA/LEVODOPA 25/100MG TAB PO SCH (08:42)
[2019-10-25] MEDS: carvediloL 25 MG TAB PO SCH (08:42)
[2019-10-25] MEDS: MULTIVITAMIN TAB PO SCH (08:42)
[2019-10-25] MEDS: POTASSIUM CHLORIDE 20 MEQ TABCR PO SCH (08:43)
[2019-10-25] MEDS: PROPRANOLOL HCL 60 MG LA CAP PO SCH (08:43)
[2019-10-25] MEDS: DICLOFENAC SOD 1% GEL 100 GM TUBE EXT SCH (08:44)
--- NOTE | 2019-10-25 09:08 | Discharge Summary ---
Date of Service date of admission - October 21, 2019 date of discharge - October 25, 2019 Admission HPI Per Admitting Provider Ms. Winn is a very pleasant 74-year-old female with a past medical history of peripheral arterial disease, hypertension, hyperlipidemia, essential tremor/Parkinson's disease, mitral valve vegetation, and paroxysmal A. fib who presented to [facility] due to severe constipation and right breast pain. She notes that her abdominal pain is 10/10 in severity, and started 2 days ago. Her pain comes in waves, every 2-3 minutes, and she feels like she needs to have a bowel movement. She states that she has had trouble with constipation in the past, but it has never been this severe. She denies nausea or vomiting, or fever. She denies chest pain, but reports feeling slightly short of breath due to the pain. She states that she was not taking a stool softener up until today, when her primary care provider started her on milk of magnesia. She states that in the past, she was treated for diarrhea and fecal incontinence with cholestyramine. She also notes right breast pain, tenderness, and swelling. She states that she was started on Keflex for this today, and has taken 1 dose. Of note, she takes Coumadin on a daily basis for a history of paroxysmal atrial fibrillation, and a vegetation on her mitral valve. She took her last dose on the evening of 10/20/2019. Principal Diagnosis 1. right breast abscess 2. fecal impaction/stercoral colitis Discharge Exam Constitutional + morbidly obese; no acute distress and no altered mental status ENMT external ear and nose normal, oropharynx normal Respiratory normal respiratory effort, lungs clear to auscultation Auscultation: + diminished lung sounds (bases) Cardiovascular Rate/Rhythm: + tachycardic and + irregularly irregular Heart Sounds: normal S1 and normal S2; no murmur Vessels: no JVD, + posterior tibial pulses abnormal and + dorsalis pedis pulses abnormal Extremities: no edema Chest (Breasts) Additional Comments: right breast - exam supervised by nurse felter tennis balls - packing material in place in breast abscess; minimal erythema surrounding the abscess site and the leading edge of erythema has retreated nicely from the previously placed demarkation lines Gastrointestinal (Abdomen) normal bowel sounds, soft, nontender, no hepatosplenomegaly Neurologic Motor/Sensory: + tremor Psychiatric A+Ox3, euthymic affect Discharge Data Allergies Allergy/AdvReac Type Severity Reaction Status Date / Time haloperidol Allergy Unknown Verified 10/21/19 00:44 paroxetine Allergy Unknown Verified 10/21/19 00:44 amoxicillin [From Augmentin] AdvReac Severe Diarrhea Verified 10/21/19 00:44 clavulanic acid AdvReac Severe Diarrhea Verified 10/21/19 00:44 [From Augmentin] Consultations Consult General Surgery - Tray Naidu DO Case Management - Discharge Planning PT, OT Procedures Performed Incision & Drainage of right breast abscess - Tray Naidu DO Ordered Studies CT abd/pelvis - 1. Rectosigmoid fecal impaction. 2. Fecal stasis. 3. Right breast soft tissue skin skin lesion with clinical follow-up recommended. 4. Prior cholecystectomy. Hospital Course (1) Abscess of breast, right: with cellulitis. cellulitis portion improved with IV vanco & zosyn but abscess persisted. She did have spontaneous drainage of the abscess at one point but not enough to allow resolution. Thus, general surgery - Dr Tray Naidu - ultimately performed incision/drainage. The abscess cavity was packed with packing material. At discharge the patient will need daily dressing changes for 4-5 days. Home health was arranged to assist with this. Oral antibiotics in the form of keflex and doxycycline were recommended at discharge. She will follow-up with Dr Naidu's office post-discharge. (2) Fecal impaction of colon: resolved with enemas, etc. impaction was quite severe. cont bowel maintenance - suggested miralax with sennakot. (3) Paroxysmal atrial fibrillation: HRs were suboptimal while hospitalized despite 3 AV jose agents. Her diltiazem was increased to 180mg and despite such her rates were still 100 or more. Thus, at discharge, cardizem CD was increased to 240mg daily. She will continue coreg and inderal as previous. Cont inderal. INR was 3.1 on day of discharge. Recommended she HOLD coumadin on day of discharge, then resume coumadin the day after discharge. A repeat INR will be needed within 3-4 days to ensure stability. 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 (5) Anemia: HCT 33-35 and stable during the stay (6) Depression with anxiety: cont home meds (7) Gastroesophageal reflux disease without esophagitis: no issues (8) Morbid obesity with body mass index of 50 or higher: (9) Prediabetes: a1c <6% during this visit (10) Hypertension: cont home meds (11) Tremor: follows with Dr Allen cont sinemet, primidone and inderal (12) Colitis: probably had mild stercoral colitis due to impaction -- resolved Total Time Total Time Spent Total Time Spent (In Minutes): 45 Total Time Includes: Examination of the Patient, Discharge Planning and Medication Reconciliation Discharge Plan Discharge Items Patient Disposition: Home - Home Health Services Reason For Visit: BREAST ABSCESS, FECAL IMPACTION Discharge Diagnosis: 1. right sided breast abscess with cellulitis (skin infection) - incision/drainage by Dr Naidu on 10/24/2019 - IMPROVED 2. fecal impaction with resulting abdominal pain - resolved 3. atrial fibrillation; INR (coumadin level) at discharge 3.1 Activity: Resume your previous activity Bathing Comment: keep right breast clean/dry during baths; keep dressings dry Non-emergency contact: Primary Care Provider and Surgeon Call non-emergency contact if: you have any medication questions, your symptoms worsen, your pain is not controlled, your pain is worsening, you have a fever, your wound has increased redness, your wound has increased drainage and your wound pain has increased Follow-up/Referrals: Chris Moore III, CRNP [Primary Care Provider] - 10/30/19 9:20 am (see Chris Moore on Wednesday of this week or Wednesday of next week at latest. Your appointment is set for October 29 at 9:20 am.) Philip Naidu, DO [Surgeon] - (see Dr Naidu or his PA within 1 week ) Diet: Heart Healthy Fluids: 1800ml (7 cups) Addtl Attending Provider Instructions: You were treated for the problems listed above in "discharge diagnoses." Your right breast abscess and cellulitis improved with IV antibiotics and incision/drainage by Dr Naidu. Your constipation/fecal impaction improved with enemas and laxatives. Medications for your a.fib were adjusted. Recommendations - 1. home health will be coming to your home to change your dressings in the right breast. Ideally they come daily but we can likely get by with every other day dressing changes. If the packing material accidentally comes out at any time do not try to put it back in; just leave it out. Recommend packing/dressing changes for the next 5 days. 2. antibiotics - * you should have keflex (cephalexin) at home that was previously prescribed * take this for 7 days; it is three times daily * you can discard any remaining pills when 7 days is up * I have also prescribed a 2nd antibiotic called doxycycline; take this twice d aily for 7 days * occasionally doxycycline causes heartburn; it can also cause a rash if you go out in the sun while taking the antibiotic; cover up/use sunscreen 3. yeast in mouth/on tongue - * take nystatin solution 5cc 4 times a day for 7 days; swish and swallow 4. We have INCREASED your diltiazem (cardizem) medication for your a.fib to 240mg once daily. Start this on , 10/26/2019. New prescription sent to pharmacy for you. 5. HOLD your coumadin on 10/25/2019. Resume on , 10/26/19. Your INR today is 3.1. Please have your INR (coumadin level) checked on 10/27/19, if possible as the antibiotics for your infection alter the coumadin level. 6. constipation - to prevent constipation you can take a combination of [id number] miralax plus/minus senakot. Take 1 or both daily. Follow-up - see separate section Return to [facility] if - * you have fever over 100.5 degrees * you have worsening redness, swelling, pain, or drainage from the right breast * you have worsening shortness of breath * you have severe constipation or severe diarrhea * any other concerns Pending Studies at Discharge: No Stand-Alone Forms: My [facility], Smoking Cessation Medications and DC Order Prescriptions: New doxycycline hyclate 100 mg capsule 100 mg PO BID 7 Days Qty: 14 RF: 0 Saccharomyces boulardii 250 mg capsule 250 mg PO DAILY 10 Days Qty: 10 RF: 0 nystatin 100,000 unit/mL suspension 5 ml PO QID 7 Days Qty: 200 RF: 0 diltiazem HCl 240 mg capsule,extended release 24hr 240 mg PO DAILY Qty: 30 RF: 5 Continued warfarin 2.5 mg tablet 2.5 mg PO DAILY Qty: 60 RF: 2 propranolol 60 mg capsule,extended release 24 hr 60 mg PO DAILY Qty: 30 RF: 5 atorvastatin 20 mg tablet 20 mg PO HS Qty: 90 RF: 1 diclofenac sodium [Voltaren] 1 % gel 4 gm TOP QID Qty: 100 RF: 2 potassium chloride 20 mEq tablet,ER particles/crystals 40 meq PO BID Qty: 120 RF: 5 acetaminophen 500 mg capsule 1,000 mg PO Q6H PRN (Reason: pain) RF: 0 oxycodone-acetaminophen 5-325 mg tablet 1 tab PO Q6H PRN (Reason: pain) Qty: 30 RF: 0 carvedilol 25 mg tablet 25 mg PO BID Qty: 90 RF: 3 flaxseed oil 1,000 mg capsule 1,000 mg PO TID RF: 0 lamotrigine 200 mg tablet 200 mg PO BID RF: 0 escitalopram oxalate 20 mg tablet 20 mg PO HS RF: 0 topiramate 100 mg tablet 100 mg PO BID RF: 0 multivitamin [Once Daily] Tablet 1 tab PO DAILY RF: 0 aspirin [Aspirin Low Dose] 81 mg Tablet,Delayed Release (Dr/Ec) 81 mg PO DAILY RF: 0 carbidopa-levodopa 25-100 mg tablet 2 tab PO TID RF: 0 primidone 50 mg tablet 50 mg PO BID Qty: 0 RF: 0 primidone 50 mg Tablet 100 mg PO HS RF: 0 aripiprazole 10 mg tablet 10 mg PO DAILY RF: 0 buspirone 5 mg tablet 2.5 - 5 mg PO BID PRN (Reason: Anxiety) RF: 0 cephalexin [Keflex] 500 mg capsule 500 mg PO TID 10 Days Qty: 30 RF: 0 Discharge Orders: Discharge Order (Routine); Ordered 10/25/19 Ordered By: Liborio Mattson Admission Data Admit Date/Time: 10/21/19 02:25 Attending Provider: Liborio Mattson Admit Provider: Allison Gonzalez Primary Care Provider: Chris Moore III Other Providers: Tucker Ortez ; Bry Moreno ; Rupert Forrest ; Alfredo Roe Jr ; Philip Naidu ; Osmin Mayfield ; Paris Rueda ; Johnathon Orozco ; De La Torre,Perry J. Other Interventions: Discharge Summary Assessment (RN) Last Done: 10/25/19 09:52 DC Date/Time DO NOT enter until pt leaves facility: 10/25/19 11:03 Coding Level of Care Code D/C Day Management >30 mins Diagnoses Abscess of breast, right N61.1 Fecal impaction of colon K56.41 Paroxysmal atrial fibrillation I48.0 Mitral valve mass I05.8 Anemia D64.9 Depression with anxiety F41.8 Gastroesophageal reflux disease without esophagitis K21.9 Morbid obesity with body mass index of 50 or higher E66.01 Prediabetes R73.03 Hypertension I10 Hypertension type: essential hypertension Tremor R25.1 Colitis K52.9
== END 2019-10-25 11:03 | disposition home health service (06) | DRG 600 ==
LOC: ED 23:15 → 2N 10-21 02:25 → SUATTDRO 10-21 02:25 → 2N 10-21 03:08

== ENCOUNTER 2021-01-02 10:16 | Observation (INO) ==
--- NOTE | 2021-01-02 12:31 | Emergency Department Note ---
Impression & Plan Acute pain of left knee ED Provider Note INFORMANT: Patient ED PROVIDER(S): Kemal Villaseñor MD CHIEF COMPLAINT: Left knee pain PLAN: Disposition: Admitted Condition: Good Outpatient prescription management: none Referral: None MEDICAL DECISION MAKING: Patient presented to emergency room complaining of left knee pain. She noted severe pain earlier today and the pain is easing up somewhat. Unfortunate the patient is debilitated and required 4 people to help transfer her out into the litter. She cannot bear weight. She underwent a work-up. Her CBC and chemistry panel unremarkable. Uric acid level was within normal limits. X-ray imaging reveals degenerative changes but no evidence of fracture or dislocation. The patient's INR is therapeutic making DVT unlikely. Given the lateral tenderness I suspect more of an arthritic component. I discussed different management options with her. Unfortunately the patient cannot bear weight to help even transfer herself. Nursing raised concerns and I discussed this with the assistant case manager. Unfortunately the patient cannot go directly to a rehab facility and would require evaluation and management in the hospital here first. Patient is comfortable with that plan. Consultation was made with Dr. Dennis Fernandes of the [facility] service. Patient was evaluated in the ER for further management. Triage Nursing notes reviewed and agree them. Vital Signs: reviewed and remarkable for no significant abnormalities Differential diagnosis: Bursitis, arthritis, DVT, musculoskeletal, infection, joint effusion, trauma, as well as other pathologies. Diagnostics interpreted by me: ECG: none Cardiac Monitoring: X-ray imaging of the left knee reveals degenerative changes. No acute fracture or dislocation noted. Imaging studies: I refer you to the EMR for further details. HPI: The patient is a 75 year old female who presents to the Emergency Room with complaints of left knee pain. This started a few weeks ago and is worsening over the last several days. The patient also notes the following associated symptoms, difficulty walking and standing.. The patient has tried [id number] Voltaren gel for relieving factors. Current pain is rated as 5/10. Patient has a history of chronic right foot drop, DVT, and tremors. She is currently anticoagulated on Coumadin. Notes feeling well otherwise. She denies any trauma. Pt denies LOC, headache, fevers, chills, diaphoresis, visual changes, neck pain, chest pain, breathing difficulties, nausea, vomiting, abdominal pain, back pain, melena, hematochezia, urinary symptoms, numbness, weakness, lymphadenopathy, rash, or other complaints. ROS: See above HPI for pertinent positives & negatives. A total of 10 systems reviewed and were otherwise negative. PAST MEDICAL HISTORY:See Below , hypertension, DVT PAST SURGICAL HISTORY:See Below, FAMILY HISTORY:See Below SOCIAL HISTORY:See Below, lives alone, has home care. HOME MEDICATIONS:See Below ALLERGIES:See Below VITALS:See Below PHYSICAL EXAMINATION: GENERAL: Awake, alert, well-appearing, in no distress HENT: Normocephalic, atraumatic. Oropharynx unremarkable. EYES: Normal conjunctiva. Sclera non-icteric. NECK: Inspection normal. Non-tender. Supple. No nuchal rigidity. FROM. No masses. RESPIRATORY: Clear to auscultation. No wheezes. No rales. Normal respiratory effort. CARDIAC: Normal rate. Normal rhythm. No murmurs. No rubs. Extremities warm and well perfused. Pulses equal. No JVD. GI: Soft, non-distended. No tenderness to palpation. No rebound or guarding. No masses. RECTAL: Deferred. MUSCULOSKELETAL: Atraumatic. No joint edema. There is mild tenderness to palpation over the medial aspect of the left knee. No laxity to varus or valgus strain. Range of motion well-preserved. No erythema. No warmth. Calves are equal size bilaterally and non-tender. 1+ edema. No discoloration. NEURO: Normal sensorium. No sensory or motor deficits noted. SKIN: No rash or jaundice noted. Kemal Villaseñor MD Past Med/Surg History Medical History Ambulatory dysfunction Anemia Anticoagulant long-term use Depression with anxiety Disc degeneration, lumbar Esophageal dilatation Femoral artery occlusion, right Fluid retention Gastroesophageal reflux disease without esophagitis Generalized anxiety disorder Hyperlipidemia Hypertension Idiopathic neuropathy Mitral valve mass Numbness in right leg Obesity Obstruction of esophagus due to food impaction OCD (obsessive compulsive disorder) Osteoarthritis PTSD (post-traumatic stress disorder) Pulmonary emboli Tracheomalacia Tremor (10/13/11) Tricuspid regurgitation Ulcer of left thigh Venous insufficiency Vertigo Surgical History History of breast biopsy History of cataract surgery BILATERAL History of cholecystectomy (2018) History of colonoscopy History of dental surgery History of embolectomy History of lung surgery for pulmonary emboli History of tonsillectomy History of tooth extraction Status post incision and drainage (10/21/19) Incision and drainage of right breast abscess 10/21/19 Dr. Naidu Family History Mother Cardiac disorder Hypertension Myocardial infarction Aunt Breast cancer Denies family history of Ovarian cancer Prostate cancer Colorectal cancer Social History Smoking Status: Never smoker Second Hand Exposure: No; Hx Alcohol Use: No Hx Substance Use: No Preferred Language: Upper Sorbian Communication Ability: Effective Visual Impairment: No Limitations Hearing Ability: Normal Rehab Trainer Required: No Beliefs That Will Affect Care: None marital status: Current Living Situation: Spouse Current Living Situation Comment: lives in apartment with current occupational status: retired Feels Safe at Home: Yes Childhood Exposure to Second-Hand Smoke: No Dental Care, Regularly: No Physical Activity Frequency: Does not Exercise Seatbelt Use: always Sunscreen Use: No Do you think of yourself as: straight/heterosexual Assistive Devices: Wheelchair Allergies Allergies Allergy/AdvReac Type Severity Reaction Status Date / Time No Known Drug Allergies Allergy Verified 01/02/21 12:24 Home Meds Home Medications Medication Instructions Recorded Confirmed escitalopram oxalate 20 mg tablet 20 mg PO HS 02/12/18 01/02/21 lamotrigine 200 mg tablet 200 mg PO BID 02/12/18 01/02/21 topiramate 100 mg tablet 100 mg PO BID 02/12/18 01/02/21 aripiprazole 10 mg tablet 10 mg PO QAM 02/21/19 01/02/21 acetaminophen 500 mg capsule 1,000 mg PO Q6H PRN cap 03/28/19 01/02/21 carbidopa 25 mg-levodopa 100 mg 2 tab PO TID tab 07/10/19 01/02/21 tablet flaxseed oil 1,000 mg capsule 1,000 mg PO TID 07/10/19 01/02/21 buspirone 5 mg tablet 2.5 - 5 mg PO BID PRN 10/21/19 01/02/21 primidone 50 mg tablet 100 mg PO TID 03/21/20 01/02/21 multivitamin 1 tab PO QAM 01/02/21 01/02/21 Previous Rx's Medication Instructions Recorded furosemide 20 mg tablet 20 mg PO DAILY PRN #30 tab 01/26/20 diclofenac sodium 1 % topical gel 4 g TOP QID #100 gm 04/12/20 (Voltaren) diltiazem HCl 240 mg 240 mg PO QAM #90 cap 04/22/20 capsule,extended release 24 hr atorvastatin 20 mg tablet 20 mg PO HS #90 tab 07/18/20 Long length pads, max absorbency #100 ea 10/11/20 Women underwear pull up briefs, #100 ea 10/11/20 Max absorbency underpads for chairs, Max #100 ea 10/11/20 absorbency potassium chloride 20 mEq 40 meq PO BID #120 tab 10/17/20 tablet,extended release(part/cryst) melatonin 3 mg capsule 3 mg PO HS PRN #30 cap 10/28/20 miconazole nitrate 2 % topical 1 applic TOPICAL DAILY #85 g 10/28/20 powder (Desenex) aspirin 81 mg tablet,delayed 81 mg PO QAM #90 tab 11/07/20 release (Aspirin Low Dose) acetic acid 2 % ear solution 5 drp OTIC (EAR) QID #15 ml 11/14/20 silver sulfadiazine 1 % topical 1 applic TOPICAL BID #400 g 11/14/20 cream (Silvadene) propranolol 60 mg capsule,24 60 mg PO QAM #90 cap 11/15/20 hr,extended release Premoistened adult wipes #100 ea 11/18/20 underpads #300 ea 11/18/20 underpads 30" X 30" #100 ea 11/18/20 loperamide 2 mg capsule (Imodium 2 mg PO Q6H PRN #30 cap 11/19/20 A-D) polyethylene glycol 3350 17 17 g PO DAILY #238 g 11/19/20 gram/dose oral powder (Miralax) warfarin 2.5 mg tablet 2.5 mg PO QAM #60 tab 11/28/20 carvedilol 25 mg tablet 25 mg PO BID #60 tab 12/17/20 oxycodone-acetaminophen 5 mg-325 1 tab PO Q6H PRN #90 tab 01/02/21 mg tablet Results & Data (ED) Vital Signs Vital Signs - 24 hr 01/02/21 10:18 01/02/21 12:01 01/02/21 14:00 Temperature 36.3 C L Temperature Source Temporal Artery Scan Pulse Rate 84 110 H 68 Pulse Rate from SpO2 Sensor 66 68 Respiratory Rate 20 16 12 Blood Pressure 148/71 H 142/68 H 141/65 H Blood Pressure Mean 96 92 90 Pulse Oximetry 91 93 95 Oxygen Delivery Method Room Air Sepsis Recent Fever Within 48 Hours No Sepsis New/Unexplained Change in Mental Status N/A Sepsis Action Taken by Nursing No Action Required 01/02/21 14:30 01/02/21 15:01 Temperature Temperature Source Pulse Rate 72 75 Pulse Rate from SpO2 Sensor 73 75 Respiratory Rate 20 20 Blood Pressure 146/91 H 117/79 Blood Pressure Mean 109 91 Pulse Oximetry 97 95 Oxygen Delivery Method Sepsis Recent Fever Within 48 Hours Sepsis New/Unexplained Change in Mental Status Sepsis Action Taken by Nursing Laboratory Data Result diagrams: 01/02/21 12:51 01/02/21 12:51 Lab Results 01/02/21 01/02/21 01/02/21 Range/Units 12:51 12:51 12:51 WBC 5.24 (4.8-10.8) K/uL RBC 3.86 L (4.2-5.4) M/uL Hgb 12.4 (12.0-16.0) g/dL Hct 38.2 (37-47) % MCV 99.0 (80-100) fL MCH 32.1 (25-34) pg MCHC 32.5 (32-36) g/dL RDW Std Deviation 53.3 H (36.4-46.3) fL RDW Coeff of Gary 14.7 H (11.5-14.5) % Plt Count 173 (130-400) K/uL MPV 9.0 (7.4-10.4) fL Immature Gran % (Auto) 0.2 % Neut % (Auto) 58.2 % Lymph % (Auto) 33.4 % [place] % (Auto) 5.9 % Eos % (Auto) 1.9 % Baso % (Auto) 0.4 % Neut # (Auto) 3.05 (1.4-6.5) K/uL Lymph # (Auto) 1.75 (1.2-3.4) K/uL [place] # (Auto) 0.31 (0.11-0.59) K/uL Eos # (Auto) 0.10 (0-0.5) K/uL Baso # (Auto) 0.02 (0-0.2) K/uL Immature Gran # (Auto) 0.01 (0.00-0.02) K/uL PT 19.8 H (9.0-12.0) Seconds INR 2.1 H (0.9-1.1) Sodium 142 (136-145) mmol/L Potassium 4.4 (3.5-5.1) mmol/L Chloride 113 H (98-107) mmol/L Carbon Dioxide 28 (21-32) mmol/L Anion Gap 1.0 L (3-11) BUN 11 (7-18) mg/dl Creatinine 0.58 L (0.6-1.2) mg/dl Est Cr Clr Drug Dosing Not Reportable Est GFR ( Amer) 103.8 ml/min Est GFR (Non-Af Amer) 89.5 ml/min BUN/Creatinine Ratio 19.2 (10-20) Glucose 104 H (70-99) mg/dl Uric Acid 4.3 (2.6-7.2) mg/dl Calcium 8.3 L (8.5-10.1) mg/dl Total Bilirubin 0.3 (0.2-1) mg/dl AST 13 L (15-37) U/L ALT 8 L (12-78) U/L Alkaline Phosphatase 80 (45-117) U/L Total Protein 7.2 (6.4-8.2) gm/dl Albumin 3.3 L (3.4-5.0) gm/dl Globulin 3.9 (2.5-4.0) gm/dl Albumin/Globulin Ratio 0.8 L (0.9-2) COVID-19 Eval Order SARS-CoV-2 (PCR) (Negative) 01/02/21 01/02/21 Range/Units 15:24 15:24 WBC (4.8-10.8) K/uL RBC (4.2-5.4) M/uL Hgb (12.0-16.0) g/dL Hct (37-47) % MCV (80-100) fL MCH (25-34) pg MCHC (32-36) g/dL RDW Std Deviation (36.4-46.3) fL RDW Coeff of Gary (11.5-14.5) % Plt Count (130-400) K/uL MPV (7.4-10.4) fL Immature Gran % (Auto) % Neut % (Auto) % Lymph % (Auto) % [place] % (Auto) % Eos % (Auto) % Baso % (Auto) % Neut # (Auto) (1.4-6.5) K/uL Lymph # (Auto) (1.2-3.4) K/uL [place] # (Auto) (0.11-0.59) K/uL Eos # (Auto) (0-0.5) K/uL Baso # (Auto) (0-0.2) K/uL Immature Gran # (Auto) (0.00-0.02) K/uL PT (9.0-12.0) Seconds INR (0.9-1.1) Sodium (136-145) mmol/L Potassium (3.5-5.1) mmol/L Chloride (98-107) mmol/L Carbon Dioxide (21-32) mmol/L Anion Gap (3-11) BUN (7-18) mg/dl Creatinine (0.6-1.2) mg/dl Est Cr Clr Drug Dosing Est GFR ( Amer) ml/min Est GFR (Non-Af Amer) ml/min BUN/Creatinine Ratio (10-20) Glucose (70-99) mg/dl Uric Acid (2.6-7.2) mg/dl Calcium (8.5-10.1) mg/dl Total Bilirubin (0.2-1) mg/dl AST (15-37) U/L ALT (12-78) U/L Alkaline Phosphatase (45-117) U/L Total Protein (6.4-8.2) gm/dl Albumin (3.4-5.0) gm/dl Globulin (2.5-4.0) gm/dl Albumin/Globulin Ratio (0.9-2) COVID-19 Eval Order Covid19 at [facility] SARS-CoV-2 (PCR) NEGATIVE (Negative) Imaging Data Radiologist's Impression: Knee X-Ray 01/02/21 12:26 XR knee LT 3V CLINICAL HISTORY: atraumatic pain, medial COMPARISON: March 08, 2006 DISCUSSION: No definite acute fracture or dislocation seen however evaluation is limited due to osteopenia prominent overlying soft tissue. Interval worsening knee joint space narrowing with interval prominence of osteophytes. Interval prominence of superior patellar osteophytes are seen. Diffuse soft tissue edema is seen. IMPRESSION: 1. No definite acute fracture or dislocation. Limited exam. 2. Interval prominence of degenerative changes since 2005. ACT 112: Negative or not required by law. The above report was generated using voice recognition software. It may contain grammatical, syntax or spelling errors. Electronically signed by: Gisselle Mckinney DO 01/02/2021 1:25 PM Discharge Plan Visit Data Chief Complaint: Knee Injury/Pain Stated Complaint: L KNEE PAIN ED Provider: Kemal Villaseñor Discharge Problem: Acute pain of left knee Forms Stand Alone Forms: My [facility] Appticles Prescriptions Prescriptions: No Action diclofenac sodium [Voltaren] 1 % gel 4 g TOP QID Qty: 100 RF: 2 diltiazem HCl 240 mg capsule,extended release 24hr 240 mg PO QAM Qty: 90 RF: 3 atorvastatin 20 mg tablet 20 mg PO HS Qty: 90 RF: 1 (DME) Women underwear pull up briefs, Max absorbency XL See Rx Instructions .Route .MEDSUPPLY Qty: 100 RF: 11 (DME) underpads for chairs, Max absorbency 23x26, Large See Rx Instructions .Route .MEDSUPPLY Qty: 100 RF: 11 (DME) Long length pads, max absorbency See Rx Instructions .Route .MEDSUPPLY Qty: 100 RF: 11 potassium chloride 20 mEq tablet,ER particles/crystals 40 meq PO BID Qty: 120 RF: 5 melatonin 3 mg capsule 3 mg PO HS PRN (Reason: Sleep) Qty: 30 RF: 5 Desenex 2 % powder 1 applic topical DAILY Qty: 85 RF: 0 aspirin [Aspirin Low Dose] 81 mg tablet,delayed release (DR/EC) 81 mg PO QAM Qty: 90 RF: 3 propranolol 60 mg capsule,extended release 24 hr 60 mg PO QAM Qty: 90 RF: 1 (DME) underpads Pad See Rx Instructions .ROUTE .MEDSUPPLY Qty: 300 RF: 5 (DME) underpads 30 X 30 " pad See Rx Instructions .ROUTE .MEDSUPPLY Qty: 100 RF: 5 (DME) Premoistened adult wipes See Rx Instructions .Route .MEDSUPPLY Qty: 100 RF: 11 loperamide [Imodium A-D] 2 mg capsule 2 mg PO Q6H PRN (Reason: loose stool) Qty: 30 RF: 0 polyethylene glycol 3350 [Miralax] 17 gram/dose powder 17 g PO DAILY Qty: 238 RF: 0 warfarin 2.5 mg tablet 2.5 mg PO QAM Qty: 60 RF: 5 carvedilol 25 mg tablet 25 mg PO BID Qty: 60 RF: 5 oxycodone-acetaminophen 5-325 mg tablet 1 tab PO Q6H PRN (Reason: pain) Qty: 90 RF: 0 furosemide 20 mg tablet 20 mg PO DAILY PRN (Reason: edema) Qty: 30 RF: 0 silver sulfadiazine [Silvadene] 1 % cream 1 applic topical BID Qty: 400 RF: 0 acetic acid 2 % solution 5 drp otic (ear) QID Qty: 15 RF: 0 acetaminophen 500 mg capsule 1,000 mg PO Q6H PRN (Reason: pain) RF: 0 flaxseed oil 1,000 mg capsule 1,000 mg PO TID RF: 0 lamotrigine 200 mg tablet 200 mg PO BID RF: 0 escitalopram oxalate 20 mg tablet 20 mg PO HS RF: 0 topiramate 100 mg tablet 100 mg PO BID RF: 0 carbidopa-levodopa 25-100 mg tablet 2 tab PO TID RF: 0 primidone 50 mg tablet 100 mg PO TID RF: 0 aripiprazole 10 mg tablet 10 mg PO QAM RF: 0 buspirone 5 mg tablet 2.5 - 5 mg PO BID PRN (Reason: Anxiety) RF: 0 multivitamin Tablet 1 tab PO QAM RF: 0 Referrals Referrals: Chris Moore III, CRNP [Primary Care Provider] -
[2021-01-02 13:00] LABS: Basophils # (auto) 0.02 K/uL (0-0.2); Basophils % (auto) 0.4 %; Eosinophils % (auto) 1.9 %; Hematocrit (blood only) 38.2 % (37-47); Hemoglobin 12.4 g/dL (12.0-16.0); Immature Granulocytes # (auto) 0.01 K/uL (0.00-0.02); Immature Granulocytes % (auto) 0.2 %; Lymphocytes # (auto) 1.75 K/uL (1.2-3.4); Lymphocytes % (auto) 33.4 %; Mean Corpuscular Hemoglobin 32.1 pg (25-34); Mean Corpuscular Hgb Conc 32.5 g/dL (32-36); Monocytes # (auto) 0.31 K/uL (0.11-0.59); Monocytes % (auto) 5.9 %; Neutrophils # (auto) 3.05 K/uL (1.4-6.5); Neutrophils % (auto) 58.2 %; Platelet Count 173 K/uL (130-400); RDW Coefficient of Variation 14.7 % (11.5-14.5); RDW Standard Deviation 53.3 fL (36.4-46.3); Red Blood Count 3.86 M/uL (4.2-5.4); White Blood Count 5.24 K/uL (4.8-10.8)
[2021-01-02 13:09] LABS: INR 2.1 (0.9-1.1); Prothrombin Time 19.8 Seconds (9.0-12.0)
[2021-01-02 13:19] LABS: Alanine Aminotransferase 8 U/L (12-78); Albumin Level 3.3 gm/dl (3.4-5.0); Aspartate Aminotransferase 13 U/L (15-37); BUN Creatinine Ratio 19.2 (10-20); Blood Urea Nitrogen 11 mg/dl (7-18); Calcium 8.3 mg/dl (8.5-10.1); Carbon Dioxide 28 mmol/L (21-32); Chloride 113 mmol/L (98-107); Est GFR (African American) 103.8 ml/min; Est GFR (Non-African American) 89.5 ml/min; Glucose 104 mg/dl (70-99); Potassium 4.4 mmol/L (3.5-5.1); Sodium 142 mmol/L (136-145); Uric Acid 4.3 mg/dl (2.6-7.2)
[2021-01-02 13:21] LABS: Albumin Globulin Ratio 0.8 (0.9-2); Alkaline Phosphatase 80 U/L (45-117); Bilirubin,Total 0.3 mg/dl (0.2-1); Globulin 3.9 gm/dl (2.5-4.0); Total Protein 7.2 gm/dl (6.4-8.2)
--- NOTE | 2021-01-02 13:26 | XRay Report ---
XR knee LT 3V CLINICAL HISTORY: atraumatic pain, medial COMPARISON: March 08, 2006 DISCUSSION: No definite acute fracture or dislocation seen however evaluation is limited due to osteopenia promin ent overlying soft tissue. Interval worsening knee joint space narrowing with interval prominence of osteophytes. Interval prominence of superior patellar osteophytes are seen. Diffuse soft tissue edema is seen. IMPRESSION: 1. No definite acute fracture or dislocation. Limited exam. 2. Interval prominence of degenerative changes since 2005. ACT 112: Negative or not required by law. The above report was generated using voice recognition software. It may contain grammatical, syntax o r spelling errors. Electronically signed by: Gisselle Mckinney DO 01/02/2021 1:25 PM
--- NOTE | 2021-01-02 16:26 | History & Physical Report ---
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 Patient came to the ER today for complaints of 2 day history of left knee pain. The patient states that she has not fallen and no other trauma to the leg, but she has been feeling "a couple of twinges" of pain over the past 2 weeks that has become more frequ ent and more intense. The pain is located just below her left knee cap on the lateral and medial aspects of her fibula. She has not had much relief with her home regimen. The patient has caregivers that come and assist her throughout the week, but is limited in her ability to assist them. Patient will likely need rehab services to continue to maintain some functionality. Patient will be brought in for pain control, PT/OT evaluation, evaluation for possible rehab placment following observation. Patient is amendable to this to be able to assist in her caregiving. She has had her COVID vaccine and COVID is negative at this time. Allergies Allergy/AdvReac Type Severity Reaction Status Date / Time No Known Drug Allergies Allergy Verified 01/02/21 12:24 Home Medications Medication Instructions Recorded Confirmed Type escitalopram oxalate 20 mg tablet 20 mg PO HS 02/12/18 01/02/21 History lamotrigine 200 mg tablet 200 mg PO BID 02/12/18 01/02/21 History topiramate 100 mg tablet 100 mg PO BID 02/12/18 01/02/21 History aripiprazole 10 mg tablet 10 mg PO QAM 02/21/19 01/02/21 History acetaminophen 500 mg capsule 1,000 mg PO Q6H PRN cap 03/28/19 01/02/21 History carbidopa 25 mg-levodopa 100 mg 2 tab PO TID tab 07/10/19 01/02/21 History tablet flaxseed oil 1,000 mg capsule 1,000 mg PO TID 07/10/19 01/02/21 History buspirone 5 mg tablet 2.5 - 5 mg PO BID PRN 10/21/19 01/02/21 History furosemide 20 mg tablet 20 mg PO DAILY PRN #30 tab 01/26/20 01/02/21 Rx primidone 50 mg tablet 100 mg PO TID 03/21/20 01/02/21 History diclofenac sodium 1 % topical gel 4 g TOP QID #100 gm 04/12/20 01/02/21 Rx (Voltaren) diltiazem HCl 240 mg 240 mg PO QAM #90 cap 04/22/20 01/02/21 Rx capsule,extended release 24 hr atorvastatin 20 mg tablet 20 mg PO HS #90 tab 07/18/20 01/02/21 Rx Long length pads, max absorbency #100 ea 10/11/20 11/14/20 Rx Women underwear pull up briefs, #100 ea 10/11/20 11/14/20 Rx Max absorbency underpads for chairs, Max #100 ea 10/11/20 11/14/20 Rx absorbency potassium chloride 20 mEq 40 meq PO BID #120 tab 10/17/20 01/02/21 Rx tablet,extended release(part/cryst) melatonin 3 mg capsule 3 mg PO HS PRN #30 cap 10/28/20 01/02/21 Rx miconazole nitrate 2 % topical 1 applic TOPICAL DAILY #85 g 10/28/20 01/02/21 Rx powder (Desenex) aspirin 81 mg tablet,delayed 81 mg PO QAM #90 tab 11/07/20 01/02/21 Rx release (Aspirin Low Dose) acetic acid 2 % ear solution 5 drp OTIC (EAR) QID #15 ml 11/14/20 01/02/21 Rx silver sulfadiazine 1 % topical 1 applic TOPICAL BID #400 g 11/14/20 01/02/21 Rx cream (Silvadene) propranolol 60 mg capsule,24 60 mg PO QAM #90 cap 11/15/20 01/02/21 Rx hr,extended release Premoistened adult wipes #100 ea 11/18/20 Rx underpads #300 ea 11/18/20 Rx underpads 30" X 30" #100 ea 11/18/20 Rx loperamide 2 mg capsule (Imodium 2 mg PO Q6H PRN #30 cap 11/19/20 01/02/21 Rx A-D) polyethylene glycol 3350 17 17 g PO DAILY #238 g 11/19/20 01/02/21 Rx gram/dose oral powder (Miralax) warfarin 2.5 mg tablet 2.5 mg PO QAM #60 tab 11/28/20 01/02/21 Rx carvedilol 25 mg tablet 25 mg PO BID #60 tab 12/17/20 01/02/21 Rx multivitamin 1 tab PO QAM 01/02/21 01/02/21 History oxycodone-acetaminophen 5 mg-325 1 tab PO Q6H PRN #90 tab 01/02/21 Rx mg tablet Past Med/Surg History Medical History Ambulatory dysfunction Anemia Anticoagulant long-term use Depression with anxiety Disc degeneration, lumbar Esophageal dilatation Femoral artery occlusion, right Fluid retention Gastroesophageal reflux disease without esophagitis Generalized anxiety disorder Hyperlipidemia Hypertension Idiopathic neuropathy Mitral valve mass Numbness in right leg Obesity Obstruction of esophagus due to food impaction OCD (obsessive compulsive disorder) Osteoarthritis PTSD (post-traumatic stress disorder) Pulmonary emboli Tracheomalacia Tremor (10/13/11) Tricuspid regurgitation Ulcer of left thigh Venous insufficiency Vertigo Surgical History History of breast biopsy History of cataract surgery BILATERAL History of cholecystectomy (2018) History of colonoscopy History of dental surgery History of embolectomy History of lung surgery for pulmonary emboli History of tonsillectomy History of tooth extraction Status post incision and drainage (10/21/19) Incision and drainage of right breast abscess 10/21/19 Dr. Naidu Family History Mother Cardiac disorder Hypertension Myocardial infarction Aunt Breast cancer Denies family history of Ovarian cancer Prostate cancer Colorectal cancer Social History Smoking Status: Never smoker Second Hand Exposure: No; Hx Alcohol Use: No Hx Substance Use: No Preferred Language: Italian Communication Ability: Effective Visual Impairment: No Limitations Hearing Ability: Normal Supervisor [employer] Hand[employer] Required: No Beliefs That Will Affect Care: None marital status: Current Living Situation: Alone Current Living Situation Comment: lives in apartment with current occupational status: retired Feels Safe at Home: Yes Childhood Exposure to Second-Hand Smoke: No Dental Care, Regularly: No Physical Activity Frequency: Does not Exercise Seatbelt Use: always Sunscreen Use: No Do you think of yourself as: straight/heterosexual Assistive Devices: Wheelchair Review of Systems Review of Systems: REVIEW OF SYSTEMS: Constitutional: No fever, sweats or chills Eyes: No diplopia, no worsening or blurred vision ENT: normal hearing, no trouble swallowing Respiratory: No cough, sputum, dyspnea at rest or on exertion Cardiovascular: No chest pain, tightness or palpitations Abdomen: (+) incontinence chronic, No pain, nausea, vomiting, diarrhea or constipation Musculoskeletal: (+) joint pain, calf pain, swelling Neurologic: (+) resting tremors, weakness, numbness/tingling, and balance problems Psychiatric: (+) anxiety or depression Skin: (+) excoriation to skin folds Physical Exam Physical Exam: PHYSICAL EXAM: General: awake, alert, no apparent distress Head: Normocephalic, atraumatic ENT: PERRL, EOMI, no pharyngeal exudate, mucous membranes moist Neuro/MSK: AAO x 3, speech clear and appropriate, bilateral upper arm strength 5/5, resting tremor with parkinsonian movements, lower extremity with right ankle foot drop and inversion, left knee with pain at palpation as per HPI and pain with flexiion to about 10 degrees, no bruising or erythema noted. Chest: equal rise and fall of the chest, no accessory muscle use, no heaves or thrills, diminished throughout secondary to body habitus, on room air, Cardiac: Regular rate and rhythm, telemetry reviewed-NSR, skin warm dry, cap refill <3 seconds, peripheral pulses +2 no JVD, no murmur, no edema, heart sounds distant secondary to obesity GI: NABS x 4 quadrants, soft, nontender to palpation, no rebound, guarding or tenderness : Spontaneously voiding, no pain, no CVA tenderness, Psych: tearful but appropriate Results & Data Results & Data ([facility]) Vital Signs (Past 12 Hours) Vital Signs Temp Pulse Resp BP Pulse Ox 01/02/21 15:01 75 20 117/79 95 01/02/21 14:30 72 20 146/91 H 97 01/02/21 14:00 68 12 141/65 H 95 01/02/21 12:01 110 H 16 142/68 H 93 01/02/21 10:18 36.3 C L 84 20 148/71 H 91 Laboratory Results Abnormal lab results 01/02/21 01/02/21 01/02/21 Range/Units 12:51 12:51 12:51 RBC 3.86 L (4.2-5.4) M/uL RDW Std Deviation 53.3 H (36.4-46.3) fL RDW Coeff of Gary 14.7 H (11.5-14.5) % PT 19.8 H (9.0-12.0) Seconds INR 2.1 H (0.9-1.1) Chloride 113 H (98-107) mmol/L Anion Gap 1.0 L (3-11) Creatinine 0.58 L (0.6-1.2) mg/dl Glucose 104 H (70-99) mg/dl Calcium 8.3 L (8.5-10.1) mg/dl AST 13 L (15-37) U/L ALT 8 L (12-78) U/L Albumin 3.3 L (3.4-5.0) gm/dl Albumin/Globulin Ratio 0.8 L (0.9-2) Diagnostic Findings Knee X-Ray 01/02/21 12:26 XR knee LT 3V CLINICAL HISTORY: atraumatic pain, medial COMPARISON: March 08, 2006 DISCUSSION: No definite acute fracture or dislocation seen however evaluation is limited due to osteopenia prominent overlying soft tissue. Interval worsening knee joint space narrowing with interval prominence of osteophytes. Interval prominence of superior patellar osteophytes are seen. Diffuse soft tissue edema is seen. IMPRESSION: 1. No definite acute fracture or dislocation. Limited exam. 2. Interval prominence of degenerative changes since 2005. ACT 112: Negative or not required by law. The above report was generated using voice recognition software. It may contain grammatical, syntax or spelling errors. Electronically signed by: Gisselle Mckinney DO 01/02/2021 1:25 PM Medications Administered Home Medications escitalopram oxalate 20 mg tablet 20 mg PO HS 02/12/18 [History Confirmed 01/02/21] lamotrigine 200 mg tablet 200 mg PO BID 02/12/18 [History Confirmed 01/02/21] topiramate 100 mg tablet 100 mg PO BID 02/12/18 [History Confirmed 01/02/21] aripiprazole 10 mg tablet 10 mg PO QAM 02/21/19 [History Confirmed 01/02/21] acetaminophen 500 mg capsule 1,000 mg PO Q6H PRN cap 03/28/19 [History Confirmed 01/02/21] carbidopa 25 mg-levodopa 100 mg tablet 2 tab PO TID tab 07/10/19 [History Confirmed 01/02/21] flaxseed oil 1,000 mg capsule 1,000 mg PO TID 07/10/19 [History Confirmed 01/02/21] buspirone 5 mg tablet 2.5 - 5 mg PO BID PRN 10/21/19 [History Confirmed 01/02/21] furosemide 20 mg tablet 20 mg PO DAILY PRN #30 tab 01/26/20 [Rx Confirmed 01/02/21] primidone 50 mg tablet 100 mg PO TID 03/21/20 [History Confirmed 01/02/21] diclofenac sodium 1 % topical gel (Voltaren) 4 g TOP QID #100 gm 04/12/20 [Rx Confirmed 01/02/21] diltiazem HCl 240 mg capsule,extended release 24 hr 240 mg PO QAM #90 cap 04/22/20 [Rx Confirmed 01/02/21] atorvastatin 20 mg tablet 20 mg PO HS #90 tab 07/18/20 [Rx Confirmed 01/02/21] Long length pads, max absorbency #100 ea 10/11/20 [Rx Confirmed 11/14/20] Women underwear pull up briefs, Max absorbency #100 ea 10/11/20 [Rx Confirmed 11/14/20] underpads for chairs, Max absorbency #100 ea 10/11/20 [Rx Confirmed 11/14/20] potassium chloride 20 mEq tablet,extended release(part/cryst) 40 meq PO BID #120 tab 10/17/20 [Rx Confirmed 01/02/21] melatonin 3 mg capsule 3 mg PO HS PRN #30 cap 10/28/20 [Rx Confirmed 01/02/21] miconazole nitrate 2 % topical powder (Desenex) 1 applic TOPICAL DAILY #85 g 10/28/20 [Rx Confirmed 01/02/21] aspirin 81 mg tablet,delayed release (Aspirin Low Dose) 81 mg PO QAM #90 tab 11/07/20 [Rx Confirmed 01/02/21] acetic acid 2 % ear solution 5 drp OTIC (EAR) QID #15 ml 11/14/20 [Rx Confirmed 01/02/21] silver sulfadiazine 1 % topical cream (Silvadene) 1 applic TOPICAL BID #400 g 11/14/20 [Rx Confirmed 01/02/21] propranolol 60 mg capsule,24 hr,extended release 60 mg PO QAM #90 cap 11/15/20 [Rx Confirmed 01/02/21] Premoistened adult wipes #100 ea 11/18/20 [Rx] underpads #300 ea 11/18/20 [Rx] underpads 30" X 30" #100 ea 11/18/20 [Rx] loperamide 2 mg capsule (Imodium A-D) 2 mg PO Q6H PRN #30 cap 11/19/20 [Rx Confirmed 01/02/21] polyethylene glycol 3350 17 gram/dose oral powder (Miralax) 17 g PO DAILY #238 g 11/19/20 [Rx Confirmed 01/02/21] warfarin 2.5 mg tablet 2.5 mg PO QAM #60 tab 11/28/20 [Rx Confirmed 01/02/21] carvedilol 25 mg tablet 25 mg PO BID #60 tab 12/17/20 [Rx Confirmed 01/02/21] multivitamin 1 tab PO QAM 01/02/21 [History Confirmed 01/02/21] oxycodone-acetaminophen 5 mg-325 mg tablet 1 tab PO Q6H PRN #90 tab 01/02/21 [Rx] ECG Additional Comments: Not performed- no indication Code Status & VTE Plan Code Status CODE: FULL VTE: SCD's, Coumadin, ASA VTE Prophylaxis Plan VTE Prophylaxis will be ordered: Yes Supervising Physician Co-Signing Physician Notes Attending addendum: I have physically seen this patient, have supervised the KASEY's activities, and agree with the H&P unless as otherwise noted. Assessment and Plan: Acute pain of left knee/ambulatory dysfunction- Patient be admitted for PT and OT assessment. Will need rehab placement Remaining orders and notations as noted PG Care Time/CCT Total # of Minutes Spent Total Time Spent with Patient: Total time spent is greater than 50% in coordination of care (as documented) at patient's floor/unit and/or counseling patient: Coding Level of Care Code INT OBSERVATION CARE 50M LVL 2 Diagnoses Acute pain of left knee M25.562 Migraine headache G43.909 Generalized anxiety disorder F41.1 Anticoagulant long-term use Z79.01 Hypertension I10 Hypertension type: essential hypertension Hyperlipidemia E78.5 Tremor R25.1 (1) Hypertension Hypertension type: essential hypertension Qualified Code(s): I10 - Essential (primary) hypertension
[2021-01-02] MEDS ORDERED: ACETAMINOPHEN 500 MG TAB PO PRN (20:40)
[2021-01-02] MEDS ORDERED: oxyCODONE/ACETAMINOPHEN 5mg/325mg TAB PO PRN (20:40)
[2021-01-02] MEDS ORDERED: busPIRone 5 MG TAB PO PRN (20:40)
[2021-01-02] MEDS ORDERED: MELATONIN 3 MG TAB PO PRN (20:40)
[2021-01-02] MEDS ORDERED: ESCITALOPRAM OXALATE 20 MG TAB PO SCH (21:00)
[2021-01-02] MEDS ORDERED: ATORVASTATIN 20 MG TAB PO SCH (21:00)
[2021-01-02] MEDS: DICLOFENAC SOD 1% GEL 100 GM TUBE EXT SCH ×2 (22:06)
[2021-01-02] MEDS: ACETIC ACID 2% OTIC SOLN 15 ML BTL OT SCH (22:09)
[2021-01-02] MEDS: CARBIDOPA/LEVODOPA 25/100MG TAB PO SCH (22:10)
[2021-01-02] MEDS: lamoTRIgine 100 MG TAB PO SCH (22:11)
[2021-01-02] MEDS: POTASSIUM CHLORIDE CRTAB 20 MEQ TABCR PO SCH (22:12)
[2021-01-02] MEDS: PRIMIDONE 50 MG TAB PO SCH (22:12)
[2021-01-02] MEDS: TOPIRAMATE 100 MG TAB PO SCH (22:13)
[2021-01-02] MEDS: carvediloL 25 MG TAB PO SCH (22:20)
[2021-01-02] MEDS ORDERED: WARFARIN SOD 2.5 MG TAB PO STA (22:44)
[2021-01-02] MEDS: ONDANSETRON 4 MG OD TAB PO PRN (23:19)
[2021-01-03] MEDS: TOPIRAMATE 100 MG TAB PO SCH (08:50)
[2021-01-03] MEDS: PRIMIDONE 50 MG TAB PO SCH ×2 (08:50→14:04)
[2021-01-03] MEDS: carvediloL 25 MG TAB PO SCH (08:50)
[2021-01-03] MEDS: lamoTRIgine 100 MG TAB PO SCH (08:51)
[2021-01-03] MEDS: CARBIDOPA/LEVODOPA 25/100MG TAB PO SCH ×2 (08:51→14:05)
[2021-01-03] MEDS: POTASSIUM CHLORIDE CRTAB 20 MEQ TABCR PO SCH (08:51)
[2021-01-03] MEDS: DICLOFENAC SOD 1% GEL 100 GM TUBE EXT SCH ×3 (08:52→16:10)
[2021-01-03] MEDS: ACETIC ACID 2% OTIC SOLN 15 ML BTL OT SCH ×3 (08:54→16:07)
[2021-01-03] MEDS: POLYETHYLENE (MIRALAX) 17 GM PACK PO SCH ×2 (08:57→08:59)
[2021-01-03] MEDS ORDERED: MICONAZOLE NITRATE POWDER 43 GM TOP SCH (09:00)
[2021-01-03] MEDS ORDERED: PROPRANOLOL HCL 60 MG LA CAP PO SCH (09:00)
[2021-01-03] MEDS ORDERED: FUROSEMIDE 20 MG TAB PO SCH (09:00)
[2021-01-03] MEDS ORDERED: ARIPiprazole 10 MG TAB PO SCH (09:00)
[2021-01-03] MEDS ORDERED: dilTIAZem HCL 240 MG CAPCR PO SCH (09:00)
[2021-01-03] MEDS ORDERED: ASPIRIN 81 MG ECTAB PO SCH (09:00)
[2021-01-03 09:10] LABS: Basophils # (auto) 0.02 K/uL (0-0.2); Basophils % (auto) 0.4 %; Eosinophils # (auto) 0.06 K/uL (0-0.5); Eosinophils % (auto) 1.2 %; Hematocrit (blood only) 36.4 % (37-47); Immature Granulocytes # (auto) 0.02 K/uL (0.00-0.02); Immature Granulocytes % (auto) 0.4 %; Lymphocytes # (auto) 1.73 K/uL (1.2-3.4); Lymphocytes % (auto) 33.5 %; Mean Corpuscular Hemoglobin 32.1 pg (25-34); Mean Corpuscular Volume 97.3 fL (80-100); Mean Platelet Volume 9.1 fL (7.4-10.4); Monocytes # (auto) 0.27 K/uL (0.11-0.59); Monocytes % (auto) 5.2 %; Neutrophils # (auto) 3.07 K/uL (1.4-6.5); Neutrophils % (auto) 59.3 %; Platelet Count 162 K/uL (130-400); RDW Coefficient of Variation 14.5 % (11.5-14.5); Red Blood Count 3.74 M/uL (4.2-5.4); White Blood Count 5.17 K/uL (4.8-10.8)
[2021-01-03 09:20] LABS: INR 2.2 (0.9-1.1); Prothrombin Time 21.1 Seconds (9.0-12.0)
[2021-01-03 09:47] LABS: BUN Creatinine Ratio 15.5 (10-20); Calcium 8.5 mg/dl (8.5-10.1); Creatinine Clr Calc Pharmacy 115.6 ml/min; Est GFR (African American) 103.2 ml/min; Magnesium 2.1 mg/dl (1.8-2.4); Potassium 3.9 mmol/L (3.5-5.1)
[2021-01-03] MEDS: ONDANSETRON 4 MG OD TAB PO PRN (13:30)
[2021-01-03] MEDS ORDERED: WARFARIN SOD 2.5 MG TAB PO SCH (16:00)
--- NOTE | 2021-01-03 16:40 | Discharge Summary ---
Date of Service January 03, 2021 Admission HPI Per Admitting Provider 75 YOF with multiple chronic medical problems most significantly morbid obesity, VTE, wheel chair bound, depression and anxiety, migraines. Patient came to the ER today for complaints of 2 day history of left knee pain. The patient states that she has not fallen and no other trauma to the leg, but she has been feeling "a couple of twinges" of pain over the past 2 weeks that has become more frequent and more intense. The pain is located just below her left knee cap on the lateral and medial aspects of her fibula. She has not had much relief with her home regimen. The patient has caregivers that come and assist her throughout the week, but is limited in her ability to assist them. Patient will likely need rehab services to continue to maintain some functionality. Patient will be brought in for pain control, PT/OT evaluation, evaluation for possible rehab placment following observation. Patient is amendable to this to be able to assist in her caregiving. She has had her COVID vaccine and COVID is negative at this time. Principal Diagnosis Left knee pain-resolved Discharge Exam Constitutional WD/WN, vitals as above Neck trachea midline, no thyromegaly Respiratory normal respiratory effort, lungs clear to auscultation Cardiovascular RRR, no murmur, no edema Chest (Breasts) Chest: normal inspection of chest Gastrointestinal (Abdomen) normal bowel sounds, soft, nontender, no hepatosplenomegaly Musculoskeletal Extremities: + extremities abnormal to inspection (Right ankle with contracture and foot deformity), no cyanosis and no clubbing Left knee, no tenderness to palpation, range of motion 0 to 100 degrees, no effusion or erythema Skin no rashes, warm and dry Neurologic moves all extremities, + focal motor deficit (Weakness in right ankle flexion dorsiflexion) and awake Psychiatric A+Ox3, euthymic affect Lymphatic no lymphedema Discharge Data Allergies Allergy/AdvReac Type Severity Reaction Status Date / Time No Known Drug Allergies Allergy Verified 01/02/21 12:24 Consultations 01/02/21 15:07 ED Decision to Admit Stat Hospital Course (1) Acute pain of left knee: X-ray left knee with severe arthritis Pain is completely resolved by the following day She did well with physical therapy and was at her baseline and wanted to go home Stable for discharge to home (2) Migraine headache: chronic - continue home prophylactic therapy - multimodal with topiramate, propanolol (3) Generalized anxiety disorder: Continue home medications (4) Anticoagulant long-term use: INR therapeutic for VTE chronic and a history of arterial thrombus - Continue Warfarin 2.5 mg daily (5) Hypertension: Continue Carvedilol 25 PO BID, Diltiazem 240 QD, Propanolol - Regimine current per 3 outpatient notes- follow hemodynamic response (6) Hyperlipidemia: Continue home outpaient medicaitons (7) Tremor: Continue home sinemet, primidone and propanolol. Total Time Total Time Spent Total Time Spent (In Minutes): 35 minutes Discharge Plan Discharge Items Patient Disposition: Home - Home Health Services Reason For Visit: KNEE PAIN Discharge Diagnosis: Knee pain-resolved Condition on Discharge: Fair Activity: Resume your previous activity Non-emergency contact: Primary Care Provider Call non-emergency contact if: you have any medication questions and your symptoms worsen Follow-up/Referrals: Chris Moore III, CRNP [Primary Care Provider] - Diet: Heart Healthy Addtl Attending Provider Instructions: You are admitted for evaluation of knee pain and possibly placement in rehab facility. Fortunately, your knee pain is improved. You are stable for discharged home. Please follow-up with your primary care physician within 1 to 2 weeks. Pending Studies at Discharge: No Stand-Alone Forms: My [facility] Medications and DC Order Prescriptions: Continued diclofenac sodium [Voltaren] 1 % gel 4 g TOP QID Qty: 100 RF: 2 diltiazem HCl 240 mg capsule,extended release 24hr 240 mg PO QAM Qty: 90 RF: 3 atorvastatin 20 mg tablet 20 mg PO HS Qty: 90 RF: 1 (DME) Women underwear pull up briefs, Max absorbency XL See Rx Instructions .Route .MEDSUPPLY Qty: 100 RF: 11 (DME) underpads for chairs, Max absorbency 23x26, Large See Rx Instructions .Route .MEDSUPPLY Qty: 100 RF: 11 (DME) Long length pads, max absorbency See Rx Instructions .Route .MEDSUPPLY Qty: 100 RF: 11 potassium chloride 20 mEq tablet,ER particles/crystals 40 meq PO BID Qty: 120 RF: 5 melatonin 3 mg capsule 3 mg PO HS PRN (Reason: Sleep) Qty: 30 RF: 5 Desenex 2 % powder 1 applic topical DAILY Qty: 85 RF: 0 aspirin [Aspirin Low Dose] 81 mg tablet,delayed release (DR/EC) 81 mg PO QAM Qty: 90 RF: 3 propranolol 60 mg capsule,extended release 24 hr 60 mg PO QAM Qty: 90 RF: 1 (DME) underpads Pad See Rx Instructions .ROUTE .MEDSUPPLY Qty: 300 RF: 5 (DME) underpads 30 X 30 " pad See Rx Instructions .ROUTE .MEDSUPPLY Qty: 100 RF: 5 (DME) Premoistened adult wipes See Rx Instructions .Route .MEDSUPPLY Qty: 100 RF: 11 loperamide [Imodium A-D] 2 mg capsule 2 mg PO Q6H PRN (Reason: loose stool) Qty: 30 RF: 0 polyethylene glycol 3350 [Miralax] 17 gram/dose powder 17 g PO DAILY Qty: 238 RF: 0 warfarin 2.5 mg tablet 2.5 mg PO QAM Qty: 60 RF: 5 carvedilol 25 mg tablet 25 mg PO BID Qty: 60 RF: 5 oxycodone-acetaminophen 5-325 mg tablet 1 tab PO Q6H PRN (Reason: pain) Qty: 90 RF: 0 furosemide 20 mg tablet 20 mg PO DAILY PRN (Reason: edema) Qty: 30 RF: 0 silver sulfadiazine [Silvadene] 1 % cream 1 applic topical BID Qty: 400 RF: 0 acetic acid 2 % solution 5 drp otic (ear) QID Qty: 15 RF: 0 acetaminophen 500 mg capsule 1,000 mg PO Q6H PRN (Reason: pain) RF: 0 flaxseed oil 1,000 mg capsule 1,000 mg PO TID RF: 0 lamotrigine 200 mg tablet 200 mg PO BID RF: 0 escitalopram oxalate 20 mg tablet 20 mg PO HS RF: 0 topiramate 100 mg tablet 100 mg PO BID RF: 0 carbidopa-levodopa 25-100 mg tablet 2 tab PO TID RF: 0 primidone 50 mg tablet 100 mg PO TID RF: 0 aripiprazole 10 mg tablet 10 mg PO QAM RF: 0 buspirone 5 mg tablet 2.5 - 5 mg PO BID PRN (Reason: Anxiety) RF: 0 multivitamin Tablet 1 tab PO QAM RF: 0 Discharge Orders: Discharge Order (Routine); Ordered 01/03/21 Ordered By: Maria A Doyle Admission Data Admit Date/Time: 01/02/21 16:01 Attending Provider: Maria A Doyle Admit Provider: Dennis Fernandes Primary Care Provider: Chris Moore III Other Providers: Dennis Fernandes ; [facility] ; [facility] Coding Level of Care Code 15877 OBS Care - Discharge Diagnoses Acute pain of left knee M25.562 Migraine headache G43.909 Generalized anxiety disorder F41.1 Anticoagulant long-term use Z79.01 Hypertension I10 Hypertension type: essential hypertension Hyperlipidemia E78.5 Tremor R25.1
== END 2021-01-03 18:32 | disposition home or self-care (01) ==
LOC: ED 10:16 → 3W 10:16 → SUATTDRO 16:01 → 3W 20:02

== ENCOUNTER 2021-09-13 10:27 | Inpatient (IN) ==
[2021-09-13] MEDS ORDERED: SODIUM CHLORIDE 0.9% 1000ML 1,000 ML IV ONE ×2 (10:45→13:45)
[2021-09-13] MEDS ORDERED: ADENOSINE IV SOLN 3 MG/ML 2 ML VIAL IV ONE (10:51)
--- NOTE | 2021-09-13 11:09 | XRay Report ---
XR chest 1V portable CLINICAL HISTORY: Sepsis. COMPARISON STUDY: Chest radiograph March 24, 2021. FINDINGS: Median sternotomy wires are noted. Cardiomegaly is unchanged. There is no evidence for pulm onary edema. There is no consolidation to suggest pneumonia. Elevation the right hemidiaphragm is unc hanged. No pneumothorax or pleural effusion is present. Prominence of the aortic arch is unchanged. IMPRESSION: No acute cardiopulmonary findings. No change in appearance of the chest. ACT 112: Negative or not required by law. Electronically signed by: Humberto Espinoza M.D. 09/13/2021 11:08 AM
--- NOTE | 2021-09-13 11:14 | Emergency Department Note ---
Impression & Plan Wide-complex tachycardia, Weakness, Acute hypotension, Mass of uterus ED Provider Note NAME: HEMA ABRAMS AGE: 76 SEX: F : 1945 ARRIVES VIA: Ambulance INFORMANT: Patient, EMS ED PROVIDER(S): Juni Woo DO CHIEF COMPLAINT: Generalized weakness HPI: The patient is a 76-year-old female who presented to the emergency department via BLS for an evaluation of generalized weakness. The patient has caregivers at home to check on her and help her with her medications. Apparently there was a problem with COVID-19 infection and the patient was not seen by her caregivers over the course last week. Reportedly she was sitting in a chair and was unable to get out of the chair. The patient did not have any fever. She does not offer any specific complaints. The patient the patient denies having any vomiting. She denies having any black or bloody bowel moods. She denies having any fever or chills. The patient states she was compliant with only some of her medications including her Coumadin. She is unsure about her other medications. She was made a priority patient after arriving to her room and was found to have significant tachycardia and hypotension. ROS: See above HPI for pertinent positives & negatives. A total of 10 systems reviewed and were otherwise negative. PAST MEDICAL HISTORY: See Below PAST SURGICAL HISTORY: See Below FAMILY HISTORY: See Below SOCIAL HISTORY: See Below HOME MEDICATIONS: See Below ALLERGIES: See Below VITALS: See Below PHYSICAL EXAMINATION: GENERAL: The patient is awake and alert. She is very anxious appearing. EYES: The conjunctivae are clear. The pupils are round and reactive. EARS, NOSE, MOUTH AND THROAT: The nose is without any evidence of any deformity. Mucous membranes are dry. NECK: The neck is nontender and supple. RESPIRATORY: Normal respiratory effort is noted there is no evidence of wheezing rhonchi or rales CARDIOVASCULAR: Cardiac rate with regular rhythm was noted. There is no definite murmur noted. GASTROINTESTINAL: Abdomen was soft and mildly distended. There is no specific guarding or rigidity noted. MUSCULOSKELETAL/EXTREMITIES: There is no evidence of gross deformity full range of motion is noted in the hips and shoulders. SKIN: The skin is cool and diaphoretic. Pedal edema was noted bilaterally. NEUROLOGIC: Patient is awake alert and oriented x3. MEDICAL DECISION MAKING: Patient is a 76-year-old female who presented to the emergency department for an evaluation of generalized weakness. She was at home and not able to take her medications or care for herself. She normally is managed with home nursing but they were unable to come and see her for at least the last 3 to 4 days. The patient states she has been compliant with some of her medications. She called 911 for an evaluation of presented to the emergency department. She was found to be in wide-complex tachycardia initially with hypotension. We were preparing to cardiovert the patient as she was unstable but after a small fluid bolus she did go to a narrow complex tachycardia which appeared to be SVT then to her baseline atrial fibrillation. The patient himself did not offer many complaints. Her work-up appear to be consistent with possible pulmonary infection. I discussed the patient's laboratory and radiographic studies with her. She was reevaluated multiple times. She was treated with IV fluid boluses and IV antibiotics. She was also started on IV amiodarone. I discussed her case with the on-call [facility] hospitalist group. They have agreed to evaluate the patient in the emergency department for further management and disposition. Triage Nursing notes reviewed. Prior medical records reviewed Vital Signs: reviewed and remarkable for no significant abnormalities tachycardia. Differential diagnosis: Infection, dehydration, metabolic abnormality, hypo/hyperglycemia, electrolyte disturbance, anemia, hypoxia, cardiac sources, intracerebral event, toxicologic, neurologic, as well as other pathologies. ER treatment provided: See below Diagnostics interpreted by me: ECG: Multiple EKGs were obtained in the emergency department. My initial EKG revealed wide-complex tachycardia 191 bpm. This was regular. There was nonspecific ST segment abnormalities noted. This was compared to a tracing from March 21, 2020. The EKG is changed compared to the earlier tracing. A second EKG was obtained in the emergency department. My interpretation is atrial fibrillation at 130 bpm. PVCs were noted. Nonspecific ST segment depressions were noted diffusely. This was compared to a tracing from March 21, 2020. The ST segment depression appears increased otherwise no changes were noted. A third EKG was obtained in the emergency department. My interpretation is sinus tachycardia 132 bpm. No PVCs were noted. Diffuse ST segment depressions were noted. This was compared with a tracing from March 21, 2020. The ST segment depression is increased otherwise no specific changes were noted. Cardiac Monitoring: An order was placed for continuous cardiac monitoring. The monitor shows a rate of 96 bpm with atrial fibrillation rhythm. Laboratory studies: As stated above and show below. Imaging studies: See below Consultation(s): I discussed this case with the [facility] hospitalist group. ED COURSE: Procedures: none Critical Care: I have personally spent greater than 55 minutes of critical care time in the direct management of this patient. This includes bedside care, interpretation of diagnostic studies, and testing, discussion with consultants, patient, and family members, and other required patient management activities. This 55 minutes is in excess of all separately billable procedures. Past Med/Surg History Medical History Acute pain of left knee Ambulatory dysfunction Anemia Anticoagulant long-term use Depression with anxiety Disc degeneration, lumbar Esophageal dilatation Femoral artery occlusion, right Fluid retention Gastroesophageal reflux disease without esophagitis Generalized anxiety disorder Hyperlipidemia Hypertension Idiopathic neuropathy Mitral valve mass Numbness in right leg Obesity Obstruction of esophagus due to food impaction OCD (obsessive compulsive disorder) Osteoarthritis PTSD (post-traumatic stress disorder) Pulmonary emboli Tracheomalacia Tremor (10/13/11) Tricuspid regurgitation Ulcer of left thigh Venous insufficiency Vertigo Surgical History History of breast biopsy History of cataract surgery BILATERAL History of cholecystectomy (2018) History of colonoscopy History of dental surgery History of embolectomy History of lung surgery for pulmonary emboli History of tonsillectomy History of tooth extraction Status post incision and drainage (10/21/19) Incision and drainage of right breast abscess 10/21/19 Dr. Naidu Family History Mother Cardiac disorder Hypertension Myocardial infarction Aunt Breast cancer Denies family history of Ovarian cancer Prostate cancer Colorectal cancer Social History Smoking Status: Never smoker Second Hand Exposure: No; Hx Alcohol Use: No Hx Substance Use: No Preferred Language: Portuguese Communication Ability: Effective Visual Impairment: No Limitations Hearing Ability: Normal Hospice Patient Care Secretary Required: No Beliefs That Will Affect Care: None marital status: Current Living Situation: Alone current occupational status: retired Feels Safe at Home: Yes Childhood Exposure to Second-Hand Smoke: No Dental Care, Regularly: No Physical Activity Frequency: Does not Exercise Seatbelt Use: always Sunscreen Use: No Do you think of yourself as: straight/heterosexual Assistive Devices: Wheelchair Allergies Allergies Allergy/AdvReac Type Severity Reaction Status Date / Time amoxicillin [From Augmentin] AdvReac Intermediate Diarrhea Unverified 09/13/21 10:56 clavulanic acid AdvReac Intermediate Diarrhea Unverified 09/13/21 10:56 [From Augmentin] Home Meds Home Medications Medication Instructions Recorded Confirmed escitalopram oxalate 20 mg tablet 20 mg PO HS 02/12/18 09/13/21 lamotrigine 200 mg tablet 200 mg PO BID 02/12/18 09/13/21 topiramate 100 mg tablet 100 mg PO BID 02/12/18 09/13/21 aripiprazole 10 mg tablet 10 mg PO QAM 02/21/19 09/13/21 carbidopa 25 mg-levodopa 100 mg 2 tab PO TID tab 07/10/19 09/13/21 tablet primidone 50 mg tablet 100 mg PO TID 03/21/20 09/13/21 multivitamin 1 tab PO QAM 01/02/21 09/13/21 acetaminophen 325 mg tablet 325 mg PO Q6H PRN 09/13/21 09/13/21 warfarin 2.5 mg tablet See Rx Instructions .ROUTE .COMPLEX 09/13/21 09/13/21 Previous Rx's Medication Instructions Recorded Long length pads, max absorbency #100 ea 10/11/20 Women underwear pull up briefs, #100 ea 10/11/20 Max absorbency underpads for chairs, Max #100 ea 10/11/20 absorbency aspirin 81 mg tablet,delayed 81 mg PO QAM #90 tab 11/07/20 release (Aspirin Low Dose) silver sulfadiazine 1 % topical 1 applic TOPICAL BID #400 g 11/14/20 cream (Silvadene) Premoistened adult wipes #100 ea 11/18/20 underpads #300 ea 11/18/20 underpads 30" X 30" #100 ea 11/18/20 diclofenac sodium 1 % topical gel 4 g TOP QID #100 gm 02/12/21 atorvastatin 20 mg tablet 20 mg PO HS #90 tab 03/18/21 diltiazem HCl 240 mg 240 mg PO QAM #90 cap 04/16/21 capsule,extended release 24 hr potassium chloride 20 mEq 40 meq PO BID #120 tab 12/20/21 tablet,extended release(part/cryst) carvedilol 25 mg tablet 25 mg PO BID #60 tab 06/17/21 propranolol 60 mg capsule,24 60 mg PO QAM #90 cap 08/13/21 hr,extended release oxycodone-acetaminophen 5 mg-325 1 tab PO Q6H PRN #90 tab 08/25/21 mg tablet Results & Data (ED) Vital Signs Vital Signs - 24 hr 09/13/21 10:40 09/13/21 10:44 09/13/21 10:45 Temperature 37.0 C Temperature Source Oral Pulse Rate 191 H 145 H Pulse Rate from SpO2 Sensor Pulse Rhythm Regular Respiratory Rate 24 26 H 30 H Respiratory Effort / Characteristics Non-Labored Spontaneous Non-Labored Spontaneous Respiratory Depth Normal Respiratory Pattern Regular Blood Pressure Blood Pressure Mean Pulse Oximetry 90 95 Oxygen Delivery Method Room Air Room Air Oxygen Flow Rate Sepsis Recent Fever Within 48 Hours No Sepsis New/Unexplained Change in Mental Status No Sepsis Action Taken by Nursing No Action Required 09/13/21 10:50 09/13/21 11:00 09/13/21 11:04 Temperature Temperature Source Pulse Rate 193 H 145 H 133 H Pulse Rate from SpO2 Sensor 173 H 74 235 H Pulse Rhythm Respiratory Rate 27 H 22 Respiratory Effort / Characteristics Respiratory Depth Respiratory Pattern Blood Pressure 99/70 L 78/60 L Blood Pressure Mean 79 66 Pulse Oximetry 91 94 Oxygen Delivery Method Oxygen Flow Rate Sepsis Recent Fever Within 48 Hours Sepsis New/Unexplained Change in Mental Status Sepsis Action Taken by Nursing 09/13/21 11:07 09/13/21 11:10 09/13/21 11:22 Temperature Temperature Source Pulse Rate 132 H 112 H 122 H Pulse Rate from SpO2 Sensor 67 106 H Pulse Rhythm Respiratory Rate 30 H 29 H 23 Respiratory Effort / Characteristics Respiratory Depth Respiratory Pattern Blood Pressure 98/38 L 93/60 L 92/76 L Blood Pressure Mean 58 71 81 Pulse Oximetry 95 93 93 Oxygen Delivery Method Nasal Cannula Nasal Cannula Oxygen Flow Rate 3 3 Sepsis Recent Fever Within 48 Hours Sepsis New/Unexplained Change in Mental Status Sepsis Action Taken by Nursing 09/13/21 11:30 09/13/21 11:31 09/13/21 11:51 Temperature Temperature Source Pulse Rate 115 H 113 H 116 H Pulse Rate from SpO2 Sensor 106 H 93 H 101 H Pulse Rhythm Respiratory Rate 33 H 24 26 H Respiratory Effort / Characteristics Non-Labored Spontaneous Respiratory Depth Respiratory Pattern Blood Pressure 103/67 123/72 Blood Pressure Mean 79 89 Pulse Oximetry 97 98 100 Oxygen Delivery Method Nasal Cannula Nasal Cannula Nasal Cannula Oxygen Flow Rate 3 3 3 Sepsis Recent Fever Within 48 Hours Sepsis New/Unexplained Change in Mental Status Sepsis Action Taken by Nursing 09/13/21 12:00 09/13/21 12:10 09/13/21 12:11 Temperature Temperature Source Pulse Rate 100 H 100 H 107 H Pulse Rate from SpO2 Sensor 244 H 102 H 132 H Pulse Rhythm Respiratory Rate 16 42 H 18 Respiratory Effort / Characteristics Respiratory Depth Respiratory Pattern Blood Pressure 110/80 110/80 112/90 Blood Pressure Mean 90 90 97 Pulse Oximetry 93 99 99 Oxygen Delivery Method Nasal Cannula Nasal Cannula Nasal Cannula Oxygen Flow Rate 3 3 3 Sepsis Recent Fever Within 48 Hours Sepsis New/Unexplained Change in Mental Status Sepsis Action Taken by Nursing 09/13/21 12:21 09/13/21 12:31 09/13/21 12:34 Temperature Temperature Source Pulse Rate 102 H 107 H 103 H Pulse Rate from SpO2 Sensor 106 H 110 H 107 H Pulse Rhythm Respiratory Rate 19 18 23 Respiratory Effort / Characteristics Respiratory Depth Respiratory Pattern Blood Pressure 111/89 132/81 132/81 Blood Pressure Mean 96 98 98 Pulse Oximetry 99 99 98 Oxygen Delivery Method Nasal Cannula Nasal Cannula Oxygen Flow Rate 3 3 Sepsis Recent Fever Within 48 Hours Sepsis New/Unexplained Change in Mental Status Sepsis Action Taken by Nursing 09/13/21 12:42 09/13/21 12:51 09/13/21 13:00 Temperature Temperature Source Pulse Rate 103 H 105 H 112 H Pulse Rate from SpO2 Sensor 100 H 108 H 113 H Pulse Rhythm Respiratory Rate 18 24 17 Respiratory Effort / Characteristics Respiratory Depth Respiratory Pattern Blood Pressure 139/84 139/68 124/96 Blood Pressure Mean 102 91 105 Pulse Oximetry 99 97 95 Oxygen Delivery Method Oxygen Flow Rate Sepsis Recent Fever Within 48 Hours Sepsis New/Unexplained Change in Mental Status Sepsis Action Taken by Nursing 09/13/21 13:21 09/13/21 13:30 09/13/21 13:40 Temperature Temperature Source Pulse Rate 104 H 108 H 96 H Pulse Rate from SpO2 Sensor 104 H 112 H 102 H Pulse Rhythm Respiratory Rate 31 H 31 H 23 Respiratory Effort / Characteristics Respiratory Depth Respiratory Pattern Blood Pressure 144/44 H Blood Pressure Mean 77 Pulse Oximetry 95 91 100 Oxygen Delivery Method Oxygen Flow Rate Sepsis Recent Fever Within 48 Hours Sepsis New/Unexplained Change in Mental Status Sepsis Action Taken by [facility] Medications Current Medication List: was personally reviewed by me Laboratory Data Attestation: I reviewed the patient's lab results. Result diagrams: 09/13/21 11:01 09/13/21 11:01 Lab Results 09/13/21 09/13/21 09/13/21 Range/Units 11:01 11:01 11:01 WBC 9.96 (4.8-10.8) K/uL RBC 4.38 (4.2-5.4) M/uL Hgb 14.5 (12.0-16.0) g/dL POC Hgb (12.0-16.0) g/dl Hct 43.8 (37-47) % POC Hct (37-47) % MCV 100.0 (80-100) fL MCH 33.1 (25-34) pg MCHC 33.1 (32-36) g/dL RDW Std Deviation 52.1 H (36.4-46.3) fL RDW Coeff of Gary 14.3 (11.5-14.5) % Plt Count 285 (130-400) K/uL MPV 9.8 (7.4-10.4) fL Neutrophils % (Manual) 68.7 % Lymphocytes % (Manual) 2.6 % Reactive Lymphs % (Man) 24.3 % Monocytes % (Manual) 3.5 % Eosinophils % (Manual) 0.9 % Neutrophils # (Manual) 6.84 H (1.4-6.5) K/uL Total Absolute Neuts 6.84 H (1.4-6.5) K/uL Lymphocytes # (Manual) 0.26 L (1.2-3.4) K/uL Reactive Lymphs # 2.42 K/uL Total Abs Lymphocytes 2.68 (1.2-3.4) K/uL Monocytes # (Manual) 0.35 (0.11-0.59) K/uL Eosinophils # (Manual) 0.09 (0-0.5) K/uL PT 33.2 H (9.0-12.0) Seconds INR 3.3 H (0.9-1.1) APTT 30.4 (21.0-31.0) Seconds PTT Ratio 1.1 VBG pH (7.36-7.41) VBG pCO2 (38-50) mmHg VBG pO2 mmHg VBG HCO3 mmol/L VBG O2 Saturation % VBG Base Excess mEq/L Barometric Pressure mm/Hg POC Sodium (135-144) mmol/L Sodium (136-145) mmol/L POC Potassium (3.3-5.0) mmol/L Potassium (3.5-5.1) mmol/L POC Chloride (101-112) mmol/L Chloride (98-107) mmol/L Carbon Dioxide (21-32) mmol/L POC Total CO2 (24-31) mmol/L Anion Gap (3-11) POC Anion Gap (16-25) mmol/L POC BUN (7-18) mg/dl BUN (6-23) mg/dl Creatinine (0.6-1.2) mg/dl POC Creatinine (0.6-1.3) mg/dl Est Cr Clr Drug Dosing Est GFR ( Amer) ml/min Est GFR (Non-Af Amer) ml/min BUN/Creatinine Ratio (10-20) Glucose (70-99(Fasting)) mg/dl POC Glucose (other) (70-99) mg/dl Lactate (0.4-2.0) mmol/L Calcium (8.5-10.1) mg/dl POC Ioniz Calcium Zackery (1.12-1.32) mmol/l Magnesium (1.7-2.4) mg/dl Total Bilirubin (0.2-1.0) mg/dl AST (13-39) U/L ALT (7-52) U/L Alkaline Phosphatase (34-104) U/L Total Creatine Kinase (26-192) U/L Troponin I High Sens 16.4 H (0-14) pg/ml Total Protein (6.0-8.3) gm/dl Albumin (3.4-5.0) gm/dl Globulin (2.5-4.0) gm/dl Albumin/Globulin Ratio (0.9-2) Procalcitonin (0-0.5) ng/ml Adenovirus (PCR) (NotDetected) B. pertussis DNA (PCR) (NotDetected) B.parapertussis DNA PCR (NotDetected) C. pneumoniae DNA (PCR) (NotDetected) Coronavirus OC43 (PCR) (NotDetected) Coronavirus HKU1 (PCR) (NotDetected) Coronavirus 229E (PCR) (NotDetected) SARS-CoV-2 (PCR) (NotDetected) Coronavirus NL63 (PCR) (NotDetected) Human Metapneumovir PCR (NotDetected) Influenza Type A (PCR) (NotDetected) Influenza Type B (PCR) (NotDetected) M. pneumoniae (PCR) (NotDetected) Parainfluenza 1 (PCR) (NotDetected) Parainfluenza 2 (PCR) (NotDetected) Parainfluenza 3 (PCR) (NotDetected) Parainfluenza 4 (PCR) (NotDetected) RSV (PCR) (NotDetected) Entero/Rhino (PCR) (NotDetected) Blood Type Antibody Screen 09/13/21 09/13/21 09/13/21 Range/Units 11:01 11:01 11:01 WBC (4.8-10.8) K/uL RBC (4.2-5.4) M/uL Hgb (12.0-16.0) g/dL POC Hgb (12.0-16.0) g/dl Hct (37-47) % POC Hct (37-47) % MCV (80-100) fL MCH (25-34) pg MCHC (32-36) g/dL RDW Std Deviation (36.4-46.3) fL RDW Coeff of Gary (11.5-14.5) % Plt Count (130-400) K/uL MPV (7.4-10.4) fL Neutrophils % (Manual) % Lymphocytes % (Manual) % Reactive Lymphs % (Man) % Monocytes % (Manual) % Eosinophils % (Manual) % Neutrophils # (Manual) (1.4-6.5) K/uL Total Absolute Neuts (1.4-6.5) K/uL Lymphocytes # (Manual) (1.2-3.4) K/uL Reactive Lymphs # K/uL Total Abs Lymphocytes (1.2-3.4) K/uL Monocytes # (Manual) (0.11-0.59) K/uL Eosinophils # (Manual) (0-0.5) K/uL PT (9.0-12.0) Seconds INR (0.9-1.1) APTT (21.0-31.0) Seconds PTT Ratio VBG pH (7.36-7.41) VBG pCO2 (38-50) mmHg VBG pO2 mmHg VBG HCO3 mmol/L VBG O2 Saturation % VBG Base Excess mEq/L Barometric Pressure mm/Hg POC Sodium (135-144) mmol/L Sodium 143 (136-145) mmol/L POC Potassium (3.3-5.0) mmol/L Potassium 3.8 (3.5-5.1) mmol/L POC Chloride (101-112) mmol/L Chloride 109 H (98-107) mmol/L Carbon Dioxide 22 (21-32) mmol/L POC Total CO2 (24-31) mmol/L Anion Gap 12 H (3-11) POC Anion Gap (16-25) mmol/L POC BUN (7-18) mg/dl BUN 11 (6-23) mg/dl Creatinine 1.03 (0.6-1.2) mg/dl POC Creatinine (0.6-1.3) mg/dl Est Cr Clr Drug Dosing Not Reportable Est GFR ( Amer) 60.7 ml/min Est GFR (Non-Af Amer) 52.4 ml/min BUN/Creatinine Ratio 10.7 (10-20) Glucose 137 H (70-99(Fasting)) mg/dl POC Glucose (other) (70-99) mg/dl Lactate 2.3 H* (0.4-2.0) mmol/L Calcium 8.7 (8.5-10.1) mg/dl POC Ioniz Calcium Zackery (1.12-1.32) mmol/l Magnesium 1.9 (1.7-2.4) mg/dl Total Bilirubin 0.4 (0.2-1.0) mg/dl AST 15 (13-39) U/L ALT 11 (7-52) U/L Alkaline Phosphatase 64 (34-104) U/L Total Creatine Kinase 47 (26-192) U/L Troponin I High Sens (0-14) pg/ml Total Protein 7.1 (6.0-8.3) gm/dl Albumin 3.7 (3.4-5.0) gm/dl Globulin 3.4 (2.5-4.0) gm/dl Albumin/Globulin Ratio 1.1 (0.9-2) Procalcitonin < 0.05 (0-0.5) ng/ml Adenovirus (PCR) (NotDetected) B. pertussis DNA (PCR) (NotDetected) B.parapertussis DNA PCR (NotDetected) C. pneumoniae DNA (PCR) (NotDetected) Coronavirus OC43 (PCR) (NotDetected) Coronavirus HKU1 (PCR) (NotDetected) Coronavirus 229E (PCR) (NotDetected) SARS-CoV-2 (PCR) (NotDetected) Coronavirus NL63 (PCR) (NotDetected) Human Metapneumovir PCR (NotDetected) Influenza Type A (PCR) (NotDetected) Influenza Type B (PCR) (NotDetected) M. pneumoniae (PCR) (NotDetected) Parainfluenza 1 (PCR) (NotDetected) Parainfluenza 2 (PCR) (NotDetected) Parainfluenza 3 (PCR) (NotDetected) Parainfluenza 4 (PCR) (NotDetected) RSV (PCR) (NotDetected) Entero/Rhino (PCR) (NotDetected) Blood Type Antibody Screen 09/13/21 09/13/21 09/13/21 Range/Units 11:01 11:07 11:08 WBC (4.8-10.8) K/uL RBC (4.2-5.4) M/uL Hgb (12.0-16.0) g/dL POC Hgb 14.6 (12.0-16.0) g/dl Hct (37-47) % POC Hct 43 (37-47) % MCV (80-100) fL MCH (25-34) pg MCHC (32-36) g/dL RDW Std Deviation (36.4-46.3) fL RDW Coeff of Gary (11.5-14.5) % Plt Count (130-400) K/uL MPV (7.4-10.4) fL Neutrophils % (Manual) % Lymphocytes % (Manual) % Reactive Lymphs % (Man) % Monocytes % (Manual) % Eosinophils % (Manual) % Neutrophils # (Manual) (1.4-6.5) K/uL Total Absolute Neuts (1.4-6.5) K/uL Lymphocytes # (Manual) (1.2-3.4) K/uL Reactive Lymphs # K/uL Total Abs Lymphocytes (1.2-3.4) K/uL Monocytes # (Manual) (0.11-0.59) K/uL Eosinophils # (Manual) (0-0.5) K/uL PT (9.0-12.0) Seconds INR (0.9-1.1) APTT (21.0-31.0) Seconds PTT Ratio VBG pH 7.31 L (7.36-7.41) VBG pCO2 48 (38-50) mmHg VBG pO2 32 mmHg VBG HCO3 23 mmol/L VBG O2 Saturation 60.8 % VBG Base Excess -3.4 mEq/L Barometric Pressure 739.4 mm/Hg POC Sodium 144 (135-144) mmol/L Sodium (136-145) mmol/L POC Potassium 3.8 (3.3-5.0) mmol/L Potassium (3.5-5.1) mmol/L POC Chloride 110 (101-112) mmol/L Chloride (98-107) mmol/L Carbon Dioxide (21-32) mmol/L POC Total CO2 22 L (24-31) mmol/L Anion Gap (3-11) POC Anion Gap 18.0 (16-25) mmol/L POC BUN 11 (7-18) mg/dl BUN (6-23) mg/dl Creatinine (0.6-1.2) mg/dl POC Creatinine 1.0 (0.6-1.3) mg/dl Est Cr Clr Drug Dosing Est GFR ( Amer) ml/min Est GFR (Non-Af Amer) ml/min BUN/Creatinine Ratio (10-20) Glucose (70-99(Fasting)) mg/dl POC Glucose (other) 141 H (70-99) mg/dl Lactate (0.4-2.0) mmol/L Calcium (8.5-10.1) mg/dl POC Ioniz Calcium Zackery 1.11 L (1.12-1.32) mmol/l Magnesium (1.7-2.4) mg/dl Total Bilirubin (0.2-1.0) mg/dl AST (13-39) U/L ALT (7-52) U/L Alkaline Phosphatase (34-104) U/L Total Creatine Kinase (26-192) U/L Troponin I High Sens (0-14) pg/ml Total Protein (6.0-8.3) gm/dl Albumin (3.4-5.0) gm/dl Globulin (2.5-4.0) gm/dl Albumin/Globulin Ratio (0.9-2) Procalcitonin (0-0.5) ng/ml Adenovirus (PCR) (NotDetected) B. pertussis DNA (PCR) (NotDetected) B.parapertussis DNA PCR (NotDetected) C. pneumoniae DNA (PCR) (NotDetected) Coronavirus OC43 (PCR) (NotDetected) Coronavirus HKU1 (PCR) (NotDetected) Coronavirus 229E (PCR) (NotDetected) SARS-CoV-2 (PCR) (NotDetected) Coronavirus NL63 (PCR) (NotDetected) Human Metapneumovir PCR (NotDetected) Influenza Type A (PCR) (NotDetected) Influenza Type B (PCR) (NotDetected) M. pneumoniae (PCR) (NotDetected) Parainfluenza 1 (PCR) (NotDetected) Parainfluenza 2 (PCR) (NotDetected) Parainfluenza 3 (PCR) (NotDetected) Parainfluenza 4 (PCR) (NotDetected) RSV (PCR) (NotDetected) Entero/Rhino (PCR) (NotDetected) Blood Type AB Positive Antibody Screen NEGATIVE 09/13/21 09/13/21 Range/Units 13:21 Unknown WBC (4.8-10.8) K/uL RBC (4.2-5.4) M/uL Hgb (12.0-16.0) g/dL POC Hgb (12.0-16.0) g/dl Hct (37-47) % POC Hct (37-47) % MCV (80-100) fL MCH (25-34) pg MCHC (32-36) g/dL RDW Std Deviation (36.4-46.3) fL RDW Coeff of Gary (11.5-14.5) % Plt Count (130-400) K/uL MPV (7.4-10.4) fL Neutrophils % (Manual) % Lymphocytes % (Manual) % Reactive Lymphs % (Man) % Monocytes % (Manual) % Eosinophils % (Manual) % Neutrophils # (Manual) (1.4-6.5) K/uL Total Absolute Neuts (1.4-6.5) K/uL Lymphocytes # (Manual) (1.2-3.4) K/uL Reactive Lymphs # K/uL Total Abs Lymphocytes (1.2-3.4) K/uL Monocytes # (Manual) (0.11-0.59) K/uL Eosinophils # (Manual) (0-0.5) K/uL PT (9.0-12.0) Seconds INR (0.9-1.1) APTT (21.0-31.0) Seconds PTT Ratio VBG pH (7.36-7.41) VBG pCO2 (38-50) mmHg VBG pO2 mmHg VBG HCO3 mmol/L VBG O2 Saturation % VBG Base Excess mEq/L Barometric Pressure mm/Hg POC Sodium (135-144) mmol/L Sodium (136-145) mmol/L POC Potassium (3.3-5.0) mmol/L Potassium (3.5-5.1) mmol/L POC Chloride (101-112) mmol/L Chloride (98-107) mmol/L Carbon Dioxide (21-32) mmol/L POC Total CO2 (24-31) mmol/L Anion Gap (3-11) POC Anion Gap (16-25) mmol/L POC BUN (7-18) mg/dl BUN (6-23) mg/dl Creatinine (0.6-1.2) mg/dl POC Creatinine (0.6-1.3) mg/dl Est Cr Clr Drug Dosing Est GFR ( Amer) ml/min Est GFR (Non-Af Amer) ml/min BUN/Creatinine Ratio (10-20) Glucose (70-99(Fasting)) mg/dl POC Glucose (other) (70-99) mg/dl Lactate 1.4 (0.4-2.0) mmol/L Calcium (8.5-10.1) mg/dl POC Ioniz Calcium Zackery (1.12-1.32) mmol/l Magnesium (1.7-2.4) mg/dl Total Bilirubin (0.2-1.0) mg/dl AST (13-39) U/L ALT (7-52) U/L Alkaline Phosphatase (34-104) U/L Total Creatine Kinase (26-192) U/L Troponin I High Sens (0-14) pg/ml Total Protein (6.0-8.3) gm/dl Albumin (3.4-5.0) gm/dl Globulin (2.5-4.0) gm/dl Albumin/Globulin Ratio (0.9-2) Procalcitonin (0-0.5) ng/ml Adenovirus (PCR) Not Detected (NotDetected) B. pertussis DNA (PCR) Not Detected (NotDetected) B.parapertussis DNA PCR Not Detected (NotDetected) C. pneumoniae DNA (PCR) Not Detected (NotDetected) Coronavirus OC43 (PCR) Not Detected (NotDetected) Coronavirus HKU1 (PCR) Not Detected (NotDetected) Coronavirus 229E (PCR) Not Detected (NotDetected) SARS-CoV-2 (PCR) Not Detected (NotDetected) Coronavirus NL63 (PCR) Not Detected (NotDetected) Human Metapneumovir PCR Not Detected (NotDetected) Influenza Type A (PCR) Not Detected (NotDetected) Influenza Type B (PCR) Not Detected (NotDetected) M. pneumoniae (PCR) Not Detected (NotDetected) Parainfluenza 1 (PCR) Not Detected (NotDetected) Parainfluenza 2 (PCR) Not Detected (NotDetected) Parainfluenza 3 (PCR) Not Detected (NotDetected) Parainfluenza 4 (PCR) Not Detected (NotDetected) RSV (PCR) Not Detected (NotDetected) Entero/Rhino (PCR) Not Detected (NotDetected) Blood Type Antibody Screen Administered Medications Amiodarone HCl/Dextrose (Nexterone / D5w) 360 mg in 200 mls @ 33.333 mls/hr IV ONE ONE Stop: 09/13/21 17:54 Last Admin: 09/13/21 12:11 Dose: 33.3 mls/hr Documented by: [id number] Cosigned by: [id number] Discontinued Medications Adenosine (Adenosine Iv Soln 3 Mg/Ml 2 Ml Vial) Confirm Administered Dose 18 mg IV .STK-MED ONE Stop: 09/13/21 10:52 Last Admin: 09/13/21 13:27 Dose: Not Given Documented by: [id number] Amiodarone HCl (Amiodarone Iv Bolus & Drip) 1 ea IV NOW STA; Protocol Stop: 09/13/21 11:45 Last Admin: 09/13/21 12:26 Dose: Not Given Documented by: [id number] Sodium Chloride (Nss 1000ml) 1,000 mls @ 999 mls/hr IV .Q1H1M ONE Stop: 09/13/21 11:45 Last Infusion: 09/13/21 11:56 Dose: 0 mls/hr Documented by: [id number] Admin: 09/13/21 11:15 Dose: 999 mls/hr Documented by: [id number] Amiodarone HCl/Dextrose (Nexterone / D5w) 150 mg in 100 mls @ 600 mls/hr IV NOW STA Stop: 09/13/21 11:53 Last Admin: 09/13/21 12:04 Dose: Not Given Documented by: [id number] Ceftriaxone Sodium (Rocephin) 1,000 mg in 50 mls @ 100 mls/hr IV NOW STA Stop: 09/13/21 13:09 Last Infusion: 09/13/21 13:49 Dose: 0 mls/hr Documented by: [id number] Admin: 09/13/21 13:21 Dose: 100 mls/hr Documented by: [id number] Ioversol (Optiray 320 125ml) 120 ml IV ONCE ONE Stop: 09/13/21 11:47 Last Admin: 09/13/21 11:46 Dose: 120 ml Documented by: [id number] Miscellaneous (Stat Iv Infusion Titration Per Protocol) 1 ea N/A NOW STA Stop: 09/13/21 11:45 Last Admin: 09/13/21 12:26 Dose: Not Given Documented by: [id number] Imaging Data Radiologist's Impression: Chest X-Ray 09/13/21 10:45 XR chest 1V portable CLINICAL HISTORY: Sepsis. COMPARISON STUDY: Chest radiograph March 24, 2021. FINDINGS: Median sternotomy wires are noted. Cardiomegaly is unchanged. There is no evidence for pulmonary edema. There is no consolidation to suggest pneumonia. Elevation the right hemidiaphragm is unchanged. No pneumothorax or pleural effusion is present. Prominence of the aortic arch is unchanged. IMPRESSION: No acute cardiopulmonary findings. No change in appearance of the chest. ACT 112: Negative or not required by law. Electronically signed by: Humberto Espinoza M.D. 09/13/2021 11:08 AM Abdomen/Pelvis CT 09/13/21 11:[address] WITH IV CONTRAST CT DOSE: 2737.03 mGy.cm HISTORY: Generalized abdominal pain. TECHNIQUE: Multiaxial CT images of the abdomen and pelvis were performed following the use of intravenous contrast. A dose lowering technique was utilized adhering to the principles of ALARA. COMPARISON STUDY: Abdomen and pelvis CT 03/21/2020. FINDINGS: Please refer to the same day chest CTA for further evaluation of the lung bases. No pneumoperitoneum. No pneumatosis. No fractures within the visualized osseous structures. Poststernotomy changes. The heart remains mildly enlarged. Stable hypodense lesions within the left hepatic lobe consistent with cysts. Prior cholecystectomy. The pancreas, spleen, and adrenal glands are unremarkable. Normal left kidney. Stable hypodense lesion within the upper pole the right kidney. This likely represents a cyst. There are few punctate left renal calculi, unchanged. No ureteral calculi. No hydronephrosis. Small metallic clip adjacent to the IVC which is unchanged in position. No retroperitoneal lymphadenopathy. The bladder is unremarkable. Abnormal thickening and enhancement within the endometrium which measures up to 1.7 cm in thickness. This is concerning for an endometrial mass. No pelvic free fluid. Moderate well- formed stool within the rectum. No bowel wall thickening or obstruction. Normal appendix. IMPRESSION: 1. No bowel wall thickening or obstruction. 2. Normal appendix. 3. Abnormal thickening and enhancement within the endometrium. This is concerning for an endometrial mass. Follow-up gynecologic consultation recommended. 4. Left-sided nephrolithiasis. No ureteral stones. No hydronephrosis. ACT 112: Positive. There are findings on this exam that require communication between the performing entity and the patient following Patient Test Result Information Act ([place] Act 112) guidelines. Electronically signed by: Jeromy Yu M.D. 09/13/2021 12:46 PM Chest CTA 09/13/21 11:14 CT ANGIOGRAPHY OF THE CHEST, PULMONARY EMBOLUS PROTOCOL CLINICAL HISTORY: Shortness of breath. Chest pain. COMPARISON STUDY: Chest CT September 04, 2016. Chest radiograph performed earlier today. TECHNIQUE: Following IV administration of 120 mL of Optiray, helical axial image s of the chest were obtained utilizing the pulmonary embolus protocol. Maximal intensity projections and sagittal and coronal reformats were viewed on an independent 3D workstation. IV contrast was administered without complication. Automated exposure control was utilized for the study. A dose lowering technique was utilized adhering to the principles of ALARA. FINDINGS: No pulmonary emboli are identified. There is no thoracic aortic dissection. Mild dilatation of the ascending aorta, measuring 4.1 cm per there is moderate cardiomegaly. No pericardial effusion is present. No pneumothorax or pleural effusion is noted. Left lower lobe subpleural opacity favors at electasis. There are scattered small irregular nodules and tree-in-bud nodules within the lungs. No pneumothorax or pleural effusion is present. No thoracic lymphadenopathy is present. Abdomen and pelvis will be reported separately. No acute fracture or suspicious lesion within the visualized bony thorax is identified. IMPRESSION: 1. No pulmonary emboli identified. 2. Scattered small irregular nodules and tree-in-bud nodules within the lungs which favor a mild infectious process. A follow-up chest CT in 3 months to ensure resolution is recommended. 3. Moderate cardiomegaly. ACT 112: Negative or not required by law. Electronically signed by: Humberto Espinoza M.D. 09/13/2021 12:35 PM Discharge Plan Visit Data Chief Complaint: Weakness ED Provider: Juni Woo Discharge Problem: Wide-complex tachycardia, Weakness, Acute hypotension, Mass of uterus Patient Disposition: Being Evaluated by Hospitalist Forms Stand Alone Forms: [facility] [employer] Prescriptions Prescriptions: No Action (DME) Women underwear pull up briefs, Max absorbency XL See Rx Instructions .Route .MEDSUPPLY Qty: 100 RF: 11 (DME) underpads for chairs, Max absorbency 23x26, Large See Rx Instructions .Route .MEDSUPPLY Qty: 100 RF: 11 (DME) Long length pads, max absorbency See Rx Instructions .Route .MEDSUPPLY Qty: 100 RF: 11 aspirin [Aspirin Low Dose] 81 mg tablet,delayed release (DR/EC) 81 mg PO QAM Qty: 90 RF: 3 (DME) underpads Pad See Rx Instructions .ROUTE .MEDSUPPLY Qty: 300 RF: 5 (DME) underpads 30 X 30 " pad See Rx Instructions .ROUTE .MEDSUPPLY Qty: 100 RF: 5 (DME) Premoistened adult wipes See Rx Instructions .Route .MEDSUPPLY Qty: 100 RF: 11 diclofenac sodium 1 % gel 4 g TOP QID Qty: 100 RF: 2 atorvastatin 20 mg tablet 20 mg PO HS Qty: 90 RF: 1 diltiazem HCl 240 mg capsule,extended release 24hr 240 mg PO QAM Qty: 90 RF: 3 potassium chloride 20 mEq tablet,ER particles/crystals 40 meq PO BID Qty: 120 RF: 5 carvedilol 25 mg tablet 25 mg PO BID Qty: 60 RF: 5 propranolol 60 mg capsule,extended release 24 hr 60 mg PO QAM Qty: 90 RF: 1 oxycodone-acetaminophen 5-325 mg tablet 1 tab PO Q6H PRN (Reason: pain) Qty: 90 RF: 0 silver sulfadiazine [Silvadene] 1 % cream 1 applic topical BID Qty: 400 RF: 0 lamotrigine 200 mg tablet 200 mg PO BID RF: 0 escitalopram oxalate 20 mg tablet 20 mg PO HS RF: 0 topiramate 100 mg tablet 100 mg PO BID RF: 0 carbidopa-levodopa 25-100 mg tablet 2 tab PO TID RF: 0 primidone 50 mg tablet 100 mg PO TID RF: 0 aripiprazole 10 mg tablet 10 mg PO QAM RF: 0 acetaminophen 325 mg Tablet 325 mg PO Q6H PRN (Reason: Pain) RF: 0 warfarin 2.5 mg tablet See Rx Instructions mg .ROUTE .COMPLEX RF: 0 multivitamin Tablet 1 tab PO QAM RF: 0 Referrals Referrals: Chris Moore III, CRNP [Primary Care Provider] -
[2021-09-13 11:19] LABS: Hematocrit (blood only) 43.8 % (37-47); Hemoglobin 14.5 g/dL (12.0-16.0); Mean Corpuscular Hemoglobin 33.1 pg (25-34); Mean Corpuscular Hgb Conc 33.1 g/dL (32-36); Mean Platelet Volume 9.8 fL (7.4-10.4); Platelet Count 285 K/uL (130-400); RDW Coefficient of Variation 14.3 % (11.5-14.5); RDW Standard Deviation 52.1 fL (36.4-46.3); Red Blood Count 4.38 M/uL (4.2-5.4); White Blood Count 9.96 K/uL (4.8-10.8)
[2021-09-13 11:20] LABS: iSTAT Hemoglobin 14.6 g/dl (12.0-16.0); iSTAT Ionized Calcium 1.11 mmol/l (1.12-1.32); iSTAT Potassium 3.8 mmol/L (3.3-5.0)
[2021-09-13 11:29] LABS: INR 3.3 (0.9-1.1); Partial Thromboplastin Ratio 1.1; Partial Thromboplastin Time 30.4 Seconds (21.0-31.0); Prothrombin Time 33.2 Seconds (9.0-12.0)
[2021-09-13 11:35] LABS: Base Excess VBG -3.4 mEq/L; Oxygen Saturation VBG 60.8 %; pH VBG 7.31 (7.36-7.41)
[2021-09-13] MEDS ORDERED: STAT IV Infusion **Titration per Protocol STA (11:44)
[2021-09-13] MEDS ORDERED: AMIODARONE IV BOLUS & DRIP IV STA (11:44)
[2021-09-13] MEDS ORDERED: 0.2 MICRON FILTER SET 1 EA IV ONE (11:44)
[2021-09-13] MEDS ORDERED: AMIODARONE / D5W 150 MG/100 ML BAG IV STA (11:44)
[2021-09-13] MEDS ORDERED: OPTIRAY 320 125ml IV ONE (11:46)
[2021-09-13] MEDS ORDERED: AMIODARONE / D5W 360 MG/200 ML BAG IV ONE (11:55)
[2021-09-13 12:04] LABS: ALC (manual) 2.68 K/uL (1.2-3.4); ANC (manual) 6.84 K/uL (1.4-6.5); Eosinophils # (manual) 0.09 K/uL (0-0.5); Eosinophils % (manual) 0.9 %; Lymphocytes # (manual) 0.26 K/uL (1.2-3.4); Lymphocytes % (manual) 2.6 %; Monocytes # (manual) 0.35 K/uL (0.11-0.59); Monocytes % (manual) 3.5 %; Neutrophils # (manual) 6.84 K/uL (1.4-6.5); Neutrophils % (manual) 68.7 %; Reactive Lymphocytes # (manual) 2.42 K/uL; Reactive Lymphocytes % (manual) 24.3 %
[2021-09-13 12:26] LABS: Adenovirus PCR Not Detected (NotDetected); Bordetella parapertussis PCR Not Detected (NotDetected); Bordetella pertussis PCR Not Detected (NotDetected); Chlamydia pneumoniae PCR Not Detected (NotDetected); Coronavirus 229E PCR Not Detected (NotDetected); Coronavirus CoV-2 (COVID19)PCR Not Detected (NotDetected); Coronavirus HKU1 PCR Not Detected (NotDetected); Coronavirus NL63 PCR Not Detected (NotDetected); Coronavirus OC43PCR Not Detected (NotDetected); Human Metapneumovirus PCR Not Detected (NotDetected); Influenza A PCR Not Detected (NotDetected); Influenza B PCR Not Detected (NotDetected); Mycoplasma pneumoniae PCR Not Detected (NotDetected); Parainfluenza Virus 1 PCR Not Detected (NotDetected); Parainfluenza Virus 2 PCR Not Detected (NotDetected); Parainfluenza Virus 3 PCR Not Detected (NotDetected); Parainfluenza Virus 4 PCR Not Detected (NotDetected); Respiratory Syncytial VirusPCR Not Detected (NotDetected); Rhinovirus/Enterovirus PCR Not Detected (NotDetected)
--- NOTE | 2021-09-13 12:37 | CT Scan Report ---
CT ANGIOGRAPHY OF THE CHEST, PULMONARY EMBOLUS PROTOCOL CLINICAL HISTORY: Shortness of breath. Chest pain. COMPARISON STUDY: Chest CT September 04, 2016. Chest radiograph performed earlier today. TECHNIQUE: Following IV administration of 120 mL of Optiray, helical axial images of the chest were o btained utilizing the pulmonary embolus protocol. Maximal intensity projections and sagittal and cor onal reformats were viewed on an independent 3D workstation. IV contrast was administered without co mplication. Automated exposure control was utilized for the study. A dose lowering technique was ut ilized adhering to the principles of ALARA. FINDINGS: No pulmonary emboli are identified. There is no thoracic aortic dissection. Mild dilatatio n of the ascending aorta, measuring 4.1 cm per there is moderate cardiomegaly. No pericardial effusio n is present. No pneumothorax or pleural effusion is noted. Left lower lobe subpleural opacity favors atelectasis. There are scattered small irregular nodules and tree-in-bud nodules within the lungs. N o pneumothorax or pleural effusion is present. No thoracic lymphadenopathy is present. Abdomen and pe lvis will be reported separately. No acute fracture or suspicious lesion within the visualized bony t horax is identified. IMPRESSION: 1. No pulmonary emboli identified. 2. Scattered small irregular nodules and tree-in-bud nodules within the lungs which favor a mild infe ctious process. A follow-up chest CT in 3 months to ensure resolution is recommended. 3. Moderate cardiomegaly. ACT 112: Negative or not required by law. Electronically signed by: Humberto Espinoza M.D. 09/13/2021 12:35 PM
[2021-09-13] MEDS ORDERED: cefTRIAXone SODIUM 1,000 MG/50 ML BAG IV STA (12:40)
[2021-09-13 12:45] LABS: Alanine Aminotransferase 11 U/L (7-52); Albumin Globulin Ratio 1.1 (0.9-2); Albumin Level 3.7 gm/dl (3.4-5.0); Alkaline Phosphatase 64 U/L (34-104); Anion Gap 12 (3-11); Aspartate Aminotransferase 15 U/L (13-39); BUN Creatinine Ratio 10.7 (10-20); Bilirubin,Total 0.4 mg/dl (0.2-1.0); Blood Urea Nitrogen 11 mg/dl (6-23); Calcium 8.7 mg/dl (8.5-10.1); Carbon Dioxide 22 mmol/L (21-32); Chloride 109 mmol/L (98-107); Creatine Kinase 47 U/L (26-192); Est GFR (African American) 60.7 ml/min; Est GFR (Non-African American) 52.4 ml/min; Globulin 3.4 gm/dl (2.5-4.0); Glucose 137 mg/dl (70-99(Fasting)); Magnesium 1.9 mg/dl (1.7-2.4); Potassium 3.8 mmol/L (3.5-5.1); Sodium 143 mmol/L (136-145); Total Protein 7.1 gm/dl (6.0-8.3)
--- NOTE | 2021-09-13 12:48 | CT Scan Report ---
ABDOMEN AND PELVIS CT WITH IV CONTRAST CT DOSE: 2737.03 mGy.cm HISTORY: Generalized abdominal pain. TECHNIQUE: Multiaxial CT images of the abdomen and pelvis were performed following the use of intrave nous contrast. A dose lowering technique was utilized adhering to the principles of ALARA. COMPARISON STUDY: Abdomen and pelvis CT 03/21/2020. FINDINGS: Please refer to the same day chest CTA for further evaluation of the lung bases. No pneumop eritoneum. No pneumatosis. No fractures within the visualized osseous structures. Poststernotomy araujo ges. The heart remains mildly enlarged. Stable hypodense lesions within the left hepatic lobe consist ent with cysts. Prior cholecystectomy. The pancreas, spleen, and adrenal glands are unremarkable. Nor mal left kidney. Stable hypodense lesion within the upper pole the right kidney. This likely represen ts a cyst. There are few punctate left renal calculi, unchanged. No ureteral calculi. No hydronephros is. Small metallic clip adjacent to the IVC which is unchanged in position. No retroperitoneal lympha denopathy. The bladder is unremarkable. Abnormal thickening and enhancement within the endometrium wh ich measures up to 1.7 cm in thickness. This is concerning for an endometrial mass. No pelvic free fl uid. Moderate well-formed stool within the rectum. No bowel wall thickening or obstruction. Normal ap pendix. IMPRESSION: 1. No bowel wall thickening or obstruction. 2. Normal appendix. 3. Abnormal thickening and enhancement within the endometrium. This is concerning for an endometrial mass. Follow-up gynecologic consultation recommended. 4. Left-sided nephrolithiasis. No ureteral stones. No hydronephrosis. ACT 112: Positive. There are findings on this exam that require communication between the performing entity and the patient following Patient Test Result Information Act ([place] Act 112) guidelines. Electronically signed by: Jeromy Yu M.D. 09/13/2021 12:46 PM
[2021-09-13] MEDS ORDERED: VANCOMYCIN CONSULT ACTIVE PRN (13:45)
--- NOTE | 2021-09-13 14:06 | History & Physical Report ---
Date of Service September 13, 2021 Assessment & Plan (1) Ventricular arrhythmia: (2) Atrial flutter: (3) Ambulatory dysfunction: (4) OCD (obsessive compulsive disorder): (5) Generalized anxiety disorder: (6) Tremor: Plan: 76 yo F Hx AFlutter, depression, OCD, HTN, HLD, ambulatory dysfunction admitted for ventricular arrhythmia and concerns about home safety. Ventricular arrhythmia: -Presented to the ER with weakness in the setting of not being able to move from her chair for two days, and not taking several of her medications. -Noted to be briefly in wide-complex tachycardia before transition to narrow complex tachycardia with HR 190s. -Self-converted without need for cardioversion while receiving 1L NSS bolus. -Amiodarone gtt started, will continue for now. Currently in atrial flutter. -Telemetry for cardiac monitoring with daily EKGs. -Serial troponins ordered, though do expect will be elevated to some extent given ventricular arrhythmia. -Echocardiogram ordered. Sepsis; possibly secondary to developing pneumonia: -Briefly required supplemental O2. -CTA Chest with tree in bud opacities possibly suggestive of pneumonia. -Started on empiric vanc/cefepime. MRSA nares pending. -Procal and blood cultures pending. Atrial flutter: -History of atrial flutter with most recent Echo 07/2020 with severe LA dilation. -Home regimen includes diltiazem 240mg daily, warfarin 5mg MWF/2.5mg all other days. -INR 3.3 on admission. -Hold warfarin x1 day; resume tomorrow. -Resume diltiazem 240mg daily tomorrow AM. Ambulatory dysfunction, weakness: Was in chair at home for two days due to inability to get up from chair and was without assistance of caregivers. Strength 5/5 on my exam in bilateral upper and lower extremities. PT and OT to evaluate while admitted. Ultimately, I am concerned about this patient's ability to care for herself and have ambulatory function at home given this admission. Given lack of caregiver support for two days, Office of Aging will be involved in this admission, as will our Principal Java Software Engineer. Ultimately believe that this patient will need 24 hour care and likely placement to halfway facility both for physical conditioning and for continued care following hospital discharge. Depression, OCD, essential tremor: -Recently had carbidopa/levodopa titrated off, as well as Abilify by her Neurologist (Dr. Vasquez) and Psychiatrist (Dr. Gorman). -Continue home lamotrigine, topiramate, primidone, escitalopram. -Tremor under poor control at this time but has been off of her chronic regimen for 2 days. Code Status: FULL CODE FEN: Regular diet DVT ppx: hold warfarin today, but resume tomorrow Dispo: Telemetry History of Present Illness Chief Complaint: weakness, tachycardia Primary Care Provider: Chris Moore, III, HEALTH ADMINISTRATOR 76 yo F Hx AFlutter, depression, OCD, HTN, HLD, ambulatory dysfunction presented to the ER via ambulance for weakness and was noted on arrival to have ventricular tachycardia in the 190s. She converted spontaneously to AFlutter with HR low 100s after receiving a 1L bolus of NSS. She was then started on amiodarone gtt. Patient reports that she was in her chair in her home for two days straight as she did not have any caregivers to help her out of her chair. She only was taking her daily warfarin but not any of her other medications because she did not have any more water to take them with. She reports that recently her carbidopa/levodopa and Abilify were titrated off by her Neurologist and Psychiatrist. She denies SOB, chest pain, nausea, vomiting, recent illness. Allergies Allergy/AdvReac Type Severity Reaction Status Date / Time amoxicillin [From Augmentin] AdvReac Intermediate Diarrhea Unverified 09/13/21 10:56 clavulanic acid AdvReac Intermediate Diarrhea Unverified 09/13/21 10:56 [From Augmentin] Home Medications Medication Instructions Recorded Confirmed Type escitalopram oxalate 20 mg tablet 20 mg PO HS 02/12/18 09/13/21 History lamotrigine 200 mg tablet 200 mg PO BID 02/12/18 09/13/21 History topiramate 100 mg tablet 100 mg PO BID 02/12/18 09/13/21 History aripiprazole 10 mg tablet 10 mg PO QAM 02/21/19 09/13/21 History carbidopa 25 mg-levodopa 100 mg 2 tab PO TID tab 07/10/19 09/13/21 History tablet primidone 50 mg tablet 100 mg PO TID 03/21/20 09/13/21 History Long length pads, max absorbency #100 ea 10/11/20 06/30/21 Rx Women underwear pull up briefs, #100 ea 10/11/20 06/30/21 Rx Max absorbency underpads for chairs, Max #100 ea 10/11/20 06/30/21 Rx absorbency aspirin 81 mg tablet,delayed 81 mg PO QAM #90 tab 11/07/20 09/13/21 Rx release (Aspirin Low Dose) silver sulfadiazine 1 % topical 1 applic TOPICAL BID #400 g 11/14/20 09/13/21 Rx cream (Silvadene) Premoistened adult wipes #100 ea 11/18/20 06/30/21 Rx underpads #300 ea 11/18/20 06/30/21 Rx underpads 30" X 30" #100 ea 11/18/20 06/30/21 Rx multivitamin 1 tab PO QAM 01/02/21 09/13/21 History diclofenac sodium 1 % topical gel 4 g TOP QID #100 gm 02/12/21 09/13/21 Rx atorvastatin 20 mg tablet 20 mg PO HS #90 tab 03/18/21 09/13/21 Rx diltiazem HCl 240 mg 240 mg PO QAM #90 cap 04/16/21 09/13/21 Rx capsule,extended release 24 hr potassium chloride 20 mEq 40 meq PO BID #120 tab 05/12/21 09/13/21 Rx tablet,extended release(part/cryst) carvedilol 25 mg tablet 25 mg PO BID #60 tab 06/17/21 09/13/21 Rx propranolol 60 mg capsule,24 60 mg PO QAM #90 cap 08/13/21 09/13/21 Rx hr,extended release oxycodone-acetaminophen 5 mg-325 1 tab PO Q6H PRN #90 tab 08/25/21 09/13/21 Rx mg tablet acetaminophen 325 mg tablet 325 mg PO Q6H PRN 09/13/21 09/13/21 History warfarin 2.5 mg tablet See Rx Instructions .ROUTE .COMPLEX 09/13/21 09/13/21 History Past Med/Surg History Medical History Acute pain of left knee Ambulatory dysfunction Anemia Anticoagulant long-term use Depression with anxiety Disc degeneration, lumbar Esophageal dilatation Femoral artery occlusion, right Fluid retention Gastroesophageal reflux disease without esophagitis Generalized anxiety disorder Hyperlipidemia Hypertension Idiopathic neuropathy Mitral valve mass Numbness in right leg Obesity Obstruction of esophagus due to food impaction OCD (obsessive compulsive disorder) Osteoarthritis PTSD (post-traumatic stress disorder) Pulmonary emboli Tracheomalacia Tremor (10/13/11) Tricuspid regurgitation Ulcer of left thigh Venous insufficiency Vertigo Surgical History History of breast biopsy History of cataract surgery BILATERAL History of cholecystectomy (2018) History of colonoscopy History of dental surgery History of embolectomy History of lung surgery for pulmonary emboli History of tonsillectomy History of tooth extraction Status post incision and drainage (10/21/19) Incision and drainage of right breast abscess 10/21/19 Dr. Naidu Family History Mother Cardiac disorder Hypertension Myocardial infarction Aunt Breast cancer Denies family history of Ovarian cancer Prostate cancer Colorectal cancer Social History Smoking Status: Never smoker Second Hand Exposure: No; Hx Alcohol Use: No Hx Substance Use: No Preferred Language: Turkish Communication Ability: Effective Visual Impairment: No Limitations Hearing Ability: Normal Residential Tech Required: No Beliefs That Will Affect Care: None marital status: Current Living Situation: Alone current occupational status: retired Feels Safe at Home: Yes Safety Concerns: Feels Safe At This Time Childhood Exposure to Second-Hand Smoke: No Dental Care, Regularly: No Physical Activity Frequency: Does not Exercise Seatbelt Use: always Sunscreen Use: No Do you think of yourself as: straight/heterosexual Assistive Devices: Wheelchair Review of Systems Review of Systems: All systems reviewed & are unremarkable except as noted in HPI & below Constitutional: + malaise; no fever and no chills Respiratory: no cough and no dyspnea Cardiovascular: no chest pain, no palpitations and no edema Gastrointestinal: no abdominal pain, no constipation and no diarrhea/loose stools Genitourinary: no dysuria and no hematuria Physical Exam Constitutional: WD/WN, vitals as above Eyes: PERRL, conjunctivae normal, anicteric sclerae (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) ENMT: external ear and nose normal, oropharynx normal Neck: normal visual inspection Respiratory: normal respiratory effort, lungs clear to auscultation Cardiovascular: HR irregularly irregular, mildly tachycardic, no murmurs, no peripheral edema Gastrointestinal (Abdomen): normal bowel sounds, soft, nontender, no hepatosplenomegaly Musculoskeletal: no cyanosis or clubbing, extremities motor strength 5/5 (right foot drop, contracted in inversion) Skin: no rashes, warm and dry Neurologic: EOMI no slurred speech no facial droop Psychiatric: A+Ox3, euthymic affect Results & Data Results & Data ([facility]) Vital Signs (Past 12 Hours) Vital Signs Temp Pulse Resp BP Pulse Ox 09/13/21 13:40 96 H 23 100 09/13/21 13:30 108 H 31 H 91 09/13/21 13:21 104 H 31 H 144/44 H 95 09/13/21 13:00 112 H 17 124/96 95 09/13/21 12:51 105 H 24 139/68 97 09/13/21 12:42 103 H 18 139/84 99 09/13/21 12:34 103 H 23 132/81 98 09/13/21 12:31 107 H 18 132/81 99 09/13/21 12:21 102 H 19 111/89 99 09/13/21 12:11 107 H 18 112/90 99 09/13/21 12:10 100 H 42 H 110/80 99 09/13/21 12:00 100 H 16 110/80 93 09/13/21 11:51 116 H 26 H 123/72 100 09/13/21 11:31 113 H 24 103/67 98 09/13/21 11:30 115 H 33 H 97 09/13/21 11:22 122 H 23 92/76 L 93 09/13/21 11:10 112 H 29 H 93/60 L 93 09/13/21 11:07 132 H 30 H 98/38 L 95 09/13/21 11:04 133 H 22 78/60 L 09/13/21 11:00 145 H 94 09/13/21 10:50 193 H 27 H 99/70 L 91 09/13/21 10:45 145 H 30 H 95 09/13/21 10:44 191 H 26 H 09/13/21 10:40 37.0 C 24 90 Code Status & VTE Plan VTE Prophylaxis Plan VTE Prophylaxis will be ordered: Yes Supervising Physician Co-Signing Physician Notes Attending attestation Pt seen and examined in concert with Dr. Cordoba. In agreement with the documented findings as noted in the resident documentation with any exceptions or additions as noted here. Resting in bed feeling nervous but without significant complaint presently. On examination, CTAB, S1/S2 IRR/mild tachy, Abd NT/ND BS +, Trace LE edema Ventricular arrhythmia in the setting of h/o atrial flutter - cardiology consult - continue amiodarone. Echocardiogram ordered. teletypesetter monitor. Defer to cardiology re: restarting home rate controlling medications. Chronic anticoagulation - INR 3.3 - agree w/ hold today and restart in AM Sepsis with concern for PNA on imaging - BCx pending. vancomycin/cefepime. MRSA nares. Else see resident documentation as noted. Resident Activity Tracking Resident Involvement: Resident Care Provided Care Provided: Adult Hospital Medicine
[2021-09-13] MEDS: PATIENT'S HEIGHT AND/OR WEIGHT NEEDED SCH ×4 (15:58→16:04)
[2021-09-13] MEDS ORDERED: VANCOMYCIN HCL 2,500 MG in SODIUM CHLORIDE 0.9% 500 ML IV ONE (16:00)
[2021-09-13] MEDS: PRIMIDONE 50 MG TAB PO SCH ×2 (16:46→20:09)
[2021-09-13 17:05] LABS: Appearance Urine Clear (Clear); Bacteria Urine Automated 4+ (Negative); Bilirubin Urine Negative (Negative); Blood Urine Negative (Negative); Color Urine Yellow; Epithelial Cell Urine Auto 0-5 /lpf (0-5); Glucose Urine UA Negative (Negative); Ketones Urine Negative (Negative); Leukocyte Esterase Urine 2+ (Negative); Nitrite Urine Positive (Negative); Protein Urine Negative (Negative); RBC Urine Automated 0-4 /hpf (0-4); Specific Gravity Urine 1.015 (1.000-1.030); Urobilinogen Urine Negative (Negative); WBC Urine Automated >30 /hpf (0-5); pH Urine 6.5 (4.5-7.5)
[2021-09-13] MEDS: AMIODARONE / D5W 360 MG/200 ML BAG IV SCH (17:23)
[2021-09-13] MEDS: DICLOFENAC SOD 1% GEL 100 GM TUBE EXT SCH ×2 (17:23→20:09)
[2021-09-13] MEDS: TOPIRAMATE 100 MG TAB PO SCH (20:08)
[2021-09-13] MEDS: carvediloL 25 MG TAB PO SCH (20:08)
[2021-09-13] MEDS: ATORVASTATIN 20 MG TAB PO SCH (20:09)
[2021-09-13] MEDS: lamoTRIgine 100 MG TAB PO SCH (20:09)
[2021-09-13] MEDS: ESCITALOPRAM OXALATE 20 MG TAB PO SCH (20:09)
[2021-09-13] MEDS: SILVER SULFADIAZINE 1% CR 50 GM JAR TOP SCH (20:09)
[2021-09-13] MEDS: POTASSIUM CHLORIDE CRTAB 20 MEQ TABCR PO SCH (20:10)
[2021-09-14] MEDS: AMIODARONE / D5W 360 MG/200 ML BAG IV SCH (05:30)
[2021-09-14 06:41] LABS: Basophils # (auto) 0.02 K/uL (0-0.2); Basophils % (auto) 0.3 %; Eosinophils # (auto) 0.06 K/uL (0-0.5); Hematocrit (blood only) 37.9 % (37-47); Hemoglobin 12.5 g/dL (12.0-16.0); Immature Granulocytes # (auto) 0.01 K/uL (0.00-0.02); Immature Granulocytes % (auto) 0.2 %; Lymphocytes # (auto) 1.46 K/uL (1.2-3.4); Lymphocytes % (auto) 25.2 %; Mean Corpuscular Hemoglobin 32.5 pg (25-34); Mean Corpuscular Volume 98.4 fL (80-100); Mean Platelet Volume 9.4 fL (7.4-10.4); Monocytes # (auto) 0.45 K/uL (0.11-0.59); Monocytes % (auto) 7.8 %; Neutrophils % (auto) 65.5 %; Platelet Count 190 K/uL (130-400); RDW Coefficient of Variation 14.5 % (11.5-14.5); Red Blood Count 3.85 M/uL (4.2-5.4)
[2021-09-14 06:54] LABS: BUN Creatinine Ratio 13.5 (10-20); Calcium 7.8 mg/dl (8.5-10.1); Creatinine Clr Calc Pharmacy 87.5 ml/min; Est GFR (African American) 90.6 ml/min; Est GFR (Non-African American) 78.1 ml/min; Potassium 3.2 mmol/L (3.5-5.1)
--- NOTE | 2021-09-14 07:13 | Hospitalist Progress Note ---
Date of Service September 14, 2021 Assessment & Plan (1) Ventricular arrhythmia: (2) Atrial flutter: (3) Ambulatory dysfunction: (4) OCD (obsessive compulsive disorder): (5) Generalized anxiety disorder: (6) Tremor: Plan: 76 yo F Hx AFlutter, depression, OCD, HTN, HLD, ambulatory dysfunction admitted for ventricular arrhythmia and concerns about home safety. Ventricular arrhythmia: -Presented to the ER with weakness in the setting of not being able to move from her chair for two days, and not taking several of her medications. -Noted to be briefly in wide-complex tachycardia before transition to narrow complex tachycardia with HR 190s. -Self-converted without need for cardioversion while receiving 1L NSS bolus. -Serial troponins ordered; peaked at ~500, suspected to be due to ventricular arrhythmia. -Echocardiogram without significant change from 2020 Echo; EF 50-55%, mild concentric LVH, mild , mild MR. -Amiodarone gtt started on admit; will transition to amiodarone 200mg PO BID today and d/c amio gtt. -Cardiology consulted and appreciate recommendations. -Telemetry for cardiac monitoring with daily EKGs. Sepsis; possibly secondary to developing pneumonia: -Required supplemental O2 in ER, was resumed overnight due to dyspnea. -CTA Chest with tree in bud opacities possibly suggestive of pneumonia. -Biofire negative. -Initially started on empiric vanc/cefepime 09/13. - MRSA nares negative; vancomycin discontinued. -Procal negative; blood cultures pending. Atrial flutter, Supratherapeutic INR: -History of atrial flutter with most recent Echo with severe LA dilation. -Home regimen includes diltiazem 240mg daily, warfarin 5mg MWF/2.5mg all other days. -Continue to hold warfarin while INR supratherapeutic. Resume when able. -Today's INR 3.9. -Continue diltiazem 240mg PO daily. Ambulatory dysfunction, weakness: -Was in chair at home for two days due to inability to get up from chair and was without assistance of caregivers. Also reports she does not leave her chair except to transfer to different chair/commode at baseline. -Strength 5/5 on my exam in bilateral upper and lower extremities with right foot inversion deformity. -Per patient was to have MRI tomorrow of right ankle per Dr. Alberto. Will communicate inability to have MRI at this time to Dr. Alberto. -PT and OT to evaluate while admitted. -Ultimately, I am concerned about this patient's ability to care for herself and have ambulatory function at home given this admission and ambulatory dysfunction. Given lack of caregiver support for two days, Office of Aging will be involved in this admission, as will our Manager Materials Management. Ultimately believe that this patient will need 24 hour care and likely placement to [facility] facility both for physical conditioning and for continued care following hospital discharge. Depression, OCD, essential tremor: -Recently had carbidopa/levodopa titrated off, as well as Abilify by her Neurologist (Dr. Vasquez) and Psychiatrist (Dr. Gorman). -Continue home lamotrigine, topiramate, primidone, escitalopram. -Tremor under poor control at this time but has been off of her chronic regimen for several days. Electrolye derangement: K 3.2, will replete. Ca 7.8; ICal ordered. Code Status: FULL CODE FEN: Regular diet DVT ppx: hold warfarin today, resume as able Dispo: Telemetry Admission and Anticipated Discharge Date Admission Date: September 13, 2021 Supervising Physician Co-Signing Physician Notes Attending attestation Pt seen and examined in concert with Dr. Cordoba. In agreement with the documented findings as noted in the resident documentation with any exceptions or additions as noted here. Reports resting comfortably without acute complaint, does state she has pain in the right ankle with use of her supportive boot and with any ambulation. Patient reports at home she spends nearly 100% of her time in her recliner, including sleeping, with the exception of transferring to her wheelchair to her commode and back. Yesterday, patient additionally reported that this is not the first time she'd been stranded in her chair like this, and had called through her address book and was unable to find anyone who was able/willing to help. On examination, CTAB, S1/S2 IRR/mild tachy, Abd NT/ND BS +, Trace LE edema to the knee Ventricular arrhythmia in the setting of h/o atrial flutter - cardiology consult - continue amiodarone, restarted oral rate control medications today without considerable change in HR. Echo relatively unchanged from previous. Telemetry monitoring. Chronic anticoagulation - INR 3.9 - continue holding and monitor daily INR, consider vit K (low dose) Sepsis with concern for PNA on imaging - BCx pending. d/c vancomycin, continue cefepime. MRSA nares negative. Ambulatory dysfunction w/ severe right ankle arthritis and resulting inversion - patient defers use of supportive cam boot 2/2 pain and eschews walker use 2/2 ambulatory pain. PT/OT strongly encouraged but considerable concern with level of diminished function for ongoing self-care. Office of Aging is aware and purportedly to evaluate on Wednesday. Patient's plug grower has ordered MRI and, per her documentation, is considering referral to orthopaedics for procedural intervention. Else see resident documentation as noted. Subjective Patient without cardiac events on telemetry overnight. No further ventricular arrhythmias. Patient endorses low back pain but otherwise feels well. She reports that her right foot is extremely painful due to the inversion and even is painful and chafes with the boot on, so she is "unable to ambulate" using her other foot. She sleeps in her recliner chair, and gets up from her chair only to get into her wheelchair to use the commode. She has caregiver support (in general) 8-9 hours a day, but did not have caregiver support due to COVID-19 illness in the caregiver for two days. Review of Systems Review of Systems: All systems reviewed & are unremarkable except as noted in Subjective Physical Exam Constitutional: WD/WN, vitals as above Respiratory: normal respiratory effort, lungs clear to auscultation Gastrointestinal (Abdomen): normal bowel sounds, soft, nontender, no hepatosplenomegaly Skin: no rashes, warm and dry Psychiatric: A+Ox3, euthymic affect Results & Data Results & Data ([facility]) Vital Signs (Past 12 Hours) Vital Signs Temp Pulse Pulse Resp BP Pulse Ox 09/14/21 04:37 37.0 C 100 H 20 149/63 H 95 09/13/21 23:41 98 H 09/13/21 23:34 36.8 C 99 H 20 119/63 96 09/13/21 20:00 148/104 H 09/13/21 19:43 36.8 C 103 H 20 92 Resident Activity Tracking Resident Involvement: Resident Care Provided Care Provided: Adult [facility]
[2021-09-14] MEDS ORDERED: POTASSIUM CHLORIDE CRTAB 20 MEQ TABCR PO STA (07:33)
[2021-09-14 07:58] LABS: INR 3.9 (0.9-1.1); Prothrombin Time 38.6 Seconds (9.0-12.0)
[2021-09-14] MEDS: CEFEPIME 2,000 MG in SYRINGE 0 ML IV SCH ×3 (08:33→23:03)
[2021-09-14] MEDS: ACETAMINOPHEN 325 MG TAB PO PRN (08:33)
[2021-09-14] MEDS: TOPIRAMATE 100 MG TAB PO SCH ×2 (08:33→20:31)
[2021-09-14] MEDS: PROPRANOLOL HCL 60 MG LA CAP PO SCH (08:33)
[2021-09-14] MEDS: lamoTRIgine 100 MG TAB PO SCH ×2 (08:34→21:51)
[2021-09-14] MEDS: PRIMIDONE 50 MG TAB PO SCH ×3 (08:34→20:31)
[2021-09-14] MEDS: SILVER SULFADIAZINE 1% CR 50 GM JAR TOP SCH ×2 (08:34→20:32)
[2021-09-14] MEDS: MULTIVITAMIN TAB PO SCH (08:34)
[2021-09-14] MEDS: carvediloL 25 MG TAB PO SCH ×2 (08:35→20:31)
[2021-09-14] MEDS: ASPIRIN 81 MG ECTAB PO SCH (08:35)
[2021-09-14] MEDS: dilTIAZem HCL 240 MG CAPCR PO SCH (08:35)
[2021-09-14] MEDS: DICLOFENAC SOD 1% GEL 100 GM TUBE EXT SCH ×4 (08:35→20:32)
--- NOTE | 2021-09-14 09:36 | XCELERA ---
[id number]
--- NOTE | 2021-09-14 10:45 | Cardiology Consultation ---
Date of Consultation September 14, 2021 Assessment & Plan (1) Ventricular arrhythmia: -likely secondary to her acute presentation (possible sepsis with pneumonia). -agree with intravenous amiodarone. -can convert to amiodarone 200 mg b.i.d. once infusion completed. -continue beta-blockade. (2) PAF (paroxysmal atrial fibrillation): -rate adequately controlled. -continue rate control and long-term anticoagulation. (3) Elevated troponin: -likely secondary to her acute event in the face of LVH. -doubt coronary ischemia. -continue conservative care. (4) Aortic stenosis: -mild in degree on current echocardiogram. (5) Ambulatory dysfunction: -patient will likely need placement. History of Present Illness Attending Physician: Bert Ordonez MD History of Present Illness Mrs. Winn is a 76 year old female admitted yesterday with complaints of fatigue and weakness. She had an episode of ventricular tachycardia in the emergency room. This consultation was ordered to assist in her cardiac management. Of note, the patient is typically followed by Dr. Fonseca in the outpatient setting. The patient was in her usual state of health until 2-3 days prior to presentation. The patient's multifocal lens inspector was unable to attend to Mrs. Winn during that time frame. She sat in a chair for 2 days and did not take any of her medications. She did not experience any chest pain or dyspnea. She further denies syncope, presyncope, PND, palpitations, and lower extremity edema. Her admitting diagnosis was possible sepsis from pneumonia. The patient does carry a history of paroxysmal atrial fibrillation/flutter. She is maintained on rate control and chronic anticoagulation with warfarin. She did have a thromboembolism in the right femoral artery which required an embolectomy back in November of 2018. She was diagnosed with a mass on the anterior mitral leaflet during that hospitalization for her embolectomy. Conservative medical management was recommended. A follow-up echocardiogram performed in March 2021 failed to note the aforementioned mass. Currently, patient is resting comfortably in bed without complaints. Past medical and surgical history 1. Hypertension 2. Hypercholesterolemia 3. Paroxysmal atrial fibrillation/flutter 4. Mild aortic stenosis 5. 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 GERD 7. Esophageal stricture 8. Nephrolithiasis 9. Ambulatory dysfunction 10. Chronic low back pain 11. Anxiety/depression 12. Obsessive-compulsive disorder 13. Generalized peripheral neuropathy 14. DJD 15. Venous insufficiency 16. Thromboembolism of right common femoral artery-November 2018 17. Right femoral artery embolectomy-November 2018 18. DVT/pulmonary embolism-1978 19. Open thoracic embolectomy -1978 20. Cholecystectomy-2017 20. Intra-ocular lens implants 20. Tonsillectomy Social history , but lives alone is in assisted living due to psychiatric reasons No tobacco alcohol Family history Parents developed coronary disease in their 80s. Review of systems A 10 point review systems was negative except for that described above. Allergies Allergy/AdvReac Type Severity Reaction Status Date / Time amoxicillin [From Augmentin] AdvReac Intermediate Diarrhea Unverified 09/13/21 10:56 clavulanic acid AdvReac Intermediate Diarrhea Unverified 09/13/21 10:56 [From Augmentin] Home Medications Medication Instructions Recorded Confirmed Type escitalopram oxalate 20 mg tablet 20 mg PO HS 02/12/18 09/13/21 History lamotrigine 200 mg tablet 200 mg PO BID 02/12/18 09/13/21 History topiramate 100 mg tablet 100 mg PO BID 02/12/18 09/13/21 History aripiprazole 10 mg tablet 10 mg PO QAM 02/21/19 09/13/21 History carbidopa 25 mg-levodopa 100 mg 2 tab PO TID tab 07/10/19 09/13/21 History tablet primidone 50 mg tablet 100 mg PO TID 03/21/20 09/13/21 History Long length pads, max absorbency #100 ea 10/11/20 06/30/21 Rx Women underwear pull up briefs, #100 ea 10/11/20 06/30/21 Rx Max absorbency underpads for chairs, Max #100 ea 10/11/20 06/30/21 Rx absorbency aspirin 81 mg tablet,delayed 81 mg PO QAM #90 tab 11/07/20 09/13/21 Rx release (Aspirin Low Dose) silver sulfadiazine 1 % topical 1 applic TOPICAL BID #400 g 11/14/20 09/13/21 Rx cream (Silvadene) Premoistened adult wipes #100 ea 11/18/20 06/30/21 Rx underpads #300 ea 11/18/20 06/30/21 Rx underpads 30" X 30" #100 ea 11/18/20 06/30/21 Rx multivitamin 1 tab PO QAM 01/02/21 09/13/21 History diclofenac sodium 1 % topical gel 4 g TOP QID #100 gm 02/12/21 09/13/21 Rx atorvastatin 20 mg tablet 20 mg PO HS #90 tab 03/18/21 09/13/21 Rx diltiazem HCl 240 mg 240 mg PO QAM #90 cap 04/16/21 09/13/21 Rx capsule,extended release 24 hr potassium chloride 20 mEq 40 meq PO BID #120 tab 05/12/21 09/13/21 Rx tablet,extended release(part/cryst) carvedilol 25 mg tablet 25 mg PO BID #60 tab 06/17/21 09/13/21 Rx propranolol 60 mg capsule,24 60 mg PO QAM #90 cap 08/13/21 09/13/21 Rx hr,extended release oxycodone-acetaminophen 5 mg-325 1 tab PO Q6H PRN #90 tab 08/25/21 09/13/21 Rx mg tablet acetaminophen 325 mg tablet 325 mg PO Q6H PRN 09/13/21 09/13/21 History warfarin 2.5 mg tablet See Rx Instructions .ROUTE .COMPLEX 09/13/21 09/13/21 History Patient History Medical History Acute pain of left knee Ambulatory dysfunction Anemia Anticoagulant long-term use Depression with anxiety Disc degeneration, lumbar Esophageal dilatation Femoral artery occlusion, right Fluid retention Gastroesophageal reflux disease without esophagitis Generalized anxiety disorder Hyperlipidemia Hypertension Idiopathic neuropathy Mitral valve mass Numbness in right leg Obesity Obstruction of esophagus due to food impaction OCD (obsessive compulsive disorder) Osteoarthritis PTSD (post-traumatic stress disorder) Pulmonary emboli Tracheomalacia Tremor (10/13/11) Tricuspid regurgitation Ulcer of left thigh Venous insufficiency Vertigo Surgical History History of breast biopsy History of cataract surgery BILATERAL History of cholecystectomy (2018) History of colonoscopy History of dental surgery History of embolectomy History of lung surgery for pulmonary emboli History of tonsillectomy History of tooth extraction Status post incision and drainage (10/21/19) Incision and drainage of right breast abscess 10/21/19 Dr. Naidu Family History Mother Cardiac disorder Hypertension Myocardial infarction Aunt Breast cancer Denies family history of Ovarian cancer Prostate cancer Colorectal cancer Social History Smoking Status: Never smoker Second Hand Exposure: No; Hx Alcohol Use: No Hx Substance Use: No Preferred Language: Nepalese Communication Ability: Effective Visual Impairment: No Limitations Hearing Ability: Normal Lip Cutter Required: No Beliefs That Will Affect Care: None marital status: Current Living Situation: Alone current occupational status: retired Feels Safe at Home: Yes Safety Concerns: Feels Safe At This Time Childhood Exposure to Second-Hand Smoke: No Dental Care, Regularly: No Physical Activity Frequency: Does not Exercise Seatbelt Use: always Sunscreen Use: No Do you think of yourself as: straight/heterosexual Assistive Devices: Wheelchair Physical Exam Physical Exam: In general is obese white female lying supine in bed without complaints. HEENT exam notes the patient to be edentulous. Neck is supple with full carotid upstrokes. There are no carotid bruits. Jugular is pressure is flat at 90. There is no thyromegaly. Cardiovascular exam reveals an irregularly irregular rhythm with distant heart sounds. No obvious murmurs. Lungs are clear without rales, rhonchi or wheezes. Abdomen is obese without bruits. Extremities reveal intact radial artery pulses bilaterally. Trace pretibial edema is noted. Right foot is internally rotated. Results & Data ([facility]) Vital Signs (Past 12 Hours) Vital Signs Temp Pulse Pulse Resp BP Pulse Ox 09/14/21 08:08 37.2 C 106 H 19 180/94 H 97 09/14/21 04:37 37.0 C 100 H 20 149/63 H 95 09/13/21 23:41 98 H 09/13/21 23:34 36.8 C 99 H 20 119/63 96 Laboratory Results CBC notes hemoglobin 14.5, hematocrit 43.8, white count 9.96, platelet count 650359. Electrolytes note a sodium of 144, potassium 3.8, chloride 110, bicarb 22, BUN 11, creatinine 1.0, and glucose of 141. Magnesium level is normal at 1.9. High sensitivity troponin was 16.4 on admission with follow-up values of 556.4, and 324.6. Diagnostic Findings Initial EKG noted ventricular tachycardia. Follow-up tracing was noted atrial fibrillation with an inferior and anterolateral ST abnormality. Echocardiogram notes normal systolic function with ejection fraction 50-55%. There was mild LVH along with mild aortic stenosis and mild mitral regurgitation. This is unchanged from a tracing done in March 2021. CT scan of the chest noted no pulmonary embolism but tree in bud opacities suggesting pneumonia. Chest x-ray notes sternotomy wires and cardiomegaly. CT scan of the abdomen noted endometrial thickening. PG Care Time/CCT Total # of Minutes Spent Total Time Spent with Patient: Total time spent is greater than 50% in coordination of care (as documented) at patient's floor/unit and/or counseling patient: Coding Level of Care Code 35381 Initial Inpt Care Lvl 3 Diagnoses Ventricular arrhythmia I49.9 PAF (paroxysmal atrial fibrillation) I48.0 Elevated troponin R77.8 Aortic stenosis I35.0 Ambulatory dysfunction R26.2
--- NOTE | 2021-09-14 11:36 | Electrocardiogram Report ---
Test Reason : Blood Pressure : / mmHG Vent. Rate : 132 BPM Atrial Rate : 132 BPM P-R Int : 176 ms QRS Dur : 090 ms QT Int : 332 ms P-R-T Axes : 000 -01 172 degrees QTc Int : 491 ms Atrial fibrillation with rapid ventricular response Diffuse ST abnormality Abnormal ECG When compared with ECG of 13-SEP-2021 10:59, (unconfirmed) Premature ventricular complexes are no longer Present Confirmed by Juni Sr ([id number]) on 09/14/2021 11:38:03 AM Referred By: REFERRED SELF Confirmed By:Juni Sr
--- NOTE | 2021-09-14 11:37 | Electrocardiogram Report ---
Test Reason : Blood Pressure : / mmHG Vent. Rate : 130 BPM Atrial Rate : 130 BPM P-R Int : 112 ms QRS Dur : 096 ms QT Int : 346 ms P-R-T Axes : 009 002 160 degrees QTc Int : 509 ms Atrial fibrillation with rapid ventricular response with premature ventricular or aberrantly conducte d complexes Diffuse ST abnormality Abnormal ECG When compared with ECG of 13-SEP-2021 10:47, (unconfirmed) Atrial fibrillation has replaced Wide QRS tachycardia Confirmed by Juni Sr ([id number]) on 09/14/2021 11:37:17 AM Referred By: REFERRED SELF Confirmed By:Juni Sr
--- NOTE | 2021-09-14 12:01 | Electrocardiogram Report ---
Test Reason : Blood Pressure : / mmHG Vent. Rate : 106 BPM Atrial Rate : 192 BPM P-R Int : 000 ms QRS Dur : 098 ms QT Int : 350 ms P-R-T Axes : 000 013 222 degrees QTc Int : 464 ms Atrial fibrillation with rapid ventricular response Abnormal ECG When compared with ECG of 13-SEP-2021 10:59, (unconfirmed) Non-specific change in ST segment in Inferior leads ST less depressed in Lateral leads T wave inversion now evident in Anterior leads Confirmed by Juni Sr ([id number]) on 09/14/2021 12:01:35 PM Referred By: REFERRED SELF Confirmed By:Juni Sr
[2021-09-14] MEDS: POTASSIUM CHLORIDE CRTAB 20 MEQ TABCR PO SCH ×2 (12:21→20:31)
[2021-09-14] MEDS: oxyCODONE/ACETAMINOPHEN 5mg/325mg TAB PO PRN ×2 (12:31→23:30)
[2021-09-14] MEDS: AMIODARONE 200 MG TAB PO SCH (15:54)
[2021-09-14] MEDS ORDERED: VANCOMYCIN HCL 1,250 MG in SODIUM CHLORIDE 0.9% 250 ML IV SCH (16:00)
[2021-09-14] MEDS: ATORVASTATIN 20 MG TAB PO SCH (20:31)
[2021-09-14] MEDS: ESCITALOPRAM OXALATE 20 MG TAB PO SCH (20:31)
--- NOTE | 2021-09-15 06:56 | Hospitalist Progress Note ---
Date of Service September 15, 2021 Assessment & Plan (1) Ventricular arrhythmia: Plan: 76yo female with a history of atrial flutter, HTN, HLD, OCD, MDD, and ambulatory dysfunction admitted for ventricular arrhythmia and concerns about home safety. Ventricular arrhythmia Presented to the ER with weakness in the setting of not being able to move from her chair for two days, and not taking several of her medications Noted to be briefly in wide-complex tachycardia before transition to narrow complex tachycardia with HR 190s Self-converted without need for cardioversion while receiving 1L NSS bolus Serial troponins ordered; peaked at ~500, suspected to be due to ventricular arrhythmia Echocardiogram without significant change from 2020 Echo; EF 50-55%, mild concentric LVH, mild , mild MR Amiodarone gtt started on admit; will transition to amiodarone 200mg PO BID today and d/c amio gtt Cardiology consulted and appreciate recommendations Telemetry for cardiac monitoring, daily EKGs Sepsis possibly secondary to developing pneumonia Required supplemental O2 in ER, was resumed overnight due to dyspnea CTA chest with tree-in-bud opacities possibly suggestive of pneumonia; biofire negative 09/13: initially started on empiric vanc/cefepime, though vancomycin was discontinued once MRSA nares resulted negative Continue cefepime for now Procal negative; blood cultures pending Atrial flutter, supratherapeutic INR History of atrial flutter with most recent echo with severe LA dilation Home regimen includes diltiazem 240mg daily, warfarin 5mg MWF, 2.5mg all other days Continue to hold warfarin while INR supratherapeutic, resume when INR falls below 2.5 Continue diltiazem 240mg PO daily Ambulatory dysfunction, weakness Was in chair at home for two days due to inability to get up from chair and was without assistance of caregivers Strength 5/5 on my exam in bilateral upper and lower extremities with right foot inversion deformity Per patient was to have MRI tomorrow of right ankle per Dr. Alberto. Will communicate inability to have MRI at this time to Dr. Alberto PT/OT ordered Ultimately, I am concerned about this patient's ability to care for herself and have ambulatory function at home given this admission and ambulatory dysfunction Given lack of caregiver support for two days, Office of Aging will be involved in this admission Ultimately believe that this patient will need 24 hour care and likely placement to [facility] facility both for physical conditioning and for continued care following hospital discharge Depression, OCD, essential tremor Recently had carbidopa/levodopa titrated off, as well as Abilify by her Neurologist (Dr. Vasquez) and Psychiatrist (Dr. Gorman) Continue home lamotrigine, topiramate, primidone, escitalopram Tremor under poor control at this time but has been off of her chronic regimen for several days Electrolyte derangement K 3.2, will replete Ca 7.8; iCa ordered FEN: regular diet Code status: full code DVT ppx: holding home warfarin due to supratherapeutic INR PT/OT: ordered Case management: following Dispo: med/surg telemetry (2) Elevated troponin: (3) Atrial flutter: (4) Ambulatory dysfunction: Admission and Anticipated Discharge Date Admission Date: September 13, 2021 Supervising Physician Co-Signing Physician Notes I personally examined the patient and verified all ochoa points of history and exam, discussed case, and agree with decision making with Dr Pena. Breathing feeling better. No cough. Overall feeling better. Strongly considering going to [facility] her is there. Vitals noted, in general she is awake and alert pleasant somewhat anxious but no distress. HEENT normocephalic atraumatic mucous membranes moist. Breathing unlabored no accessory muscle use good effort. Lungs are overall clear without rales rhonchi or wheezes good effort. -Ventricular arrhythmia in the setting of h/o atrial flutter - cardiology consult - continue amiodarone, as well as other rate controlling meds. Rate/rhythm has been reasonable -Chronic anticoagulation -related to atrial fibrillation. Continue to follow INR -Possible pneumonia with sepsison cefepime. Seems to be improving. -Ambulatory dysfunction w/ severe right ankle arthritis and resulting inversion - patient defers use of supportive cam boot 2/2 pain and eschews walker use 2/2 ambulatory pain. PT/OT strongly encouraged but considerable concern with level of diminished function for ongoing self-care. Outpatient podiatry follow-up -Endometrial thickeningincidentally noted on imaging, but concerning for cancer. Outpatient follow-up -Disposition: Working with case management, PT/OT. Possibly personal-care with her . Otherwise as above Subjective Patient seen and evaluated at bedside this morning. No acute events overnight. Today, patient feels well, complaining only of right knee pain that is worse with movement. No left knee pain at this time. Patient denies CP, SOB, abdominal pain, nausea, vomiting, or diarrhea. Denies urinary symptoms as well. Physical Exam Physical Exam: Constitutional: well-appearing, no acute distress CV: irregular rhythm, no murmur appreciated, extremities well-perfused, no LE edema Resp: CTABL, no wheezes/rales/rhonchi appreciated, no increased work of breathing GI: soft, nondistended, nontender, BS normoactive MSK: bilateral knees without effusion, right knee with mild tenderness to palpation of the lateral side, no increased laxity, ROM limited by pain, left knee nontender, ROM intact Neuro: alert, oriented, no focal neurologic deficit appreciated Results & Data Results & Data ([facility]) Vital Signs (Past 12 Hours) Vital Signs Temp Pulse Pulse Resp BP Pulse Ox 09/15/21 03:36 37.0 C 99 H 20 143/81 H 96 09/14/21 23:14 37 C 102 H 22 159/84 H 92 09/14/21 22:47 104 H 09/14/21 20:26 37.3 C 98 H 20 145/78 H 96 Resident Activity Tracking Resident Involvement: Resident Care Provided Care Provided: Adult [facility] Medicine
[2021-09-15 07:15] LABS: Basophils # (auto) 0.01 K/uL (0-0.2); Basophils % (auto) 0.2 %; Eosinophils % (auto) 1.7 %; Hemoglobin 12.2 g/dL (12.0-16.0); Immature Granulocytes # (auto) 0.01 K/uL (0.00-0.02); Immature Granulocytes % (auto) 0.2 %; Lymphocytes # (auto) 1.69 K/uL (1.2-3.4); Lymphocytes % (auto) 28.1 %; Mean Corpuscular Hemoglobin 32.5 pg (25-34); Mean Corpuscular Volume 98.7 fL (80-100); Mean Platelet Volume 9.6 fL (7.4-10.4); Monocytes % (auto) 8.3 %; Neutrophils % (auto) 61.5 %; Platelet Count 183 K/uL (130-400); RDW Coefficient of Variation 14.6 % (11.5-14.5); RDW Standard Deviation 52.5 fL (36.4-46.3); Red Blood Count 3.75 M/uL (4.2-5.4); White Blood Count 6.01 K/uL (4.8-10.8)
[2021-09-15 07:34] LABS: BUN Creatinine Ratio 12.9 (10-20); Calcium 8.1 mg/dl (8.5-10.1); Creatinine Clr Calc Pharmacy 92.1 ml/min; Est GFR (African American) 96.9 ml/min; Est GFR (Non-African American) 83.6 ml/min; Potassium 3.8 mmol/L (3.5-5.1)
[2021-09-15] MEDS: CEFEPIME 2,000 MG in SYRINGE 0 ML IV SCH ×3 (08:32→22:33)
[2021-09-15] MEDS: POTASSIUM CHLORIDE CRTAB 20 MEQ TABCR PO SCH ×2 (08:34→20:02)
[2021-09-15] MEDS: AMIODARONE 200 MG TAB PO SCH ×2 (08:34→17:27)
[2021-09-15] MEDS: PRIMIDONE 50 MG TAB PO SCH ×3 (08:34→20:04)
[2021-09-15] MEDS: carvediloL 25 MG TAB PO SCH ×2 (08:34→20:03)
[2021-09-15] MEDS: dilTIAZem HCL 240 MG CAPCR PO SCH (08:34)
[2021-09-15] MEDS: lamoTRIgine 100 MG TAB PO SCH ×2 (08:34→20:04)
[2021-09-15] MEDS: TOPIRAMATE 100 MG TAB PO SCH ×2 (08:34→20:05)
[2021-09-15] MEDS: PROPRANOLOL HCL 60 MG LA CAP PO SCH (08:34)
[2021-09-15] MEDS: MULTIVITAMIN TAB PO SCH (08:34)
[2021-09-15] MEDS: ASPIRIN 81 MG ECTAB PO SCH (08:35)
[2021-09-15] MEDS: DICLOFENAC SOD 1% GEL 100 GM TUBE EXT SCH ×4 (08:35→20:03)
[2021-09-15] MEDS ORDERED: POTASSIUM CHLORIDE CRTAB 20 MEQ TABCR PO SCH (09:00)
--- NOTE | 2021-09-15 09:23 | Cardiology Progress Note ---
Date of Service September 15, 2021 Assessment & Plan (1) Ventricular arrhythmia: Plan: -- Likely secondary to her acute presentation with possible sepsis with pneumonia, and appears to have a UTI, Klebsiella pneumonia. -- Finished IV Amiodarone. -- She is now on oral Amiodarone 200 mg b.i.d.. -- Continue Coreg 25 mg b.i.d.. -- Continue Inderal LA 60 mg daily. (2) PAF (paroxysmal atrial fibrillation): Plan: -- Patient is asymptomatic with regards to A-Fib. -- Her V-rate is in the 90's to low 100's overnight and today. -- Coumadin is currently on hold due to supratherapeutic INR yesterday, resume Coumadin at lower dose when INR is 2.5 or less. -- Continue Amiodarone, Coreg, Inderal LA, and Diltiazem. (3) Elevated troponin: Plan: Troponin elevation is likely secondary to her acute illness and tachycardia in the presence of LVH. -- Doubt that this is due to an ACS. -- Continue conservative/medical management. (4) Aortic stenosis: Plan: Echocardiogram 09/14/21: -- LVEF 50% to 55%. -- Mild concentric LVH. -- Mild . -- Mild MR. (5) Ambulatory dysfunction: Plan: Patient will likely need placement. -- Continue working with PT/OT. Admission and Anticipated Discharge Date Admission Date: September 13, 2021 Subjective Mrs. Winn is a 76 year old female who was admitted with a suspected pneumonia/possible sepsis and she grew out Klebsiella in her urine. Blood cultures are negative x 2 thus far. Patient remains in A-Fib with PVC's at rates in the 90's to low 100's overnight and into today. No further wide complex tachycardias. She denies any chest pain, heaviness, tightness, or pressure. She denies any SOB, orthopnea, or PND. She denies any palpitations, syncope, or near syncope. She denies any fevers, chills, or abdominal pain. She has not had any symptoms suggestive of stroke or mini-stroke. Patient finished IV Amiodarone loading and has been converted to oral Amiodarone 200 mg b.i.d.. Follow-up EKG this morning shows A-Fib at 100 bpm, corrected QT interval is 443 msec. Her Coumadin is currently on hold due to a supratherapeutic INR of 3.9 yesterday. She has not any bleeding complications with chronic anticoagulation. Review of Systems Review of Systems: + right knee pain. + ambulatory dysfunction, essentially sits in her recliner, transfers to wheelchair, and transfers to toilet. She sat in her chair x 2 days, her caregi vers were infected with COVID and couldn't be there for her. + generalized weakness is gradually getting better. Physical Exam Physical Exam: GENERAL: Patient in no acute distress. HEENT: Head is atraumatic, normocephalic. EOM's intact. Facies symmetric. No perioral cyanosis. NECK: No JVD. JVP is not elevated. Carotid upstrokes are + 2 bilaterally without bruits. CHEST/LUNGS: Clear to auscultation throughout all lung mcwilliams. No wheezes, rales, or crackles. CVS: S1 and S2 are slightly irregular at 95 to 100 bpm with a grade 2/6 basal systolic murmur. No obvious diastolic murmurs. No gallops or rubs. PMI is nonpalpable. No lifts, heaves, or thrills. No abdominal aortic or renal br uits. ABDOMINAL EXAM: Bowel sounds are present. No masses, organomegaly, or tenderness. EXTREMITIES: No clubbing or cyanosis. No edema. Intact radial pulses bilaterally. NEUROLOGIC EXAM: Patient is awake, alert, and oriented. Pleasant and cooperative. Answers questions appropriately. Speech is clear. Normal movement in all 4 extremities. Gait pattern was not assessed. Rotor Coil Taper: -- A-Fib at rates in the 90's to low 100's, PVC's, and occasional ventricular bigeminy. Results & Data ([facility]) Vital Signs (Past 12 Hours) Vital Signs Temp Pulse Pulse Resp BP Pulse Ox 09/15/21 07:36 36.9 C 101 H 19 153/95 H 97 09/15/21 07:13 95 H 09/15/21 03:36 37.0 C 99 H 20 143/81 H 96 09/14/21 23:14 37 C 102 H 22 159/84 H 92 09/14/21 22:47 104 H Laboratory Results Laboratory Results - last 24 hr 09/15/21 09/15/21 06:40 06:40 WBC 6.01 RBC 3.75 L Hgb 12.2 Hct 37.0 MCV 98.7 MCH 32.5 MCHC 33.0 RDW Std Deviation 52.5 H RDW Coeff of Gary 14.6 H Plt Count 183 MPV 9.6 Immature Gran % (Auto) 0.2 Neut % (Auto) 61.5 Lymph % (Auto) 28.1 Fountain % (Auto) 8.3 Eos % (Auto) 1.7 Baso % (Auto) 0.2 Neut # (Auto) 3.70 Lymph # (Auto) 1.69 Fountain # (Auto) 0.50 Eos # (Auto) 0.10 Baso # (Auto) 0.01 Immature Gran # (Auto) 0.01 Sodium 143 Potassium 3.8 Chloride 113 H Carbon Dioxide 26 Anion Gap 4 BUN 9 Creatinine 0.70 Est Cr Clr Drug Dosing 92.1 Est GFR ( Amer) 96.9 Est GFR (Non-Af Amer) 83.6 BUN/Creatinine Ratio 12.9 Glucose 109 H Calcium 8.1 L Medications Administered Medications escitalopram oxalate 20 mg tablet 20 mg PO HS 02/12/18 [History Confirmed 09/13/21] lamotrigine 200 mg tablet 200 mg PO BID 02/12/18 [History Confirmed 09/13/21] topiramate 100 mg tablet 100 mg PO BID 02/12/18 [History Confirmed 09/13/21] aripiprazole 10 mg tablet 10 mg PO QAM 02/21/19 [History Confirmed 09/13/21] carbidopa 25 mg-levodopa 100 mg tablet 2 tab PO TID tab 07/10/19 [History Confirmed 09/13/21] primidone 50 mg tablet 100 mg PO TID 03/21/20 [History Confirmed 09/13/21] Long length pads, max absorbency #100 ea 10/11/20 [Rx Confirmed 06/30/21] Women underwear pull up briefs, Max absorbency #100 ea 10/11/20 [Rx Confirmed 06/30/21] underpads for chairs, Max absorbency #100 ea 10/11/20 [Rx Confirmed 06/30/21] aspirin 81 mg tablet,delayed release (Aspirin Low Dose) 81 mg PO QAM #90 tab 11/07/20 [Rx Confirmed 09/13/21] silver sulfadiazine 1 % topical cream (Silvadene) 1 applic TOPICAL BID #400 g 11/14/20 [Rx Confirmed 09/13/21] Premoistened adult wipes #100 ea 11/18/20 [Rx Confirmed 06/30/21] underpads #300 ea 11/18/20 [Rx Confirmed 06/30/21] underpads 30" X 30" #100 ea 11/18/20 [Rx Confirmed 06/30/21] multivitamin 1 tab PO QAM 01/02/21 [History Confirmed 09/13/21] diclofenac sodium 1 % topical gel 4 g TOP QID #100 gm 02/12/21 [Rx Confirmed 09/13/21] atorvastatin 20 mg tablet 20 mg PO HS #90 tab 03/18/21 [Rx Confirmed 09/13/21] diltiazem HCl 240 mg capsule,extended release 24 hr 240 mg PO QAM #90 cap 04/16/21 [Rx Confirmed 09/13/21] potassium chloride 20 mEq tablet,extended release(part/cryst) 40 meq PO BID #120 tab 05/12/21 [Rx Confirmed 09/13/21] carvedilol 25 mg tablet 25 mg PO BID #60 tab 06/17/21 [Rx Confirmed 09/13/21] propranolol 60 mg capsule,24 hr,extended release 60 mg PO QAM #90 cap 08/13/21 [Rx Confirmed 09/13/21] oxycodone-acetaminophen 5 mg-325 mg tablet 1 tab PO Q6H PRN #90 tab 08/25/21 [Rx Confirmed 09/13/21] acetaminophen 325 mg tablet 325 mg PO Q6H PRN 09/13/21 [History Confirmed 09/13/21] warfarin 2.5 mg tablet See Rx Instructions .ROUTE .COMPLEX 09/13/21 [History Confirmed 09/13/21] Home Medications Acetaminophen (Acetaminophen 325 Mg Tab) 650 mg PO Q4H PRN PRN Reason: Pain or Fever Stop: 10/13/21 14:49 Last Admin: 09/14/21 08:33 Dose: 650 mg Documented by: Amiodarone HCl ([facility]arone 200 Mg Tab) [facility] [place] Stop: 10/14/21 16:59 Last Admin: 09/15/21 08:34 Dose: 200 mg Documented by: Aspirin (Aspirin 81 Mg Ectab) [facility] [place] Stop: 10/14/21 08:59 Last Admin: 09/15/21 08:35 Dose: 81 mg Documented by: Atorvastatin Calcium (Atorvastatin 20 Mg Tab) 20 mg PO [facility] Stop: 10/13/21 20:59 Last Admin: 09/14/21 20:31 Dose: 20 mg Documented by: Carvedilol (Carvedilol 25 Mg Tab) 25 mg PO BID [facility] Stop: 10/13/21 20:59 Last Admin: 09/15/21 08:34 Dose: 25 mg Documented by: Diclofenac Sodium (Diclofenac Sod 1% Gel 100 Gm Tube) 4 gm EXT QID [facility] Stop: 10/13/21 16:59 Last Admin: 09/15/21 08:35 Dose: 4 gm Documented by: Diltiazem HCl (Diltiazem Hcl 240 Mg Capcr) 240 mg PO QAM [facility] Stop: 10/14/21 08:59 Last Admin: 09/15/21 08:34 Dose: 240 mg Documented by: Escitalopram Oxalate (Escitalopram Oxalate 20 Mg Tab) 20 mg PO [facility] Stop: 10/13/21 20:59 Last Admin: 09/14/21 20:31 Dose: 20 mg Documented by: Cefepime HCl 2,000 mg/ Syringe 20 mls @ 5 mls/min IV Q8H [facility]; Protocol Stop: 09/16/21 06:59 Last Admin: 09/15/21 08:32 Dose: 5 mls/min Documented by: Lamotrigine (Lamotrigine 100 Mg Tab) 200 mg PO BID [facility] Stop: 10/13/21 20:59 Last Admin: 09/15/21 08:34 Dose: 200 mg Documented by: Multivitamins (Multivitamin Tab) 1 tab PO QAM [facility] Stop: 10/14/21 08:59 Last Admin: 09/15/21 08:34 Dose: 1 tab Documented by: Oxycodone/Acetaminophen (Oxycodone/Acetaminophen 5mg/325mg Tab) 1 tab PO Q6H PRN PRN Reason: pain Stop: 09/27/21 14:49 Last Admin: 09/14/21 23:30 Dose: 1 tab Documented by: Potassium Chloride (Potassium Chloride Crtab 20 Meq Tabcr) 40 meq PO BID [facility] Stop: 10/13/21 20:59 Last Admin: 09/15/21 08:34 Dose: 40 meq Documented by: Primidone (Primidone 50 Mg Tab) 100 mg PO TID [facility] Stop: 10/13/21 14:49 Last Admin: 09/15/21 08:34 Dose: 100 mg Documented by: Propranolol HCl (Propranolol Hcl 60 Mg [place]) 60 mg PO QAM [facility] Stop: 10/14/21 08:59 Last Admin: 09/15/21 08:34 Dose: 60 mg Documented by: Topiramate (Topiramate 100 Mg Tab) 100 mg PO BID [facility] Stop: 10/13/21 20:59 Last Admin: 09/15/21 08:34 Dose: 100 mg Documented by: PG Care Time/CCT Total # of Minutes Spent Total Time Spent with Patient: Total time spent is greater than 50% in coordination of care (as documented) at patient's floor/unit and/or counseling patient:25 Coding Level of Care Code 70393 Subseq Hosp Care Lvl 3 Diagnoses Ventricular arrhythmia I49.9 PAF (paroxysmal atrial fibrillation) I48.0 Elevated troponin R77.8 Aortic stenosis I35.0 Ambulatory dysfunction R26.2 Time Spent (min) 42
[2021-09-15] MEDS: SILVER SULFADIAZINE 1% CR 50 GM JAR TOP SCH (09:26)
--- NOTE | 2021-09-15 15:10 | Electrocardiogram Report ---
Test Reason : Blood Pressure : / mmHG Vent. Rate : 099 BPM Atrial Rate : 102 BPM P-R Int : 000 ms QRS Dur : 098 ms QT Int : 350 ms P-R-T Axes : 000 029 243 degrees QTc Int : 449 ms Poor data quality, interpretation may be adversely affected Probable Normal sinus rhythm Premature ventricular complexes Abnormal ECG When compared with ECG of 14-SEP-2021 04:45, Normal sinus rhythm has replaced Atrial fibrillation Confirmed by Juni Sr ([id number]) on 09/15/2021 3:10:13 PM Referred By: REFERRED SELF Confirmed By:Juni Sr
--- NOTE | 2021-09-15 15:33 | Electrocardiogram Report ---
Test Reason : Blood Pressure : / mmHG Vent. Rate : 100 BPM Atrial Rate : 097 BPM P-R Int : 000 ms QRS Dur : 106 ms QT Int : 344 ms P-R-T Axes : 000 021 198 degrees QTc Int : 443 ms Probable Normal sinus rhythm Abnormal ECG When compared with ECG of 14-SEP-2021 13:57, (unconfirmed) Premature ventricular complexes are no longer Present Confirmed by Juni Sr ([id number]) on 09/15/2021 3:33:15 PM Referred By: REFERRED SELF Confirmed By:Juni Sr
--- NOTE | 2021-09-15 17:44 | Billing Data ---
Date of Service September 15, 2021 Coding Level of Care Code 48935 Subseq Hosp Care Lvl 2
[2021-09-15] MEDS: ATORVASTATIN 20 MG TAB PO SCH (20:02)
[2021-09-15] MEDS: ESCITALOPRAM OXALATE 20 MG TAB PO SCH (20:03)
[2021-09-15] MEDS: oxyCODONE/ACETAMINOPHEN 5mg/325mg TAB PO PRN (21:33)
[2021-09-16] MEDS: ACETAMINOPHEN 325 MG TAB PO PRN (01:19)
[2021-09-16] MEDS: oxyCODONE/ACETAMINOPHEN 5mg/325mg TAB PO PRN ×4 (03:31→20:45)
--- NOTE | 2021-09-16 07:07 | Hospitalist Progress Note ---
Date of Service September 16, 2021 Assessment & Plan (1) Ventricular arrhythmia: Plan: 76yo female with a history of atrial flutter, HTN, HLD, OCD, MDD, and ambulatory dysfunction admitted for ventricular arrhythmia and concerns about home safety. Ventricular arrhythmia Presented to the ER with weakness in the setting of not being able to move from her chair for two days, and not taking several of her medications Noted to be briefly in wide-complex tachycardia before transition to narrow complex tachycardia with HR 190s Self-converted without need for cardioversion while receiving 1L NSS bolus Serial troponins ordered; peaked at ~500, suspected to be due to ventricular arrhythmia Echocardiogram without significant change from 2020; EF 50-55%, mild concentric LVH, mild , mild MR Amiodarone gtt started on admit; will transition to amiodarone 200mg PO BID today and d/c amio gtt Cardiology consulted and appreciate recommendations Telemetry for cardiac monitoring, daily EKGs Sepsis resolved - suspected secondary to PNA Required supplemental O2 in ER, was resumed overnight due to dyspnea CTA chest with tree-in-bud opacities possibly suggestive of pneumonia; biofire negative 09/13: initially started on empiric vanc/cefepime, though vancomycin was discontinued once MRSA nares resulted negative Cefepime discontinued in favor of cefdinir - continue for five more days Procal negative; blood cultures pending Atrial flutter, supratherapeutic INR History of atrial flutter with most recent echo with severe LA dilation Home regimen includes diltiazem 240mg daily, warfarin 5mg MWF, 2.5mg all other days 09/16: INR fell below 2.5, therefore, will resume patient's warfarin (ordered 2.5mg alternating with 5mg every other day, rather than 5mg MWF / 2.5mg other days) Continue diltiazem 240mg PO daily Trend daily PT/INR Ambulatory dysfunction, weakness, Was in chair at home for two days due to inability to get up from chair and was without assistance of caregivers Strength 5/5 bilateral upper and lower extremities with right foot inversion deformity Per patient was to have MRI tomorrow of right ankle per Dr. Alberto. Will communicate inability to have MRI at this time to Dr. Alberto PT/OT ordered Ultimately, I am concerned about this patient's ability to care for herself and have ambulatory function at home given this admission and ambulatory dysfunction Given lack of caregiver support for two days, Office of Aging will be involved in this admission Ultimately believe that this patient will need 24 hour care and likely placement to long-term facility both for physical conditioning and for continued care following hospital discharge Knee pain Patient with R>L knee pain which was worsening prior to admission Suspect secondary to arthritis, deconditioning Patient's home percocet held in favor of oxycodone 5mg while in-hospital; frequency increased from q6h to q4h (09/16) Continue PT/OT Depression, OCD, essential tremor Recently had carbidopa/levodopa titrated off, as well as Abilify by her Neurologist (Dr. Vasquez) and Psychiatrist (Dr. Gorman) Continue home lamotrigine, topiramate, primidone, escitalopram Tremor under poor control at this time but has been off of her chronic regimen for several days Electrolyte derangement K 3.2, will replete Ca 7.8; iCa ordered FEN: heart healthy diet Code status: full code DVT ppx: warfarin PT/OT: ordered Case management: following Dispo: med/surg telemetry, placement pending (2) Elevated troponin: (3) Atrial flutter: (4) Ambulatory dysfunction: Admission and Anticipated Discharge Date Admission Date: September 13, 2021 Supervising Physician Co-Signing Physician Notes I personally examined the patient and verified all ochoa points of history and exam, discussed case, and agree with decision making with Dr Pena. physcially feeling OK but strugglign w dispo decisions - feels like going to [facility] is a step towards the end of her life. Vitals noted, in general she is awake and alert pleasant somewhat anxious but no distress. HEENT normocephalic atraumatic mucous membranes moist. Breathing unlabored no accessory muscle use good effort. Lungs are overall clear without rales rhonchi or wheezes good effort. -Ventricular arrhythmia in the setting of h/o atrial flutter - cardiology consult - continue amiodarone, as well as other rate controlling meds. Rate/rhythm has been reasonable - stablefor tranfer to med/surg -Chronic anticoagulation -related to atrial fibrillation. Continue to follow INR -Possible pneumonia with sepsison cefepime. Seems to be improving. -Ambulatory dysfunction w/ severe right ankle arthritis and resulting inversion - patient defers use of supportive cam boot 2/2 pain and eschews walker use 2/2 ambulatory pain. PT/OT strongly encouraged but considerable concern with level of diminished function for ongoing self-care. Outpatient podiatry follow-up -Endometrial thickeningincidentally noted on imaging, but concerning for cancer. Outpatient follow-up -Disposition: Working with case management, PT/OT. Possibly personal-care with her . ongoing discussions. currently does not appear safe at home. Otherwise as above Subjective Patient seen and evaluated at bedside this morning. No acute events overnight. Today, patient feels a bit improved from yesterday, though she notes persistent back pain that interfered a bit with sleep. Knee pain is a bit improved from yesterday. Reports her breathing is still comfortable today. Had a good appetite yesterday. Denies additional symptoms including CP, abdominal pain, nausea, or diarrhea. Physical Exam Physical Exam: Constitutional: well-appearing, no acute distress, sitting up in hospital bed CV: irregular rhythm, no murmur appreciated, extremities well-perfused, no LE edema Resp: CTABL, no wheezes/rales/rhonchi appreciated, no increased work of breathing GI: soft, nondistended, nontender, BS normoactive MSK: bilateral knees without effusion, right knee with mild tenderness to palpation along joint line, no increased laxity, ROM limited by pain, left knee nontender, ROM intact Neuro: alert, oriented, no focal neurologic deficit appreciated Results & Data Results & Data ([facility]) Vital Signs (Past 12 Hours) Vital Signs Temp Pulse Pulse Resp BP Pulse Ox 09/16/21 03:48 36.8 C 90 18 126/95 98 09/16/21 03:08 96 H 09/15/21 19:20 37.4 C 94 H 18 149/103 H 93 Resident Activity Tracking Resident Involvement: Resident Care Provided Care Provided: Adult [facility] Medicine
[2021-09-16 07:09] LABS: Basophils # (auto) 0.02 K/uL (0-0.2); Basophils % (auto) 0.3 %; Eosinophils # (auto) 0.11 K/uL (0-0.5); Eosinophils % (auto) 1.9 %; Hematocrit (blood only) 37.5 % (37-47); Hemoglobin 12.1 g/dL (12.0-16.0); Immature Granulocytes # (auto) 0.01 K/uL (0.00-0.02); Immature Granulocytes % (auto) 0.2 %; Lymphocytes # (auto) 1.79 K/uL (1.2-3.4); Lymphocytes % (auto) 30.5 %; Mean Corpuscular Hemoglobin 32.1 pg (25-34); Mean Corpuscular Hgb Conc 32.3 g/dL (32-36); Mean Corpuscular Volume 99.5 fL (80-100); Mean Platelet Volume 9.3 fL (7.4-10.4); Monocytes # (auto) 0.54 K/uL (0.11-0.59); Monocytes % (auto) 9.2 %; Neutrophils % (auto) 57.9 %; Platelet Count 179 K/uL (130-400); RDW Coefficient of Variation 14.5 % (11.5-14.5); RDW Standard Deviation 52.6 fL (36.4-46.3); Red Blood Count 3.77 M/uL (4.2-5.4); White Blood Count 5.87 K/uL (4.8-10.8)
[2021-09-16 07:18] LABS: INR 1.7 (0.9-1.1); Prothrombin Time 17.9 Seconds (9.0-12.0)
[2021-09-16 07:29] LABS: BUN Creatinine Ratio 10.7 (10-20); Calcium 8.3 mg/dl (8.5-10.1); Creatinine Clr Calc Pharmacy 86.4 ml/min; Est GFR (African American) 89.1 ml/min; Est GFR (Non-African American) 76.9 ml/min; Potassium 4.1 mmol/L (3.5-5.1)
[2021-09-16] MEDS: PROPRANOLOL HCL 60 MG LA CAP PO SCH (08:26)
[2021-09-16] MEDS: TOPIRAMATE 100 MG TAB PO SCH ×2 (08:26→20:43)
[2021-09-16] MEDS: AMIODARONE 200 MG TAB PO SCH ×2 (08:26→16:21)
[2021-09-16] MEDS: MULTIVITAMIN TAB PO SCH (08:27)
[2021-09-16] MEDS: POTASSIUM CHLORIDE CRTAB 20 MEQ TABCR PO SCH ×2 (08:27→20:42)
[2021-09-16] MEDS: dilTIAZem HCL 240 MG CAPCR PO SCH (08:27)
[2021-09-16] MEDS: ASPIRIN 81 MG ECTAB PO SCH (08:27)
[2021-09-16] MEDS: lamoTRIgine 100 MG TAB PO SCH ×2 (08:28→20:41)
[2021-09-16] MEDS: carvediloL 25 MG TAB PO SCH ×2 (08:28→20:40)
[2021-09-16] MEDS: PRIMIDONE 50 MG TAB PO SCH ×3 (08:28→20:43)
[2021-09-16] MEDS: DICLOFENAC SOD 1% GEL 100 GM TUBE EXT SCH ×4 (08:29→20:41)
[2021-09-16] MEDS ORDERED: WARFARIN SOD 2.5 MG TAB PO SCH (16:00)
[2021-09-16] MEDS ORDERED: WARFARIN SOD 5 MG TAB PO SCH (16:00)
--- NOTE | 2021-09-16 18:31 | Billing Data ---
Date of Service September 16, 2021 Coding Level of Care Code 52058 Subseq Hosp Care Lvl 2
[2021-09-16] MEDS: CEFDINIR 300 MG CAP PO SCH (20:40)
[2021-09-16] MEDS: ATORVASTATIN 20 MG TAB PO SCH (20:40)
[2021-09-16] MEDS: ESCITALOPRAM OXALATE 20 MG TAB PO SCH (20:41)
[2021-09-17 06:46] LABS: INR 1.5 (0.9-1.1)
[2021-09-17 06:50] LABS: Calcium 7.9 mg/dl (8.5-10.1); Creatinine Clr Calc Pharmacy 113.7 ml/min; Est GFR (African American) 103.6 ml/min; Est GFR (Non-African American) 89.4 ml/min
[2021-09-17] MEDS: oxyCODONE/ACETAMINOPHEN 5mg/325mg TAB PO PRN ×3 (07:21→20:30)
--- NOTE | 2021-09-17 07:40 | Hospitalist Progress Note ---
Date of Service September 17, 2021 Assessment & Plan (1) Ventricular arrhythmia: Plan: 76yo female with a history of atrial flutter, HTN, HLD, OCD, MDD, and ambulatory dysfunction admitted for ventricular arrhythmia and concerns about home safety. Ventricular arrhythmia Presented to the ER with weakness in the setting of not being able to move from her chair for two days, and not taking several of her medications Noted to be briefly in wide-complex tachycardia before transition to narrow complex tachycardia with HR 190s Self-converted without need for cardioversion while receiving 1L NSS bolus Serial troponins ordered; peaked at ~500, suspected to be due to ventricular arrhythmia Echocardiogram without significant change from 2020; EF 50-55%, mild concentric LVH, mild , mild MR Amiodarone gtt started on admit; will transition to amiodarone 200mg PO BID today and d/c amio gtt Cardiology consulted and appreciate recommendations Telemetry for cardiac monitoring, daily EKGs Sepsis resolved - suspected secondary to PNA Required supplemental O2 in ER, was resumed overnight due to dyspnea CTA chest with tree-in-bud opacities possibly suggestive of pneumonia; biofire negative 09/13: initially started on empiric vanc/cefepime, though vancomycin was discontinued once MRSA nares resulted negative Cefepime discontinued in favor of cefdinir - continue for five more days Procal negative; blood cultures pending Atrial flutter, supratherapeutic INR History of atrial flutter with most recent echo with severe LA dilation Home regimen includes diltiazem 240mg daily, warfarin 5mg MWF, 2.5mg all other days 09/16: INR fell below 2.5, therefore, will resume patient's warfarin (ordered 2.5mg alternating with 5mg every other day, rather than 5mg MWF / 2.5mg other days) Continue diltiazem 240mg PO daily Trend daily PT/INR Ambulatory dysfunction, weakness, Was in chair at home for two days due to inability to get up from chair and was without assistance of caregivers Strength 5/5 bilateral upper and lower extremities with right foot inversion deformity Per patient was to have MRI tomorrow of right ankle per Dr. Alberto. Will communicate inability to have MRI at this time to Dr. Alberto PT/OT ordered Ultimately, I am concerned about this patient's ability to care for herself and have ambulatory function at home given this admission and ambulatory dysfunction Given lack of caregiver support for two days, Office of Aging will be involved in this admission Ultimately believe that this patient will need 24 hour care and likely placement to [facility] both for physical conditioning and for continued care following hospital discharge Knee pain Patient with R>L knee pain which was worsening prior to admission Suspect secondary to arthritis, deconditioning Patient's home percocet held in favor of oxycodone 5mg while in-hospital; frequency increased from q6h to q4h (09/16) Continue PT/OT Depression, OCD, essential tremor Recently had carbidopa/levodopa titrated off, as well as Abilify by her Neurologist (Dr. Vasquez) and Psychiatrist (Dr. Gorman) Continue home lamotrigine, topiramate, primidone, escitalopram Tremor under poor control at this time but has been off of her chronic regimen for several days Electrolyte derangement K 3.2, will replete Ca 7.8; iCa ordered FEN: heart healthy diet Code status: full code DVT ppx: warfarin PT/OT: ordered Case management: following Dispo: med/surg telemetry, placement pending (2) Elevated troponin: (3) Atrial flutter: (4) Ambulatory dysfunction: Admission and Anticipated Discharge Date Admission Date: September 13, 2021 Supervising Physician Co-Signing Physician Notes I personally examined the patient and verified all ochoa points of history and exam, discussed case, and agree with decision making with Dr Pena. Resting comfortably. Discussed with case managementfor rehab first, goal then of personal care with her . Vitals noted, in general she is sleeping comfortably no distress. HEENT normocephalic atraumatic. Breathing unlabored no accessory muscle use good effort. Neuro no focal deficits at rest. -Ventricular arrhythmia in the setting of h/o atrial flutter - cardiology consult - continue amiodarone, as well as other rate controlling meds. Rate/rhythm has been reasonabletherefore continue current meds -Chronic anticoagulation -related to atrial fibrillation. Continue to follow INRanticipated starting to rise soon -Possible pneumonia with sepsison cefepime. Appears improved -Ambulatory dysfunction w/ severe right ankle arthritis and resulting inversion -PT/OT eval and treat. Outpatient podiatry follow-up. -Endometrial thickeningincidentally noted on imaging, but concerning for cancer. Outpatient follow-up -Disposition: Working with case management, PT/OT. For rehabgoal of personal care with her . Otherwise as above Physical Exam Physical Exam: Constitutional: well-appearing, no acute distress, sitting up in hospital bed CV: irregular rhythm, no murmur appreciated, extremities well-perfused, no LE edema Resp: CTABL, no wheezes/rales/rhonchi appreciated, no increased work of breathing GI: soft, nondistended, nontender, BS normoactive MSK: bilateral knees without effusion, right knee with mild tenderness to palpation along joint line, no increased laxity, ROM limited by pain, left knee nontender, ROM intact Neuro: alert, oriented, no focal neurologic deficit appreciated Results & Data Results & Data ([facility]) Vital Signs (Past 12 Hours) Vital Signs Temp Pulse Pulse Resp BP BP Pulse Ox 09/17/21 07:15 37.2 C 93 H 18 130/72 92 09/17/21 03:04 36.6 C 65 18 115/65 94 09/16/21 23:03 37.1 C 90 18 97/52 L 92 Resident Activity Tracking Resident Involvement: Resident Care Provided Care Provided: Adult Hospital Medicine
[2021-09-17 08:09] LABS: Basophils # (auto) 0.02 K/uL (0-0.2); Basophils % (auto) 0.4 %; Eosinophils # (auto) 0.11 K/uL (0-0.5); Eosinophils % (auto) 2.3 %; Hematocrit (blood only) 35.5 % (37-47); Hemoglobin 11.6 g/dL (12.0-16.0); Immature Granulocytes # (auto) 0.01 K/uL (0.00-0.02); Immature Granulocytes % (auto) 0.2 %; Lymphocytes # (auto) 1.57 K/uL (1.2-3.4); Lymphocytes % (auto) 33.1 %; Mean Corpuscular Hemoglobin 31.8 pg (25-34); Mean Corpuscular Hgb Conc 32.7 g/dL (32-36); Mean Corpuscular Volume 97.3 fL (80-100); Mean Platelet Volume 9.9 fL (7.4-10.4); Monocytes % (auto) 8.4 %; Neutrophils # (auto) 2.64 K/uL (1.4-6.5); Neutrophils % (auto) 55.6 %; Platelet Count 171 K/uL (130-400); RDW Coefficient of Variation 14.4 % (11.5-14.5); RDW Standard Deviation 51.5 fL (36.4-46.3); Red Blood Count 3.65 M/uL (4.2-5.4); White Blood Count 4.75 K/uL (4.8-10.8)
[2021-09-17] MEDS: AMIODARONE 200 MG TAB PO SCH ×2 (08:19→16:59)
[2021-09-17] MEDS: dilTIAZem HCL 240 MG CAPCR PO SCH (08:52)
[2021-09-17] MEDS: PROPRANOLOL HCL 60 MG LA CAP PO SCH (08:52)
[2021-09-17] MEDS: MULTIVITAMIN TAB PO SCH (08:52)
[2021-09-17] MEDS: ASPIRIN 81 MG ECTAB PO SCH (08:52)
[2021-09-17] MEDS: PRIMIDONE 50 MG TAB PO SCH ×3 (08:52→20:30)
[2021-09-17] MEDS: POTASSIUM CHLORIDE CRTAB 20 MEQ TABCR PO SCH ×2 (08:54→20:30)
[2021-09-17] MEDS: TOPIRAMATE 100 MG TAB PO SCH ×2 (08:54→20:30)
[2021-09-17] MEDS: lamoTRIgine 100 MG TAB PO SCH ×2 (08:55→20:30)
[2021-09-17] MEDS: carvediloL 25 MG TAB PO SCH ×2 (08:56→20:30)
[2021-09-17] MEDS: DICLOFENAC SOD 1% GEL 100 GM TUBE EXT SCH ×4 (08:56→20:30)
[2021-09-17] MEDS: CEFDINIR 300 MG CAP PO SCH ×2 (08:56→20:30)
[2021-09-17] MEDS ORDERED: WARFARIN SOD 5 MG TAB PO SCH (16:00)
--- NOTE | 2021-09-17 19:37 | Billing Data ---
Date of Service September 17, 2021 Coding Level of Care Code 03254 Subseq Hosp Care Lvl 1
[2021-09-17] MEDS: ESCITALOPRAM OXALATE 20 MG TAB PO SCH (20:30)
[2021-09-17] MEDS: ATORVASTATIN 20 MG TAB PO SCH (20:30)
[2021-09-18] MEDS: oxyCODONE/ACETAMINOPHEN 5mg/325mg TAB PO PRN (05:09)
[2021-09-18 06:16] LABS: Basophils # (auto) 0.02 K/uL (0-0.2); Basophils % (auto) 0.4 %; Eosinophils % (auto) 2.2 %; Hematocrit (blood only) 35.2 % (37-47); Hemoglobin 11.7 g/dL (12.0-16.0); Immature Granulocytes # (auto) 0.01 K/uL (0.00-0.02); Immature Granulocytes % (auto) 0.2 %; Lymphocytes # (auto) 1.75 K/uL (1.2-3.4); Lymphocytes % (auto) 38.3 %; Mean Corpuscular Hemoglobin 32.3 pg (25-34); Mean Corpuscular Hgb Conc 33.2 g/dL (32-36); Mean Corpuscular Volume 97.2 fL (80-100); Mean Platelet Volume 9.7 fL (7.4-10.4); Monocytes # (auto) 0.38 K/uL (0.11-0.59); Monocytes % (auto) 8.3 %; Neutrophils # (auto) 2.31 K/uL (1.4-6.5); Neutrophils % (auto) 50.6 %; Platelet Count 172 K/uL (130-400); RDW Coefficient of Variation 14.2 % (11.5-14.5); RDW Standard Deviation 50.8 fL (36.4-46.3); Red Blood Count 3.62 M/uL (4.2-5.4); White Blood Count 4.57 K/uL (4.8-10.8)
[2021-09-18 06:20] LABS: INR 1.8 (0.9-1.1); Prothrombin Time 18.2 Seconds (9.0-12.0)
[2021-09-18 06:50] LABS: BUN Creatinine Ratio 17.5 (10-20); Creatinine Clr Calc Pharmacy 113.7 ml/min; Est GFR (African American) 103.6 ml/min; Est GFR (Non-African American) 89.4 ml/min; Potassium 3.8 mmol/L (3.5-5.1)
[2021-09-18] MEDS: dilTIAZem HCL 240 MG CAPCR PO SCH (09:07)
[2021-09-18] MEDS: lamoTRIgine 100 MG TAB PO SCH (09:07)
[2021-09-18] MEDS: ASPIRIN 81 MG ECTAB PO SCH (09:07)
[2021-09-18] MEDS: PROPRANOLOL HCL 60 MG LA CAP PO SCH (09:07)
[2021-09-18] MEDS: POTASSIUM CHLORIDE CRTAB 20 MEQ TABCR PO SCH (09:07)
[2021-09-18] MEDS: AMIODARONE 200 MG TAB PO SCH (09:08)
[2021-09-18] MEDS: DICLOFENAC SOD 1% GEL 100 GM TUBE EXT SCH ×2 (09:09→13:11)
[2021-09-18] MEDS: TOPIRAMATE 100 MG TAB PO SCH (09:09)
[2021-09-18] MEDS: carvediloL 25 MG TAB PO SCH (09:09)
[2021-09-18] MEDS: PRIMIDONE 50 MG TAB PO SCH ×2 (09:09→13:11)
[2021-09-18] MEDS: MULTIVITAMIN TAB PO SCH (09:09)
[2021-09-18] MEDS: CEFDINIR 300 MG CAP PO SCH (09:09)
[2021-09-18] MEDS ORDERED: COVID-19 VACC,MRNA(MODERNA)/PF 100 MCG/0.5 ML VIAL IM ONE (10:09)
[2021-09-18] MEDS ORDERED: COVID-19 VACC, TRIS(PFIZER)/PF 30 MCG/0.3 ML VIAL IM ONE (12:00)
--- NOTE | 2021-09-18 12:52 | Discharge Summary ---
Date of Service September 18, 2021 Admission HPI Per Admitting Provider 76 yo F Hx AFlutter, depression, OCD, HTN, HLD, ambulatory dysfunction presented to the ER via ambulance for weakness and was noted on arrival to have ventricular tachycardia in the 190s. She converted spontaneously to AFlutter with HR low 100s after receiving a 1L bolus of NSS. She was then started on amiodarone gtt. Patient reports that she was in her chair in her home for two days straight as she did not have any caregivers to help her out of her chair. She only was taking her daily warfarin but not any of her other medications because she did not have any more water to take them with. She reports that recently her carbidopa/levodopa and Abilify were titrated off by her Neurologist and Psychiatrist. She denies SOB, chest pain, nausea, vomiting, recent illness. 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) ENMT: external ear and nose normal, oropharynx normal Neck: normal visual inspection Respiratory: normal respiratory effort, lungs clear to auscultation Cardiovascular: HR irregularly irregular, mildly tachycardic, no murmurs, no peripheral edema Gastrointestinal (Abdomen): normal bowel sounds, soft, nontender, no hepatosplenomegaly B Musculoskeletal: no cyanosis or clubbing, extremities motor strength 5/5 (right foot drop, contracted in inversion) Skin: no rashes, warm and dry Neurologic: EOMI no slurred speech no facial droop Psychiatric: A+Ox3, euthymic affect Principal Diagnosis Ventricular tachycardia, supratherapeutic INR, deconditioning, pneumonia Discharge Exam Constitutional: well-appearing, no acute distress, sitting up in hospital bed CV: irregular rhythm, no murmur appreciated, extremities well-perfused, no LE edema Resp: CTABL, no wheezes/rales/rhonchi appreciated, no increased work of breathing GI: soft, nondistended, nontender, BS normoactive MSK: bilateral knees without effusion, right knee with mild tenderness to palpation along joint line, no increased laxity, ROM limited by pain, left knee nontender, ROM intact Neuro: alert, oriented, no focal neurologic deficit appreciated Discharge Data Allergies Allergy/AdvReac Type Severity Reaction Status Date / Time amoxicillin [From Augmentin] AdvReac Intermediate Diarrhea Unverified 09/13/21 10:56 clavulanic acid AdvReac Intermediate Diarrhea Unverified 09/13/21 10:56 [From Augmentin] Consultations 09/13/21 12:35 ED Decision to Admit Stat 09/13/21 12:46 Consult Cardiology Routine Ordered Studies 09/13/21 11:14 CT abd pelvis IV con only Stat CT angio chest PE protocol Stat Hospital Course (1) Ventricular arrhythmia: Ventricular arrhythmia Presented to the ER with weakness in the setting of not being able to move from her chair for two days, and not taking several of her medications Noted to be briefly in wide-complex tachycardia before transition to narrow complex tachycardia with HR 190s Self-converted without need for cardioversion while receiving 1L NSS bolus Serial troponins ordered; peaked at ~500, suspected to be due to ventricular arrhythmia Echocardiogram without significant change from 2020; EF 50-55%, mild concentric LVH, mild , mild MR Amiodarone gtt started on admit, has since been transitioned to amiodarone 200mg PO bid - continue upon discharge Cardiology follow-up recommended Sepsissuspected secondary to PNA - resolved Required supplemental O2 in ER, was resumed overnight due to dyspnea CTA chest with tree-in-bud opacities possibly suggestive of pneumonia; biofire negative Biofire, blood cultures negative 09/13: initially started on empiric vanc/cefepime, though vancomycin was discontinued once MRSA nares resulted negative Cefepime discontinued in favor of cefdinir - patient has one final dose of cefdinir on 09/19, this will complete her antibiotic course Atrial flutter, supratherapeutic INR History of atrial flutter with most recent echo with severe LA dilation Home regimen includes diltiazem 240mg daily, warfarin 5mg MWF, 2.5mg all other days Patient had an INR of 3.3 on admission, which peaked at 3.9; patient's home warfarin was held until INR fell below 2.5 (which occurred 09/16) Continue warfarin 5mg MWF and 2.5mg all other days Follow up with outpatient provider Recommend checking PT/INR every 2-3 days while at SNF Ambulatory dysfunction, weakness Was in chair at home for two days due to inability to get up from chair and was without assistance of caregivers Strength 5/5 bilateral upper and lower extremities with right foot inversion deformity Continue PT/OT Ultimately, I am concerned about this patient's ability to care for herself and have ambulatory function at home given this admission and ambulatory dysfunction Discharge to SNF approved, anticipate discharge 09/18 Endometrial thickening Noted as an incidental finding on imaging Concerning for cancer though patient is without abnormal uterine bleeding or other suggestive symptoms Outpatient follow-up recommended Knee pain Patient with R>L knee pain which was worsening prior to admission Suspect secondary to arthritis, deconditioning Patient's home percocet held in favor of oxycodone 5mg while in-hospital; home percocet continued upon discharge Continue PT/OT Depression, OCD, essential tremor Recently had carbidopa/levodopa titrated off, as well as Abilify by her Neurologist (Dr. Vasquez) and Psychiatrist (Dr. Gorman) Continue home lamotrigine, topiramate, primidone, escitalopram Tremor under poor control at this time but has been off of her chronic regimen for several days Outpatient follow-up recommended (2) Tremor: (3) PAF (paroxysmal atrial fibrillation): (4) Hypertension: (5) Hyperlipidemia: (6) Atrial flutter: (7) Acute pain of left knee: (8) Ambulatory dysfunction: Total Time Total Time Spent Total Time Spent (In Minutes): <30 Discharge Plan Discharge Items Patient Disposition: Transfer [facility] Reason For Visit: VENTRICULAR TACHYCARDIA, SEPSIS Discharge Diagnosis: Ventricular tachycardia, supratherapeutic INR, deconditioning, pneumonia Activity: Resume your previous activity Non-emergency contact: Primary Care Provider Call non-emergency contact if: you have any medication questions and your symptoms worsen Follow-up/Referrals: Chris Moore III, CRNP [Primary Care Provider] - Diet: Heart Healthy Addtl Attending Provider Instructions: Ventricular arrhythmia Presented to the ER with weakness in the setting of not being able to move from her chair for two days, and not taking several of her medications Noted to be briefly in wide-complex tachycardia before transition to narrow complex tachycardia with HR 190s Self-converted without need for cardioversion while receiving 1L NSS bolus Serial troponins ordered; peaked at ~500, suspected to be due to ventricular arrhythmia Echocardiogram without significant change from 2020; EF 50-55%, mild concentric LVH, mild , mild MR Amiodarone gtt started on admit, has since been transitioned to amiodarone 200mg PO bid - continue upon discharge Cardiology follow-up recommended Sepsissuspected secondary to PNA - resolved Required supplemental O2 in ER, was resumed overnight due to dyspnea CTA chest with tree-in-bud opacities possibly suggestive of pneumonia; biofire negative Biofire, blood cultures negative 09/13: initially started on empiric vanc/cefepime, though vancomycin was discontinued once MRSA nares resulted negative Cefepime discontinued in favor of cefdinir - patient has one final dose of cefdinir on 09/19, this will complete her antibiotic course Atrial flutter, supratherapeutic INR History of atrial flutter with most recent echo with severe LA dilation Home regimen includes diltiazem 240mg daily, warfarin 5mg MWF, 2.5mg all other days Patient had an INR of 3.3 on admission, which peaked at 3.9; patient's home warfarin was held until INR fell below 2.5 (which occurred 09/16) Continue warfarin 5mg MWF and 2.5mg all other days Follow up with outpatient provider Recommend checking PT/INR every 2-3 days while at SNF Ambulatory dysfunction, weakness Was in chair at home for two days due to inability to get up from chair and was without assistance of caregivers Strength 5/5 bilateral upper and lower extremities with right foot inversion deformity Continue PT/OT Ultimately, I am concerned about this patient's ability to care for herself and have ambulatory function at home given this admission and ambulatory dysfunction Discharge to SNF approved, anticipate discharge 09/18 Endometrial thickening Noted as an incidental finding on imaging Concerning for cancer though patient is without abnormal uterine bleeding or other suggestive symptoms Outpatient follow-up recommended Knee pain Patient with R>L knee pain which was worsening prior to admission Suspect secondary to arthritis, deconditioning Patient's home percocet held in favor of oxycodone 5mg while in-hospital; home percocet continued upon discharge Continue PT/OT Depression, OCD, essential tremor Recently had carbidopa/levodopa titrated off, as well as Abilify by her Neurologist (Dr. Vasquez) and Psychiatrist (Dr. Gorman) Continue home lamotrigine, topiramate, primidone, escitalopram Tremor under poor control at this time but has been off of her chronic regimen for several days Outpatient follow-up recommended Pending Studies at Discharge: No Stand-Alone Forms: My [facility] Skilled Items Patient informed of condition?: Yes DNR: No Discharge Level of Care: Skilled Communicable Disease: No Discharge Prognosis: Stable Lines: None Urinary Catheter: No Medications and DC Order Prescriptions: New cefdinir 300 mg Capsule 300 mg PO BID 1 Days Qty: 3 RF: 0 Continued (DME) Women underwear pull up briefs, Max absorbency XL See Rx Instructions .Route .MEDSUPPLY Qty: 100 RF: 11 (DME) underpads for chairs, Max absorbency 23x26, Large See Rx Instructions .Route .MEDSUPPLY Qty: 100 RF: 11 (DME) Long length pads, max absorbency See Rx Instructions .Route .MEDSUPPLY Qty: 100 RF: 11 aspirin [Aspirin Low Dose] 81 mg tablet,delayed release (DR/EC) 81 mg PO QAM Qty: 90 RF: 3 (DME) underpads Pad See Rx Instructions .ROUTE .MEDSUPPLY Qty: 300 RF: 5 (DME) underpads 30 X 30 " pad See Rx Instructions .ROUTE .MEDSUPPLY Qty: 100 RF: 5 (DME) Premoistened adult wipes See Rx Instructions .Route .MEDSUPPLY Qty: 100 RF: 11 diclofenac sodium 1 % gel 4 g TOP QID Qty: 100 RF: 2 atorvastatin 20 mg tablet 20 mg PO HS Qty: 90 RF: 1 diltiazem HCl 240 mg capsule,extended release 24hr 240 mg PO QAM Qty: 90 RF: 3 potassium chloride 20 mEq tablet,ER particles/crystals 40 meq PO BID Qty: 120 RF: 5 carvedilol 25 mg tablet 25 mg PO BID Qty: 60 RF: 5 propranolol 60 mg capsule,extended release 24 hr 60 mg PO QAM Qty: 90 RF: 1 oxycodone-acetaminophen 5-325 mg tablet 1 tab PO Q6H PRN (Reason: pain) Qty: 90 RF: 0 silver sulfadiazine [Silvadene] 1 % cream 1 applic topical BID Qty: 400 RF: 0 lamotrigine 200 mg tablet 200 mg PO BID RF: 0 escitalopram oxalate 20 mg tablet 20 mg PO HS RF: 0 topiramate 100 mg tablet 100 mg PO BID RF: 0 carbidopa-levodopa 25-100 mg tablet 2 tab PO TID RF: 0 primidone 50 mg tablet 100 mg PO TID RF: 0 aripiprazole 10 mg tablet 10 mg PO QAM RF: 0 acetaminophen 325 mg Tablet 325 mg PO Q6H PRN (Reason: Pain) RF: 0 warfarin 2.5 mg tablet See Rx Instructions mg .ROUTE .COMPLEX RF: 0 multivitamin Tablet 1 tab PO QAM RF: 0 Discharge Orders: Discharge Order (Routine); Ordered 09/18/21 Ordered By: Marek Pena Admission Data Admit Date/Time: 09/13/21 13:18 Attending Provider: Juan Carlos Aly Admit Provider: Gloria Cordoba Primary Care Provider: Chris Moore III [facility] ; [facility] ; Bert Ordonez ; Juni Sr Other Interventions: Discharge Summary Assessment (RN) Last Done: 09/18/21 13:20 Supervising Physician Co-Signing Physician Notes I personally examined the patient and verified all ochoa points of history and ex am, discussed case, and agree with decision making with Dr Pena. Resting comfortably. for rehab today. Vitals noted, in general she is sleeping comfortably no distress. HEENT normocephalic atraumatic. Breathing unlabored no accessory muscle use good effort. Neuro no focal deficits at rest. -Ventricular arrhythmia in the setting of h/o atrial flutter - cardiology consult - continue amiodarone, as well as other rate controlling meds. Rate/rhythm has been reasonabletherefore continue current meds -Chronic anticoagulation -related to atrial fibrillation. Continue to follow INR 1.8 today - repeat tomorrow at [facility] -Possible pneumonia with sepsistreated with cefepime -->cefdinir. Appears improved -Ambulatory dysfunction w/ severe right ankle arthritis and resulting inversion -PT/OT eval and treat. Outpatient podiatry follow-up. -Endometrial thickeningincidentally noted on imaging, but concerning for cancer. Outpatient follow-up -Disposition: [facility] rehab emphasis today Otherwise as above Resident Activity Tracking Resident Involvement: Resident Care Provided Care Provided: Adult Hospital Medicine
--- NOTE | 2021-09-18 20:59 | Billing Data ---
Date of Service September 18, 2021 Coding Level of Care Code D/C DAY MANAGEMENT <30 MINS
== END 2021-09-18 15:55 | DRG 871 ==
LOC: ED 10:27 → SUATTDRO 13:18 → 2E 13:18 → 3N 09-16 20:24

== ENCOUNTER 2023-05-28 23:22 | Inpatient (IN) ==
[2023-05-28] MEDS ORDERED: CEFEPIME 2,000 MG/20 ML VIAL IV STA (23:34)
[2023-05-28] MEDS ORDERED: SODIUM CHLORIDE 0.9% 1,000 ML IV SCH (23:45)
[2023-05-28] MEDS ORDERED: ACETAMINOPHEN 1,000 MG/100 ML VIAL IV STA (23:55)
--- NOTE | 2023-05-28 23:57 | Emergency Department Note ---
History of Present Illness General Chief complaint: Respiratory Distress Stated complaint: RESPIRATORY DISTRESS Time Seen by Provider: 05/28/23 23:34 Home Medications Medication Instructions Recorded Confirmed Type escitalopram oxalate 20 mg tablet 20 mg PO HS 02/12/18 01/11/23 History lamotrigine 200 mg tablet 200 mg PO BID 02/12/18 01/22/23 History topiramate 100 mg tablet 100 mg PO BID 02/12/18 01/22/23 History primidone 50 mg tablet 100 mg PO TID 03/21/20 01/22/23 History Long length pads, max absorbency #100 ea 10/11/20 01/11/23 Rx Women underwear pull up briefs, #100 ea 10/11/20 01/11/23 Rx Max absorbency underpads for chairs, Max #100 ea 10/11/20 01/11/23 Rx absorbency aspirin 81 mg tablet,delayed 81 mg PO QAM #90 tabs 11/07/20 01/22/23 Rx release (Eliel Low Dose Aspirin) Premoistened adult wipes #100 ea 11/18/20 01/11/23 Rx underpads #300 ea 11/18/20 01/11/23 Rx underpads 30" X 30" #100 ea 11/18/20 01/11/23 Rx multivitamin 1 tab PO QAM 01/02/21 01/22/23 History diclofenac sodium 1 % topical gel 4 g topical QID #100 grams 02/12/21 01/22/23 Rx atorvastatin 20 mg tablet 20 mg PO HS #90 tabs 03/18/21 01/22/23 Rx potassium chloride 20 mEq 40 meq (2 x 20 mEq) PO BID #120 05/12/21 01/22/23 Rx tablet,extended release(part/cryst) tabs carvedilol 25 mg tablet 25 mg PO BID #60 tabs 06/17/21 01/22/23 Rx propranolol 60 mg capsule,24 60 mg PO QAM #90 caps 08/13/21 01/22/23 Rx hr,extended release oxycodone-acetaminophen 5 mg-325 1 tab PO Q6H PRN pain #90 tabs 08/25/21 01/22/23 Rx mg tablet acetaminophen 325 mg tablet 325 mg PO Q6H PRN Pain 09/13/21 01/22/23 History aluminum-mag hydroxide-simethicone 5 ml PO QID PRN 08/28/22 01/22/23 History 400 mg-400 mg-40 mg/5 mL oral susp (Mylanta Maximum Strength) aripiprazole 5 mg tablet 5 mg PO DAILY 08/28/22 01/22/23 History bisacodyl 10 mg rectal suppository 10 mg OK DAILY PRN 08/28/22 01/22/23 History buspirone 5 mg tablet 5 mg PO TID 08/28/22 01/22/23 History carboxymethylcellulose sodium 1 % 1 drp ophthalmic (eye) QID 08/28/22 01/22/23 History eye drops (Artificial Tears (carboxymethylcellulose)) diltiazem HCl 240 mg 240 mg PO DAILY 08/28/22 01/22/23 History tablet,extended release 24 hr (Cardizem LA) loperamide 2 mg capsule (Imodium 2 mg PO Q6H PRN 08/28/22 01/22/23 History A-D) magnesium hydroxide 400 mg/5 mL 5 ml PO DAILY PRN 08/28/22 01/22/23 History oral suspension (Milk of Magnesia) mirtazapine 30 mg tablet (Remeron) 30 mg PO DAILY 08/28/22 01/22/23 History promethazine 25 mg tablet 25 mg PO Q6H PRN 08/28/22 01/22/23 History promethazine 25 mg/mL injection 12.5 mg IM Q6H PRN 08/28/22 01/22/23 History solution psyllium husk 3.4 gram/5.4 gram 1 tbsp PO DAILY 08/28/22 01/22/23 History oral powder (Metamucil) warfarin 3 mg tablet 3 mg PO DAILY 08/28/22 01/22/23 History warfarin 5 mg tablet 5 mg PO DAILY 08/28/22 01/22/23 History vortioxetine 20 mg tablet 20 mg PO DAILY 01/11/23 01/22/23 History (Trintellix) furosemide 20 mg tablet 80 mg (4 x 20 mg) PO QAM #90 tabs 02/10/23 02/10/23 Rx Allergies Allergy/AdvReac Type Severity Reaction Status Date / Time amoxicillin [From Augmentin] AdvReac Intermediate Diarrhea Unverified 01/22/23 14:07 clavulanic acid AdvReac Intermediate Diarrhea Unverified 01/22/23 14:07 [From Augmentin] Past Med/Surg History Medical History Acute pain of left knee Ambulatory dysfunction Anemia Anticoagulant long-term use Depression with anxiety Disc degeneration, lumbar Esophageal dilatation Femoral artery occlusion, right Fluid retention Gastroesophageal reflux disease without esophagitis Generalized anxiety disorder Hyperlipidemia Hypertension Idiopathic neuropathy Mitral valve mass Numbness in right leg Obesity Obstruction of esophagus due to food impaction OCD (obsessive compulsive disorder) Osteoarthritis PTSD (post-traumatic stress disorder) Pulmonary emboli Tracheomalacia Tremor (10/13/11) Tricuspid regurgitation Ulcer of left thigh Venous insufficiency Vertigo Surgical History History of breast biopsy History of cataract surgery History of cholecystectomy (2017) History of colonoscopy History of dental surgery History of embolectomy History of lung surgery History of tonsillectomy History of tooth extraction Status post incision and drainage (10/21/19) Family History Mother Cardiac disorder Hypertension Myocardial infarction Aunt Breast cancer Denies family history of Ovarian cancer Prostate cancer Colorectal cancer Social History (Updated 08/28/22 @ 13:10 by SERINA Garcia) Smoking Status: Unknown if ever smoked Second Hand Exposure: No; Do You Dip or Chew Tobacco: No; Hx Alcohol Use: No Hx Substance Use: No Preferred Language: Malagasy Communication Ability: Effective Visual Impairment: No Limitations Hearing Ability: Normal Literacy Education Professor Required: No Beliefs That Will Affect Care: None marital status: Single Current Living Situation: Snf current occupational status: retired How many Children do You have: 0 Feels Safe at Home: Yes Childhood Exposure to Second-Hand Smoke: No Diet: other Diet Comment: soft food diet Dental Care, Regularly: No Physical Activity Frequency: Does not Exercise Seatbelt Use: always Sunscreen Use: No Do you think of yourself as: straight/heterosexual Assistive Devices: Wheelchair Physical Exam Vital Signs Vital Signs - 24 hr 05/28/23 23:17 05/28/23 23:24 05/28/23 23:24 Temperature 38.4 C H Temperature Source Oral Pulse Rate 135 H Respiratory Rate 30 H Respiratory Effort / Characteristics Labored Labored Respiratory Depth Normal Blood Pressure 128/85 Blood Pressure Mean 99 Pulse Oximetry 95 Oxygen Delivery Method Nasal Cannula Oxygen Flow Rate 8 Sepsis Recent Fever Within 48 Hours Yes Sepsis New/Unexplained Change in Mental Status No Sepsis Action Taken by Nursing Physician Notified 05/28/23 23:36 Temperature Temperature Source Pulse Rate 134 H Respiratory Rate Respiratory Effort / Characteristics Respiratory Depth Blood Pressure Blood Pressure Mean Pulse Oximetry Oxygen Delivery Method Oxygen Flow Rate Sepsis Recent Fever Within 48 Hours Sepsis New/Unexplained Change in Mental Status Sepsis Action Taken by Nursing Course Administered Medications Discontinued Medications Cefepime HCl (Maxipime) 2,000 mg in 20 mls @ 5 mls/min IV NOW STA; Protocol Stop: 05/28/23 23:37 Last Admin: 05/28/23 23:56 Dose: 5 mls/min Documented By: Discharge Plan Visit Data Chief Complaint: Respiratory Distress Stated Complaint: RESPIRATORY DISTRESS ED Provider: Amira Lucero Forms Stand Alone Forms: [facility] [place] Prescriptions Prescriptions: No Action (DME) Women underwear pull up briefs, Max absorbency XL See Rx Instructions .Route .MEDSUPPLY Qty: 100 11RF Rx Instructions: As directed (DME) underpads for chairs, Max absorbency 23x26, Large See Rx Instructions .Route .MEDSUPPLY Qty: 100 11RF Rx Instructions: As directed (DME) Long length pads, max absorbency See Rx Instructions .Route .MEDSUPPLY Qty: 100 11RF Rx Instructions: As directed aspirin [Eliel Low Dose Aspirin] 81 mg tablet,delayed release (DR/EC) 81 mg PO QAM Qty: 90 3RF (DME) underpads Pad See Rx Instructions .ROUTE .MEDSUPPLY Qty: 300 5RF Rx Instructions: 21"x21". Use on wheelchair as needed. Dx R15.2 (DME) underpads 30 X 30 " pad See Rx Instructions .ROUTE .MEDSUPPLY Qty: 100 5RF Rx Instructions: Use as needed on recliner. DX R15.2 (DME) Premoistened adult wipes See Rx Instructions .Route .MEDSUPPLY Qty: 100 11RF Rx Instructions: As directed diclofenac sodium 1 % gel 4 g TOP QID Qty: 100 2RF Rx Instructions: apply to single knee, ankle, foot; for foot includes sole/toes/top of foot atorvastatin 20 mg tablet 20 mg PO HS Qty: 90 1RF potassium chloride 20 mEq tablet,ER particles/crystals 40 meq PO BID Qty: 120 5RF carvedilol 25 mg tablet 25 mg PO BID Qty: 60 5RF propranolol 60 mg capsule,extended release 24 hr 60 mg PO QAM Qty: 90 1RF oxycodone-acetaminophen 5-325 mg tablet 1 tab PO Q6H PRN (Reason: pain) Qty: 90 0RF Rx Instructions: No more than 3 tablets daily furosemide 20 mg tablet 80 mg PO QAM Qty: 90 3RF buspirone 5 mg tablet 5 mg PO TID warfarin 3 mg tablet 3 mg PO DAILY bisacodyl 10 mg suppository 10 mg OK DAILY PRN warfarin 5 mg tablet 5 mg PO DAILY diltiazem HCl [Cardizem LA] 240 mg tablet extended release 24 hr 240 mg PO DAILY aripiprazole 5 mg tablet 5 mg PO DAILY Artificial Tears (cmc) 1 % drops 1 drp ophthalmic (eye) QID loperamide [Imodium A-D] 2 mg capsule 2 mg PO Q6H PRN magnesium hydroxide [Milk of Magnesia] 400 mg/5 mL suspension 5 ml PO DAILY PRN mirtazapine [Remeron] 30 mg tablet 30 mg PO DAILY promethazine 25 mg/mL solution 12.5 mg IM Q6H PRN promethazine 25 mg tablet 25 mg PO Q6H PRN alum-mag hydroxide-simeth [Mylanta Maximum Strength] 400-400-40 mg/5 mL suspension 5 ml PO QID PRN Metamucil 3.4 gram/5.4 gram powder 1 tbsp PO DAILY Rx Instructions: mix into at least 8 oz of water or juice before administering Trintellix 20 mg tablet 20 mg PO DAILY lamotrigine 200 mg tablet 200 mg PO BID escitalopram oxalate 20 mg tablet 20 mg PO HS topiramate 100 mg tablet 100 mg PO BID primidone 50 mg tablet 100 mg PO TID acetaminophen 325 mg Tablet 325 mg PO Q6H PRN (Reason: Pain) multivitamin Tablet 1 tab PO QAM Referrals Referrals: [facility] [Primary Care Provider] -
--- NOTE | 2023-05-29 00:07 | Emergency Department Note ---
Impression & Plan Acute dyspnea, Fever, Hypoxia, Elevated troponin, Elevated brain natriuretic peptide (BNP) level ED Provider Note ED Provider Note NAME: HEMA ABRAMS AGE:78 SEX: Female : 1945 ARRIVES VIA: EMS INFORMANT: Patient, EMS ED PROVIDER(s): Amria Lucero DO CHIEF COMPLAINT: Dyspnea, hypoxia HPI: This is a 78-year-old female brought in by EMS due to concern for shortness of breath according to staff at [facility]. Upon EMS arrival she had been placed on 3 L of oxygen via nasal cannula and oxygen saturations were 80%. Patient unable to provide much history due to increased work of breathing. Patient found to be febrile en route as well. Unclear history of pulmonary issues. Patient does have history of heart problems including A-fib/flutter. Patient placed on nonrebreather by EMS with improvement in her sats although no significant improvement in her oxygenation. She was still tachypneic and tachycardic on arrival. PAST MEDICAL HISTORY:See Below PAST SURGICAL HISTORY:See Below FAMILY HISTORY:See Below SOCIAL HISTORY:See Below HOME MEDICATIONS:See Below ALLERGIES:See Below VITALS:See Below PHYSICAL EXAMINATION: GENERAL: alert, unwell appearing, well nourished, no distress, BMI 41 EYE EXAM: normal conjunctiva, PERRL and EOM's grossly intact OROPHARYNX: no exudate, no erythema, lips, buccal mucosa, and tongue normal and mucous membranes are moist NECK: supple, no nuchal rigidity, no adenopathy, non-tender LUNGS: Tachypnea, increased work of breathing, bilateral rhonchi, no wheezes or rails HEART: no murmurs, S1 normal and S2 normal ABDOMEN: abdomen soft, non-tender, normo-active bowel sounds, no masses, no rebound or guarding. BACK: Back is symmetrical on inspection and there is no deformity, no midline tenderness, no CVA tenderness. SKIN: no rashes, petechiae, orbruising UPPER EXTREMITIES: upper extremities are grossly normal. FROM, nml pulses b/l. LOWER EXTREMITIES: No pitting edema. FROM, nml pulses b/l. NEURO EXAM: Normal sensorium, cranial nerves II-XII grossly intact, normal speech, no facial droop,nogross weakness of arms, no gross weakness of legs. Gross sensation intact. No ataxia.Tremors noted b/l. Vital Signs: reviewed and remarkable Differential Diagnosis: pneumonia, bronchitis, COPD/Asthma exacerbation, pneumothorax, pulmonary embolism, congestive heart failure, acute coronary syndrome, as well as others were considered MEDICAL DECISION MAKING: This is a 78-year-old female who presents emergency department via EMS due to shortness of breath and hypoxia. Patient also noted to be febrile. Patient tachypneic, tachycardic, and requiring supplemental oxygen on arrival here. Due to her increased work of breathing and hypoxia she was transition to BiPAP emergently. Labs drawn and sent, IV established, EKG and chest ray performed bedside interpreted by me. Patient did attempt to take her BiPAP off and we tried HFNC and was noted to be quickly more tachycardic, tachypneic, and hypoxic. Patient was reclined back and head extended and BiPAP replaced with improvement. Chest x-ray did not reveal any obvious infiltrate or pulmonary edema despite respiratory distress, fevers, and rhonchi noted on exam. Labs drawn and sent including cultures. Nasal swab obtained for respiratory panel. Patient was given empiric cefepime and vancomycin. Patient found to have an elevated troponin and elevated BNP. Patient is chronically anticoagulated due to history of A-fib/flutter, however INR was subtherapeutic. No increased lower extremity edema on exam or reported by patient. Patient was given IV fluids cautiously due to cardiac history. Recent echo in January was reassuring. Case discussed with hospitalist team for additional evaluation and management, UA pending at that time. CT not performed due to concern for stability and patient maintained on BiPAP with improvement in her clinical picture and vital signs. Will discuss with hospitalist team. Consultation(s): 0100: Discussed with Dr. Fernandes [place] hospitalist for additional evaluation and mgmt. ER Treatment Provided: See below Diagnostics Interpreted By Me: -ECG: Sinus tachycardia at 129, normal QRS and QTc, normal axis, nonspecific ST/T wave changes noted, appearance of underlying incomplete right bundle branch block, baseline artifact noted due to patient tremors -Cardiac Monitoring: An order was placed for continuous cardiac monitoring. The monitor shows a rate of 142 with a.flutter rhythm. -Laboratory studies: As stated above and show below. -Imaging studies: X-ray Chest: A single view study of the chest was reviewed and was negative for cardiomegaly, focal infiltrate, effusion, overt pulmonary edema, or wide mediastinum. Mildly increased interstitial markings bilaterally. Triage Nursing Note Reviewed Prior/Outside Records Reviewed Procedures: [] Critical Care: Critical care of 48 min performed to assess and manage high likelihood of life- threatening acute respiratory failure, involving labs and imaging performed with assessment to evaluate acute respiratory failure diagnosis with frequent reassessment. This time includes bedside time, treatment discussions with patient/family/consultants, documentation time and excludes procedure time. Past Med/Surg History Medical History Acute pain of left knee Open wound anterior abdominal wall Anticoagulant long-term use Breast abscess of female PTSD (post-traumatic stress disorder) Tricuspid regurgitation Mitral valve mass Anemia Depression with anxiety Disc degeneration, lumbar Gastroesophageal reflux disease without esophagitis Generalized anxiety disorder Venous insufficiency Femoral artery occlusion, right Idiopathic neuropathy Obesity Ambulatory dysfunction Numbness in right leg Osteoarthritis Hyperlipidemia Ulcer of left thigh Tracheomalacia Obstruction of esophagus due to food impaction Esophageal dilatation Fluid retention Pulmonary emboli OCD (obsessive compulsive disorder) Vertigo Tremor (10/13/11) Hypertension Surgical History Status post incision and drainage (10/21/19) Incision and drainage of right breast abscess 10/21/19 Dr. Naidu History of dental surgery History of breast biopsy History of colonoscopy History of cholecystectomy (2018) History of tonsillectomy History of cataract surgery BILATERAL History of tooth extraction History of lung surgery for pulmonary emboli History of embolectomy Family History Mother Cardiac disorder Hypertension Myocardial infarction Aunt Breast cancer Denies family history of Ovarian cancer Prostate cancer Colorectal cancer Social History Smoking Status: Never smoker Second Hand Exposure: No; Do You Dip or Chew Tobacco: No; Hx Alcohol Use: No Hx Substance Use: No Preferred Language: Tuvaluan Communication Ability: Effective Visual Impairment: No Limitations Hearing Ability: Normal Call Box Wirer Required: No Beliefs That Will Affect Care: None marital status: Single Current Living Situation: [facility] current occupational status: retired How many Children do You have: 0 Feels Safe at Home: Yes Safety Concerns: Feels Safe At This Time Childhood Exposure to Second-Hand Smoke: No Diet: other Diet Comment: soft food diet Dental Care, Regularly: No Physical Activity Frequency: Does not Exercise Seatbelt Use: always Sunscreen Use: No Do you think of yourself as: straight/heterosexual Assistive Devices: Wheelchair Allergies Allergies Allergy/AdvReac Type Severity Reaction Status Date / Time amoxicillin [From Augmentin] AdvReac Intermediate Diarrhea Verified 05/29/23 00:16 clavulanic acid AdvReac Intermediate Diarrhea Verified 05/29/23 00:16 [From Augmentin] Home Meds Home Medications Medication Instructions Recorded Confirmed lamotrigine 200 mg tablet 200 mg PO BID 02/12/18 05/29/23 topiramate 100 mg tablet 100 mg PO BID 02/12/18 05/29/23 primidone 50 mg tablet 100 mg PO TID 03/21/20 05/29/23 multivitamin 1 tab PO QAM 01/02/21 05/29/23 acetaminophen 325 mg tablet 325 mg PO Q6H PRN PAIN/FEVER 09/13/21 05/29/23 aluminum-mag hydroxide-simethicone 10 ml PO Q4H PRN Heartburn 08/28/22 05/29/23 400 mg-400 mg-40 mg/5 mL oral susp (Mylanta Maximum Strength) aripiprazole 5 mg tablet 5 mg PO DAILY 08/28/22 05/29/23 bisacodyl 10 mg rectal suppository 10 mg [place] DAILY PRN Constipation 08/28/22 05/29/23 buspirone 5 mg tablet 5 mg PO TID 08/28/22 05/29/23 carboxymethylcellulose sodium 1 % 1 drp ophthalmic (eye) QID 08/28/22 05/29/23 eye drops (Artificial Tears (carboxymethylcellulose)) diltiazem HCl 240 mg 240 mg PO DAILY 08/28/22 05/29/23 tablet,extended release 24 hr (Cardizem LA) loperamide 2 mg capsule (Imodium 2 mg PO Q6H PRN Diarrhea 08/28/22 05/29/23 A-D) magnesium hydroxide 400 mg/5 mL 30 ml PO DAILY PRN CONSTIPTATION 08/28/22 05/29/23 oral suspension (Milk of Magnesia) mirtazapine 30 mg tablet (Remeron) 30 mg PO HS 08/28/22 05/29/23 psyllium husk 3.4 gram/5.4 gram 2 tbsp PO DAILY 08/28/22 05/29/23 oral powder (Metamucil) carboxymethylcellulose sodium 1 % 1 drp OPB Q2H PRN Dry Eyes 05/29/23 05/29/23 eye drops (Artificial Tears (carboxymethylcellulose)) carvedilol 25 mg tablet 25 mg PO BIDM 05/29/23 05/29/23 diclofenac sodium 1 % topical gel 2 - 4 g topical QID 05/29/23 05/29/23 furosemide 80 mg tablet (Lasix) 80 mg PO DAILY 05/29/23 05/29/23 ipratropium 0.5 mg-albuterol 3 mg 3 ml inhalation Q2H PRN Dyspnea 05/29/23 05/29/23 (2.5 mg base)/3 mL nebulization soln ondansetron 4 mg disintegrating 4 mg PO Q6H PRN NAUSEA/VOMITING 05/29/23 05/29/23 tablet potassium chloride 10 mEq 40 meq PO BIDM 05/29/23 05/29/23 tablet,extended release umeclidinium 62.5 mcg-vilanterol 1 inh inhalation DAILY 05/29/23 05/29/23 25 mcg/actuation powdr for inhalation (Anoro Ellipta) vortioxetine 10 mg tablet 10 mg PO BIDM 05/29/23 05/29/23 (Trintellix) warfarin 4 mg tablet 4 mg PO HS 05/29/23 05/29/23 white petrolatum-mineral oil 57.3 1 applic ophthalmic (eye) HS 05/29/23 05/29/23 %-42.5 % eye ointment (Refresh P.M.) Previous Rx's Medication Instructions Recorded Long length pads, max absorbency #100 ea 10/11/20 Women underwear pull up briefs, #100 ea 10/11/20 Max absorbency underpads for chairs, Max #100 ea 10/11/20 absorbency aspirin 81 mg tablet,delayed 81 mg PO QAM #90 tabs 11/07/20 release (Eliel Low Dose Aspirin) Premoistened adult wipes #100 ea 11/18/20 underpads #300 ea 11/18/20 underpads 30" X 30" #100 ea 11/18/20 atorvastatin 20 mg tablet 20 mg PO HS #90 tabs 03/18/21 propranolol 60 mg capsule,24 60 mg PO QAM #90 caps 08/13/21 hr,extended release oxycodone-acetaminophen 5 mg-325 1 tab PO Q6H PRN pain #90 tabs 08/25/21 mg tablet Results & Data (ED) Vital Signs Vital Signs - 24 hr 05/29/23 01:30 Pulse Rate 98 H Pulse Rate from SpO2 Sensor 98 H Respiratory Rate 17 Pulse Oximetry 94 Laboratory Data 05/29/23 Unknown 05/29/23 Unknown Lab Results 05/28/23 05/29/23 Range/Units 23:40 00:07 POC Hgb 12.2 (12.0-16.0) g/dl POC Hct 36 L (37-47) % POC pH 7.31 L (7.35-7.45) POC pCO2 57 H (35-46) mmHg POC pO2 36 L (80-95) mmHg POC HCO3 29 H (19-24) cecelia/L POC Total CO2 31 (24-31) mmol/L POC Base Excess 3.0 H (-9-1.8) cecelia/L POC ABG O2 Sat 63.0 L (90-95) % POC Sodium 139 (135-144) mmol/L POC Potassium 4.1 (3.3-5.0) mmol/L Adenovirus (PCR) Not Detected (NotDetected) B. pertussis DNA (PCR) Not Detected (NotDetected) B.parapertussis DNA PCR Not Detected (NotDetected) C. pneumoniae DNA (PCR) Not Detected (NotDetected) Coronavirus OC43 (PCR) Not Detected (NotDetected) Coronavirus HKU1 (PCR) Not Detected (NotDetected) Coronavirus 229E (PCR) Not Detected (NotDetected) SARS-CoV-2 (PCR) Not Detected (NotDetected) Coronavirus NL63 (PCR) Not Detected (NotDetected) Human Metapneumovir PCR Not Detected (NotDetected) Influenza Type A (PCR) Not Detected (NotDetected) Influenza Type B (PCR) Not Detected (NotDetected) M. pneumoniae (PCR) Not Detected (NotDetected) Parainfluenza 1 (PCR) Not Detected (NotDetected) Parainfluenza 2 (PCR) Not Detected (NotDetected) Parainfluenza 3 (PCR) Not Detected (NotDetected) Parainfluenza 4 (PCR) Not Detected (NotDetected) RSV (PCR) Not Detected (NotDetected) Entero/Rhino (PCR) Not Detected (NotDetected) Administered Medications Albuterol (Albut/Ipratrop 3mg/0.5mg Neb 3 Ml Vial) 3 ml INH Q4H PRN; Protocol PRN Reason: Dyspnea Stop: 06/28/23 03:09 Last Admin: 05/29/23 15:37 Dose: 3 ml Documented By: Admin: 05/29/23 05:04 Dose: 3 ml Documented By: Aripiprazole (Aripiprazole 5 Mg Tab) 5 mg PO DAILY [facility] Stop: 06/28/23 08:59 Last Admin: 05/29/23 07:45 Dose: 5 mg Documented By: NA Aspirin (Aspirin 81 Mg Ectab) 81 mg PO QAM [facility] Stop: 06/28/23 08:59 Last Admin: 05/29/23 07:46 Dose: 81 mg Documented By: NA Atorvastatin Calcium (Atorvastatin 20 Mg Tab) 20 mg PO HS [facility] Stop: 06/28/23 20:59 Last Admin: 05/29/23 21:11 Dose: 20 mg Documented By: MANDY Buspirone HCl (Buspirone 5 Mg Tab) 5 mg PO TID@0830,1230,1630 [facility] Stop: 06/28/23 08:29 Last Admin: 05/29/23 16:28 Dose: 5 mg Documented By: Admin: 05/29/23 13:00 Dose: 5 mg Documented By: Admin: 05/29/23 07:45 Dose: 5 mg Documented By: NA Carvedilol (Carvedilol 25 Mg Tab) 25 mg PO BIDM [facility] Stop: 06/28/23 07:59 Last Admin: 05/29/23 16:26 Dose: 25 mg Documented By: Admin: 05/29/23 07:44 Dose: 25 mg Documented By: NA Diltiazem HCl (Diltiazem Hcl 240 Mg Capcr) 240 mg PO DAILY [facility] Stop: 06/28/23 08:59 Last Admin: 05/29/23 07:46 Dose: 240 mg Documented By: KENNETH Enoxaparin Sodium (Enoxaparin Inj 120 Mg/0.8 Ml Syr) 120 mg SQ Q12 [facility] Stop: 06/28/23 13:29 Last Admin: 05/29/23 21:10 Dose: 120 mg Documented By: Admin: 05/29/23 14:02 Dose: 120 mg Documented By: BENITA Furosemide (Furosemide 80 Mg Tab) 80 mg PO DAILY [facility] Stop: 06/28/23 08:59 Last Admin: 05/29/23 07:46 Dose: 80 mg Documented By: KENNETH Acetaminophen (Ofirmev) 1,000 mg in 100 mls @ 400 mls/hr IV Q8H PRN PRN Reason: fever or pain Stop: 06/01/23 03:09 Last Infusion: 05/29/23 23:46 Dose: Infused Documented By: Admin: 05/29/23 23:31 Dose: 400 mls/hr Documented By: Infusion: 05/29/23 13:13 Dose: Infused Documented By: Admin: 05/29/23 12:58 Dose: 400 mls/hr Documented By: BENITA Cefepime HCl 2,000 mg/ Syringe 20 mls @ 5 mls/min IV Q8H [facility]; Protocol Stop: 06/05/23 07:59 Last Admin: 05/29/23 23:46 Dose: 5 mls/min Documented By: Admin: 05/29/23 16:36 Dose: 5 mls/min Documented By: Admin: 05/29/23 07:42 Dose: 5 mls/min Documented By: KENNETH Doxycycline Hyclate 100 mg/ (Dextrose) 100 mls @ 50 mls/hr IV Q12H [facility] Stop: 06/05/23 15:29 Last Admin: 05/30/23 03:39 Dose: 50 mls/hr Documented By: Infusion: 05/29/23 18:25 Dose: Infused Documented By: Admin: 05/29/23 16:25 Dose: 50 mls/hr Documented By: BENITA Lamotrigine (Lamotrigine 100 Mg Tab) 200 mg PO BID [facility]; Protocol Stop: 06/28/23 08:59 Last Admin: 05/29/23 21:12 Dose: 200 mg Documented By: Admin: 05/29/23 07:46 Dose: 200 mg Documented By: KENNETH Mirtazapine (Mirtazapine Tab 15 Mg Tab) 30 mg PO HS [facility] Stop: 06/28/23 20:59 Last Admin: 05/29/23 21:11 Dose: 30 mg Documented By: MANDY Miscellaneous (Vortioxetine [Trintellix] 10 Mg - Order Awaiting Action) 1 each N/A QS [facility] Stop: 06/28/23 07:59 Last Admin: 05/30/23 01:02 Dose: Not Given Documented By: Admin: 05/29/23 16:27 Dose: Not Given Documented By: Admin: 05/29/23 07:57 Dose: Not Given Documented By: KENNETH Potassium Chloride (Potassium Chloride Crtab 20 Meq Tabcr) 40 meq PO BIDM [facility] Stop: 06/28/23 07:59 Last Admin: 05/29/23 16:36 Dose: 40 meq Documented By: Admin: 05/29/23 07:46 Dose: 40 meq Documented By: KENNETH Primidone (Primidone 50 Mg Tab) 100 mg PO TID [facility] Stop: 06/28/23 08:59 Last Admin: 05/29/23 21:12 Dose: 100 mg Documented By: Admin: 05/29/23 14:02 Dose: 100 mg Documented By: Admin: 05/29/23 07:44 Dose: 100 mg Documented By: KENNETH Propranolol HCl (Propranolol Hcl 60 Mg [place]) 60 mg PO QAM [facility] Stop: 06/28/23 08:59 Last Admin: 05/29/23 07:45 Dose: 60 mg Documented By: KENNETH Psyllium Hydrophilic Mucilloid (Psyllium Or Guar Gum Fiber Powder Packet) 1 pkt PO DAILY [facility] Stop: 06/28/23 08:59 Last Admin: 05/29/23 07:57 Dose: Not Given Documented By: KENNETH Topiramate (Topiramate 100 Mg Tab) 100 mg PO BID [facility] Stop: 06/28/23 08:59 Last Admin: 05/29/23 21:11 Dose: 100 mg Documented By: Admin: 05/29/23 07:46 Dose: 100 mg Documented By: KENNETH Umeclidinium/Vilanterol (Umeclidinium/Vilanterol 62.5/25mcg 7 Puffs/Inhaler) 1 puffs INH DAILY [facility] Stop: 06/28/23 08:59 Last Admin: 05/29/23 07:57 Dose: 1 puffs Documented By: KENNETH Warfarin Sodium (Warfarin Sod 4 Mg Tab) 4 mg PO DAILY@1600 [facility] Stop: 06/28/23 15:59 Last Admin: 05/29/23 16:27 Dose: 4 mg Documented By: BENITA Discontinued Medications Albuterol (Albuterol 0.083% Nebu Soln 3 Ml Vial) Confirm Administered Dose 2.5 mg .ROUTE .STK-MED ONE Stop: 05/29/23 15:30 Last Admin: 05/29/23 16:27 Dose: Not Given Documented By: BENITA Cefepime HCl (Maxipime) 2,000 mg in 20 mls @ 5 mls/min IV NOW STA; Protocol Stop: 05/28/23 23:37 Last Admin: 05/28/23 23:56 Dose: 5 mls/min Documented By: Sodium Chloride (Nss) 1,000 mls @ 100 mls/hr IV .Q10H [facility] Stop: 05/29/23 09:25 Last Infusion: 05/29/23 07:58 Dose: Infused Documented By: Admin: 05/29/23 00:34 Dose: 125 mls/hr Documented By: Acetaminophen (Ofirmev) 1,000 mg in 100 mls @ 400 mls/hr IV NOW STA Stop: 05/29/23 00:09 Last Infusion: 05/29/23 00:20 Dose: Infused Documented By: Admin: 05/29/23 00:04 Dose: 400 mls/hr Documented By: Vancomycin HCl 2,500 mg/ (Sodium Chloride) 550 mls @ 200 mls/hr IV NOW ONE Stop: 05/29/23 02:57 Last Infusion: 05/29/23 04:33 Dose: Infused Documented By: Admin: 05/29/23 01:21 Dose: 200 mls/hr Documented By: Sodium Chloride (Nss) 1,000 mls @ 999 mls/hr IV .Q1H1M ONE Stop: 05/29/23 02:09 Last Infusion: 05/29/23 01:21 Dose: Infused Documented By: Admin: 05/29/23 01:13 Dose: 999 mls/hr Documented By: Sodium Chloride (Nss) 500 mls @ 999 mls/hr IV .Q31M ONE Stop: 05/29/23 02:55 Last Infusion: 05/29/23 03:26 Dose: Infused Documented By: Admin: 05/29/23 02:55 Dose: 999 mls/hr Documented By: Sodium Chloride (Nss) 500 mls @ 999 mls/hr IV .Q31M ONE Stop: 05/29/23 04:14 Last Infusion: 05/29/23 04:42 Dose: Infused Documented By: Admin: 05/29/23 04:16 Dose: 999 mls/hr Documented By: Sodium Chloride (Nss) 500 mls @ 999 mls/hr IV .Q31M ONE Stop: 05/29/23 05:06 Last Infusion: 05/29/23 05:27 Dose: Infused Documented By: Admin: 05/29/23 05:06 Dose: 999 mls/hr Documented By: Ioversol (Optiray 320 125ml) 115 ml IV ONCE ONE Stop: 05/29/23 11:16 Last Admin: 05/29/23 11:15 Dose: 115 ml Documented By: MIKO Methylprednisolone (Methylprednisolone 40 Mg/Ml Vial) 40 mg IV NOW STA Stop: 05/29/23 04:05 Last Admin: 05/29/23 04:15 Dose: 40 mg Documented By: Discharge Plan Visit Data Chief Complaint: Respiratory Distress Stated Complaint: RESPIRATORY DISTRESS ED Provider: Amira Lucero Discharge Problem: Acute dyspnea, Fever, Hypoxia, Elevated troponin, Elevated brain natriuretic peptide (BNP) level Patient Disposition: Admitted As Inpatient Discharge Instructions Interventions: ED Discharge Assessment Last Done: 05/29/23 18:45
[2023-05-29] MEDS ORDERED: VANCOMYCIN CONSULT ACTIVE PRN (00:13)
[2023-05-29] MEDS ORDERED: VANCOMYCIN HCL 2,500 MG in SODIUM CHLORIDE 0.9% 500 ML IV ONE (00:13)
[2023-05-29 00:22] LABS: iSTAT Arterial Blood Gas HCO3 29 meg/L (19-24); iSTAT Arterial Blood Gas pCO2 57 mmHg (35-46); iSTAT Arterial Blood Gas pH 7.31 (7.35-7.45); iSTAT Arterial Blood Gas pO2 36 mmHg (80-95); iSTAT Carbon Dioxide 31 mmol/L (24-31); iSTAT Hematocrit 36 % (37-47); iSTAT Hemoglobin 12.2 g/dl (12.0-16.0); iSTAT Potassium 4.1 mmol/L (3.3-5.0); iSTAT Sodium 139 mmol/L (135-144)
[2023-05-29 00:30] LABS: Basophils # (auto) 0.03 K/uL (0.00-0.20); Basophils % (auto) 0.3 %; Hematocrit (blood only) 37.6 % (37.0-47.0); Hemoglobin 11.5 g/dl (12.0-16.0); Immature Granulocytes # (auto) 0.05 K/uL (0.01-0.20); Immature Granulocytes % (auto) 0.5 %; Lymphocytes # (auto) 1.21 K/uL (1.20-3.40); Lymphocytes % (auto) 12.3 %; Mean Corpuscular Hemoglobin 28.3 pg (25.0-34.0); Mean Corpuscular Hgb Conc 30.6 g/dL (32.0-36.0); Mean Corpuscular Volume 92.4 fL (80.0-100.0); Mean Platelet Volume 9.5 fL (9.4-12.4); Monocytes # (auto) 0.77 K/uL (0.11-0.59); Monocytes % (auto) 7.8 %; Neutrophils # (auto) 7.81 K/uL (1.40-6.50); Neutrophils % (auto) 79.1 %; Platelet Count 213 K/uL (130-400); RDW Coefficient of Variation 17.5 % (11.5-14.5); RDW Standard Deviation 59.7 fL (36.4-46.3); Red Blood Count 4.07 M/uL (4.20-5.40); White Blood Count 9.87 K/ul (4.8-10.8)
[2023-05-29 00:37] LABS: Albumin Level 3.8 gm/dl (3.4-5.0); BUN Creatinine Ratio 16.9 (10-20); Bilirubin Direct 0.1 mg/dl (0-0.2); Bilirubin,Total 0.3 mg/dl (0.2-1.0); Calcium 8.7 mg/dl (8.6-10.3); Creatinine Clr Calc Pharmacy 82.2 ml/min; Est GFR (African American) 85.1 ml/min; Est GFR (Non-African American) 73.4 ml/min; Magnesium 1.7 mg/dl (1.7-2.4); Potassium 4.1 mmol/L (3.5-5.1); Total Protein 7.7 gm/dl (6.0-8.3)
[2023-05-29 00:43] LABS: Troponin I High Sensitivity 25.2 pg/ml (0-14)
[2023-05-29 00:52] LABS: Adenovirus PCR Not Detected (NotDetected); Bordetella parapertussis PCR Not Detected (NotDetected); Bordetella pertussis PCR Not Detected (NotDetected); Chlamydia pneumoniae PCR Not Detected (NotDetected); Coronavirus 229E PCR Not Detected (NotDetected); Coronavirus CoV-2 (COVID19)PCR Not Detected (NotDetected); Coronavirus HKU1 PCR Not Detected (NotDetected); Coronavirus NL63 PCR Not Detected (NotDetected); Coronavirus OC43PCR Not Detected (NotDetected); Human Metapneumovirus PCR Not Detected (NotDetected); Influenza A PCR Not Detected (NotDetected); Influenza B PCR Not Detected (NotDetected); Mycoplasma pneumoniae PCR Not Detected (NotDetected); Parainfluenza Virus 1 PCR Not Detected (NotDetected); Parainfluenza Virus 2 PCR Not Detected (NotDetected); Parainfluenza Virus 3 PCR Not Detected (NotDetected); Parainfluenza Virus 4 PCR Not Detected (NotDetected); Respiratory Syncytial VirusPCR Not Detected (NotDetected); Rhinovirus/Enterovirus PCR Not Detected (NotDetected)
[2023-05-29 01:04] LABS: INR 1.4 (0.9-1.1); Prothrombin Time 15.1 Seconds (9.0-12.0)
[2023-05-29] MEDS ORDERED: SODIUM CHLORIDE 0.9% 1,000 ML IV ONE (01:09)
--- NOTE | 2023-05-29 01:13 | History & Physical Report ---
Date of Service May 29, 2023 Assessment & Plan (1) Hypoxia: Plan: 78 year old female admitted for hypoxia on bipap. Hypoxia/Dyspnea/Fever: -Worsening dyspnea since AM, CO2 on ABG 57. -CBC and CMP unremarkable for contributing factors. -CXR w/ less congestion than previous, possible LLL consolidation although difficult to ascertain. -Patient hypoxic to 80% with EMS, saturating well on Bipap. Temperature 38.4 on arrival. -Given 1 dose of Cefepime and Vancomycin in the ER. -PFT's from 04/01/2023 showed obstructive pattern. -Respiratory biofire negative. May be COPD exacerbation or pneumonia as cause of hypoxia. -Sent for nasal MRSA swab. -Can continue Cefepime for now, if MRSA swab positive can continue vancomycin. Blood cultures pending. -Continue home inhalers, continue home Lasix 80mg PO daily - patient is euvolemi c on exam, likely not fluid overloaded. -Given Solu-Medrol 40mg IV x1 -Wean off bipap as tolerated. -Admit to PCU for monitoring. Elevated troponin: -Troponin on admission 25.2, will repeat. -Echo from 02/10/2023 with EF 55-60% mild L ventricular hypertrophy. -EKG without any significant ST elevation or depressoin -No chest pain, lightheadedness, dizziness from patient at current time. -Likely demand ischemia. -Continue ot monitor with repeat troponin HTN: -Continue home carvedilol, diltiazem, furosemide, propranolol. OCD/Anxiety/Depression: -Continue home aripiprazole, vortioxetine, buspirone, lamotrigine. 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 Atrial fibrillation/flutter: -Continue home carvedilol, diltiazem, warfarin. Continue to monitor INR. F/E/N/GI: NPO, can transition to regular diet once off bipap DVT Prophylaxis: Warfarin , monitor INR. Code status: Full code Dispo: PCU. (2) Fever: (3) Hypertension: (4) OCD (obsessive compulsive disorder): (5) Hyperlipidemia: (6) Generalized anxiety disorder: (7) Mitral valve mass: (8) Anticoagulant long-term use: (9) PAF (paroxysmal atrial fibrillation): (10) Elevated troponin: History of Present Illness Chief Complaint: Tachypnea Primary Care Provider: Angelic Edenilson Freeman is a 78 year old female w/ PmHx ambulatory dysfunction, anxiet and depression, esophageal dilation, peripheral artery disease, GERD, fluid retention, HTN, mitral valve mass, obesity, OCD, PTSD, PE on warfarin, tremor brought to the ER via EMS from [facility] for dyspnea and hypoxia. Patient stated that since this morning she had experienced worsening shortness of breath at rest. She states that this was accompanied with a cough that had clear sputum production however denies any fevers, chills, chest pain, dizziness, lightheadedness. She was found to be hypoxic to 80% by EMS and placed on 3L oxygen and transported to the ER. She does not usually wear oxygen at home. At the time of seeing patient she had been on Bipap for a short period of time and stated that she already felt better than when she arrived. In the ER WBC 9.87, Hgb 11.5, INR 1.4, electrolytes and kidney function WNL, BNP 490, troponin 25.2. POC ABG pH 7.31, CO2 57, HCO3 29. CXR showed scoliosis, c ompared with CXR from 01/11/23 showed less vascular congestion, possible consolidation LLL however no obvious signs. She was given Cefepime and vancomycin, NSS 125cc, 1gm Acetaminophen in the ER. Allergies Allergy/AdvReac Type Severity Reaction Status Date / Time amoxicillin [From Augmentin] AdvReac Intermediate Diarrhea Verified 05/29/23 00:16 clavulanic acid AdvReac Intermediate Diarrhea Verified 05/29/23 00:16 [From Augmentin] Home Medications Medication Instructions Recorded Confirmed Type lamotrigine 200 mg tablet 200 mg PO BID 02/12/18 05/29/23 History topiramate 100 mg tablet 100 mg PO BID 02/12/18 05/29/23 History primidone 50 mg tablet 100 mg PO TID 03/21/20 05/29/23 History Long length pads, max absorbency #100 ea 10/11/20 01/11/23 Rx Women underwear pull up briefs, #100 ea 10/11/20 01/11/23 Rx Max absorbency underpads for chairs, Max #100 ea 10/11/20 01/11/23 Rx absorbency aspirin 81 mg tablet,delayed 81 mg PO QAM #90 tabs 11/07/20 05/29/23 Rx release (Eliel Low Dose Aspirin) Premoistened adult wipes #100 ea 11/18/20 01/11/23 Rx underpads #300 ea 11/18/20 01/11/23 Rx underpads 30" X 30" #100 ea 11/18/20 01/11/23 Rx multivitamin 1 tab PO QAM 01/02/21 05/29/23 History atorvastatin 20 mg tablet 20 mg PO HS #90 tabs 03/18/21 05/29/23 Rx propranolol 60 mg capsule,24 60 mg PO QAM #90 caps 08/13/21 05/29/23 Rx hr,extended release oxycodone-acetaminophen 5 mg-325 1 tab PO Q6H PRN pain #90 tabs 08/25/21 05/29/23 Rx mg tablet acetaminophen 325 mg tablet 325 mg PO Q6H PRN PAIN/FEVER 09/13/21 05/29/23 History aluminum-mag hydroxide-simethicone 10 ml PO Q4H PRN Heartburn 08/28/22 05/29/23 History 400 mg-400 mg-40 mg/5 mL oral susp (Mylanta Maximum Strength) aripiprazole 5 mg tablet 5 mg PO DAILY 08/28/22 05/29/23 History bisacodyl 10 mg rectal suppository 10 mg NH DAILY PRN Constipation 08/28/22 05/29/23 History buspirone 5 mg tablet 5 mg PO TID 08/28/22 05/29/23 History carboxymethylcellulose sodium 1 % 1 drp ophthalmic (eye) QID 08/28/22 05/29/23 History eye drops (Artificial Tears (carboxymethylcellulose)) diltiazem HCl 240 mg 240 mg PO DAILY 08/28/22 05/29/23 History tablet,extended release 24 hr (Cardizem LA) loperamide 2 mg capsule (Imodium 2 mg PO Q6H PRN Diarrhea 08/28/22 05/29/23 History A-D) magnesium hydroxide 400 mg/5 mL 30 ml PO DAILY PRN CONSTIPTATION 08/28/22 05/29/23 History oral suspension (Milk of Magnesia) mirtazapine 30 mg tablet (Remeron) 30 mg PO HS 08/28/22 05/29/23 History psyllium husk 3.4 gram/5.4 gram 2 tbsp PO DAILY 08/28/22 05/29/23 History oral powder (Metamucil) carboxymethylcellulose sodium 1 % 1 drp OPB Q2H PRN Dry Eyes 05/29/23 05/29/23 History eye drops (Artificial Tears (carboxymethylcellulose)) carvedilol 25 mg tablet 25 mg PO BIDM 05/29/23 05/29/23 History diclofenac sodium 1 % topical gel 2 - 4 g topical QID 05/29/23 05/29/23 History furosemide 80 mg tablet (Lasix) 80 mg PO DAILY 05/29/23 05/29/23 History ipratropium 0.5 mg-albuterol 3 mg 3 ml inhalation Q2H PRN Dyspnea 05/29/23 05/29/23 History (2.5 mg base)/3 mL nebulization soln ondansetron 4 mg disintegrating 4 mg PO Q6H PRN NAUSEA/VOMITING 05/29/23 History tablet potassium chloride 10 mEq 40 meq PO BIDM 05/29/23 05/29/23 History tablet,extended release umeclidinium 62.5 mcg-vilanterol 1 inh inhalation DAILY 05/29/23 05/29/23 His tory 25 mcg/actuation powdr for inhalation (Anoro Ellipta) vortioxetine 10 mg tablet 10 mg PO BIDM 05/29/23 05/29/23 History (Trintellix) warfarin 4 mg tablet 4 mg PO HS 05/29/23 05/29/23 History white petrolatum-mineral oil 57.3 1 applic ophthalmic (eye) HS 05/29/23 05/29/23 History %-42.5 % eye ointment (Refresh P.M.) Past Med/Surg History Medical History Acute pain of left knee Ambulatory dysfunction Anemia Anticoagulant long-term use Depression with anxiety Disc degeneration, lumbar Esophageal dilatation Femoral artery occlusion, right Fluid retention Gastroesophageal reflux disease without esophagitis Generalized anxiety disorder Hyperlipidemia Hypertension Idiopathic neuropathy Mitral valve mass Numbness in right leg Obesity Obstruction of esophagus due to food impaction OCD (obsessive compulsive disorder) Osteoarthritis PTSD (post-traumatic stress disorder) Pulmonary emboli Tracheomalacia Tremor (10/13/11) Tricuspid regurgitation Ulcer of left thigh Venous insufficiency Vertigo Surgical History History of breast biopsy History of cataract surgery History of cholecystectomy (2018) History of colonoscopy History of dental surgery History of embolectomy History of lung surgery History of tonsillectomy History of tooth extraction Status post incision and drainage (10/21/19) Family History Mother Cardiac disorder Hypertension Myocardial infarction Aunt Breast cancer Denies family history of Ovarian cancer Prostate cancer Colorectal cancer Social History (Updated 08/28/22 @ 13:10 by SERINA Garcia) Smoking Status: Never smoker Second Hand Exposure: No; Do You Dip or Chew Tobacco: No; Hx Alcohol Use: No Hx Substance Use: No Preferred Language: Chinese Communication Ability: Effective Visual Impairment: No Limitations Hearing Ability: Normal General Handling Supervisor Required: No Beliefs That Will Affect Care: None marital status: Single Current Living Situation: Snf current occupational status: retired How many Children do You have: 0 Feels Safe at Home: Yes Safety Concerns: Feels Safe At This Time Childhood Exposure to Second-Hand Smoke: No Diet: other Diet Comment: soft food diet Dental Care, Regularly: No Physical Activity Frequency: Does not Exercise Seatbelt Use: always Sunscreen Use: No Do you think of yourself as: straight/heterosexual Assistive Devices: Wheelchair Review of Systems Review of Systems: As per HPI. Physical Exam Constitutional: WD/WN, vitals as above Patient lying in bed with head flexed and bipap on face. Not in any acute distress. Respiratory: Lungs mildly rhoncus at the left lung mcwilliams, right lung mcwilliams clear to auscultation, no wheezes. Cardiovascular: Rate/Rhythm: regular rhythm and + tachycardic Heart Sounds: normal S1 and normal S2 No pitting peripheral edema appreciated. Gastrointestinal (Abdomen): normal bowel sounds, soft, nontender, no hepat osplenomegaly Psychiatric: A+Ox3, euthymic affect Results & Data Results & Data Vital Signs (Past 12 Hours) Vital Signs Temp Pulse Resp BP Pulse Ox O2 Del Method O2 Flow Rate 05/29/23 00:37 36.9 C 05/29/23 00:25 98 H 94 05/29/23 00:15 127 H 19 95 05/29/23 00:07 135 H 24 128/73 90 BiPAP 05/29/23 00:00 186 H 33 H 81 L Nasal Cannula 8 05/28/23 23:45 133 H 32 H 96 05/28/23 23:38 132 H 29 H 128/85 94 05/28/23 23:37 131 H 29 H 95 BiPAP 05/28/23 23:36 126 H 31 H 94 05/28/23 23:36 134 H 05/28/23 23:17 38.4 C H 135 H 30 H 128/85 95 Nasal Cannula 8 FiO2 05/29/23 00:37 05/29/23 00:25 05/29/23 00:15 05/29/23 00:07 05/29/23 00:00 05/28/23 23:45 05/28/23 23:38 05/28/23 23:37 05/28/23 23:36 60 05/28/23 23:36 05/28/23 23:17 Supervising Physician Co-Signing Physician Notes Attending addendum: I have physically seen this patient, have supervised the medical residents activities, and agree with the H&P unless as otherwise noted. Assessment and Plan: Acute respiratory failure with hypoxia/COPD exacerbation In part aggravated by forward tilt of head and airway compression BioFire test negative Pulse ox to the low 80% with EMS, improved on BiPAP to the mid 90s Temperature 38.4 upon arrival Received vancomycin IV and cefepime IV from the ED Status post Solu-Medrol 40 mg IV from the ED Solu-Medrol 40 mg IV every 12 hours Duonebs every 4 hours while awake and every 2 hours when necessary. Cefepime 2 g IV every 12 hours Check MRSA swab, resume vancomycin if positive Hypotension- Patient's blood pressure measured by wrist cuff appeared to be in the upper 70s/40s Did receive 2 L of normal saline bolus from the ED Also received 500 mL x 2 for total of 3 L Continue IV fluids and hold furosemide until blood pressure improves Elevated troponin/hypertension/atrial fibrillation/flutter- Resume carvedilol, diltiazem and propranolol when blood pressure is improved, hold for now Holding furosemide above as noted OCD/anxiety/depression- Continue aripiprazole, vortioexetine, buspirone and lamotrigine Resident Activity Tracking Resident Involvement: Resident Care Provided Care Provided: Adult Hospital Medicine (3) Hypertension Hypertension type: essential hypertension Qualified Code(s): I10 - Essential (primary) hypertension
[2023-05-29] MEDS ORDERED: SODIUM CHLORIDE 0.9% 500 ML IV ONE ×3 (02:25→04:36)
[2023-05-29] MEDS ORDERED: bisacodyL 10 MG SUPP PR PRN (03:10)
[2023-05-29] MEDS ORDERED: ONDANSETRON INJ 2 MG/ML 2 ML VIAL IV PRN (03:10)
[2023-05-29] MEDS ORDERED: ALUMINUM/MAGNESIUM/SIMETH (MAALOX MAX) 30 ML UDC PO PRN (03:10)
[2023-05-29] MEDS ORDERED: MAGNESIUM HYDROXIDE SUSP 30 ML UDC PO PRN (03:10)
[2023-05-29 04:54] LABS: HCO3 VBG 30 mmol/L; Oxygen Saturation VBG < 60.0 %; PCO2 VBG 59 mmHg (38-50); PO2 VBG 20 mmHg; pH VBG 7.31 (7.36-7.41)
[2023-05-29] MEDS: ALBUT/IPRATROP 3MG/0.5MG NEB 3 ML VIAL INH PRN ×2 (05:04→15:37)
[2023-05-29 05:05] LABS: Basophils # (auto) 0.03 K/uL (0.00-0.20); Basophils % (auto) 0.3 %; Hematocrit (blood only) 32.9 % (37.0-47.0); Hemoglobin 9.9 g/dl (12.0-16.0); Immature Granulocytes # (auto) 0.02 K/uL (0.01-0.20); Immature Granulocytes % (auto) 0.2 %; Lymphocytes # (auto) 1.64 K/uL (1.20-3.40); Lymphocytes % (auto) 18.7 %; Mean Corpuscular Hemoglobin 28.3 pg (25.0-34.0); Mean Corpuscular Hgb Conc 30.1 g/dL (32.0-36.0); Mean Platelet Volume 9.3 fL (9.4-12.4); Monocytes # (auto) 0.92 K/uL (0.11-0.59); Monocytes % (auto) 10.5 %; Neutrophils # (auto) 6.16 K/uL (1.40-6.50); Neutrophils % (auto) 70.3 %; Platelet Count 169 K/uL (130-400); RDW Coefficient of Variation 17.9 % (11.5-14.5); RDW Standard Deviation 61.9 fL (36.4-46.3); White Blood Count 8.77 K/ul (4.8-10.8)
[2023-05-29 05:17] LABS: Albumin Level 3.1 gm/dl (3.4-5.0); BUN Creatinine Ratio 16.5 (10-20); Calcium 7.4 mg/dl (8.6-10.3); Creatinine Clr Calc Pharmacy 69.6 ml/min; Est GFR (African American) 69.5 ml/min; Phosphorus 3.8 mg/dl (2.5-4.9); Potassium 4.3 mmol/L (3.5-5.1)
[2023-05-29 05:23] LABS: Troponin I High Sensitivity 41.6 pg/ml (0-14)
[2023-05-29 05:35] LABS: INR 1.5 (0.9-1.1); Prothrombin Time 15.7 Seconds (9.0-12.0)
[2023-05-29 06:47] LABS: Appearance Urine Cloudy (Clear); Blood Urine Negative (Negative); Color Urine Dark Yellow; Epithelial Cell Urine Auto 20-30 /lpf (0-5); Glucose Urine UA Negative (Negative); Ketones Urine Trace (Negative); Leukocyte Esterase Urine Negative (Negative); Nitrite Urine Positive (Negative); Protein Urine 1+ (Negative); Specific Gravity Urine 1.038 (1.000-1.030); Urobilinogen Urine Negative (Negative); pH Urine 5.5 (4.5-7.5)
[2023-05-29 06:56] LABS: Bilirubin Urine 1+ (Negative)
[2023-05-29 07:18] LABS: Bacteria Urine Automated 1+ (Negative); RBC Urine Automated 0-4 /hpf (0-4)
[2023-05-29] MEDS: CEFEPIME 2,000 MG in SYRINGE 0 ML IV SCH ×3 (07:42→23:46)
[2023-05-29] MEDS: PRIMIDONE 50 MG TAB PO SCH ×3 (07:44→21:12)
[2023-05-29] MEDS: carvediloL 25 MG TAB PO SCH ×2 (07:44→16:26)
[2023-05-29] MEDS: ARIPiprazole 5 MG TAB PO SCH (07:45)
[2023-05-29] MEDS: busPIRone 5 MG TAB PO SCH ×3 (07:45→16:28)
[2023-05-29] MEDS: FUROSEMIDE 80 MG TAB PO SCH (07:46)
[2023-05-29] MEDS: TOPIRAMATE 100 MG TAB PO SCH ×2 (07:46→21:11)
[2023-05-29] MEDS: ASPIRIN 81 MG ECTAB PO SCH (07:46)
[2023-05-29] MEDS: POTASSIUM CHLORIDE CRTAB 20 MEQ TABCR PO SCH ×2 (07:46→16:36)
[2023-05-29] MEDS: lamoTRIgine 100 MG TAB PO SCH ×2 (07:46→21:12)
[2023-05-29] MEDS: UMECLIDINIUM/VILANTEROL 62.5/25MCG 7 PUFFS/INHALER INH SCH (07:57)
[2023-05-29] MEDS: PSYLLIUM or GUAR GUM FIBER POWDER PACKET PO SCH (07:57)
--- NOTE | 2023-05-29 08:04 | XRay Report ---
XR chest 1V portable CLINICAL HISTORY: Sepsis. COMPARISON STUDY: Chest CT September 13, 2021. Chest radiograph September 11, 2022. FINDINGS: Patient is rotated. There are median sternotomy wires. Moderate cardiomegaly is unchanged. Mediastinal contours are stable. There is no pneumothorax or pleural effusion. Pulmonary vascular con gestion is noted. No definite consolidation. IMPRESSION: 1. Cardiomegaly with pulmonary vascular congestion. 2. No definite consolidation. ACT 112: Negative or not required by law. Electronically signed by: Humberto Espinoza M.D. 05/29/2023 8:03 AM
[2023-05-29] MEDS ORDERED: PROPRANOLOL HCL 60 MG LA CAP PO SCH (09:00)
[2023-05-29] MEDS ORDERED: dilTIAZem HCL 240 MG CAPCR PO SCH (09:00)
[2023-05-29] MEDS ORDERED: OPTIRAY 320 125ml IV ONE (11:15)
--- NOTE | 2023-05-29 11:45 | CT Scan Report ---
CT ANGIOGRAPHY OF THE CHEST, PULMONARY EMBOLUS PROTOCOL CLINICAL HISTORY: Hypoxia. Evaluate for pulmonary embolus. COMPARISON STUDY: Chest CT September 13, 2021. Chest radiograph performed earlier today. TECHNIQUE: Following IV administration of Optiray, helical axial images of the chest were obtained ut ilizing the pulmonary embolus protocol. Maximal intensity projections and sagittal and coronal refor mats were viewed on an independent 3D workstation. IV contrast was administered without complication . Automated exposure control was utilized for the study. A dose lowering technique was utilized adh ering to the principles of ALARA. CT DOSE: 884.42 mGy.cm FINDINGS: No central or lobar pulmonary emboli identified. Segmental and subsegmental pulmonary ranjit chet are suboptimally assessed due to respiratory motion. There is moderate cardiomegaly. No thoracic aortic dissection. There is mild dilatation of the ascending aorta measuring 3.9 cm. There are trace bilateral pleural effusions. No pneumothorax. Lungs are suboptimally assessed due to respiratory mot ion. Moderate multifocal mucus plugging within the bilateral lower lobe segmental bronchi are noted. There is diffuse bronchial wall thickening. There are scattered tree-in-bud nodules within the lungs. Additional subpleural opacities within the lower lobes are present. There are prominent right hilar and mediastinal lymph nodes. No acute fractures within the bony thorax. IVC and hepatic veins are mil dly dilated with reflux of contrast. IMPRESSION: 1. No pulmonary emboli identified although segmental and subsegmental pulmonary arteries suboptimally assessed due to respiratory motion. 2. Diffuse bronchial wall thickening with moderate multifocal mucus plugging within the bilateral low er lobes. Scattered tree-in-bud nodules within the lungs suggestive of an infectious bronchiolitis. 3. Bilateral pleural effusions. Subpleural opacities favor atelectasis. Pneumonia could appear simila r although is considered less likely. 4. Moderate cardiomegaly. ACT 112: Negative or not required by law. Electronically signed by: Humberto Espinoza M.D. 05/29/2023 11:43 AM
[2023-05-29] MEDS: ACETAMINOPHEN 1,000 MG/100 ML VIAL IV PRN ×2 (12:58→23:31)
[2023-05-29] MEDS ORDERED: ENOXAPARIN 1 MG/KG SQ SCH (13:00)
[2023-05-29] MEDS: ENOXAPARIN INJ 120 MG/0.8 ML SYR SQ SCH ×2 (14:02→21:10)
--- NOTE | 2023-05-29 15:13 | History & Physical Bridge Note ---
Date of Service May 29, 2023 History & Physical Bridge Note I have examined the patient, reviewed the History & Physical and in the interval since the performance of the History & Physical I have noted the following changes of clinical significance: Weaned off BiPAP to Oxymask, diet advanced. Due to hypotension, tachycardia, acute onset of hypoxic respiratory failure, and h/o saddle PE requiring embolectomy, INR subtherapeutic for 4 days--> ordered STAT CTA Chest. Fortunately, this was negative for central PE, could not optimally see for smaller pe, but did show bronchiolitis and mucus plugging. Add on doxy for atypical coverage (no azithro due to multiple QT prolonging meds), check sputum culture, Legionella ag, and dc Vanco as MRSA swab negative. Will also bridge with Lovenox 1mg/kg bid until INR therapeutic. She has rhonchi throughout all lung mcwilliams, RRR no mgr 2+ pitting edema legs bilat AAOx3 -give albuterol neb now, colect sputum sample, start flutter valve
[2023-05-29] MEDS ORDERED: ALBUTEROL 0.083% NEBU SOLN 3 ML VIAL ONE (15:29)
[2023-05-29] MEDS ORDERED: WARFARIN SOD 4 MG TAB PO SCH (16:00)
[2023-05-29] MEDS: DOXYCYCLINE HYCLATE 100 MG in DEXTROSE 5% MINI-B 100 ML IV SCH (16:25)
--- NOTE | 2023-05-29 20:41 | Billing Data ---
Date of Service May 29, 2023 Coding Level of Care Code 90145 INT INP/OBS CARE
[2023-05-29] MEDS: MIRTAZAPINE TAB 15 MG TAB PO SCH (21:11)
[2023-05-29] MEDS: ATORVASTATIN 20 MG TAB PO SCH (21:11)
[2023-05-30] MEDS: DOXYCYCLINE HYCLATE 100 MG in DEXTROSE 5% MINI-B 100 ML IV SCH ×2 (03:39→15:14)
[2023-05-30 05:04] LABS: Basophils # (auto) 0.01 K/uL (0.00-0.20); Basophils % (auto) 0.1 %; Hematocrit (blood only) 31.5 % (37.0-47.0); Hemoglobin 9.7 g/dl (12.0-16.0); Immature Granulocytes # (auto) 0.03 K/uL (0.01-0.20); Immature Granulocytes % (auto) 0.3 %; Lymphocytes # (auto) 1.04 K/uL (1.20-3.40); Lymphocytes % (auto) 11.7 %; Mean Corpuscular Hemoglobin 28.5 pg (25.0-34.0); Mean Corpuscular Hgb Conc 30.8 g/dL (32.0-36.0); Mean Corpuscular Volume 92.6 fL (80.0-100.0); Mean Platelet Volume 9.6 fL (9.4-12.4); Monocytes % (auto) 5.6 %; Neutrophils # (auto) 7.28 K/uL (1.40-6.50); Neutrophils % (auto) 82.3 %; Platelet Count 157 K/uL (130-400); RDW Coefficient of Variation 18.1 % (11.5-14.5); RDW Standard Deviation 61.6 fL (36.4-46.3); White Blood Count 8.86 K/ul (4.8-10.8)
[2023-05-30 05:13] LABS: Albumin Level 3.1 gm/dl (3.4-5.0); BUN Creatinine Ratio 23.7 (10-20); Calcium 7.9 mg/dl (8.6-10.3); Creatinine Clr Calc Pharmacy 86.5 ml/min; Est GFR (African American) 86.5 ml/min; Est GFR (Non-African American) 74.6 ml/min; Potassium 4.2 mmol/L (3.5-5.1)
[2023-05-30 05:22] LABS: INR 3.8 (0.9-1.1); Prothrombin Time 38.4 Seconds (9.0-12.0)
[2023-05-30] MEDS: TOPIRAMATE 100 MG TAB PO SCH ×2 (08:58→20:22)
[2023-05-30] MEDS: PRIMIDONE 50 MG TAB PO SCH ×3 (08:59→20:18)
[2023-05-30] MEDS: lamoTRIgine 100 MG TAB PO SCH ×2 (09:00→20:19)
[2023-05-30] MEDS: ASPIRIN 81 MG ECTAB PO SCH (09:01)
[2023-05-30] MEDS: carvediloL 25 MG TAB PO SCH ×2 (09:01→17:43)
[2023-05-30] MEDS: busPIRone 5 MG TAB PO SCH ×3 (09:02→15:33)
[2023-05-30] MEDS: ARIPiprazole 5 MG TAB PO SCH (09:02)
[2023-05-30] MEDS: UMECLIDINIUM/VILANTEROL 62.5/25MCG 7 PUFFS/INHALER INH SCH (09:03)
[2023-05-30] MEDS: PSYLLIUM or GUAR GUM FIBER POWDER PACKET PO SCH (09:03)
[2023-05-30] MEDS: POTASSIUM CHLORIDE CRTAB 20 MEQ TABCR PO SCH ×2 (09:18→17:46)
[2023-05-30] MEDS: ACETAMINOPHEN 1,000 MG/100 ML VIAL IV PRN (09:38)
[2023-05-30] MEDS: CEFEPIME 2,000 MG in SYRINGE 0 ML IV SCH ×3 (09:45→23:39)
[2023-05-30] MEDS ORDERED: FUROSEMIDE 40 MG/4 ML VIAL IV ONE (12:24)
--- NOTE | 2023-05-30 12:26 | Hospitalist Progress Note ---
Date of Service May 30, 2023 Assessment & Plan (1) Hypoxia: Plan: Initially requiring BiPAP and now weaned to 6LNC Due to hypotension, tachycardia, acute onset of hypoxic respiratory failure, and h/o saddle PE requiring embolectomy, INR subtherapeutic for 4 days--> ordered STAT CTA Chest. Fortunately, this was negative for central PE, could not optimally see for smaller pe, but did show bronchiolitis and mucus plugging. MRSA swab negative. BioFire negative She has rhonchi throughout all lung mcwilliams, RRR no mgr 1+ pitting edema legs bilat Continue Cefepime, doxy FOllow sputum culture-pending blood cxs-pending Follow up Legionella ag Continue albuterol nebs continue home Lasix 80mg PO daily - patient is euvolemic on exam, likely not fluid overloaded. -Given Solu-Medrol 40mg IV x1 but not continued (2) Fever: Plan: 2/2 bronchiolitis Continue flutter valve, cough syrup BCxs remain NGTD (3) Hypertension: Plan: BPs have been low at times -Continue home carvedilol 25mg po bid -reduce dose of diltiazem to 120mg daily -continue furosemide 80mg daily HOLD propranolol for low BPs-is on this for tremor, but also takes Coreg (4) OCD (obsessive compulsive disorder): Plan: continue home meds (5) Hyperlipidemia: Plan: continue statin (6) Generalized anxiety disorder: Plan: continue home meds (7) Anticoagulant long-term use: Plan: on COumadin for recurrent VTE INR was subtherapeutic for 3-4 day prior to admission Lovenox bridging can be discontinued as INR now 3.8 HOLD warfarin today and resume tomorrow if INR lower follow INR (8) PAF (paroxysmal atrial fibrillation): Plan: in Afib here, rates low 100s continue coumdain (9) Elevated troponin: Plan: -Troponin on admission 25.2,31, then back down again on subsequent testing, this is myocardial demand ischemia from acute respiratory failure with hypoxia -Echo from 02/10/2023 with EF 55-60% mild L ventricular hypertrophy. -EKG without any significant ST elevation or depression -No chest pain Plan Add oxycodone prn back for her chronic pain DVT proph-COumadin Dispo-continued stay Admission and Anticipated Discharge Date Admission Date: May 29, 2023 Subjective Pt reports feeling ok. Coughing, remains on O2. Reports pain in her left fingers and chronic pain in upper abdomen as well as right leg and is requesting her usual home oxycodone. BPs were low again overnight with systolics in the 70s Tele with Afib, PVCs, rate low 100s Physical Exam Constitutional: WD/WN, vitals as above Neck: trachea midline, no thyromegaly Respiratory: normal respiratory effort; no cough Auscultation: + rhonchi; no crackles and no wheezes Cardiovascular: Rate/Rhythm: + tachycardic and + irregularly irregular Heart Sounds: no murmur Extremities: + edema (1+ edema legs bilat) Gastrointestinal (Abdomen): normal bowel sounds, soft, nontender, no hepa tosplenomegaly Musculoskeletal: Extremities: extremities normal to inspection; no cyanosis and no clubbing Skin: no rashes, warm and dry Neurologic: moves all extremities and awake Psychiatric: A+Ox3, euthymic affect Results & Data Results & Data Vital Signs (Past 12 Hours) Vital Signs Temp Pulse Pulse Resp BP BP BP 05/30/23 11:52 37.7 C H 22 114/81 05/30/23 07:26 38.1 C H 105 H 22 146/81 H 05/30/23 06:13 99 H 24 05/30/23 03:00 98 H 21 109/59 L 05/30/23 02:53 98 H 22 05/30/23 01:50 05/30/23 01:13 86/51 L 05/30/23 01:13 98 H 23 05/30/23 01:10 83/45 L 05/30/23 01:10 99 H 18 05/30/23 01:09 98 H 24 05/30/23 01:09 89/49 L 05/30/23 01:08 98 H 24 05/30/23 01:08 71/57 L 05/30/23 01:06 86/53 L 05/30/23 01:06 98 H 21 05/30/23 01:01 99 H 20 05/30/23 01:01 80/52 L 05/30/23 01:00 99 H 21 Pulse Ox O2 Del Method O2 Flow Rate FiO2 05/30/23 11:52 94 Nasal Cannula 6 05/30/23 07:26 98 BiPAP 01/07/24 06:13 99 40 05/30/23 03:00 99 BiPAP 05/30/23 02:53 98 40 05/30/23 01:50 BiPAP 05/30/23 01:13 05/30/23 01:13 92 05/30/23 01:10 05/30/23 01:10 93 05/30/23 01:09 93 05/30/23 01:09 05/30/23 01:08 92 05/30/23 01:08 05/30/23 01:06 05/30/23 01:06 92 05/30/23 01:01 93 05/30/23 01:01 05/30/23 01:00 92 Laboratory Results CBC, BMP, INR, Blood cultures all reviewed PG Care Time/CCT Total # of Minutes Spent Total Time Spent with Patient: Total time spent is greater than 50% in coordination of care (as documented) at patient's floor/unit and/or counseling patient: Coding Level of Care Code 05366 SUB INP/OBS CARE 3/50MIN Diagnoses Hypoxia R09.02 Fever R50.9 Essential hypertension I10 Hypertension type: essential hypertension OCD (obsessive compulsive disorder) F42.9 Hyperlipidemia E78.5 Generalized anxiety disorder F41.1 Anticoagulant long-term use Z79.01 PAF (paroxysmal atrial fibrillation) I48.0 Elevated troponin R77.8 (3) Hypertension Hypertension type: essential hypertension Qualified Code(s): I10 - Essential (primary) hypertension
[2023-05-30] MEDS: DICLOFENAC SOD 1% GEL 100 GM TUBE EXT SCH ×3 (15:15→20:19)
[2023-05-30] MEDS: ARTIFICIAL TEARS OP SCH ×3 (15:16→20:17)
[2023-05-30] MEDS: dilTIAZem HCL 120 MG CAPCR PO SCH (15:17)
[2023-05-30] MEDS: VORTIOXETINE HYDROBROMIDE 10 MG PO SCH (17:47)
[2023-05-30] MEDS: ATORVASTATIN 20 MG TAB PO SCH (20:18)
[2023-05-30] MEDS: MIRTAZAPINE TAB 15 MG TAB PO SCH (20:18)
[2023-05-31] MEDS: DOXYCYCLINE HYCLATE 100 MG in DEXTROSE 5% MINI-B 100 ML IV SCH ×2 (03:00→15:19)
[2023-05-31] MEDS: ACETAMINOPHEN 1,000 MG/100 ML VIAL IV PRN ×2 (03:59→23:56)
[2023-05-31 06:33] LABS: Basophils # (auto) 0.02 K/uL (0.00-0.20); Basophils % (auto) 0.3 %; Hematocrit (blood only) 29.8 % (37.0-47.0); Hemoglobin 9.3 g/dl (12.0-16.0); Lymphocytes # (auto) 1.12 K/uL (1.20-3.40); Lymphocytes % (auto) 19.2 %; Mean Corpuscular Hemoglobin 28.4 pg (25.0-34.0); Mean Corpuscular Hgb Conc 31.2 g/dL (32.0-36.0); Mean Corpuscular Volume 90.9 fL (80.0-100.0); Mean Platelet Volume 9.7 fL (9.4-12.4); Monocytes # (auto) 0.38 K/uL (0.11-0.59); Monocytes % (auto) 6.5 %; Platelet Count 154 K/uL (130-400); RDW Standard Deviation 59.7 fL (36.4-46.3); Red Blood Count 3.28 M/uL (4.20-5.40); White Blood Count 5.82 K/ul (4.8-10.8)
[2023-05-31 06:54] LABS: Albumin Level 2.9 gm/dl (3.4-5.0); Creatinine Clr Calc Pharmacy 85.3 ml/min; Est GFR (African American) 90.8 ml/min; Est GFR (Non-African American) 78.3 ml/min; Potassium 3.7 mmol/L (3.5-5.1)
[2023-05-31 07:48] LABS: INR 4.3 (0.9-1.1); Prothrombin Time 42.7 Seconds (9.0-12.0)
--- NOTE | 2023-05-31 08:12 | Electrocardiogram Report ---
Test Reason : Blood Pressure : / mmHG Vent. Rate : 129 BPM Atrial Rate : 061 BPM P-R Int : 128 ms QRS Dur : 092 ms QT Int : 280 ms P-R-T Axes : 016 047 269 degrees QTc Int : 410 ms Probable Sinus tachycardia with frequent Premature atrial complexes with aberrancy in a pattern of b igeminy Incomplete right bundle branch block Diffuse Nonspecific ST and T wave abnormality Abnormal ECG When compared with ECG of 15-SEP-2021 05:28, HR has increased by 29 bpm Incomplete right bundle branch block is now Present Frequent PACs now present Confirmed by Gio Burden ([id number]) on 05/31/2023 8:12:22 AM Referred By: [facility] [place] Confirmed By:Gio Burden
[2023-05-31] MEDS: CEFEPIME 2,000 MG in SYRINGE 0 ML IV SCH ×3 (08:18→23:56)
[2023-05-31] MEDS: MULTIVITAMIN TAB PO SCH (08:18)
[2023-05-31] MEDS: ASPIRIN 81 MG ECTAB PO SCH (08:19)
[2023-05-31] MEDS: dilTIAZem HCL 120 MG CAPCR PO SCH (08:22)
[2023-05-31] MEDS: PRIMIDONE 50 MG TAB PO SCH ×3 (08:22→20:34)
[2023-05-31] MEDS: busPIRone 5 MG TAB PO SCH ×3 (08:23→17:12)
[2023-05-31] MEDS: VORTIOXETINE HYDROBROMIDE 10 MG PO SCH ×2 (08:24→17:14)
[2023-05-31] MEDS: FUROSEMIDE 80 MG TAB PO SCH (08:24)
[2023-05-31] MEDS: lamoTRIgine 100 MG TAB PO SCH ×2 (08:25→20:28)
[2023-05-31] MEDS: ARIPiprazole 5 MG TAB PO SCH (08:25)
[2023-05-31] MEDS: carvediloL 25 MG TAB PO SCH ×2 (08:27→17:12)
[2023-05-31] MEDS: ARTIFICIAL TEARS OP SCH ×4 (08:28→20:26)
[2023-05-31] MEDS: DICLOFENAC SOD 1% GEL 100 GM TUBE EXT SCH ×4 (08:28→20:27)
[2023-05-31] MEDS ORDERED: DIGOXIN 0.25 MG TAB PO ONE (08:28)
[2023-05-31] MEDS: UMECLIDINIUM/VILANTEROL 62.5/25MCG 7 PUFFS/INHALER INH SCH (08:29)
[2023-05-31] MEDS: PSYLLIUM or GUAR GUM FIBER POWDER PACKET PO SCH (08:29)
[2023-05-31] MEDS: TOPIRAMATE 100 MG TAB PO SCH ×2 (08:29→20:35)
[2023-05-31] MEDS: POTASSIUM CHLORIDE CRTAB 20 MEQ TABCR PO SCH ×2 (08:31→17:15)
[2023-05-31] MEDS: oxyCODONE HCL IR 5 MG TAB (IMMEDIATE RELEASE) PO PRN ×2 (10:01→20:33)
--- NOTE | 2023-05-31 15:15 | Hospitalist Progress Note ---
Date of Service May 31, 2023 Assessment & Plan (1) Hypoxia: Plan: Acute hypoxic respiratory failure present on admission. Chest CTA negative for PE but there is evidence of mucous plugs and bronchitis. She remains on cefepime, day 3. No sputum produced for culture. Initially requiring BiPAP and now weaned to 4 lpm per nasal cannula. Chest CTA negative for PE but there is evidence of mucous plugging and bronchitis. MRSA swab negative. BioFire negative (2) Acute bronchitis: Plan: Continue doxycycline and cefepime, day 3. No sputum produced for culture unfortunately. Blood cultures negative. (3) Hypertension: Plan: BPs have been low at nighttime. Propranolol discontinued. Continue Coreg and diltiazem CD. Lanoxin added for atrial fibrillation rate control. (4) Hyperlipidemia: Plan: Stable. Continue statin (5) Anticoagulant long-term use: Plan: on Coumadin for recurrent VTE. INR is up to 4.3. No active bleeding. Coumadin is on hold. (6) PAF (paroxysmal atrial fibrillation): Plan: Rapid ventricular rate documented. Continue Coreg and diltiazem CD. Propranolol has been discontinued. Lanoxin has been initiated. Telemetry (7) Elevated troponin: Plan: No evidence of acute coronary syndrome. Apparently due to supply/demand mismatch from rapid ventricular rate. Echo from 02/10/2023 with EF 55-60% mild Left ventricular hypertrophy. Plan [facility] within the next day or 2 DVT proph-COumadin Dispo-continued stay Admission and Anticipated Discharge Date Admission Date: May 29, 2023 Subjective Alert and oriented. No distress. She has had episodes of hypotension at nighttime. She is on 2 beta-blockers. Coreg will continue on propranolol discontinued. Continue diltiazem CD. Lanoxin added for atrial fibrillation rate control. INR has jumped to 4.3 with IV antibiotic therapy. Coumadin is now on hold. [facility] bed hold [facility] and OT and PT assessments are not needed. Review of Systems 2 Review of Systems: Constitutional-no fever or chills ENT-no blurred vision, no double vision, no epistaxis, no sore throat Respiratory-no cough, no wheezing, no shortness of breath at rest. She does have dyspnea on exertion Cardiac-no palpitations, no chest pain, no syncope GI-no nausea, vomiting, diarrhea, melena, hematochezia -no urinary retention, no urinary incontinence, no dysuria, no hematuria Musculoskeletal-no joint pain, no muscle tenderness Skin-no bruising, no rashes, no pruritus Neuro-no isolated weakness, no paresthesia, no weakness Psych-no depression, no anxiety Physical Exam 2 Physical Exam: General-alert and oriented x3, no fevers, no chills. Morbidly obese HEENT-head atraumatic and normocephalic, pupils equal and reactive to light, extraocular muscles intact Neck-no lymphadenopathy or thyromegaly, trachea midline Chest-diminished breath sounds bilaterally from anterior approach. No rales, wheezing or rhonchi Cardiac-regular rate and rhythm, normal S1 and S2, no murmurs Abdomen-normal bowel sounds, nontender, no hepatosplenomegaly Extremities-chronic bilateral lower extremity edema below the knees. Neuro-cranial nerves II through XII intact, motor and sensory function within normal limits, strength symmetrical with generalized weakness, no focal deficits Psych-normal affect, normal mood Results & Data Results & Data Vital Signs (Past 12 Hours) Vital Signs Temp Pulse Pulse Resp BP Pulse Ox O2 Del Method 05/31/23 10:57 37.3 C 117 H 20 96/66 L 91 Nasal Cannula 05/31/23 09:57 114 H 05/31/23 07:39 116 H 05/31/23 07:31 Room Air 05/31/23 07:15 37.1 C 117 H 20 112/74 91 Nasal Cannula 05/31/23 05:02 37.2 C 05/31/23 03:45 39.0 C H 104 H 22 131/76 90 Nasal Cannula O2 Flow Rate 05/31/23 10:57 4 05/31/23 09:57 05/31/23 07:39 05/31/23 07:31 05/31/23 07:15 3 05/31/23 05:02 05/31/23 03:45 4 Laboratory Results 05/31/23 05:28 05/31/23 05:27 PG Care Time/CCT Total # of Minutes Spent Total Time Spent with Patient: Total time spent is greater than 50% in coordination of care (as documented) at patient's floor/unit and/or counseling patient: Coding Level of Care Code 67820 SUB INP/OBS CARE 3/50MIN Diagnoses Hypoxia R09.02 Acute bronchitis J20.9 Essential hypertension I10 Hypertension type: essential hypertension Hyperlipidemia E78.5 Anticoagulant long-term use Z79.01 PAF (paroxysmal atrial fibrillation) I48.0 Elevated troponin R77.8 (3) Hypertension Hypertension type: essential hypertension Qualified Code(s): I10 - Essential (primary) hypertension
[2023-05-31] MEDS: ATORVASTATIN 20 MG TAB PO SCH (20:27)
[2023-05-31] MEDS: MIRTAZAPINE TAB 15 MG TAB PO SCH (20:28)
[2023-06-01] MEDS: DOXYCYCLINE HYCLATE 100 MG in DEXTROSE 5% MINI-B 100 ML IV SCH ×2 (03:13→17:48)
[2023-06-01] MEDS: oxyCODONE HCL IR 5 MG TAB (IMMEDIATE RELEASE) PO PRN ×2 (03:22→13:48)
[2023-06-01 06:51] LABS: Creatinine Clr Calc Pharmacy 86.4 ml/min; Est GFR (African American) 93.9 ml/min; Potassium 4.3 mmol/L (3.5-5.1)
[2023-06-01 07:08] LABS: Prothrombin Time 30.6 Seconds (9.0-12.0)
[2023-06-01 07:56] LABS: Basophils # (auto) 0.01 K/uL (0.00-0.20); Basophils % (auto) 0.2 %; Hemoglobin 9.2 g/dl (12.0-16.0); Immature Granulocytes # (auto) 0.01 K/uL (0.01-0.20); Immature Granulocytes % (auto) 0.2 %; Lymphocytes # (auto) 1.07 K/uL (1.20-3.40); Lymphocytes % (auto) 26.4 %; Mean Corpuscular Hemoglobin 27.8 pg (25.0-34.0); Mean Corpuscular Hgb Conc 29.7 g/dL (32.0-36.0); Mean Corpuscular Volume 93.7 fL (80.0-100.0); Mean Platelet Volume 10.8 fL (9.4-12.4); Monocytes # (auto) 0.33 K/uL (0.11-0.59); Monocytes % (auto) 8.1 %; Neutrophils # (auto) 2.64 K/uL (1.40-6.50); Neutrophils % (auto) 65.1 %; Platelet Count 141 K/uL (130-400); Platelet Estimate Normal (Normal); RDW Standard Deviation 62.6 fL (36.4-46.3); Red Blood Count 3.31 M/uL (4.20-5.40); White Blood Count 4.06 K/ul (4.8-10.8)
[2023-06-01] MEDS: MULTIVITAMIN TAB PO SCH (08:38)
[2023-06-01] MEDS: PRIMIDONE 50 MG TAB PO SCH ×3 (08:39→19:49)
[2023-06-01] MEDS: dilTIAZem HCL 120 MG CAPCR PO SCH (08:39)
[2023-06-01] MEDS: FUROSEMIDE 80 MG TAB PO SCH (08:40)
[2023-06-01] MEDS: TOPIRAMATE 100 MG TAB PO SCH ×2 (08:40→19:50)
[2023-06-01] MEDS: ASPIRIN 81 MG ECTAB PO SCH (08:40)
[2023-06-01] MEDS: carvediloL 25 MG TAB PO SCH ×2 (08:41→17:41)
[2023-06-01] MEDS: busPIRone 5 MG TAB PO SCH ×3 (08:42→17:40)
[2023-06-01] MEDS: ARIPiprazole 5 MG TAB PO SCH (08:42)
[2023-06-01] MEDS: lamoTRIgine 100 MG TAB PO SCH ×2 (08:42→19:49)
[2023-06-01] MEDS: UMECLIDINIUM/VILANTEROL 62.5/25MCG 7 PUFFS/INHALER INH SCH (08:42)
[2023-06-01] MEDS: VORTIOXETINE HYDROBROMIDE 10 MG PO SCH ×2 (08:43→17:39)
[2023-06-01] MEDS: ARTIFICIAL TEARS OP SCH ×4 (08:45→19:44)
[2023-06-01] MEDS: PSYLLIUM or GUAR GUM FIBER POWDER PACKET PO SCH (08:45)
[2023-06-01] MEDS: DICLOFENAC SOD 1% GEL 100 GM TUBE EXT SCH ×4 (08:45→19:49)
[2023-06-01] MEDS: POTASSIUM CHLORIDE CRTAB 20 MEQ TABCR PO SCH ×2 (08:47→18:05)
[2023-06-01] MEDS: CEFEPIME 2,000 MG in SYRINGE 0 ML IV SCH ×3 (08:52→23:42)
--- NOTE | 2023-06-01 09:51 | XRay Report ---
SINGLE VIEW CHEST CLINICAL HISTORY: Pulmonary vascular congestion. Hypoxia. FINDINGS: 2 AP, portable, upright chest radiographs are compared to study dated 05/28/2023 and correlat ed with chest CT dated 05/29/2023. The examination is significant degraded by portable technique and pa tient rotation. The patient is status post midline sternotomy. The heart is enlarged noting atheroscl erotic calcification of the thoracic aorta. There is pulmonary vascular congestion. There are small pleural effusions with dependent consolidation. No pneumothorax is seen. The skeletal structures are osteopenic. The bony thorax is grossly intact. IMPRESSION: 1. Cardiomegaly with pulmonary vascular congestion. This is similar to previous. 2. Small pleural effusions with dependent consolidation. ACT 112: Negative or not required by law. Electronically signed by: Eduardo Liao M.D. 06/01/2023 9:50 AM
[2023-06-01] MEDS: FUROSEMIDE 40 MG/4 ML VIAL IV SCH ×2 (12:31→23:43)
--- NOTE | 2023-06-01 14:44 | Hospitalist Progress Note ---
Date of Service June 01, 2023 Assessment & Plan (1) Hypoxia: Plan: Acute hypoxic respiratory failure present on admission. Chest CTA negative for PE but there is evidence of mucous plugs and bronchitis. She also appears to have pulmonary vascular congestion which is contributing. Parenteral Lasix therapy has been started. She remains on cefepime, day 4. No sputum produced for culture. Initially requiring BiPAP and now weaned to 2 lpm per nasal cannula. Chest CTA negative for PE but there is evidence of mucous plugging and bronchitis. MRSA swab negative. BioFire negative (2) Acute bronchitis: Plan: Continue doxycycline and cefepime, day 4. No sputum produced for culture unfortunately. Blood cultures negative. (3) Hypertension: Plan: BPs have been low at nighttime. Propranolol has been discontinued. Continue Coreg and diltiazem CD. Lanoxin added for atrial fibrillation rate control. (4) Acute diastolic CHF (congestive heart failure): Plan: Causing pulmonary vascular congestion seen on multiple chest x-rays. She is now on parenteral Lasix diuresis. Monitor intake and output. Wean oxygen off as tolerated (5) Hyperlipidemia: Plan: Stable. Continue statin (6) Anticoagulant long-term use: Plan: on Coumadin for recurrent VTE. Coumadin is on hold however for elevated INR which is now down to 3.0. No active bleeding. (7) PAF (paroxysmal atrial fibrillation): Plan: Rapid ventricular rate documented earlier this admission. Now rate controlled. Continue digoxin, Coreg and diltiazem CD. Propranolol has been discontinued. Lanoxin is new. Telemetry (8) Elevated troponin: Plan: No evidence of acute coronary syndrome. Apparently due to supply/demand mismatch from rapid ventricular rate. Echo from 02/10/2023 with EF 55-60% mild Left ventricular hypertrophy. Plan [facility]ful return to [facility] within the next day or 2 Admission and Anticipated Discharge Date Admission Date: May 29, 2023 Subjective Alert and oriented. No distress. Repeat portable chest x-ray again reveals pulmonary vascular congestion. This appears to be acute diastolic CHF. She is now on parenteral Lasix therapy. Atrial fibrillation rate is controlled and she will remain on oral digoxin in addition to her Coreg and diltiazem CD. Recent cardiac echo done in January of last year reveals ejection fraction of 50%. She continues on 2 L oxygen per nasal cannula. Daily digoxin levels will be obtained. OT and PT assessments reordered since she is concerned about transfers at [facility]. INR is down to 3.0. Coumadin remains on hold. She remains on cefepime and doxycycline, day 4, for the acute bronchitis. Review of Systems 2 Review of Systems: Constitutional-no fever or chills ENT-no blurred vision, no double vision, no epistaxis, no sore throat Respiratory-no cough, no wheezing, no shortness of breath at rest. She does have dyspnea on exertion Cardiac-no palpitations, no chest pain, no syncope GI-no nausea, vomiting, diarrhea, melena, hematochezia -no urinary retention, no urinary incontinence, no dysuria, no hematuria Musculoskeletal-no joint pain, no muscle tenderness Skin-no bruising, no rashes, no pruritus Neuro-no isolated weakness, no paresthesia, no weakness Psych-no depression, no anxiety Physical Exam 2 Physical Exam: General-alert and oriented x3, no fevers, no chills. Morbidly obese HEENT-head atraumatic and normocephalic, pupils equal and reactive to light, extraocular muscles intact Neck-no lymphadenopathy or thyromegaly, trachea midline Chest-diminished breath sounds bilaterally from anterior approach. No rales, wheezing or rhonchi Cardiac-regular rate and rhythm, normal S1 and S2, no murmurs Abdomen-normal bowel sounds, nontender, no hepatosplenomegaly Extremities-chronic bilateral lower extremity edema below the knees. Neuro-cranial nerves II through XII intact, motor and sensory function within normal limits, strength symmetrical with generalized weakness, no focal deficits Psych-normal affect, normal mood Results & Data Results & Data Vital Signs (Past 12 Hours) Vital Signs Temp Pulse Pulse Resp BP Pulse Ox O2 Del Method 06/01/23 11:07 36.5 C 79 20 118/87 92 Nasal Cannula 06/01/23 09:00 98 H 06/01/23 07:55 Nasal Cannula 06/01/23 07:09 37.2 C 96 H 19 115/73 94 Nasal Cannula 06/01/23 02:42 36.6 C 98 H 19 122/75 96 CPAP O2 Flow Rate 06/01/23 11:07 2 06/01/23 09:00 06/01/23 07:55 2 06/01/23 07:09 2 06/01/23 02:42 Laboratory Results 06/01/23 05:30 06/01/23 05:29 PG Care Time/CCT Total # of Minutes Spent Total Time Spent with Patient: Total time spent is greater than 50% in coordination of care (as documented) at patient's floor/unit and/or counseling patient: Coding Level of Care Code 53692 SUB INP/OBS CARE 3/50MIN Diagnoses Hypoxia R09.02 Acute bronchitis J20.9 Essential hypertension I10 Hypertension type: essential hypertension Acute diastolic CHF (congestive heart failure) I50.31 Hyperlipidemia E78.5 Anticoagulant long-term use Z79.01 PAF (paroxysmal atrial fibrillation) I48.0 Elevated troponin R77.8 (3) Hypertension Hypertension type: essential hypertension Qualified Code(s): I10 - Essential (primary) hypertension
[2023-06-01] MEDS: DIGOXIN 0.25 MG TAB PO SCH (17:38)
[2023-06-01] MEDS: ATORVASTATIN 20 MG TAB PO SCH (19:48)
[2023-06-01] MEDS: MIRTAZAPINE TAB 15 MG TAB PO SCH (19:48)
[2023-06-02] MEDS: FUROSEMIDE 40 MG/4 ML VIAL IV SCH ×4 (00:09→12:17)
[2023-06-02] MEDS: DOXYCYCLINE HYCLATE 100 MG in DEXTROSE 5% MINI-B 100 ML IV SCH ×2 (02:38→16:00)
[2023-06-02 06:29] LABS: Basophils # (auto) 0.01 K/uL (0.00-0.20); Basophils % (auto) 0.3 %; Hematocrit (blood only) 31.5 % (37.0-47.0); Hemoglobin 9.6 g/dl (12.0-16.0); Immature Granulocytes # (auto) 0.01 K/uL (0.01-0.20); Immature Granulocytes % (auto) 0.3 %; Lymphocytes # (auto) 1.19 K/uL (1.20-3.40); Lymphocytes % (auto) 33.1 %; Mean Corpuscular Hemoglobin 28.2 pg (25.0-34.0); Mean Corpuscular Hgb Conc 30.5 g/dL (32.0-36.0); Mean Corpuscular Volume 92.4 fL (80.0-100.0); Mean Platelet Volume 9.5 fL (9.4-12.4); Monocytes # (auto) 0.45 K/uL (0.11-0.59); Monocytes % (auto) 12.5 %; Neutrophils # (auto) 1.94 K/uL (1.40-6.50); Neutrophils % (auto) 53.8 %; Platelet Count 139 K/uL (130-400); RDW Coefficient of Variation 17.3 % (11.5-14.5); RDW Standard Deviation 59.1 fL (36.4-46.3); Red Blood Count 3.41 M/uL (4.20-5.40)
[2023-06-02 06:51] LABS: BUN Creatinine Ratio 33.3 (10-20); Calcium 7.9 mg/dl (8.6-10.3); Est GFR (African American) 80.1 ml/min; Est GFR (Non-African American) 69.1 ml/min; Potassium 3.9 mmol/L (3.5-5.1)
[2023-06-02 06:53] LABS: INR 1.4 (0.9-1.1); Prothrombin Time 15.5 Seconds (9.0-12.0)
[2023-06-02] MEDS: PRIMIDONE 50 MG TAB PO SCH ×3 (08:38→21:41)
[2023-06-02] MEDS: ARIPiprazole 5 MG TAB PO SCH (08:38)
[2023-06-02] MEDS: CEFEPIME 2,000 MG in SYRINGE 0 ML IV SCH ×2 (08:38→17:04)
[2023-06-02] MEDS: carvediloL 25 MG TAB PO SCH ×2 (08:38→17:05)
[2023-06-02] MEDS: dilTIAZem HCL 120 MG CAPCR PO SCH (08:39)
[2023-06-02] MEDS: ASPIRIN 81 MG ECTAB PO SCH (08:40)
[2023-06-02] MEDS: MULTIVITAMIN TAB PO SCH (08:40)
[2023-06-02] MEDS: POTASSIUM CHLORIDE CRTAB 20 MEQ TABCR PO SCH ×2 (08:40→17:06)
[2023-06-02] MEDS: PSYLLIUM or GUAR GUM FIBER POWDER PACKET PO SCH (08:40)
[2023-06-02] MEDS: UMECLIDINIUM/VILANTEROL 62.5/25MCG 7 PUFFS/INHALER INH SCH (08:40)
[2023-06-02] MEDS: TOPIRAMATE 100 MG TAB PO SCH ×2 (08:40→21:42)
[2023-06-02] MEDS: lamoTRIgine 100 MG TAB PO SCH ×2 (08:40→21:40)
[2023-06-02] MEDS: busPIRone 5 MG TAB PO SCH ×3 (08:40→17:04)
[2023-06-02] MEDS: VORTIOXETINE HYDROBROMIDE 10 MG PO SCH ×2 (08:41→17:06)
[2023-06-02] MEDS: DICLOFENAC SOD 1% GEL 100 GM TUBE EXT SCH ×4 (08:44→21:40)
[2023-06-02] MEDS: ARTIFICIAL TEARS OP SCH ×4 (08:45→21:43)
--- NOTE | 2023-06-02 15:45 | Hospitalist Progress Note ---
Date of Service June 02, 2023 Assessment & Plan (1) Hypoxia: Plan: Acute hypoxic respiratory failure present on admission. Chest CTA negative for PE but there is evidence of mucous plugs and bronchitis. She also appears to have pulmonary vascular congestion which is contributing. Brisk diuresis so far with parenteral Lasix therapy. She remains on cefepime, day 5. No sputum produced for culture. Currently on oxygen at 3 L/min per nasal cannula. Chest CTA negative for PE but there is evidence of mucous plugging and bronchitis. MRSA swab negative. BioFire negative. Repeat chest x-ray again tomorrow, June 03 (2) Acute bronchitis: Plan: Continue doxycycline and cefepime, day 5. No sputum produced for culture unfortunately. Blood cultures negative. (3) Hypertension: Plan: BPs have been low at nighttime. Propranolol has been discontinued. Continue Coreg and diltiazem CD. Lanoxin added for atrial fibrillation rate control. Improved (4) Acute diastolic CHF (congestive heart failure): Plan: Causing pulmonary vascular congestion seen on multiple chest x-rays. She is now on parenteral Lasix diuresis. Brisk diuresis has ensued. Repeat portable chest x-ray tomorrowJune 03. Monitor intake and output. Wean oxygen off as tolerated (5) Hyperlipidemia: Plan: Stable. Continue statin (6) Anticoagulant long-term use: Plan: on Coumadin for recurrent VTE. Coumadin temporarily held for elevated INR which is now down to 1.4. Coumadin will be restarted today, June 02 (7) PAF (paroxysmal atrial fibrillation): Plan: Rapid ventricular rate documented earlier this admission. Now rate controlled. Continue digoxin, Coreg and diltiazem CD. Propranolol has been discontinued. Lanoxin is new. Telemetry (8) Elevated troponin: Plan: No evidence of acute coronary syndrome. Apparently due to supply/demand mismatch from rapid ventricular rate. Echo from 02/10/2023 with EF 55-60% mild Left ventricular hypertrophy. Plan [facility]ful return to [facility] within the next day or 2. Possibly tomorrowJune 03 Admission and Anticipated Discharge Date Admission Date: May 29, 2023 Subjective She looks and feels better. Brisk diuresis with parenteral Lasix. Will repeat chest x-ray again tomorrow, June 03. INR is down to 1.4. Coumadin has been restarted. Digoxin level 0.6. Atrial fibrillation rate is controlled. Hopeful return to [facility] soon Review of Systems 2 Review of Systems: Constitutional-no fever or chills ENT-no blurred vision, no double vision, no epistaxis, no sore throat Respiratory-no cough, no wheezing, no shortness of breath at rest. She does have dyspnea on exertion Cardiac-no palpitations, no chest pain, no syncope GI-no nausea, vomiting, diarrhea, melena, hematochezia -no urinary retention, no urinary incontinence, no dysuria, no hematuria Musculoskeletal-no joint pain, no muscle tenderness Skin-no bruising, no rashes, no pruritus Neuro-no isolated weakness, no paresthesia, no weakness Psych-no depression, no anxiety Physical Exam 2 Physical Exam: General-alert and oriented x3, no fevers, no chills. Morbidly obese HEENT-head atraumatic and normocephalic, pupils equal and reactive to light, extraocular muscles intact Neck-no lymphadenopathy or thyromegaly, trachea midline Chest-diminished breath sounds bilaterally from anterior approach. No rales, wheezing or rhonchi Cardiac-regular rate and rhythm, normal S1 and S2, no murmurs Abdomen-normal bowel sounds, nontender, no hepatosplenomegaly Extremities-chronic bilateral lower extremity edema below the knees. Neuro-cranial nerves II through XII intact, motor and sensory function within normal limits, strength symmetrical with generalized weakness, no focal deficits Psych-normal affect, normal mood Results & Data Results & Data Vital Signs (Past 12 Hours) Vital Signs Temp Pulse Pulse Resp BP Pulse Ox Pulse Ox 06/02/23 15:33 37.2 C 100 H 19 131/84 94 06/02/23 11:05 37.2 C 100 H 19 104/70 93 06/02/23 08:00 06/02/23 08:00 96 06/02/23 07:00 97 H 06/02/23 06:54 37.9 C H 97 H 19 106/69 92 O2 Del Method O2 Del Method O2 Flow Rate 06/02/23 15:33 Nasal Cannula 3 06/02/23 11:05 Nasal Cannula 3 06/02/23 08:00 Nasal Cannula 06/02/23 08:00 Nasal Cannula 06/02/23 07:00 06/02/23 06:54 Nasal Cannula 3 Laboratory Results 06/02/23 05:25 06/02/23 05:25 PG Care Time/CCT Total # of Minutes Spent Total Time Spent with Patient: Total time spent is greater than 50% in coordination of care (as documented) at patient's floor/unit and/or counseling patient: Coding Level of Care Code 99537 SUB INP/OBS CARE 3/50MIN Diagnoses Hypoxia R09.02 Acute bronchitis J20.9 Essential hypertension I10 Hypertension type: essential hypertension Acute diastolic CHF (congestive heart failure) I50.31 Hyperlipidemia E78.5 Anticoagulant long-term use Z79.01 PAF (paroxysmal atrial fibrillation) I48.0 Elevated troponin R77.8 (3) Hypertension Hypertension type: essential hypertension Qualified Code(s): I10 - Essential (primary) hypertension
[2023-06-02] MEDS: WARFARIN SOD 4 MG TAB PO SCH (17:05)
[2023-06-02] MEDS: DIGOXIN 0.25 MG TAB PO SCH (17:05)
[2023-06-02] MEDS: ATORVASTATIN 20 MG TAB PO SCH (21:40)
[2023-06-02] MEDS: MIRTAZAPINE TAB 15 MG TAB PO SCH (21:41)
[2023-06-03] MEDS: FUROSEMIDE 40 MG/4 ML VIAL IV SCH ×2 (00:20→13:49)
[2023-06-03] MEDS: CEFEPIME 2,000 MG in SYRINGE 0 ML IV SCH ×2 (00:20→08:44)
[2023-06-03] MEDS: DOXYCYCLINE HYCLATE 100 MG in DEXTROSE 5% MINI-B 100 ML IV SCH (04:04)
[2023-06-03] MEDS ORDERED: METOPROLOL TARTRATE 1 MG/ML VIAL IV STA (05:45)
[2023-06-03 06:20] LABS: Basophils # (auto) 0.01 K/uL (0.00-0.20); Basophils % (auto) 0.3 %; Eosinophils # (auto) 0.03 K/uL (0.00-0.50); Eosinophils % (auto) 0.8 %; Hematocrit (blood only) 30.7 % (37.0-47.0); Hemoglobin 9.7 g/dl (12.0-16.0); Immature Granulocytes # (auto) 0.02 K/uL (0.01-0.20); Immature Granulocytes % (auto) 0.5 %; Lymphocytes # (auto) 1.64 K/uL (1.20-3.40); Lymphocytes % (auto) 43.6 %; Mean Corpuscular Hemoglobin 28.6 pg (25.0-34.0); Mean Corpuscular Hgb Conc 31.6 g/dL (32.0-36.0); Mean Corpuscular Volume 90.6 fL (80.0-100.0); Mean Platelet Volume 10.2 fL (9.4-12.4); Monocytes # (auto) 0.41 K/uL (0.11-0.59); Monocytes % (auto) 10.9 %; Neutrophils # (auto) 1.65 K/uL (1.40-6.50); Neutrophils % (auto) 43.9 %; Platelet Count 146 K/uL (130-400); RDW Coefficient of Variation 17.2 % (11.5-14.5); RDW Standard Deviation 58.1 fL (36.4-46.3); Red Blood Count 3.39 M/uL (4.20-5.40); White Blood Count 3.76 K/ul (4.8-10.8)
[2023-06-03 06:24] LABS: BUN Creatinine Ratio 35.1 (10-20); Calcium 8.3 mg/dl (8.6-10.3); Creatinine Clr Calc Pharmacy 80.1 ml/min; Est GFR (African American) 85.1 ml/min; Est GFR (Non-African American) 73.4 ml/min; Potassium 4.1 mmol/L (3.5-5.1)
[2023-06-03 06:37] LABS: INR 1.3 (0.9-1.1); Prothrombin Time 14.3 Seconds (9.0-12.0)
[2023-06-03] MEDS: carvediloL 25 MG TAB PO SCH ×2 (08:38→17:38)
[2023-06-03] MEDS: dilTIAZem HCL 120 MG CAPCR PO SCH (08:40)
[2023-06-03] MEDS: POTASSIUM CHLORIDE CRTAB 20 MEQ TABCR PO SCH ×2 (08:44→17:38)
[2023-06-03] MEDS: busPIRone 5 MG TAB PO SCH ×3 (08:44→17:15)
[2023-06-03] MEDS: VORTIOXETINE HYDROBROMIDE 10 MG PO SCH ×2 (08:44→17:39)
[2023-06-03] MEDS: DICLOFENAC SOD 1% GEL 100 GM TUBE EXT SCH ×3 (08:45→17:38)
[2023-06-03] MEDS: PSYLLIUM or GUAR GUM FIBER POWDER PACKET PO SCH (08:45)
[2023-06-03] MEDS: MULTIVITAMIN TAB PO SCH (08:45)
[2023-06-03] MEDS: ARIPiprazole 5 MG TAB PO SCH (08:45)
[2023-06-03] MEDS: lamoTRIgine 100 MG TAB PO SCH (08:45)
[2023-06-03] MEDS: UMECLIDINIUM/VILANTEROL 62.5/25MCG 7 PUFFS/INHALER INH SCH (08:45)
[2023-06-03] MEDS: PRIMIDONE 50 MG TAB PO SCH ×2 (08:45→13:49)
[2023-06-03] MEDS: ASPIRIN 81 MG ECTAB PO SCH (08:45)
[2023-06-03] MEDS: TOPIRAMATE 100 MG TAB PO SCH (08:45)
[2023-06-03] MEDS: ARTIFICIAL TEARS OP SCH ×3 (08:46→17:15)
[2023-06-03] MEDS: oxyCODONE HCL IR 5 MG TAB (IMMEDIATE RELEASE) PO PRN (08:48)
--- NOTE | 2023-06-03 08:49 | XRay Report ---
XR chest 1V portable CLINICAL HISTORY: CHF COMPARISON STUDY: Chest CT May 29, 2023 and chest radiograph June 01, 2023. FINDINGS: Status post median sternotomy. Cardiomegaly is unchanged. Pulmonary vascular congestion has improved. There is no pneumothorax. Small bilateral pleural effusions are unchanged. Mild left basil ar opacity is unchanged. Cardiomediastinal silhouette is stable. IMPRESSION: 1. Interval improvement in pulmonary vascular congestion. 2. No significant change in small bilateral pleural effusions and mild right basilar opacity. ACT 112: Negative or not required by law. Electronically signed by: Humberto Espinoza M.D. 06/03/2023 8:47 AM
[2023-06-03] MEDS ORDERED: CIPROFLOXACIN 250 MG TAB PO SCH (10:00)
--- NOTE | 2023-06-03 12:25 | Electrocardiogram Report ---
Test Reason : Blood Pressure : / mmHG Vent. Rate : 099 BPM Atrial Rate : 101 BPM P-R Int : 000 ms QRS Dur : 144 ms QT Int : 364 ms P-R-T Axes : 000 005 -43 degrees QTc Int : 467 ms Sinus rhythm Right bundle branch block Abnormal ECG When compared with ECG of 28-MAY-2023 23:38, HR has decreased by [address] abnormality no longer present Confirmed by Gio Burden ([id number] on 06/03/2023 12:25:29 PM Referred By: [facility] Confirmed By:Gio Burden
--- NOTE | 2023-06-03 12:41 | Discharge Summary ---
Date of Service June 03, 2023 Admission HPI Per Admitting Provider Lydia is a 78 year old female w/ PmHx ambulatory dysfunction, anxiet and depression, esophageal dilation, peripheral artery disease, GERD, fluid retention, HTN, mitral valve mass, obesity, OCD, PTSD, PE on warfarin, tremor brought to the ER via EMS from [facility] for dyspnea and hypoxia. Patient stated that since this morning she had experienced worsening shortness of breath at rest. She states that this was accompanied with a cough that had clear sputum production however denies any fevers, chills, chest pain, dizziness, lightheadedness. She was found to be hypoxic to 80% by EMS and placed on 3L oxygen and transported to the ER. She does not usually wear oxygen at home. At the time of seeing patient she had been on Bipap for a short period of time and stated that she already felt better than when she arrived. In the ER WBC 9.87, Hgb 11.5, INR 1.4, electrolytes and kidney function WNL, BNP 490, troponin 25.2. POC ABG pH 7.31, CO2 57, HCO3 29. CXR showed scoliosis, compared with CXR from 01/11/23 showed less vascular congestion, possible consolidation LLL however no obvious signs. She was given Cefepime and vancomycin, NSS 125cc, 1gm Acetaminophen in the ER. Principal Diagnosis Acute hypoxic respiratory failure, Coumadin toxicity, suspected bronchitis with mucous plugging, nocturnal hypotension Discharge Exam General-alert and oriented x3, no fevers, no chills. Morbidly obese HEENT-head atraumatic and normocephalic, pupils equal and reactive to light, extraocular muscles intact Neck-no lymphadenopathy or thyromegaly, trachea midline Chest-diminished breath sounds bilaterally from anterior approach. No rales, wheezing or rhonchi Cardiac-regular rate and rhythm, normal S1 and S2, no murmurs Abdomen-normal bowel sounds, nontender, no hepatosplenomegaly Extremities-chronic bilateral lower extremity edema below the knees. Neuro-cranial nerves II through XII intact, motor and sensory function within normal limits, strength symmetrical with generalized weakness, no focal deficits Psych-normal affect, normal mood Discharge Data Allergies Allergy/AdvReac Type Severity Reaction Status Date / Time amoxicillin [From Augmentin] AdvReac Intermediate Diarrhea Verified 05/29/23 00:16 clavulanic acid AdvReac Intermediate Diarrhea Verified 05/29/23 00:16 [From Augmentin] Consultations 05/29/23 01:03 ED Decision to Admit Stat Ordered Studies 05/29/23 10:49 CT angio chest PE protocol Stat Hospital Course (1) Hypoxia: Acute hypoxic respiratory failure present on admission. Chest CTA negative for PE but there is evidence of mucous plugs and bronchitis. She also appears to have pulmonary vascular congestion which is contributing. Brisk diuresis so far with parenteral Lasix therapy. Treated while hospitalized with doxycycline and cefepime, day 5. This has been switched to oral Cipro at discharge. Currently on oxygen at 3 L/min per nasal cannula. Chest CTA negative for PE but there is evidence of mucous plugging and bronchitis. MRSA swab negative. BioFire negative. (2) Acute bronchitis: Treated while hospitalized with doxycycline and cefepime, day 6. Now on oral ciprofloxacin at discharge. Blood cultures negative. (3) Hypertension: BPs have been low at nighttime. Propranolol has been discontinued. Continue Coreg and diltiazem CD. Lanoxin added for atrial fibrillation rate control. Improved (4) Acute diastolic CHF (congestive heart failure): Causing pulmonary vascular congestion seen on multiple chest x-rays. Treated while hospitalized with parenteral Lasix diuresis. Brisk diuresis has ensued. Repeat portable chest x-ray done today, June 03, looks much better. Hopefully oxygen can be weaned off soon. (5) Hyperlipidemia: Stable. Continue statin (6) Anticoagulant long-term use: on Coumadin for recurrent VTE. Coumadin temporarily held and restarted on June 02. INR today is 1.3 (7) PAF (paroxysmal atrial fibrillation): Rapid ventricular rate documented earlier this admission. Now rate controlled. Continue digoxin, Coreg and diltiazem CD. Propranolol has been discontinued. Lanoxin is new. Telemetry (8) Elevated troponin: No evidence of acute coronary syndrome. Apparently due to supply/demand mismatch from rapid ventricular rate. Echo from 02/10/2023 with EF 55-60% mild Left ventricular hypertrophy. Plan Discharge to [facility] today, June 03 Total Time Total Time Spent Total Time Spent (In Minutes): 45-minute Discharge Plan Discharge Items Patient Disposition: Transfer [facility] Reason For Visit: HYPOXIA Discharge Diagnosis: Acute hypoxic respiratory failure, acute diastolic congestive heart failure, Coumadin toxicity, nocturnal hypotension, acute bronchitis with bronchial plugs Activity: Resume your previous activity Non-emergency contact: Primary Care Provider Call non-emergency contact if: you have any medication questions and your symptoms worsen Follow-up/Referrals: [facility] [Primary Care Provider] - Diet: Regular and Heart Healthy Addtl Attending Provider Instructions: Propranolol has been discontinued. Lanoxin is new. Continue Cipro for 1 week Pending Studies at Discharge: No Stand-Alone Forms: [facility] Skilled Items Patient informed of condition?: Yes DNR: Yes Discharge Level of Care: Skilled Communicable Disease: No Discharge Prognosis: Stable Lines: None Urinary Catheter: No Medications and DC Order Prescriptions: New ciprofloxacin HCl [Cipro] 500 mg tablet 500 mg PO BID 7 Days Qty: 14 0RF digoxin 250 mcg (0.25 mg) Tablet 0.25 mg PO DAILY@1600 Qty: 0 0RF Continued (DME) Women underwear pull up briefs, Max absorbency XL See Rx Instructions .Route .MEDSUPPLY Qty: 100 11RF Rx Instructions: As directed (DME) underpads for chairs, Max absorbency 23x26, Large See Rx Instructions .Route .MEDSUPPLY Qty: 100 11RF Rx Instructions: As directed (DME) Long length pads, max absorbency See Rx Instructions .Route .MEDSUPPLY Qty: 100 11RF Rx Instructions: As directed aspirin [Eliel Low Dose Aspirin] 81 mg tablet,delayed release (DR/EC) 81 mg PO QAM Qty: 90 3RF (DME) underpads Pad See Rx Instructions .ROUTE .MEDSUPPLY Qty: 300 5RF Rx Instructions: 21"x21". Use on wheelchair as needed. Dx R15.2 (DME) underpads 30 X 30 " pad See Rx Instructions .ROUTE .MEDSUPPLY Qty: 100 5RF Rx Instructions: Use as needed on recliner. DX R15.2 (DME) Premoistened adult wipes See Rx Instructions .Route .MEDSUPPLY Qty: 100 11RF Rx Instructions: As directed atorvastatin 20 mg tablet 20 mg PO HS Qty: 90 1RF oxycodone-acetaminophen 5-325 mg tablet 1 tab PO Q6H MDD 3 GRAMS APAP/24 HOURS PRN (Reason: pain) Qty: 90 0RF buspirone 5 mg tablet 5 mg PO TID Rx Instructions: 0830, 1230, 1630 bisacodyl 10 mg suppository 10 mg DE DAILY PRN (Reason: Constipation) diltiazem HCl [Cardizem LA] 240 mg tablet extended release 24 hr 240 mg PO DAILY aripiprazole 5 mg tablet 5 mg PO DAILY Artificial Tears (cmc) 1 % drops 1 drp ophthalmic (eye) QID loperamide [Imodium A-D] 2 mg capsule 2 mg PO Q6H PRN (Reason: Diarrhea) magnesium hydroxide [Milk of Magnesia] 400 mg/5 mL suspension 30 ml PO DAILY PRN (Reason: CONSTIPTATION) mirtazapine [Remeron] 30 mg tablet 30 mg PO HS alum-mag hydroxide-simeth [Mylanta Maximum Strength] 400-400-40 mg/5 mL suspension 10 ml PO Q4H PRN (Reason: Heartburn) Metamucil 3.4 gram/5.4 gram powder 2 tbsp PO DAILY Rx Instructions: mix into at least 8 oz of water or juice before administering lamotrigine 200 mg tablet 200 mg PO BID topiramate 100 mg tablet 100 mg PO BID primidone 50 mg tablet 100 mg PO TID acetaminophen 325 mg Tablet 325 mg PO Q6H MDD 3 GRAMS APAP/24 HOURS PRN (Reason: PAIN/FEVER) ipratropium-albuterol 0.5 mg-3 mg(2.5 mg base)/3 mL Solution For Nebulization 3 ml INHALATION Q2H PRN (Reason: Dyspnea) potassium chloride 10 mEq Tablet Extended Release 40 meq PO BIDM warfarin 4 mg Tablet 4 mg PO HS furosemide [Lasix] 80 mg Tablet 80 mg PO DAILY ondansetron [Zofran ODT] 4 mg Tablet,Disintegrating 4 mg PO Q6H PRN (Reason: NAUSEA/VOMITING) Refresh P.M. 57.3-42.5 % Ointment 1 applic OPHTHALMIC (EYE) HS Rx Instructions: APPLY 1 INCH TO BOTH EYES Trintellix 10 mg Tablet 10 mg PO BIDM Anoro Ellipta 62.5-25 mcg/actuation Blister With Device 1 inh INHALATION DAILY Rx Instructions: USES AT 1100 Artificial Tears (cmc) 1 % Drops 1 drp OPB Q2H PRN (Reason: Dry Eyes) carvedilol 25 mg tablet 25 mg PO BIDM diclofenac sodium 1 % gel 2 - 4 g TOP QID Rx Instructions: APPLY 4 GRAMS TO RIGHT ANKLE/FOOT, 2 GRAMS TO LEFT HAND. multivitamin Tablet 1 tab PO QAM Discontinued propranolol 60 mg capsule,extended release 24 hr 60 mg PO QAM Qty: 90 1RF Discharge Orders: Discharge Order- CHF (Routine); Ordered 06/03/23 Ordered By: Tuckre Palmer Admission Data Admit Date/Time: 05/29/23 01:31 Attending Provider: Tucker Palmer Admit Provider: Rayray Moreno Primary Care Provider: [facility] Other Providers: Dennis Fernandes Coding Level of Care Code 77823 INP/OBS DISCH >30 MIN Diagnoses Hypoxia R09.02 Acute bronchitis J20.9 Essential hypertension I10 Hypertension type: essential hypertension Acute diastolic CHF (congestive heart failure) I50.31 Hyperlipidemia E78.5 Anticoagulant long-term use Z79.01 PAF (paroxysmal atrial fibrillation) I48.0 Elevated troponin R77.8
[2023-06-03] MEDS: DIGOXIN 0.25 MG TAB PO SCH (17:14)
[2023-06-03] MEDS: WARFARIN SOD 4 MG TAB PO SCH (17:15)
== END 2023-06-03 18:14 | DRG 189 ==
LOC: ED 23:22 → SUATTDRO 05-29 01:31 → EDINP 05-29 01:31 → 1E 05-29 12:38 → 4W 05-30 06:15